=== PATIENT | female | born 1960 | race Caucasian/White ===

== ENCOUNTER → 2017-11-13 06:57 | Outpatient (CLI) | payer OTHER, SELFPAY ==
--- NOTE | 2017-11-15 11:21 | PFT ---
INTRODUCTION: The patient is a 56-year-old female currently under the care of Dr. Sameer Cifuentes the presents for pulmonary function testing secondary to a diagnosis of shortness of breath. Respiratory therapy reports good patient effort reports no other concerns. Bronchodilators were used during testing. INTERPRETATION: Forced expiration spirometry demonstrates no evidence of a large airways obstructive ventilatory defect. There was no significant response to aerosolized bronchodilators, based upon strict ATS criteria. Spirograms are of good quality and plateau normally. The respiratory flow volume loop appears normal. Body plethysmography was performed and reveals lung volumes to be within normal limits. Diffusing capacity by single breath CO is within normal limits. The airway resistance is also within normal limits. IMPRESSION: These pulmonary function studies are essentially within normal limits. There are no previous PFTs available for comparison. Clinical correlation is recommended.
== END ==
PROVIDERS: Family Provider Family Medicine; PCP Family Medicine; Visit Provider Family Medicine
DX: R06.02 Shortness of breath (principal); J32.9 Chronic sinusitis, unspecified; R05 Cough; F17.200 Nicotine dependence, unspecified, uncomplicated
CPT/HCPCS: 94060; 94726; 94729

== ENCOUNTER → 2018-01-21 15:02 | Outpatient (CLI) | payer OTHER, SELFPAY ==
--- NOTE | 2018-01-21 15:11 | RAD_ITS ---
STUDY: X-RAY - ABDOMEN/PELVIS REASON FOR EXAM: Female, 57 years old. Pt. experiencing low abdomen discomfort, pressure for 6 months TECHNIQUE: Single AP view of the abdomen / pelvis. COMPARISON: 08.21.16. FINDINGS: Normal visualized lung bases. There is an unremarkable bowel gas pattern. There is no demonstrated free abdominal air. The visualized liver, spleen and kidneys are grossly normal in size and morphology. Normal soft tissue structures. Stable deformities of both proximal femurs, and markedly horizontal position of the sacrum. RAD/Abdomen Single View IMPRESSION: There are no acute findings. Electronically Signed: Boy Samson MD at 16:55 EDT , Service support ,
== END ==
PROVIDERS: Family Provider Family Medicine; PCP Family Medicine; Visit Provider Urology
DX: R10.30 Lower abdominal pain, unspecified (principal)
CPT/HCPCS: 74018

== ENCOUNTER → 2018-02-17 14:21 | Outpatient (CLI) | payer OTHER, SELFPAY | PROVIDERS: Family Provider Family Medicine; PCP Family Medicine; Visit Provider Family Medicine | DX: R35.0 Frequency of micturition (principal) | CPT/HCPCS: 87086; 87088 ==

== ENCOUNTER → 2018-02-27 12:16 | Outpatient (CLI) | payer OTHER, SELFPAY ==
--- NOTE | 2018-02-27 12:20 | RAD_ITS ---
STUDY: X-RAY CHEST REASON FOR EXAM: Female, 57 years old. Chest heaviness TECHNIQUE: PA and lateral views of the chest. COMPARISON: August 08, 2016 FINDINGS: The lungs are clear and expanded. There is no demonstrated pleural abnormality. There is a round calcified focus within the infrahilar region that appears to be grossly stable and may reflect a calcified lymph node. Normal size heart. Normal mediastinum and tisha. Normal visualized pulmonary arteries. Normal visualized aortic arch and descending thoracic aorta. Normal visualized thoracic spine. Normal visualized ribs, clavicles, and shoulders. There is no demonstrated abnormality of the visualized soft tissue structures of the upper abdomen. RAD/Chest PA and Lateral IMPRESSION: No acute cardiopulmonary process. Electronically Signed: Jyotsna Herrera MD at 22:20 EDT Tel , Service support ,
== END ==
PROVIDERS: Family Provider Family Medicine; PCP Family Medicine; Visit Provider Family Medicine
DX: J20.9 Acute bronchitis, unspecified (principal)
CPT/HCPCS: 71046

== ENCOUNTER → 2018-03-14 10:40 | Outpatient (CLI) | payer OTHER, SELFPAY | PROVIDERS: Family Provider Family Medicine; PCP Family Medicine; Visit Provider Family Medicine | DX: R39.9 Unspecified symptoms and signs involving the genitourinary system (principal) | CPT/HCPCS: 87086; 87088 ==

== ENCOUNTER → 2019-02-18 10:42 | Outpatient (CLI) | payer OTHER, SELFPAY ==
--- NOTE | 2019-02-18 13:00 | NEURO ---
NCS and/or EMG Patient Report Ordering Doctor: Leigh Gotti DATE OF SERVICE: 02/18/19 Jacqueline Oliveira is a 58 year old female who presents for electrodiagnostic testing of the left upper limb. She reports pain in the left arm, especially prominent over the past several months. Electrodiagnostic findings: Left median motor nerve demonstrates normal distal latency, amplitude and conduction velocity. Normal left ulnar motor response. Normal median ulnar F-wave. Sensory responses are within normal limits. Needle EMG testing demonstrates 1+ fibrillations in the left pronator teres, left triceps and left lower cervical paraspinals. Motor unit action potentials are of normal amplitude and duration. Electrodiagnostic impression: This is an abnormal study in the left upper limb. 1. Electrodiagnostic findings demonstrate acute left-sided C7 radiculopathy. Consider clinical correlation with cervical spine imaging. 2. No electrodiagnostic evidence for peripheral neuropathy, including carpal tunnel syndrome.
== END ==
PROVIDERS: Family Provider Family Medicine; PCP Family Medicine; Referring Provider Family Medicine; Visit Provider Family Medicine
DX: G56.92 Unspecified mononeuropathy of left upper limb (principal)
CPT/HCPCS: 95886; 95910

== ENCOUNTER → 2019-03-04 13:02 | Outpatient (CLI) | payer OTHER, SELFPAY | PROVIDERS: Family Provider Family Medicine; PCP Family Medicine; Referring Provider Nurse Practitioner Family; Visit Provider Nurse Practitioner Family | DX: R35.0 Frequency of micturition (principal) | CPT/HCPCS: 87086; 87088 ==

== ENCOUNTER 2019-03-09 06:34 | Emergency (ER) | payer OTHER, SELFPAY ==
[2019-03-09 06:34] VITALS: BP 140/98; PULSE 74; RESP 18; TEMP 36.8; O2SAT 95; BMI 41.0
--- NOTE | 2019-03-09 06:36 | ED.VISSUMM ---
- ER Visit Summary Date of Service: 03/09/19 Chief Complaint: Dysuria History of Present Illness: The patient is a 58 F with a urinary tract infection last week she only was only partially treated due to intolerance. She took Bactrim for 3 days. She had felt better but now her symptoms are returning. No fever chills no flank pain. There is some nausea associated with this and burning with urination. No abdominal pain Physical Examination: Patient does not appear in distress, she has dwarfism, she has a soft nontender abdomen, she has paraspinal back pain but no flank pain. She appears well otherwise Emergency Department Course and Treatment: I will culture her urine and treat her with Cipro. I will also give her Zofran and Pyridium Disposition: Discharge stable condition Impression: UTI This note was generated with [employer] dictation software. It may contain incorrect words, spelling, and punctuation that were not noted in review of the chart prior to signing ED Disposition - Plan for ED Patient: Disposition: Home or Assisted Living Instructions: ED UTI Cystitis Female Prescriptions: Ondansetron [Zofran Odt] 4 mg PO Q8H PRN PRN #10 tab PRN Reason: Nausea Ciprofloxacin [Cipro] 500 mg PO BID #19 tab Phenazopyridine HCl [Pyridium] 200 mg PO BID #6 tab Referrals: Sameer Cifuentes MD [Primary Care Provider] - 3-5 Days
[2019-03-09] MEDS: Ondansetron ODT 4 MG Tablet PO (06:48)
[2019-03-09] MEDS: Ciprofloxacin 500 MG Tablet PO (07:16)
== END 2019-03-09 07:19 | disposition home or self-care (01) ==
PROVIDERS: Emergency Provider Emergency Medicine; Family Provider Family Medicine; PCP Family Medicine
DX: N39.0 Urinary tract infection, site not specified (principal); E34.3 Short stature due to endocrine disorder; Z72.0 Tobacco use; Z79.899 Other long term (current) drug therapy
CPT/HCPCS: 87086; 87088; 99283

== ENCOUNTER → 2019-04-23 07:53 | Outpatient (CLI) | payer OTHER, SELFPAY ==
--- NOTE | 2019-04-23 07:56 | BI_ITS ---
MAMMOGRAPHY - BILATERAL SCREENING 3-D TOMOSYNTHESIS REASON FOR EXAM: Female, 58 years old. Bilateral Screening 3-D tomosynthesis PERTINENT HISTORY: No significant family history. TECHNIQUE: 2-D mammograms and 3-D Tomosynthesis of the breast (s) were performed. CAD was performed. COMPARISON: 02/13/2017 FINDINGS: The breast composition is composed of scattered fibroglandular density. Scattered benign calcifications are seen. No dense spiculated masses or suspicious microcalcifications are identified. No architectural distortion is identified. There is no skin thickening or retraction. There has been no significant change since the prior study. BI/SCREEN MAMM (CAD) W/CHARLENE BILAT IMPRESSION: No mammographic signs of malignancy. Routine yearly mammograms recommended. ASSESSMENT CATEGORY: BIRADS Category 1: Negative. A letter regarding these results will be sent to the patient by the facility within 30 days. FOLLOW UP RECOMMENDATION: Yearly follow up mammogram recommended. (A) Approximately 10% of breast cancers are not detected by mammography. A normal mammogram should not delay biopsy of a clinically suspicious abnormality. Electronically Signed: Adal Decker MD at 9:39 EDT , Service support ,
== END ==
PROVIDERS: Family Provider Family Medicine; PCP Family Medicine; Referring Provider Family Medicine; Visit Provider Family Medicine
DX: Z12.31 Encounter for screening mammogram for malignant neoplasm of breast (principal)
CPT/HCPCS: 77063; 77067

== ENCOUNTER 2019-05-07 07:18 | Outpatient (RCR) | payer OTHER, SELFPAY ==
--- NOTE | 2019-05-08 15:16 | HP.OTFCE_ITS ---
HP OT Functional Capacity Eval - Work Activity/Posture Bending: Frequent Ability (34-66% of day) Squatting: Occasional Ability (1-33% of day) Kneeling: Occasional Ability (1-33% of day) Reaching out: Frequent Ability (34-66% of day) Reaching up: Frequent Ability (34-66% of day) Sitting: Frequent Ability (34-66% of day) Walking: Occasional Ability (1-33% of day) Standing: Frequent Ability (34-66% of day) - Reference Duration Sedentary Sedentary Light Light Light Medium Medium Medium Heavy Very Heavy Heavy Occasional (0-33% of day) Frequent (34-66% of day) Constant (67-100% of day) 10 # Negligible Negligible 15 # 8 # Negligible 20 # 10# Negli. 35 # 18 # 7 # 50 # 25 # 10 # 75 # 100 # >100 # 38 # 50 # >50 # 15 # 20 # >20 # - Patient Information Height: 1.22 m Weight:: 58.967 kg Hand Dominance: R BP (Medication Use/Usual Values per pt report): No - Medical History Medical History Including Restrictions: No provided by doctor and patient. She noted this is to get 'baseline'. - Diagnoses Diagnoses: Past Medical History: dwarfism, tobacco use (1/2 pack daily), neuropathy. Current: Jacqueline has been having increased neuropathy symptoms in upper extremity and lower extremity. Recent nerve conduction test showed increased nerve impingement causing neuropathy like symptoms due to L sided C7 radiculopathy. Medications: - Montelukast Sodium. -raNITIdine 15- max strength 150 mg tablet. - Loratadine 10 MG. - Phenazopyridine HCL 200 Mg tablet. - Fluticasome Propionate 50 MCG. - Escitalopram Oxalate 5MG. - ProAir HFA 108 - Symptoms Symptoms: Jacqueline noted main symptoms are numbness, tingling, and pain. She noted at times pain is achy and other times it is shooting. Sh enoted increased difficulties walking longer distances but is walking int building for work. - Pain Pain: Jacqueline has been on past pain management program with Dr. Christopher but is currently not on pain medications or program. It's going to get worse. . Andi Pain Questionnaire is a self-report pain assessment to determine a patient?s accurate psychodynamics for accurate pain rating. A score of 30 or high indicates poor psychodynamics and the greater probability of decreased accuracy with accurate pain reporting. Pre- Andi: 35. Post Andi:16. Fear Avoidance Questionnaire (FAQ) is a client self-report assessment for 18-64+ that has shown to be reliable and valid for determining increased fear with movements. A score of 96 or higher indicates increased fear avoidance behaviors. FAQ Pre-testing: -Fear avoidance belief about work (items 6,7,9,10,11,12,15): 15. -Fear avoidance belief about physical activity (items 2,3,4,5): 13. FAQ Post testing: -Fear avoidance belief about work (items 6,7,9,10,11,12,15): 24. -Fear avoidance belief about physical activity (items 2,3,4,5):17. Oswestry Neck and Low back questionnaire is a self-report assessment in which patients report their perceived level of disability based on their perceived pain. 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. She has worked there for the past 12 years. 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 - ADLS ADLS: Jacqueline live in trailer with four steps to enter with bilateral handrails. Once in trailer she has first floor set up. Jacqueline has adapted vehicle due to size. She noted she is often climbing on stools and chairs to reach heights. Jacqueline is independent with all activities of daily living like bathing, dressing, cooking, cleaning, and works full- time at [employer]. She cars for two cats and continues to drive with adaptive equipment. She noted that daily activities are getting more difficult to do. - Physical Examination Physical Examination: The purpose of this functional capacity evaluation (FCE) was to determine Camila physical ability. This FCE was performed in order to bartender helper in the determination of Camila ability to complete phayical activities. Aerobic limiting factor: 85% of max adjust HR= (220-age) *.38=369 bpm. Calculated max weight: 60% of weight= 78 lbs. Starting Diagnostics: - blood pressure: 135/ 90 mmHg. - Heart rate: 57 bpm. - Oxygen at room air with oximeter: 98% ROM: Range of Motion: Cervical Spine with goniometer: - flexion: 0-26. - extension: 0-32. - Lateral flexion R 0-41 , L 0-32. - Rotation: R 0-66 , L 0-49. . Lumbar Spine with goniometer: -Flexion:0- 70. -Extension: 0-45. - Lateral Flexion: R 0-39 , L 0-32 Strength: Shoulder flexion: -Dynamometer: R 8.7 , L 11.2 lbs. Shoulder extension: -Dynamometer: R 13.7 , L 11.9. Shoulder abduction: -Dynamometer: R 10.3 , L 10.6 lbs. Elbow. Elbow flexion: -Dynamometer: R 12.9 , L 14.2 lbs. Elbow extension: -Dynamometer: R 11.6 , L 14.7 lbs. Hip flexion: - Dynamometer: R 11.1 , L 14.3 lbs. Hip adduction: -Dynamometer: R 10.1 , L 11.3 lbs. Hip abduction: -Dynamometer: R 12.4 , L 14.6. Knee Flexion: - Dynamometer: R 21.7 , L 18.9. Knee extension: -Dynamometer: R 21.0 , L 18.6. Plantarflexion: -Dynamometer: R 12.9 , L 11.3. Dorsiflexion: - Dynamometer: R 14.6 , L 17.9 lbs Right Agriculture Instructor Strength Average: 28.66 Right Agriculture Instructor Strength Percentile: 56th Left Agriculture Instructor Strength Average: 28.00 Left Agriculture Instructor Strength Percentile: 50th Right Lateral Pinch Average: 14.00 Right Lateral Pinch Percentile: 75th Left Lateral Pinch Average: 12.00 Left Lateral Pinch Percentile: approximately 50th Right Tripod Pinch Average: 14.00 Right Tripod Pinch Percentile: approximately 75th Left Tripod Pinch Average: 11.33 Left Tripod Pinch Percentile: approximately 50th Comments: Five Span Agriculture Instructor testing on Dynamometer: Position 1: R 21 , L 25. Position 2: R 31 , L 30. Position 3: R 31 , L 26. Position 4: R 25 , L 23. Position 5: R 18 , L 17. A coefficient of variation greater than 15 % indicated decreased consistency of effort. Coefficient of variation: R 23%, L 19 %. Consistency of Effort: inconssient- but this is believed to be relative to sature as hand were smaller and increased difficulty holding are the greater positions. Sensation: Sensation testing completed on bilateral hands with monofilament touch test. A score of normal on touch test is 2.83 and within normal range with just some discrepancies for light touch is between 3.22-3.61. The higher the number in more complications related to patient?s ability to perceive touch related sensory stimuli. R hand: Thumb 3.84 ,2nd 2.83 , 3rd 2.83 , 4th 2.83 , 5th 2.83. L hand: Thumb 3.84 ,2nd 3.61 , 3rd 3.22 , 4th 2.83 , 5th 2.83 Fine Motor: Completed the Purdue Pegboard test to further determine the patient?s ability to complete 2-3 step tasks, assess fine motor control and general dexterity needed to complete assembly like work. The results are as follows: Right Hand: 10. -Percentile: 3rd. Left Hand: 9. -Percentile below 1st. Both Hands: 10. -Percentile: 2 nd. R+ L+ Both: 29. -percentile: below 1st. Assembly: 4. -percentile: below 1st. Table height 23 inches. Balance: Functional reach test is used to determine static balance in patients. A score of 15 is normal and less than 10 increases risk of falling. A score of 6 or less significantly increases a patient?s risk of falling. [place] 1: 13. [place] 2: 15. [place] 3: 14. Average: 14. Functional Gait Assessment (FGA) is a dynamic balance test to determine vestibular functioning and general dynamic balance ability of patient 18-65+. This assessment can be used with clients of various backgrounds to determine functional dynamic balance needed to complete every day work related tasks. 1.Gait Level Surface:1. 2.Change in Gait Speed: 3. 3.Gait with horizontal head turns:2. 4.Gait with vertical head turns:2. 5.Gait and pivot turn:3. 6.Step over obstacle:1. 7.Gait with narrow base of support:1. 8.Gait with eyes closed: 2. 9.Ambulating Backwards: 2. 10.Steps: 2. Total Score: 19 /maximum score 30. below two standard deviation for age related peer mean performance. - Non Material Handling Activities Bending: Heart rate prior to beginning with use of pulse oximeter: 80 bpm. 3x, 10x in 20 seconds, and 10x faster in 19 seconds. Completed with good body me chanics of feet shouderl width apart and fair spinal alignment. Increased cervical flexion noted with tasks. No pain behaviors observed. Heart rate posttest with use of pulse oximeter: 80 bpm. Perceived pain: 3/10 Squatting: Heart rate prior to beginning with use of pulse oximeter: 75 bpm. 3x, 10x in 29 seconds, and 10x faster in 21 seconds. Completed with fair body mechanics. Increased anterion flexion of trunk to promote balance and completion of tasks. Equal weight bearing obserserved to bilateral lower extremity. Able to complete full sqaut. Perceived pain: 3/10 Kneeling: Heart rate prior to beginning with use of pulse oximeter: 71 bpm. 3x, 10x in 25 seconds, and 10x faster in 32 seconds. Completed about 25% of total kneel. Increased weight distribution to R side. Completed need for R UE support to R leg to promote completion of tasks. Heart rate posttest with use of pulse oximeter: 85 bpm. Perceived pain: 3/10 Reaching out/up: Heart rate prior to beginning with use of pulse oximeter: 64 bpm. reaching out: 3x, 10x in 19 seconds, and 10x faster in 19 seconds. Heart rate posttest with use of pulse oximeter: 71. Perceived pain: 3/10. Reaching overhead: 3x, 10x in 22 seconds, and 10x faster in 23 seconds. Heart rate posttest with use of pulse oximeter: 71 bpm. Perceived pain: 3/10 Walking: Heart rate prior to beginning with use of pulse oximeter: 71 bpm. Completed walking [address] Mild antalgic gait observed to bilateral lower extremities. Heart rate posttest with use of pulse oximeter: 110. Blood pressure post walk: 123/88 mmHg. Perceived pain: Standing: Completed standing with static and dynamic tasks during testing for 37 minutes prior to needing seated break. Perceived pain: 3/10 pain Sitting: Jacqueline is able to tolerated sitting in standard chair with need to weight shift to left and the right sides for comofrt and pain management. She tolerated sitting for about 30 minutes prior to needing movement break. Climbing Stairs: Heart rate prior to beginning with use of pulse oximeter:82 bpm. blood pressure: 144/90 mmHg. Able to climb 10 stairs with reciprocal movements to ascending stairs and need for handrails assist and reciporal movements for decention. Heart rate posttest with use of pulse oximeter: 84 - Dynamic Occasional Lifting Capacity Floor Lift: Heart rateHeart rate prior to beginning with use of pulse oximeter: Max Weight: 30 lbs. Occasional: 25 lbs. Frequent: 12.5 lbs. Completed with increased cervical extentsion. Completed with good base of support and fair mechanics. Upper extremity in extended position during tasks. Would not exceed 12.5 lbs with consisent lifting tasks. Heart rate posttest with use of pulse oximeter: 107 Knee Lift: Heart rateHeart rate prior to beginning with use of pulse oximeter: 85 bpm. Occasional: 25 lbs. Frequent: 15 lbs. Compleetd with fair body mechanics. Increased trunk flexion observed for completion of tasks. Cerivical rotation to right side observed with placement of box. Heart rate posttest with use of pulse oximeter: 97 bpm Waist Lift: Heart rateHeart rate prior to beginning with use of pulse oximeter: Occasional: 30 - held breath. Frequent: 15 lbs. Fair body mechanics obserevd. Increase dmechanical compensations obvserved with placement due to short stature. 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 Pain behaviors observed due to mechanical compensations. Heart rate posttest with use of pulse oximeter: 87 bpm Shoulder Lift: Heart rateHeart rate prior to beginning with use of pulse oximeter: 82 bpm. Max weight: 30. Occasional: 25. Frequent: 15 lbs. Some holding breath; cervical turn to R side; fair body mechanics; mechanics compensations noted. Pain 3/10. Heart rate posttest with use of pulse oximeter: 122 bpm Overhead Lift: Heart rate prior to beginning with use of pulse oximeter: 88. Occasional: 20 lbs. Frequent: 10 lbs. Completed lift to 34 inches from floor height and 42 inches with box placed at top. Increased mechanical defefcits noted with size and stature as wella smechnical compensations observed of increased trunk extenion and holding breath to complete task. This was adapted to be sutiable for Christines height. Heart rate posttest with use of pulse oximeter: 77 bpm Carryin lbs 20 feet 1x. Heart rate posttest with use of pulse oximeter: 103 bpm Comments: Ending diagnostics: - blood pressure: 134/81 mmHg. - heart rate: 70 bpm. - oxygen at room tempterature: 97%. Percieved pain: 3-4/10 in left arma nd down L leg. Compensation for height due to dwarfism and need to adjsut to complete tasks.
--- NOTE | 2019-05-08 15:16 | HP.OTFCE.D ---
FCE D/C Summary - Discharge MILES LU was seen for a one time visit for an FCE on 05/07/19 and is discharged.
--- NOTE | 2019-05-18 09:13 | HP.OTFCE_ITS ---
HP OT Functional Capacity Eval Date of Evaluation: 05/07/19 - Task Lift Floor (Occasional 1-33% of Day): 25 Floor (Frequent 34-66% of Day): 12.5 Floor (Constant 67-100% of Day): negligible Floor PDL: Light Knee (Occasional 1-33% of Day): 25 Knee (Frequent 34-66% of Day): 15 Knee (Constant 67-100% of Day): negligible Knee PDL: Light Waist (Occasional 1-33% of Day): 30- held breath Waist (Frequent 34-66% of Day): 15 Waist (Constant 67-100% of Day): negligible Waist PDL: Light Shoulder (Occasional 1-33% of Day): 25 Shoulder (Frequent 34-66% of Day): 15 Shoulder (Constant 67-100% of Day): negligible Shoulder PDL: Light Overhead (Occasional 1-33% of Day): 20 Overhead (Frequent 34-66% of Day): 10 Overhead (Constant 67-100% of Day): negligible Overhead PDL: Light Comments: Completed bilateral carrying task 20 feet with 20 lbs. All tasks were completed based on stature and not on typical lifting heights as increased compensation and adaptations of step stool would be needed. - Work Activity/Posture Bending: Frequent Ability (34-66% of day) Squatting: Occasional Ability (1-33% of day) Kneeling: Occasional Ability (1-33% of day) Reaching out: Frequent Ability (34-66% of day) Reaching up: Frequent Ability (34-66% of day) Sitting: Frequent Ability (34-66% of day) Walking: Occasional Ability (1-33% of day) Standing: Frequent Ability (34-66% of day) - Reference Duration Sedentary Sedentary Light Light Light Medium Medium Medium Heavy Very Heavy Heavy Occasional (0-33% of day) Frequent (34-66% of day) Constant (67-100% of day) 10 # Negligible Negligible 15 # 8 # Negligible 20 # 10# Negli. 35 # 18 # 7 # 50 # 25 # 10 # 75 # 100 # >100 # 38 # 50 # >50 # 15 # 20 # >20 # - Patient Information Height: 1.22 m Weight:: 58.967 kg Hand Dominance: R BP (Medication Use/Usual Values per pt report): No - Medical History Medical History Including Restrictions: Not provided by doctor and patient. She noted this is to get 'baseline'. - Diagnoses Diagnoses: Past Medical History: dwarfism, tobacco use (1/2 pack daily), neuropathy. Current: Jacqueline has been having increased neuropathy symptoms in bilateral upper extremities and lower extremity. Recent nerve conduction test showed increased nerve impingement causing neuropathy like symptoms due to L sided C7 radiculopathy. Medications: - Montelukast Sodium. -raNITIdine 15- max strength 150 mg tablet. - Loratadine 10 MG. - Phenazopyridine HCL 200 Mg tablet. - Fluticasone Propionate 50 MCG. - Escitalopram Oxalate 5MG. - ProAir HFA 108 - Symptoms Symptoms: Jacqueline noted main symptoms are numbness, tingling, and pain. She noted at times pain is achy and other times it is shooting. She noted increased difficulties walking longer distances but is walking int building for work. - Pain Pain: Jacqueline has been on past pain management program with Dr. Christopher but is currently not on pain medications or program. It's going to get worse. . Andi Pain Questionnaire is a self-report pain assessment to determine a patient?s accurate psychodynamics for accurate pain rating. A score of 30 or high indicates poor psychodynamics and the greater probability of decreased accuracy with accurate pain reporting. Pre- Andi: 35. Post Andi:16. Fear Avoidance Questionnaire (FAQ) is a client self-report assessment for 18-64+ that has shown to be reliable and valid for determining increased fear with movements. A score of 96 or higher indicates increased fear avoidance behaviors. FAQ Pre-testing: -Fear avoidance belief about work (items 6,7,9,10,11,12,15): 15. -Fear avoidance belief about physical activity (items 2,3,4,5): 13. FAQ Post testing: -Fear avoidance belief about work (items 6,7,9,10,11,12,15): 24. -Fear avoidance belief about physical activity (items 2,3,4,5):17. Oswestry Neck and Low back questionnaire is a self-report assessment in which patients report their perceived level of disability based on their perceived pain. 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 - Behavioral Behavioral: Jacqueline completed tasks based on her stature and height. She was pleasant,cooperative, participative for all tasks. - ADLS ADLS: Jacqueline live in trailer with four steps to enter with bilateral handrails. Once in trailer she has first floor set up. Jacqueline has adapted vehicle due to size. She noted she is often climbing on stools and chairs to reach heights. Jacqueline is independent with all activities of daily living like bathing, dressing, cooking, cleaning, and works full- time at [employer]. She cars for two cats and continues to drive with adaptive equipment. She noted that daily activities are getting more difficult to do. - Physical Examination Physical Examination: The purpose of this functional capacity evaluation (FCE) was to determine Jacqueline?s physical ability. This FCE was performed in order to printer slotter helper in the determination of Jacqueline?s ability to complete physical activities. Aerobic limiting factor: 85% of max adjust HR= (220-age) *.86=292 bpm. Calculated max weight: 60% of weight= 78 lbs. Starting Diagnostics: - blood pressure: 135/ 90 mmHg. - Heart rate: 57 bpm. - Oxygen at room air with oximeter: 98% ROM: Range of Motion: Cervical Spine with goniometer: - flexion: 0-26. - extension: 0-32. - Lateral flexion R 0-41 , L 0-32. - Rotation: R 0-66 , L 0-49. . Lumbar Spine with goniometer: -Flexion:0- 70. -Extension: 0-45. - Lateral Flexion: R 0-39 , L 0-32 Strength: Shoulder flexion: -Dynamometer: R 8.7 , L 11.2 lbs. Shoulder extension: -Dynamometer: R 13.7 , L 11.9. Shoulder abduction: -Dynamometer: R 10.3 , L 10.6 lbs. Elbow. Elbow flexion: -Dynamometer: R 12.9 , L 14.2 lbs. Elbow extension: -Dynamometer: R 11.6 , L 14.7 lbs. Hip flexion: - Dynamometer: R 11.1 , L 14.3 lbs. Hip adduction: -Dynamometer: R 10.1 , L 11.3 lbs. Hip abduction: -Dynamometer: R 12.4 , L 14.6. Knee Flexion: - Dynamometer: R 21.7 , L 18.9. Knee extension: -Dynamometer: R 21.0 , L 18.6. Plantarflexion: -Dynamometer: R 12.9 , L 11.3. Dorsiflexion: -Dynamometer: R 14.6 , L 17.9 lbs Right Wellness Assistant Strength Average: 28.66 Right Wellness Assistant Strength Percentile: 56th Left Wellness Assistant Strength Average: 28.00 Left Wellness Assistant Strength Percentile: 50th Right Lateral Pinch Average: 14.00 Right Lateral Pinch Percentile: 75th Left Lateral Pinch Average: 12.00 Left Lateral Pinch Percentile: approximately 50th Right Tripod Pinch Average: 14.00 Right Tripod Pinch Percentile: approximately 75th Left Tripod Pinch Average: 11.33 Left Tripod Pinch Percentile: approximately 50th Comments: Five Span Wellness Assistant testing on Dynamometer: Position 1: R 21 , L 25. Position 2: R 31 , L 30. Position 3: R 31 , L 26. Position 4: R 25 , L 23. Position 5: R 18 , L 17. A coefficient of variation greater than 15 % indicated decreased consistency of effort. Coefficient of variation: R 23%, L 19 %. Consistency of Effort: inconsistent- but this is believed to be relative to stature as hands were smaller and increased difficulty holding dynamometer when placed at positions 3,4, and 5. Sensation: Sensation testing completed on bilateral hands with monofilament touch test. A score of normal on touch test is 2.83 and within normal range with just some discrepancies for light touch is between 3.22-3.61. The higher the number in more complications related to patient?s ability to perceive touch related sensory stimuli. R hand: Thumb 3.84 ,2nd 2.83 , 3rd 2.83 , 4th 2.83 , 5th 2.83. L hand: Thumb 3.84 ,2nd 3.61 , 3rd 3.22 , 4th 2.83 , 5th 2.83 Fine Motor: Completed the Purdue Pegboard test to further determine the patient?s ability to complete 2-3 step tasks, assess fine motor control and general dexterity needed to complete assembly like work. The results are as follows: Right Hand: 10. -Percentile: 3rd. Left Hand: 9. -Percentile below 1st. Both Hands: 10. -Percentile: 2 nd. R+ L+ Both: 29. -percentile: below 1st. Assembly: 4. -percentile: below 1st. Table height 23 inches. Height based on statue and accommodation made appropriate to reduce Jacqueline?s need to use stool. Balance: Functional reach test is used to determine static balance in patients. A score of 15 is normal and less than 10 increases risk of falling. A score of 6 or less significantly increases a patient?s risk of falling. Rush 1: 13. Rush 2: 15. Rush 3: 14. Average: 14. Functional Gait Assessment (FGA) is a dynamic balance test to determine vestibular functioning and general dynamic balance ability of patient 18-65+. This assessment can be used with clients of various backgrounds to determine functional dynamic balance needed to complete every day work related tasks. 1.Gait Level Surface:1. 2.Change in Gait Speed: 3. 3.Gait with horizontal head turns:2. 4.Gait with vertical head turns:2. 5.Gait and pivot turn:3. 6.Step over obstacle:1. 7.Gait with narrow base of support:1. 8.Gait with eyes closed: 2. 9.Ambulating Backwards: 2. 10.Steps: 2. Total Score: 19 /maximum score 30. Below two standard deviations based on performance of age related peers mean performance. - Non Material Handling Activities Bending: Heart rate prior to beginning with use of pulse oximeter: 80 bpm. 3x, 10x in 20 seconds, and 10x faster in 19 seconds. Completed with good body mechanics of feet shoulder width apart and fair spinal alignment. Increased cervical flexion noted with tasks. No pain behaviors observed. Heart rate posttest with use of pulse oximeter: 80 bpm. Perceived pain: 3/10 Squatting: Heart rate prior to beginning with use of pulse oximeter: 75 bpm. 3x, 10x in 29 seconds, and 10x faster in 21 seconds. Completed with fair body mechanics. Increased anterior flexion of trunk to promote balance and completion of tasks. Equal weight bearing observed to bilateral lower extremity. Able to complete full squat. Perceived pain: 3/10 Kneeling: Heart rate prior to beginning with use of pulse oximeter: 71 bpm. 3x, 10x in 25 seconds, and 10x faster in 32 seconds. Completed about 25% of full kneel with fair body mechanics. Increased mechanical compensations observed with increased weight distribution to R side. Completed need for right upper extremity support to right leg to promote completion of tasks. Heart rate posttest with use of pulse oximeter: 85 bpm. Perceived pain: 3/10 Reaching out/up: Heart rate prior to beginning with use of pulse oximeter: 64 bpm. reaching out: 3x, 10x in 19 seconds, and 10x faster in 19 seconds. Completed with full range of motion of bilateral upper extremity. She exhibits fair body mechanics with some mild mechanical changes of cervical retraction during task. No increase in speed with set that was to be quicker. Heart rate posttest with use of pulse oximeter: 71. Perceived pain: 3/10. Reaching overhead: 3x, 10x in 22 seconds, and 10x faster in 23 seconds. Completed with full range of motion of bilateral upper extremity. She exhibits fair body mechanics with some increased pain behaviors of holding breath off and on during task. No increase in speed with set that was to be quicker. Heart rate posttest with use of pulse oximeter: 71 bpm. Perceived pain: 3/10 Walking: Heart rate prior to beginning with use of pulse oximeter: 71 bpm. Completed walking [address] Moderate antalgic gait observed to bilateral lower extremities. She exhibits ability to complete frequent walking tasks with respect to speed based on stature. Heart rate posttest with use of pulse oximeter: 110. Blood pressure post walk: 123/88 mmHg. Perceived pain: 3/10 Standing: Completed standing with static and dynamic tasks during testing for 37 minutes prior to needing seated break. Perceived pain: 3/10 pain Sitting: Jacqueline is able to tolerate sitting in standard chair with need to weight shift to left and the right sides for comfort and pain management. She tolerated sitting for about 30 minutes prior to needing movement break. Climbing Stairs: Heart rate prior to beginning with use of pulse oximeter:82 bpm. blood pressure: 144/90 mmHg. Able to climb 10 stairs with reciprocal movements to ascending stairs and need for handrail assist and reciprocal movements for descension. Completed with fair body mechanics. Heart rate posttest with use of pulse oximeter: 84 bpm - Dynamic Occasional Lifting Capacity Floor Lift: Heart rate prior to beginning with use of pulse oximeter: 84 bpm. Max Weight: 30 lbs. Occasional: 25 lbs. Frequent: 12.5 lbs. Completed with increased cervical extension. Completed with good base of support and fair mechanics. Upper extremity observed in extended position during tasks. Would not exceed 12.5 lbs with frequent lifting tasks. This tasks was based on stature. Heart rate posttest with use of pulse oximeter: 107 Knee Lift: Heart rate prior to beginning with use of pulse oximeter: 85 bpm. Occasional: 25 lbs. Frequent: 15 lbs. Completed with fair body mechanics. Increased trunk flexion observed for completion of tasks. Cervical rotation to right side observed with placement of box to incline about 6 inches. Mechanical compensation made to complete task based on stature to eliminate the need to complete changes or step stool to complete tasks. Heart rate posttest with use of pulse oximeter: 97 bpm Waist Lift: Heart rate prior to beginning with use of pulse oximeter: Occasional: 30 - held breath. Frequent: 15 lbs. Fair body mechanics observed. Increased mechanical compensations observed with placement due to short stature. Blue Split Trimmer deficits noted as unable to complete to normal height but completed based on client physical stature. Pain behaviors observed due to mechanical compensations. Heart rate posttest with use of pulse oximeter: 87 bpm Shoulder Lift: Heart rate prior to beginning with use of pulse oximeter: 82 bpm. Max weight: 30. Occasional: 25. Frequent: 15 lbs. Jacqueline was observed to be holding her breath during tasks. Fair body mechanical observed. Blue Split Trimmer compensations of increased cervical turn to right side observed. Additional mechanical compensations made to complete task based on stature. Pain 3/. Heart rate posttest with use of pulse oximeter: 122 bpm Overhead Lift: Heart rate prior to beginning with use of pulse oximeter: 88. Occasional: 20 lbs. Frequent: 10 lbs. Completed lift to 34 inches from floor height and 42 inches with box placed at top. Increased mechanical deficits noted with size and stature as well as mechanical compensations observed of increased trunk extension and holding breath to complete task. This was adapted to be suitable for Jacqueline?s height. She completed with fair- poor body mechanics. Pain: 3/. Heart rate posttest with use of pulse oximeter: 77 bpm Carryin lbs 20 feet 1x. Completed with fair body mechanics. Mechanics deficits observed with bilateral antalgic gait and increased retraction of cervical spine and extension of spine. . Pain: 3/10. Heart rate posttest with use of pulse oximeter: 103 bpm Comments: Ending diagnostics: - blood pressure: 134/81 mmHg. - heart rate: 70 bpm. - oxygen at room temperature with use of pulse oximeter: 97%. Perceived pain: 3-4/10 in left arm and down left leg. Compensation for height due to dwarfism were completed to completed lifting tasks during assessment.
== END 2019-05-07 19:00 | disposition home or self-care (01) ==
LOC: OT 07:18
PROVIDERS: Family Provider Family Medicine; PCP Family Medicine; Referring Provider Family Medicine; Visit Provider Family Medicine
DX: Q77.4 Achondroplasia (principal); M48.00 Spinal stenosis, site unspecified; G58.9 Mononeuropathy, unspecified
CPT/HCPCS: 97750

== ENCOUNTER → 2019-10-05 13:36 | Outpatient (CLI) | payer OTHER, SELFPAY ==
[2019-10-05 14:28] LABS: Bacteria 0 SEEN /hpf (None Seen); Mucous, Urine 0 SEEN /hpf (<or=2+); Squamous Epithelial Cells - UA 0 SEEN /hpf (5-10); White Blood Cells 0 SEEN /hpf (0-5)
[2019-10-05 14:49] LABS: Color, Urine Yellow (Yellow); Glucose, Dipstick Normal (Normal); Ketone-Dipstick Negative (Negative); Leukocyte Esterase-Dipstick Negative /ul (Negative); Nitrite-Dipstick Negative (Negative); Occult Blood-Urine 150 /ul (Negative); Protein-Dipstick Negative (Negative); Specific Gravity, Urine 1.015 (1.002-1.030); Urine Bilirubin Dipstick Negative (Negative); Urine Clarity Clear (Clear); Urine Urobilinogen Normal (Normal)
[2019-10-05 14:58] LABS: Red Blood Cells-Urine 0-5 SEEN /hpf (0-5)
== END ==
PROVIDERS: Family Provider Family Medicine; PCP Family Medicine; Referring Provider Nurse Practitioner Family; Visit Provider Nurse Practitioner Family
DX: N39.0 Urinary tract infection, site not specified (principal)
CPT/HCPCS: 81001; 87086; 87088

== ENCOUNTER 2019-11-22 08:32 | Emergency (ER) | payer OTHER, SELFPAY ==
[2019-11-22 08:34] VITALS: BP 127/90; PULSE 102; RESP 17; TEMP 37.7; O2SAT 94; BMI 38.6
--- NOTE | 2019-11-22 09:15 | RAD_ITS ---
STUDY: X-RAY CHEST REASON FOR EXAM: Female, 58 years old. NAUSEA, VOMITING, COUGH, SORE THROAT TECHNIQUE: PA and lateral views of the chest. COMPARISON: 02/27/2018 FINDINGS: The lungs are clear and expanded. There is no demonstrated pleural abnormality. Normal size heart. Normal mediastinum and tisha. Normal visualized pulmonary arteries. Normal visualized aortic arch and descending thoracic aorta. Normal visualized thoracic spine. Normal visualized ribs, clavicles, and shoulders. There is no demonstrated abnormality of the visualized soft tissue structures of the upper abdomen. RAD/Chest PA and Lateral IMPRESSION: Normal x-ray examination of the chest. Electronically Signed: Abelardo Bocanegra MD at 10:00 EST Tel , Service support ,
--- NOTE | 2019-11-22 09:16 | ED.VISSUMM ---
- ER Visit Summary Date of Service: 11/22/19 Chief Complaint: Sore throat with subjective fever and cough. Also nausea and vomiting. History of Present Illness: The patient is a 58 F states that today she is had a sore throat and subjective fever. Cough. Intermittent nausea vomiting. No abdominal pain. No dysuria. No shortness of breath. She did get a flu vaccine around June. Physical Examination: Middle-aged female history of dwarfism. Vital signs are stable. She is afebrile temperature 998. She does not look septic or toxic. Pulse ox is 94% on room air no signs hypoxia. She is in no distress. H EENT exam moist with membranes. Posterior pharynx normal. TM normal. Neck nontender no lymphadenopathy. No meningismus. Lungs clear to auscultation bilaterally. Heart regular rhythm rate about 100 no murmur. Chest were nontender. Abdomen soft nontender normal bowel sounds no peritoneal signs. Remedies moves all 4. Calves nontender without edema or cords. Back nontender. Skin no rashes. Neurologically she is awake alert with no focal motor deficits. Test Results: Chest x-ray AP lateral views read by myself shows no acute pneumonia. Normal cardiac silhouette mediastinum. Emergency Department Course and Treatment: History and exam are consistent with a viral syndrome suspected influenza. Patient treated with p.o. Zofran. P.o. fluids. Reassessed and doing well at ga 10:17 AM. Treatment Plan: Zofran as needed for nausea. Plenty of fluids and rest. Alternate Tylenol Motrin for any fever. Follow-up if not improving. Return if worse. Disposition: Discharge Impression: Acute viral syndrome This note was generated with [employer] dictation software. It may contain incorrect words, spelling, and punctuation that were not noted in review of the chart prior to signing ED Disposition - Plan for ED Patient: Disposition: Home or Assisted Living Instructions: VIRAL SYNDROME (Adult) Prescriptions: Ondansetron [Zofran Odt] 4 mg PO Q8H PRN PRN #7 tab PRN Reason: Nausea Prescription Printed Referrals: Sameer Cifuentes MD [Primary Care Provider] - 3-5 Days if not improving Additional Instructions: Plenty of fluids and rest. Alternate Tylenol and Motrin for fever. Zofran as needed for nausea. Follow-up with your doctor if not improving or return if worse.
--- NOTE | 2019-11-22 09:18 | ED.DEP ---
ED Disposition - Plan for ED Patient: Disposition: Home or Assisted Living Instructions: VIRAL SYNDROME (Adult) Prescriptions: Ondansetron [Zofran Odt] 4 mg PO Q8H PRN PRN #7 tab PRN Reason: Nausea Prescription Printed Referrals: Sameer Cifuentes MD [Primary Care Provider] - 3-5 Days if not improving Additional Instructions: Plenty of fluids and rest. Alternate Tylenol and Motrin for fever. Zofran as needed for nausea. Follow-up with your doctor if not improving or return if worse.
[2019-11-22] MEDS: Ondansetron ODT 4 MG Tablet 8 MG PO (09:19)
[2019-11-22 10:25] VITALS: BP 118/85; PULSE 82; RESP 15
== END 2019-11-22 10:26 | disposition home or self-care (01) ==
PROVIDERS: Emergency Provider Emergency Medicine; PCP Family Medicine
DX: B34.9 Viral infection, unspecified (principal); J02.9 Acute pharyngitis, unspecified; R11.2 Nausea with vomiting, unspecified; R05 Cough; F41.9 Anxiety disorder, unspecified; E34.3 Short stature due to endocrine disorder; Z72.0 Tobacco use; Z79.899 Other long term (current) drug therapy
CPT/HCPCS: 71046; 99282

== ENCOUNTER → 2019-12-04 13:42 | Outpatient (CLI) | payer OTHER, SELFPAY ==
[2019-11-22 08:34] VITALS: BMI 38.6
--- NOTE | 2019-12-04 13:45 | CT_ITS ---
STUDY: LOW DOSE CT LUNG CANCER SCREENING REASON FOR EXAM: Female, 58 years old. TOBACCO ABUSE -- 10 CIGS/DAY X35+ YEARS RADIATION DOSAGE (If Supplied By Facility): CTDIvol = ( 1.70 ) mGy, DLP = ( 74.26 ) mGycm TECHNIQUE: No contrast was administered. Low dose technique was utilized (average mAS-38 and kVp 120). 1.25 mm axial source images with a slice interval of 1.25-mm were reconstructed in lung windows. 2.5 mm axial source images with a slice interval of 2.5-mm were reconstructed in lung windows. 5.0 mm axial source images with a slice interval of 5.0-mm were reconstructed in soft tissue windows. Nodule measured using lung windows on PACS and/or independent workstation with automated measurement of minimum and maximum diameter. Nodule measurement reported as average diameter rounded to the nearest whole number. Growth is defined as an increase ins size of greater than 1.5 mm. COMPARISON: None. NODULES: No suspicious nodular density is seen. Emphysema: Mild degree of increased markings in the lingular segment of the left upper lobe with areas of confluence suggestive of a scarring and/or atelectasis. Minimal linear scarring at the left lung base. Endobronchial lesion: None. Aorta: Unremarkable. Heart: Borderline cardiomegaly. Pulmonary artery: Unremarkable. Mediastinal nodes: Small benign-appearing mediastinal lymph nodes. Other chest and abdominal findings: Mild degree of degenerative changes of the thoracic spine. CT/Low Dose CT Lung Screening IMPRESSION: Lung-RADS category 2 - Continue annual screening with LDCT in 12 months. IMPORTANT NOTES FOR USE: ACR Lung-RADS Version 1.0 Assessment Categories Release Date: January 25, 2014 Category: Coded 0-4 bases on nodule(s) with highest degree of suspicion. Negative screen is defined as categories 1 and 2; a positive screen is defined as categories 3 and 4. Category 3 and 4A nodules that are unchanged on interval CT should be coded as category 2, and individuals returned to screening in 12 months. Category 4X: Category 3 or 4 nodules with additional imaging findings that increase the suspicion of lung cancer, such as spiculation, GGN that doubles in size in 1 year, enlarged lymph notes, etc. Category Modifiers: S (significant finding unrelated to lung cancer) and C (prior history of treated lung cancer) may be added to the 0-4 Lung-RADS Electronically Signed: Bhaskar Rowe, at 15:21 EST , Service support ,
== END ==
PROVIDERS: PCP Family Medicine; Referring Provider Family Medicine; Visit Provider Family Medicine
DX: Z12.2 Encounter for screening for malignant neoplasm of respiratory organs (principal); Z87.891 Personal history of nicotine dependence
CPT/HCPCS: G0297

== ENCOUNTER → 2020-03-15 | Outpatient (CLI) | payer OTHER, SELFPAY | END | disposition home or self-care (01) | LOC: LABSPEC 12:21 | PROVIDERS: PCP Family Medicine; Referring Provider Family Medicine; Visit Provider Family Medicine | DX: N30.90 Cystitis, unspecified without hematuria (principal) | CPT/HCPCS: 87086; 87088 ==

== ENCOUNTER 2020-05-09 12:16 | Emergency (ER) | payer OTHER, SELFPAY ==
[2020-05-09 12:16] VITALS: BP 155/99; PULSE 67; RESP 18; TEMP 36.3; O2SAT 96; BMI 38.5
--- NOTE | 2020-05-09 13:59 | ED.VIS.GEN ---
History of Present Illness Chief Complaint: Fall Informant: Patient Onset: Today Narrative: Patient states that she sustained a mechanical fall at work when her feet got caught on the carpeting. She fell forward and tried to brace herself with her arms but arms came up flex at the elbow and underneath her body mostly her weight ended up on the left side. She struck her forehead on the ground. No loss of consciousness. She denies any neurologic changes. She has full range of motion of the arm. She has a forehead hematoma and her employer was concerned about head injury. She is not on any blood thinners. Past Medical History - Allergies and Home Meds Allergies/Adverse Reactions: Allergies Cephalosporins Allergy (Verified 05/09/20 12:23) Hives codeine Adverse Reaction (Mild, Verified 05/09/20 12:23) Nausea erythromycin base [From E-Mycin] Adverse Reaction (Verified 05/09/20 12:23) Nausea/Vom/Diarrhea sulfamethoxazole [From Bactrim] Adverse Reaction (Verified 05/09/20 12:23) Nausea trimethoprim [From Bactrim] Adverse Reaction (Verified 05/09/20 12:23) Nausea decongestants Adverse Reaction (Unknown, Uncoded 05/09/20 12:23) Unknown Primary Care Physician: [facility] [NON-STAFF] - 1 Week if not improving Surgical History: no surgical history Smoking Status: Current every day smoker - Family History Maternal Family History: Family History (Last Reviewed 02/11/18 @ 08:09 by Maryam Huerta) Father Prostate cancer Skin cancer Mother Parkinsons disease Hypertension Family History: Reports: No pertinent history Review of Systems General: Denies: Chills, Fever, Sweats Eyes: Denies: Visual changes - bilaterally, Diplopia ENT: Denies: Rhinorrhea, Sore throat Cardiovascular: Denies: Chest pain, Palpitations Respiratory: Denies: Dyspnea, Cough, Dyspnea on exertion Gastrointestinal: Denies: Abdominal pain, Nausea, Vomiting, Diarrhea, Melena, Hematochezia Genitourinary: Denies: Dysuria, Hematuria, Frequency Musculoskeletal: Denies: Back pain, Extremity Pain Skin: Denies: Rash, Wounds Neurological: Denies: Headache, Weakness, Numbness Physical Exam Vital Signs/Narrative: Vital Signs Temp Pulse Resp BP Pulse Ox 05/09/20 12:16 97.4 F L 67 18 155/99 H 96 Inital Vital Signs reviewed: Yes General: Well nourished, Well developed, No Acute Distress Head: Normocephalic, - - Left forehead hematoma. No bony depression. Eyes: Perrl, EOMI ENT: Moist mucous membranes, No rhinorrhea Neck: Supple, Nontender Cardiovascular: Regular rate, Regular rhythm, No murmurs Respiratory: No distress, CTA bilaterally, Chest nontender Abdomen: Soft, Nontender, Nondistended, Normal bowel sounds Back: Nontender, Normal Inspection Extremities: Nontender, No edema Skin: Normal color, No rash Neurological: Alert, Oriented x3, Cranial nerves II-XII grossly intact, Normal Strength, Normal Sensation Psychological: Normal affect, Normal Mood Diagnostic/Tx/Re-eval - Medical Decision Making It is been approximately 5 hours since the injury. No loss of consciousness. She is under the age of 62.is not on any blood thinners and has a normal neurologic examination. I do not believe she needs a head CT. Full range of motion of the arms has neurovascular intact there. Patient will be discharged home with supportive care return if worsening or concerns ED Disposition - Plan for ED Patient: Disposition: Home or Assisted Living Diagnosis: Fall, Forehead contusion, Contusion of left arm Instructions: ED Head Injury Adult Referrals: Clinic,[facility] [NON-STAFF] - 1 Week if not improving
== END 2020-05-09 14:26 | disposition home or self-care (01) ==
LOC: ED 14:08
PROVIDERS: Emergency Provider Emergency Medicine; PCP Family Medicine
DX: S00.83XA Contusion of other part of head, initial encounter (principal); W01.0XXA Fall on same level from slipping, tripping and stumbling without subsequent striking against object, initial encounter; Y93.9 Activity, unspecified; Y92.89 Other specified places as the place of occurrence of the external cause; Y99.0 Civilian activity done for income or pay; F17.200 Nicotine dependence, unspecified, uncomplicated; S40.022A Contusion of left upper arm, initial encounter
CPT/HCPCS: 99282

== ENCOUNTER → 2020-07-07 08:13 | Outpatient (CLI) | payer OTHER, SELFPAY ==
--- NOTE | 2020-07-07 08:19 | US_ITS ---
STUDY: RENAL ULTRASOUND - COMPLETE REASON FOR EXAM: Female, 59 years old. UTI TECHNIQUE: Ultrasound evaluation of the kidneys was performed with real-time and static patel-scale imaging. COMPARISON: 04/12/2017 FINDINGS: RIGHT KIDNEY: Normal location of the right kidney, which is normal in size. The right kidney measures 10.0 cm. There is a normal cortex of the right kidney. The renal cortex measures 1.2 cm. 1.8 cm cyst lower pole the right kidney. 1.2 cm cyst in the upper pole the right kidney. Another 1 cm cyst in the upper pole the right kidney. There are no right renal calculi. There is no right hydronephrosis. DISTAL RIGHT URETER: There is non-visualization of the distal right ureter. There is no demonstrated right ureterovesical junction calculus. There is a visualized right ureteral jet. LEFT KIDNEY: Normal location of the left kidney, which is normal in size. The left kidney measures 10.6 cm. There is a normal cortex of the left kidney. The renal cortex measures 1.1 cm. 1.6 cm cyst in the upper pole of the left kidney. 1.6 cm cyst lower pole left kidney. There are no left renal calculi. There is mild hydronephrosis of the left kidney. DISTAL LEFT URETER: There is non-visualization of the distal left ureter. There is no demonstrated left ureterovesical junction calculus. There is a visualized left ureteral jet. Structures BLADDER: The distended urinary bladder has a volume of 33 ml. The empty urinary bladder has a volume of ml. There is a normal wall thickness of the distended urinary bladder. There is no demonstrated mass within the urinary bladder. There are no demonstrated bladder calculi. US/Kidney and Bladder IMPRESSION: Mild left hydronephrosis. Correlation with CT may be useful. Electronically Signed: Abelardo Bocanegra MD at 9:24 EDT Tel , Service support ,
== END ==
PROVIDERS: PCP Family Medicine; Referring Provider Urology; Visit Provider Urology
DX: N39.0 Urinary tract infection, site not specified (principal)
CPT/HCPCS: 76770

== ENCOUNTER → 2020-07-20 15:59 | Outpatient (CLI) | payer OTHER, SELFPAY ==
[2020-07-20 18:46] LABS: Creatinine, Serum 0.64 mg/dL (0.55-1.02); EST Glomerular Filtration Rate 102 mL/min (>60); Est Glom Filt Rate - Afr Amer 123 mL/min (>60)
== END ==
PROVIDERS: PCP Family Medicine; Referring Provider Urology; Visit Provider Urology
DX: N39.0 Urinary tract infection, site not specified (principal)
CPT/HCPCS: 36415; 82565

== ENCOUNTER → 2020-07-21 14:39 | Outpatient (CLI) | payer OTHER, SELFPAY ==
--- NOTE | 2020-07-21 14:44 | CT_ITS ---
STUDY: CT ABDOMEN AND PELVIS WITH AND WITHOUT CONTRAST REASON FOR EXAM: Female, 59 years old. LEFT HYDRONEPHROSIS. H/O KS REQUIRING SURGICAL INTERVENTION/STENTS RADIATION DOSAGE (If Supplied By Facility): CTDIvol = ( 15.14 ) mGy, DLP = ( 1996.19 ) mGycm TECHNIQUE: Transaxial images were obtained from the dome of the diaphragm to the symphysis pubis without oral contrast. IV 100mL Isovue-300 was administered. Sagittal and coronal images were reconstructed. Individualized dose optimization techniques were used for this CT. COMPARISON: Comparison is made with prior study dated 09/05/2016. FINDINGS: The visualized lung bases are unremarkable. The visualized portions of the heart are within normal limits. Normal liver. The patient is status post cholecystectomy. Normal spleen. Normal pancreas. Normal bilateral adrenal glands. 2 mm calculus in the lower pole calyx of the right kidney. 5.3 mm calculus in the lower pole calyx. Tiny calculi are also seen in the lower pole calyx of the right kidney. Stable small bilateral renal cysts. Moderate degree of a left hydronephrosis and hydroureter due to a 8.2 mm calculus at the left ureterovesical junction as it enters the bladder. Normal visualized stomach. Normal small intestine. There are multiple colonic diverticula consistent with diverticulosis. The appendix is visualized and appears normal. Normal abdominal aorta. Normal inferior vena cava. Normal retroperitoneum. Normal urinary bladder. There is a small umbilical hernia containing fat. There are mild degenerative changes of the visualized lumbar spine. CT/CT Abd/Pelvis W/WO Contrast IMPRESSION: Small bilateral renal cysts. Nonobstructive calculi in the right kidney. Mild to moderate degree of left hydronephrosis and left hydroureter due to an 8.2 mm calculus at the left UV junction. Electronically Signed: Bhaskar Rowe, at 12:53 EDT , Service support ,
== END ==
PROVIDERS: PCP Family Medicine; Referring Provider Urology; Visit Provider Urology
DX: N13.30 Unspecified hydronephrosis (principal); N39.0 Urinary tract infection, site not specified
CPT/HCPCS: 74178; Q9967

== ENCOUNTER 2020-08-02 06:21 | Day surgery (SDC) | payer OTHER, SELFPAY ==
[2020-08-02 06:59] VITALS: BP 127/87; PULSE 65; RESP 16; TEMP 37.1; O2SAT 98; BMI 38.7
[2020-08-02] MEDS: Lactated Ringers 1,000 ML 100 ML IV (07:04)
--- NOTE | 2020-08-02 07:35 | HP.PCM_ITS ---
Problem List (1) Ureteral calculus, left Status: Acute History of Present Illness Date of Admission: 08/02/20 Chief Complaint: left ureteral stone The patient is a 59 year old F [history significant for stones, developed abdominal discomfort and some lower urinary tract symptoms. On evaluation with CT, was found to have large distal ureteral calculus. She now presents for definitive treatment.] Past Medical History Medical History: Medical History (Last Reviewed 08/02/20 @ 07:[address] Jenifer Win MD) Shortness of breath (Acute) R06.02 Sinusitis (Acute) J32.9 Kidney stone (Acute) bilateral Allergies Cephalosporins Allergy (Verified 08/02/20 06:42) Hives codeine Adverse Reaction (Mild, Verified 08/02/20 06:42) Nausea erythromycin base [From E-Mycin] Adverse Reaction (Verified 08/02/20 06:42) Nausea/Vom/Diarrhea sulfamethoxazole [From Bactrim] Adverse Reaction (Verified 08/02/20 06:42) Nausea trimethoprim [From Bactrim] Adverse Reaction (Verified 08/02/20 06:42) Nausea decongestants Adverse Reaction (Unknown, Uncoded 08/02/20 06:42) Unknown Home Medications: Ambulatory Orders Medication Instructions Recorded Escitalopram Oxalate [Lexapro] 5 mg PO DAILY 08/07/16 fluticasone propionate 50 2 spray INTRANASAL QDAY PRN 02/11/18 mcg/actuation nasal spray,suspension Albuterol IH (ProAir) [Proair Hfa 1 puff INHALATION Q4H PRN PRN 07/26/20 (SP)Vent Pts] Ascorbic Acid [Vitamin C] 500 mg PO DAILY 07/26/20 D-Mannose 500 gm MC DAILY 07/26/20 Hydroxyzine HCl 25 mg PO DAILY PRN PRN 07/26/20 Surgical History: no surgical history Psychiatric History: No pertinent psych hx PSYCHOLOGICAL EXAMINER History: No pertinent PSYCHOLOGICAL EXAMINER history Smoking Status: Current every day smoker - *Family History Maternal Family History: Family History (Last Reviewed 08/02/20 @ 07:[address] Jenifer Win MD) Father Prostate cancer Skin cancer Mother Parkinsons disease Hypertension History Items: No pertinent history Review of Systems Constitutional: Denies: Anorexia, Chills, Fever Eyes: Denies: Vision Change HEENT: Denies: Visual Changes Cardiovascular: Denies: Chest Pain, Chest Pressure Respiratory: Denies: Cough, Shortness of Breath Gastrointestinal: Reports: Abdominal Pain. Denies: Nausea, Vomiting Genitourinary: Denies: Dysuria, Retention Gynecological: Denies: Vaginal itching Musculoskeletal: Denies: Muscle pain Skin: Denies: Wounds Neurological: Denies: Seizures VTE Information - Inpt Only VTE Present on Admission: Yes VTE Mechan Device Prophylaxis: SCD's VTE Pharm Prophylaxis ordered?: No Reason prophylaxis not ordered:: Treatment Not Indicated - Physical Exam Vitals/I&O's: Vital Signs Temp Pulse Resp BP Pulse Ox 98.8 F 65 16 127/87 H 98 08/02/20 06:59 08/02/20 06:59 08/02/20 06:59 08/02/20 06:59 08/02/20 06:59 Oxygen Delivery Method Room Air Weight: 57.5 kg Body Mass Index (BMI) 38.7 General: Alert, Oriented x3, Cooperative, No apparent distress HEENT: Atraumatic, Normocephalic Oral: Moist Mucosa Neck: Supple, Trachea Midline Lungs: Normal air movement Cardiovascular: Regular rate, Regular Rhythm Abdomen: Soft, Non Tender, Non-Distended Extremities: - - dwarfism Skin: No rashes Musculoskeletal: No Muscle Wasting Neurological: Cranial nerves II-XII grossly intact, Neuro grossly intact Psych/Mental Status: Alert and oriented to time, place, person, mood and affect Microbiology Past 72 Hours 08/01/20 08:30 Interface Orders - Final Current Medications Ciprofloxacin (Cipro) 400 mg in 200 mls @ 200 mls/hr IV PREOP ONE Stop: 08/02/20 09:09 Lactated Ringer's () 1,000 mls @ 100 mls/hr IV .Q10H JOHN Last Admin: 08/02/20 07:04 Dose: 100 mls/hr Documented by: Assessment/Plan All Active Problems (Last Reviewed 02/11/18 @ 08:09 by Maryam Huerta) Ureteral calculus, left (Acute) Shortness of breath (Acute) Sinusitis (Acute) Kidney stone (Acute) cystoscopy, left ureteroscopy, laser lithotripsy and left ureteral stent insertion Procedure Criteria Procedure Type: Elective COVID Risk Discussion: The surgeon/proceduralist and patient have discussed in detail the risk of exposure to and/or potential harm posed by the COVID-19 virus with having a surgery/procedure at this time versus the risk of delaying the surgery/pro cedure. It is not possible to know either the risk of delaying the surgery or procedure or chance of getting an infection with perfect accuracy, but a joint decision was made between the patient and the surgeon/proceduralist to proceed at this time with the scheduled surgery/procedure as indicated on the consent form.
--- NOTE | 2020-08-02 08:13 | OP.PCM_ITS ---
Problem List (1) Ureteral calculus, left Status: Acute Report of Operation Date of Procedure: 08/02/20 Pre-Operative Diagnosis: Left ureteral calculus Post-Operative Diagnosis: Same Surgery/Procedure Performed:: Cystoscopy, attempted left ureteral access Type of Anesthesia:: General Description of Procedure: The patient is a 59-year-old female with a large left distal ureteral calculus who presents for definitive management. Informed consent was obtained including a discussion of COVID-19. The patient was taken to the operating room and placed in the operating room table. Anesthesia monitored the head, neck, airway, IV access and vital signs throughout the case. Once anesthesia was appropriate administered the patient was placed into dorsal lithotomy position was prepped and draped in usual sterile fashion. A cystourethroscopy was performed through the urethra under direct visualization. The left ureteral orifice was posteriorly pointed. Sever al attempts were made at passage of a Glidewire through the orifice and passed the stone. An angled 0.035 Glidewire was passed through the orifice but could not gain access past the ureteral calculus. After multiple attempts that were unsuccessful, the decision was made to abort the procedure. Patient was awakened and taken the recovery room in good condition. There were no complications during the procedure. - Complications None - Admit VTE Documentation VTE Present on Admission: Yes VTE Mechan Device Prophylaxis: SCD's VTE Pharm Prophylaxis ordered?: No Reason prophylaxis not ordered:: Treatment Not Indicated
--- NOTE | 2020-08-02 08:21 | PCM.DC.URO ---
Discharge Diet: No Restrictions Discharge Activity: May not drive while taking narcotic pain medications., May Shower May resume sexual activity in: No Restrictions Call your doctor if you observe: Fever of 101 or Higher, Inability to urinate, Inability to have a bowel movement Allergies/Adverse Reactions: Allergies Cephalosporins Allergy (Verified 08/02/20 06:42) Hives codeine Adverse Reaction (Mild, Verified 08/02/20 06:42) Nausea erythromycin base [From E-Mycin] Adverse Reaction (Verified 08/02/20 06:42) Nausea/Vom/Diarrhea sulfamethoxazole [From Bactrim] Adverse Reaction (Verified 08/02/20 06:42) Nausea trimethoprim [From Bactrim] Adverse Reaction (Verified 08/02/20 06:42) Nausea decongestants Adverse Reaction (Unknown, Uncoded 08/02/20 06:42) Unknown Medications to take at Discharge Escitalopram Oxalate [Lexapro] 5 mg PO DAILY 08/07/16 fluticasone propionate 50 mcg/actuation nasal spray,suspension 2 spray INTRANASAL QDAY PRN 02/11/18 Albuterol IH (ProAir) [Proair Hfa] 1 puff INHALATION Q4H PRN PRN 07/26/20 Ascorbic Acid [Vitamin C] 500 mg PO DAILY 07/26/20 D-Mannose 500 gm MC DAILY 07/26/20 Hydroxyzine HCl 25 mg PO DAILY PRN PRN 07/26/20 Nitrofurantoin Monohyd/M-Cryst [Macrobid 100 mg Capsule] 100 mg PO BID 3 Days #6 cap 08/02/20 Oxycodone HCl/Acetaminophen [Percocet 5/325] 1 tab PO Q8H PRN PRN 2 Days #6 tab 08/02/20 Phenazopyridine HCl [Pyridium] 200 mg PO BID PRN PRN 15 Days #30 tab 08/02/20 The following prescriptions were given: Nitrofurantoin Monohyd/M-Cryst [Macrobid 100 mg Capsule] 100 mg PO BID 3 Days #6 cap Transmission Status: Received by [facility] Oxycodone HCl/Acetaminophen [Percocet 5/325] 1 tab PO Q8H PRN PRN 2 Days #6 tab PRN Reason: Pain Transmission Status: Received by [facility] Phenazopyridine HCl [Pyridium] 200 mg PO BID PRN PRN 15 Days #30 tab PRN Reason: Bladder Spasms Transmission Status: Received by [facility] Primary Care Physician: Sameer Cifuentes MD [Primary Care Provider] - Test Results: Test results from this visit will be discussed in further detail at your follow-up appointment, if applicable. Please Follow Up With: Jenifer Win MD When: call office for appt Proposed Discharge Date: 08/02/20
[2020-08-02] MEDS: Ciprofloxacin 400 MG/200 ML BAG 200 MG IV (08:22)
[2020-08-02 09:00] VITALS: BP 106/67; BP 127/87; PULSE 71; RESP 16; TEMP 36.7; O2SAT 96
[2020-08-02 09:08] VITALS: BP 119/74; BP 127/87; PULSE 71; RESP 18; O2SAT 99
[2020-08-02 09:15] VITALS: BP 127/87; BP 132/79; PULSE 74; RESP 18; TEMP 36.7; O2SAT 98
[2020-08-02 09:55] VITALS: BP 127/87; BP 135/90; PULSE 66; RESP 16; TEMP 36.6; O2SAT 99
== END 2020-08-02 10:20 | disposition home or self-care (01) ==
LOC: SDC 06:22 → AC 06:22
PROVIDERS: PCP Family Medicine; Referring Provider Urology; Visit Provider Urology
PROC: 0TJ98ZZ Inspection of Ureter, Via Natural or Artificial Opening Endoscopic (ICD-10-PCS; CPT 52352; principal; 2020-08-02 08:10)
DX: N20.1 Calculus of ureter (principal); F41.9 Anxiety disorder, unspecified; F17.200 Nicotine dependence, unspecified, uncomplicated; Z87.442 Personal history of urinary calculi; Z53.8 Procedure and treatment not carried out for other reasons; Z20.828 Contact with and (suspected) exposure to other viral communicable diseases
CPT/HCPCS: 52000; 76000; 87426; C9803; J7120; C1769; J0744; J2405

== ENCOUNTER 2020-08-09 09:17 | Day surgery (SDC) | payer OTHER, SELFPAY ==
[2020-08-09 09:47] VITALS: BP 105/83; PULSE 61; RESP 18; TEMP 36.8; O2SAT 99; BMI 38.7
[2020-08-09] MEDS: Lactated Ringers 1,000 ML 100 ML IV (10:00)
[2020-08-09] MEDS: Ciprofloxacin 400 MG/200 ML BAG 200 MG IV (10:16)
--- NOTE | 2020-08-09 10:23 | PCM.OPRPT ---
Problem List (1) Ureteral calculus, left Status: Acute Report of Operation Date of Procedure: 08/09/20 Pre-Operative Diagnosis: left ureteral calculus Post-Operative Diagnosis: same Surgery/Procedure Performed:: Left ureteral extracorporal shockwave lithotripsy Type of Anesthesia:: General Specimen's removed: none Description of Procedure: The patient is a 59-year-old female with a distal left ureteral calculus approximately 8 to 9 mm in size. She underwent an attempt at ureteroscopy with laser lithotripsy and failed secondary to inability to place a safety wire due to the anatomy of her ureteral orifices and the large size of the stone. Informed consent was obtained to proceed with extracorporal shockwave lithotripsy, a discussion of Covid was included. The patient was taken to the operating room and placed on the operating room table. Anesthesia monitored the head, neck, airway, IV access and vital signs throughout the case. Once anesthesia was appropriate ministered the patient was placed into the correct appropriate position with the lithotripter. The stone was easily identified. 4000 shocks were applied to the area. The patient tolerated the procedure well and the stone appeared to be well fragmented at the conclusion of the case. The patient was then awakened and taken to the recovery room in good condition. There were no complications during the procedure. Grafts/Implants Used: none - Complications None - Admit VTE Documentation VTE Present on Admission: Yes VTE Mechan Device Prophylaxis: SCD's VTE Pharm Prophylaxis ordered?: No Reason prophylaxis not ordered:: Treatment Not Indicated
--- NOTE | 2020-08-09 10:28 | DCINST_ITS ---
Discharge Diet: No Restrictions Discharge Activity: May not drive while taking narcotic pain medications. May resume sexual activity in: No Restrictions Call your doctor if you observe: Fever of 101 or Higher, Inability to urinate, Inability to have a bowel movement Allergies/Adverse Reactions: Allergies Cephalosporins Allergy (Verified 08/04/20 08:34) Hives codeine Adverse Reaction (Mild, Verified 08/04/20 08:34) Nausea erythromycin base [From E-Mycin] Adverse Reaction (Verified 08/04/20 08:34) Nausea/Vom/Diarrhea nitrofurantoin [From Macrobid] Adverse Reaction (Verified 08/04/20 08:35) Vomiting sulfamethoxazole [From Bactrim] Adverse Reaction (Verified 08/04/20 08:34) Nausea trimethoprim [From Bactrim] Adverse Reaction (Verified 08/04/20 08:34) Nausea decongestants Adverse Reaction (Unknown, Uncoded 08/04/20 08:34) Unknown Medications to take at Discharge Escitalopram Oxalate [Lexapro] 5 mg PO DAILY 08/07/16 fluticasone propionate 50 mcg/actuation nasal spray,suspension 2 spray INTRANASAL QDAY PRN 02/11/18 Albuterol IH (ProAir) [Proair Hfa] 1 puff INHALATION Q4H PRN PRN 07/26/20 Ascorbic Acid [Vitamin C] 500 mg PO DAILY 07/26/20 D-Mannose 500 gm PO DAILY 07/26/20 Hydroxyzine HCl 25 mg PO DAILY PRN PRN 07/26/20 Phenazopyridine HCl [Pyridium] 200 mg PO BID PRN PRN 15 Days #30 tab 08/02/20 Oxycodone HCl/Acetaminophen [Oxycodone-Acetaminophen 5-325] 1 ea PO PRN PRN 08/04/20 Ciprofloxacin [Cipro] 250 mg PO BID 3 Days #6 tab 08/09/20 Oxycodone HCl/Acetaminophen [Percocet 5/325] 1 tablet PO Q8H PRN PRN 7 Days #10 tablet 08/09/20 The following prescriptions were given: Ciprofloxacin [Cipro] 250 mg PO BID 3 Days #6 tab Transmission Status: Pending to [facility] Oxycodone HCl/Acetaminophen [Percocet 5/325] 1 tablet PO Q8H PRN PRN 7 Days #10 tablet PRN Reason: Pain Transmission Status: Sent to [facility] Primary Care Physician: Sameer Cifuentes MD [Primary Care Provider] - Test Results: Test results from this visit will be discussed in further detail at your follow- up appointment, if applicable. Please Follow Up With: Jenifer Win MD When: in 2-3 weeks with [facility] Proposed Discharge Date: 08/09/20
[2020-08-09 12:00] VITALS: BP 105/83; BP 90/42; PULSE 89; RESP 16; TEMP 36.6; O2SAT 97
[2020-08-09 12:14] VITALS: BP 101/68; BP 105/83; PULSE 70; RESP 16; O2SAT 99
[2020-08-09 12:29] VITALS: BP 105/83; BP 113/63; PULSE 65; RESP 14; TEMP 35.9; O2SAT 98
[2020-08-09 13:05] VITALS: BP 105/83
== END 2020-08-09 13:19 | disposition home or self-care (01) ==
LOC: SDC 09:18 → AC 09:18
PROVIDERS: PCP Family Medicine; Referring Provider Urology; Visit Provider Urology
PROC: (CPT 50590; principal; 2020-08-09 11:00)
DX: N13.2 Hydronephrosis with renal and ureteral calculous obstruction (principal); Z20.828 Contact with and (suspected) exposure to other viral communicable diseases; N39.41 Urge incontinence; R35.0 Frequency of micturition; R35.1 Nocturia; G89.4 Chronic pain syndrome; G47.33 Obstructive sleep apnea (adult) (pediatric); F32.9 Major depressive disorder, single episode, unspecified; K21.9 Gastro-esophageal reflux disease without esophagitis; Z78.0 Asymptomatic menopausal state; Z79.899 Other long term (current) drug therapy; Z86.718 Personal history of other venous thrombosis and embolism
CPT/HCPCS: 00873; 50590; 87426; C9803; J7120; J0744; J2405

== ENCOUNTER → 2020-08-15 10:21 | Outpatient (CLI) | payer OTHER, SELFPAY ==
[2020-08-09 09:47] VITALS: BMI 38.7
[2020-08-15 12:37] LABS: Hematocrit 45.4 % (37-47); Hemoglobin 14.9 g/dL (12.0-15.0); Mean Corp Hgb Conc 32.8 g/dL (32-36); Mean Corpuscular Hgb 29.4 pg (27.0-32.0); Mean Corpuscular Volume 89.7 fL (81-99); Platelet Count 284 K/mm3 (150-450); RBC Distribution Width CV 13.4 % (11.6-14.6); RBC Distribution Width SD 44.4 fl (35.1-43.9); Red Blood Count 5.06 M/mm3 (4.2-5.4); White Blood Count 5.9 K/mm3 (4.4-11.0)
[2020-08-15 12:51] LABS: Anion Gap 7 (5-15); BUN 16 mg/dL (7-18); BUN/Creat Ratio 22.5 RATIO (10-20); Calcium,Total 9.1 mg/dL (8.5-10.1); Chloride 109 mmol/L (98-107); Creatinine, Serum 0.71 mg/dL (0.55-1.02); EST Glomerular Filtration Rate 90 mL/min (>60); Est Glom Filt Rate - Afr Amer 109 mL/min (>60); Glucose 102 mg/dL (74-106); Potassium 4.1 mmol/L (3.5-5.1); Sodium Level 141 mmol/L (136-145)
== END ==
PROVIDERS: PCP Family Medicine; Referring Provider Urology; Visit Provider Urology
DX: R53.81 Other malaise (principal); R11.0 Nausea
CPT/HCPCS: 36415; 80048; 85027

== ENCOUNTER → 2020-08-18 13:19 | Outpatient (CLI) | payer OTHER, SELFPAY ==
[2020-08-09 09:47] VITALS: BMI 38.7
--- NOTE | 2020-08-18 13:38 | CT_ITS ---
STUDY: CT ABDOMEN AND PELVIS WITHOUT CONTRAST REASON FOR EXAM: Female, 59 years old. LEFT SIDED KIDNEY STONES. HX OF ZAINAB C SECTION AND [place] REMOVAL RADIATION DOSAGE (If Supplied By Facility): CTDIvol = ( 9.26 ) mGy, DLP = ( 363.85 ) mGycm TECHNIQUE: Transaxial images were obtained from the dome of the diaphragm to the symphysis pubis without oral contrast, and without intravenous contrast. Sagittal and coronal images were reconstructed. Individualized dose optimization techniques were used for this CT. COMPARISON: Comparison is made with prior study dated 07/21/2020. FINDINGS: The visualized lung bases are unremarkable. The visualized portions of the heart are within normal limits. Normal liver. The patient is status post cholecystectomy. Normal spleen. Normal pancreas. Normal bilateral adrenal glands. Stable bilateral renal cysts. Stable stable nonobstructive right intrarenal calculi. Stable nonobstructive left intrarenal calculus. The previously seen 8.2 mm calculus at the left ureterovesical junction is not seen at this time. Normal visualized stomach. Normal small intestine. Normal colon. The appendix is visualized and appears normal. Normal abdominal aorta. Normal inferior vena cava. There is borderline retroperitoneal lymphadenopathy with enlarged nodes no greater than 10mm in the short axis diameter. Normal urinary bladder. Normal abdominal wall. There are diffuse degenerative changes of the visualized lumbar spine. CT/Abdomen/Pelvis without Cont IMPRESSION: Stable examination except for nonvisualization of the calculus previously seen at the left ureterovesical junction. Electronically Signed: Bhaskar Rowe, at 14:20 EST , Service support ,
== END ==
PROVIDERS: PCP Family Medicine; Referring Provider Urology; Visit Provider Urology
DX: N20.1 Calculus of ureter (principal); R10.2 Pelvic and perineal pain; R68.83 Chills (without fever)
CPT/HCPCS: 74176

== ENCOUNTER 2020-09-12 12:15 | Emergency (ER) | payer OTHER, SELFPAY ==
[2020-09-12 12:15] VITALS: BP 199/112; PULSE 81; RESP 16; TEMP 36.7; O2SAT 96
--- NOTE | 2020-09-12 12:39 | ED.DCSUM_ITS ---
- ER Visit Summary Date of Service: 09/12/20 Chief Complaint: [Right leg pain] History of Present Illness: The patient is a 59 F [presents to the emergency department with right leg pain that started yesterday. Patient denies any injury or trauma. Patient states that she did have a syncopal episode 3 nights ago when she fell off the toilet while she was having vomiting and diarrhea episode. Patient states that she did not have any pain in her hip per buttock area until last evening. Patient has pain that radiates down the leg to the foot. Patient at times feels like her foot is numb. Patient does have history of pinched nerve and has had pain like this before. Patient also has a history of arthritis in the hip. Patient rates her pain a 9 out of 10. She denies any other illness.] Patient denies loss of bowel or bladder function. She denies weakness in the extremity. Physical Examination: [HEENT-PERRLA, EOMI. Cranial nerves II through XII grossly intact. TMs clear. Mucous membranes moist. No adenopathy. Cardiovascular-regular rate and rhythm without murmur or ectopy Lungs-clear to auscultation, chest wall stable without crepitus or subcu emphysema Abdomen-normoactive bowel sounds, soft, nontender, no rebound or rigidity, no peritoneal signs. Back exam-no tenderness over the lumbar thoracic spine. Patient does have some discomfort with palpation over the right piriformis muscle. She has negative straight leg raises bilaterally. Deep tendon reflexes are plus 2 out of 4 bilaterally at the patella and Achilles. Patient has normal 5 extension bilaterally. Patient has normal sensation to light touch. Patient has normal pulses. Extremities-intact ?4, normal range of motion, normal pulses, atraumatic] Test Results: [None indicated] Emergency Department Course and Treatment: [] Treatment Plan: [We will be started on Flexeril, [place], and naproxen. Patient vies to follow-up with primary care physician 5 to 7 days. Vice return if worsening pain, weakness extremities, change in bowel or bladder function, or condition should worsen anyway.] Disposition: [Discharged home in stable condition] Impression: [Right sciatica] This note was generated with [employer] software. It may contain incorrect words, spelling, and punctuation that were not noted in review of the chart prior to signing ED Disposition - Plan for ED Patient: Referrals: Sameer Cifuentes MD [Primary Care Provider] -
--- NOTE | 2020-09-12 12:41 | ED.DEP ---
ED Disposition - Plan for ED Patient: Instructions: ED Sciatica Prescriptions: cycloBENZAPRine HCl [Flexeril] 10 mg PO TID PRN #20 tab PRN Reason: Muscle Spasm Prescription Printed Naproxen [Naprosyn] 500 mg PO BID PRN #20 tab Prescription Printed Hydrocodone Bitart/Apap 5-325 [[place] 5MG-325MG] 1 tab PO Q4H PRN PRN 2 Days #14 tab PRN Reason: Pain Prescription Printed Referrals: Sameer Cifuentes MD [Primary Care Provider] - 5-7 Days
== END 2020-09-12 13:03 | disposition home or self-care (01) ==
LOC: ED 12:49
PROVIDERS: Emergency Provider Emergency Medicine; PCP Family Medicine
DX: M54.31 Sciatica, right side (principal); M16.11 Unilateral primary osteoarthritis, right hip; Z72.0 Tobacco use; Z79.899 Other long term (current) drug therapy
CPT/HCPCS: 99282

== ENCOUNTER → 2020-10-04 14:24 | Outpatient (CLI) | payer OTHER, SELFPAY ==
--- NOTE | 2020-10-04 14:38 | CT_ITS ---
STUDY: CT ABDOMEN AND PELVIS WITH CONTRAST REASON FOR EXAM: Female, 59 years old. RLQ pain, hx kidney stones, cholecystectomy, . RADIATION DOSAGE (If Supplied By Facility): CTDIvol = ( 12.44 ) mGy, DLP = ( 338.34 ) mGycm TECHNIQUE: Transaxial images were obtained from the dome of the diaphragm to the symphysis pubis with oral contrast. Oral and amp; IV GASTROGRAFIN and amp; 75ML ISOVUE 300 was administered. Sagittal and coronal images were reconstructed. Individualized dose optimization techniques were used for this CT. COMPARISON: 08/18/2020 FINDINGS: The visualized lung bases are unremarkable. The visualized portions of the heart are within normal limits. Normal liver. There is non-visualization of the gallbladder, which may be secondary to either contraction or a prior cholecystectomy. Normal spleen. Normal pancreas. Normal bilateral adrenal glands. Small bilateral renal cysts. Multiple small nonobstructing right renal stones. No hydronephrosis, ureteral stone, or ureteral dilatation. Normal visualized stomach. Normal small intestine. Normal colon. The appendix is visualized and appears normal. Normal abdominal aorta. Normal inferior vena cava. Normal retroperitoneum. Normal urinary bladder. Normal abdominal wall. Normal osseous structures. CT/Abdomen/Pelvis WITH Contrast IMPRESSION: Multiple small nonobstructing right renal stones. Electronically Signed: Abelardo Bocanegra MD at 17:29 EST Tel , Service support ,
== END ==
PROVIDERS: PCP Family Medicine; Visit Provider Family Medicine
DX: R10.31 Right lower quadrant pain (principal)
CPT/HCPCS: 74177; Q9967

== ENCOUNTER → 2021-01-02 07:02 | Outpatient (CLI) | payer OTHER, SELFPAY ==
--- NOTE | 2021-01-02 07:05 | BI_ITS ---
MAMMOGRAPHY - BILATERAL SCREENING 3-D TOMOSYNTHESIS REASON FOR EXAM: Female, 60 years old. SCREENING PERTINENT HISTORY: No significant family history. TECHNIQUE: 2-D mammograms and 3-D Tomosynthesis of the breast (s) were performed. CAD was performed. COMPARISON: None. FINDINGS: There are scattered areas of fibroglandular density. No dense spiculated masses or suspicious microcalcifications are identified. No architectural distortion is identified. There is no skin thickening or retraction. BI/SCRN MAMM (CAD)W/CHARLENE BILAT IMPRESSION: No mammographic signs of malignancy. Routine yearly mammograms recommended. ASSESSMENT CATEGORY: BIRADS Category 1: Negative. A letter regarding these results will be sent to the patient by the facility within 30 days. FOLLOW UP RECOMMENDATION: Yearly follow up mammogram recommended. (A) Approximately 10% of breast cancers are not detected by mammography. A normal mammogram should not delay biopsy of a clinically suspicious abnormality. Electronically Signed: Carson Ventura MD at 13:08 EDT Tel , Service support ,
== END ==
PROVIDERS: PCP Family Medicine; Referring Provider Family Medicine; Visit Provider Family Medicine
DX: Z12.31 Encounter for screening mammogram for malignant neoplasm of breast (principal)
CPT/HCPCS: 77063; 77067

== ENCOUNTER → 2021-01-09 11:05 | Outpatient (CLI) | payer OTHER, SELFPAY ==
--- NOTE | 2021-01-09 11:10 | RAD_ITS ---
STUDY: X-RAY - CERVICAL SPINE REASON FOR EXAM: Female, 60 years old. NECK PAIN TECHNIQUE: 3 view(s) of the cervical spine were obtained. COMPARISON: 05/18/2016 FINDINGS: Normal anterior atlantoaxial articulation. Normal odontoid process. There is straightening of the normal cervical lordosis. Normal vertebral bodies and endplates. Focal disc space narrowing and osteophyte formation at C3/C4 and C6-C7 consistent with degenerative disc disease. 2 mm retrolisthesis of C3 on C4. Normal visualized intervertebral neuroforamina. The soft tissue structures are unremarkable. RAD/Cerv Spine 2 or 3 Views IMPRESSION: Focal degenerative disc disease at C3/C4 and C6 on C7 with 2 mm retrolisthesis of C3 on C4 and straightening of the normal lordotic curvature. MRI may be useful. Electronically Signed: Abelardo Bocanegra MD at 9:14 EDT Tel , Service support ,
--- NOTE | 2021-01-09 11:35 | RAD_ITS ---
STUDY: X-RAY - LUMBAR SPINE REASON FOR EXAM: Female, 60 years old. BACK PAIN -- . TECHNIQUE: 3 view(s) of the lumbar spine were obtained. COMPARISON: 07/16/2014 FINDINGS: Normal lumbar lordosis. There is no substantial scoliosis. There is a normal alignment of the vertebrae. There is diffuse demineralization with multi-level endplate spondylosis. There is multi-level degenerative disc disease with multi-level disc space narrowing. Stable mild anterior wedge compression of L2 and L3 (chronic). No acute compression fracture. The soft tissue structures are unremarkable. RAD/Lumbar Spine 2 or 3 Views IMPRESSION: Similar multilevel degenerative disc disease since 2013. Electronically Signed: Felton West MD ([place]) at 12:44 EDT , Service support ,
== END ==
PROVIDERS: PCP Family Medicine; Referring Provider Anesthesiology Pain Medicine; Visit Provider Anesthesiology Pain Medicine
DX: M54.2 Cervicalgia (principal); M54.9 Dorsalgia, unspecified
CPT/HCPCS: 72040; 72100

== ENCOUNTER 2021-01-12 16:00 | Outpatient (RCR) | payer OTHER, SELFPAY ==
--- NOTE | 2020-12-15 09:45 | HP.PTEVAL_ITS ---
Patient's Visit Information MILES LU is a 60 year old F referred to Physical Therapy by Dr. Sameer Cifuentes MD with a diagnosis of STENOSIS, ACHONDROPLASIA W/ SPONDYLOLISTHESIS. Date of Evaluation: 12/15/20 Physical Therapist: Francie Daiz, PT, Cert MDT - Visit Plan Frequency: 2-3x /Week Duration: 4-6 Weeks Plan: POSTURE CORRECTION/STRENGTHENING, INSTRUCTION IN APPROPRIATE BODY MECHANICS AND ACTIVITY MODIFICATIONS. DLS STARTING WITH A NEUTRAL SPINE PROGRESSING ROM TOLERATED. CHIVO LE ROM, STRETCHING AND STRENGTHENING. HEP INSTRUCTION. TRIAL OF ONE AQUATIC THERAPY SESSION TO SEE IF MODIFICATIONS CAN BE MADE THAT WILL ALLOW PATIENT TO BENEFIT FROM WATER THERAPY BASED ON HER HEIGHT AND THE DEPTH OF THE POOL. OK TO CHANGE OTHER LAND NOEL'TS TO POOL IF BENEFICIAL. PATIENT INQUIRED ABOUT POOL EX'S AND LIKES THIS PLAN. 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 Disability: NO. Present symptoms: PAIN IN MY WHOLE BODY AT TIMES BUT MY LOW BACK IS THE WORST ON BOTH SIDES AND INTO MY HIPS. CHIVO LE PAIN, NUMBNESS, TINGLING, RUBBER LEGS AND WEAK LEGS. NUMBNESS AND TINGLING IN FEET TOO. Present since: CHRONIC - YEARS AND YEARS. Pain Scale: WORST 8/10, LEAST 3/10. Currently: 5/10 - WORSENING. Commenced as a result of: BECAUSE OF BEING LITTLE. Symptoms at onset: LOW BACK. 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 GETS WORSE THE DAY PROGRESSES. INCREASED BACK PAIN DRIVING (PATIENT RELATES TO DRIVING WITH HAND CONTROLS). Better: LYING DOWN, SQUATTING. MORNINGS. Disturbed sleep: YES. Previous history/Previous treatment: NO BACK SURGERY. HAS HAD PAIN MGMT AND [facility] BUT HAS NOT BEEN THERE FOR ABOUT [address] CIFUENTES WANTS HER TO GO BACK TO DR. BARTHOLOMEW. STATES BACK SURGERY HAS BEEN RECOMMENDED BECAUSE THERE IS NOT ENOUGH SPACE BETWEEN HER SPINE AND SPINAL CORD BUT SHE HAS NOT AGREED TO THAT. PATIENT REPORTS SHE GETS DISCOURAGED BECAUSE OF ALL THE TESTS AND TREATMENTS SHE HAS HAD AND BECAUSE OF THE LACK OF PROFESSIONALS EXPERTISE WITH [facility]. DOES NOT RECALL HAVING PT FOR LOW BACK. ONE [facility]O VISIT IN TEENS AND IT SCARED HER SO SHE HASN'T GONE BACK. CURRENTLY NOT ON ANY MEDICATION FOR HER BACK PAIN. TRIED GABAPENTIN BUT SHE STOPPED DUE TO THE SIDE EFFECTS. Coughing/sneezing/straining: POSITIVE. Gait: PATIENT REPORTS HER WALKING IS PAIN AND DISTANCE LIMITED. LEANS TO THE LEFT TO TAKE WEIGHT OFF THE R LE AT TIMES. Difficulty initiating urination: no. Accidents: NO. Unexplained weight loss: NO. Imaging: NONE RECENT - PATIENT REPORTS HAVING X-RAYS, MRI AND CAT SCAN OF HER LOW BACK BUT IT HAS BEEN YEARS. 2014 MRI: STUDY: MRI LUMBAR SPINE WITH CONTRAST. REASON FOR EXAM: Female, 54 years old. Nodule. Radiculopathy. Numbness. and tingling in arms and hands. Bilateral leg and feet tingling and. numbness. No known injury. Pinching in the left side of the lower back. TECHNIQUE: Standardized fat and water weighted pulse sequences were. obtained in the sagittal and axial following I.V. administration of 7 ml of. Gadavist contrast material. COMPARISON: Prior MRI of the lumbar spine without contrast material on. 07-11-15. . FINDINGS: The previously noted intradural nodular lesion at the level of L1 is not. visualized on the postcontrast study. There are no areas of abnormal. enhancement. Vascular structures are noted with normal enhancement. (sagittal T1 postcontrast series 20 image 7). Normal lumbar lordosis. There is no substantial scoliosis. Normal conus. medullaris that terminates at the T12-L1 level. L1-2: There is anterior osteophyte formation. There is disc desiccation. with minimal disc space narrowing. There is an annular bulge. There is. facet arthrosis. There is moderate canal stenosis. There is bilateral. foraminal stenosis. L2-3: There is endplate spondylosis with anterior osteophytes. There is. disc desiccation with a broad-based central disc protrusion. There is. bilateral facet arthrosis. The severe spinal canal and bilateral foraminal. stenosis. L3-4: There is endplate spondylosis and bilateral facet arthrosis. There. is an annular bulge. There is moderate spinal canal stenosis. There is. bilateral foraminal stenosis. L4-5: There is endplate spondylosis. There is bilateral facet arthrosis. There is an annular bulge. There is moderate spinal canal stenosis and. bilateral foraminal stenosis. L5-S1: There is endplate spondylosis. There is an annular bulge. There. is facet arthrosis. There is moderate spinal canal stenosis. There is. bilateral foraminal stenosis. Normal visualized sacral ala. Normal visualized paraspinous soft tissue structures. . IMPRESSION: Multilevel mild degree of degenerative disc disease with annular bulges and. foraminal stenosis as outlined above, unchanged in the prior study. Previously noted intradural nodular lesion in the spinal canal at the level. of L1 is not identified. The findings on the pre-contrast examination. probably related to elongation and crowding of the nerve roots. Multilevel spinal canal stenosis. Electronically Signed: Pranay Leal MD, FACR. at 20:05 EDT. PMH/Recent major surgery: SEEING A THERAPIST DUE TO HER PAIN EFFECTING HER EMOTIONALLY - GETS VERY DISCOURAGED TRYING TO KEEP UP WITH THINGS. H/O NECK AND ARM PAIN, KIDNEY STONES AND UTI'S. OTHER: EMERGENCY DEPT VISIT AUG 2020 WITH [facility] - FAINTED AND FELL OFF THE TOLIET SHORTLY BEFORE. SOCIAL: LIVES ALONE. HAS TO USE A STOOL A LOT FOR DAILY ACTIVITIES. - Objective Sitting/Standing Posture: POOR. Lordosis: INCREASED. Lateral shift: NO. Relevant shift: N/A. Active Correction of posture: NE. Other Observations: INDEP GAIT AND TREANSFERS WITH MILD LIMP ON RLE. Motor deficit: RIGHT LE WEAKNESS > LEFT. R HIP 4-/5, KNEE EXT 4/5, KNEE FLEX 4/5, ANKLE 5/5. LLE: HIP 4/5, KNEE 5/5, ANKLE 5/5. Sensory deficit: RIGHT LE LIGHT TOUCH SENSATION DECREASED COMPARED TO LEFT. ROM deficit: CHIVO LE'S WFL. Dural Signs: POSITIVE RIGHT LE. Lumbar mvmt loss: flex - NIL. ext - MOD - LIMITED TESTING DUE TO DX. R SG - NIL. L SG - NIL. PATIENT DENIES INCREASED PAIN WITH LUMBAR ROM TESTING. Core strength: POOR. Palpation: TENDERNESS WITH PALPATION OF CHIVO LOW BACK REGIONS R > L AND INCREASED MUSCLE TONE CHIVO PARASPINALS. TREATMENT: NEUROMUSCULAR REEDUCATION - RETRAINING OF MVMT AND POSTURE FOR SITTING, LYING AND STANDING ACTIVITIES. - Goals Goal 1:: DECREASE C/O BACK AND LE SX'S. Goal Time Frame: 4-6 Weeks Goal 2:: IMPROVE PERSONAL CARE, LIFTING, WALKING, SITTING, STANDING, SOCIAL LIFE, TRAVEL AND WORK/HOMEMAKING FUNCTION. Goal Time Frame: 4-6 Weeks Goal 3:: INSTRUCT IN PROPHYLAXIS Goal Time Frame: 4-6 Weeks - Anticipated Interventions Patient/Client Instruction: Educate patient on: Condition, Plan of Care, Risk Factors, Benefits of Fitness Program For the Purpose of:: To improve self management Therapeutic Exercise to Include: Strength training, Body mechanics, Postural training, Flexibilty training, Gait and locomotor training, Neuromotor development, In an aquatic setting, Dynamic Lumbar Stabilization For the Purpose of:: To decrease pain, To improve muscle performance and motor function, To increase tolerance to activity/condition/position, To improve ability of physical actions for home/community/work/leisure, To improve gait and locomotor functions Thank you for the opportunity to evaluate your patient. For Medicare and Medicare HMO plans, please review the plan of care and approve it. It will need to be FAXED BACK to us at [phone] for Medicare purposes. For Medicare only, by signing this I certify the plan of care. Please let me know if there are questions or concerns regarding this plan of care. Physician Signature: Date:
--- NOTE | 2021-07-09 17:07 | HP.PT.NRP ---
MILES LU was seen in my office for initial evaluation on 12/15/20. The following Plan of Care was established for this patient: Initial Frequency: 2-3x /Week Initial Duration: 4-6 Weeks Patient/Client Instruction: Educate patient on: Condition, Plan of Care, Risk Factors, Benefits of Fitness Program For the Purpose of:: To improve self management Therapeutic Exercise to Include: Strength training, Body mechanics, Postural training, Flexibilty training, Gait and locomotor training, Neuromotor development, In an aquatic setting, Dynamic Lumbar Stabilization For the Purpose of:: To decrease pain, To improve muscle performance and motor function, To increase tolerance to activity/condition/position, To improve ability of physical actions for home/community/work/leisure, To improve gait and locomotor functions This patient was last seen in our office 01/12/21. Pertinent comments regarding their Physical therapy will appear below: This patient has not returned to Physical Therapy and is appropriate to return to MD for further follow-up as needed. At this point I will be discontinuing this patient from physical therapy. I would be happy to see this patient again in the future if found appropriate by the physician. Thank you! Francie Diaz, PT, Cert MDT Balance/Gait/Functional tests - Balance/Special Test Scores Oswestry Low Back Score: 25
== END 2021-01-12 19:00 | disposition home or self-care (01) ==
LOC: PT 16:00
PROVIDERS: PCP Family Medicine; Referring Provider Family Medicine; Visit Provider Family Medicine
DX: M48.00 Spinal stenosis, site unspecified (principal); Q77.4 Achondroplasia; M43.10 Spondylolisthesis, site unspecified
CPT/HCPCS: 97110; 97112; 97162; 97530

== ENCOUNTER → 2021-02-24 07:03 | Outpatient (CLI) | payer OTHER, SELFPAY ==
--- NOTE | 2021-02-24 07:17 | MRI_ITS ---
STUDY: MRI LUMBAR SPINE WITHOUT CONTRAST REASON FOR EXAM: Female, 60 years old. BACK PAIN* congenital short stature TECHNIQUE: Standardized fat and water weighted pulse sequences were obtained in the sagittal and axial planes. was administered for the contrast portion of the examination. COMPARISON: 09 January 2021, 11 July 2015 FINDINGS: Appearance is comparable to prior with mild expected worsening of degeneration given time interval of 6 years between exams. T11-T12: Normal endplates. Normal disc height, hydration and morphology. Normal bilateral facet joints. Normal central canal and bilateral lateral recesses. Foramina are moderately stenotic bilaterally. T12-L1: Normal endplates. Normal disc height, hydration and morphology. Normal bilateral facet joints. Normal central canal and bilateral lateral recesses. Normal bilateral intervertebral neural foramina. Normal lumbar lordosis. There is no substantial scoliosis. Conus terminates at L1. Cauda equina is restricted at multiple levels. L1-2: Normal endplates. Normal disc height, decreased hydration and degenerative bulge morphology. Mildly degenerated bilateral facet joints. Moderate to severe central canal stenosis. Normal bilateral intervertebral neural foramina. L2-3: Normal endplates. Normal disc height, decreased hydration and degenerative bulge morphology. Mildly degenerated bilateral facet joints. Moderate to severe central canal stenosis. Normal bilateral intervertebral neural foramina. L3-4: Normal endplates. Normal disc height, decreased hydration and degenerative bulge morphology. Mildly degenerated bilateral facet joints. Moderate to severe central canal stenosis. Normal bilateral intervertebral neural foramina. L4-5: Normal endplates. Normal disc height, decreased hydration and degenerative bulge morphology. Mildly degenerated bilateral facet joints. Moderate to severe central canal stenosis. Normal bilateral intervertebral neural foramina. Bilateral lateral recess stenosis. L5-S1: Normal endplates. Normal disc height, hydration and morphology. Normal bilateral facet joints. Normal central canal and bilateral lateral recesses. Normal bilateral intervertebral neural foramina. Bilateral lateral recess stenosis. Normal visualized sacral ala. Noncontrast epidural space is normal without dural thickening. Normal visualized paraspinous soft tissue structures. There are bilateral renal cysts without hydronephrosis. MRI/Spine Lumbar (Routine) IMPRESSION: 1. Expected worsening of degeneration over the last 6 years since prior scan. 2. Multilevel moderate to severe spondylotic thecal sac stenosis at L1-L2, L2-L3, L3-L4 and L4-L5. 3. Neurosurgical consultation is advised. Electronically Signed: Gama Delgado MD at 21:10 EDT Tel , Service support ,
--- NOTE | 2021-02-24 07:17 | MRI_ITS ---
STUDY: MRI CERVICAL SPINE WITHOUT CONTRAST REASON FOR EXAM: Female, 60 years old. Right ARM PAIN* Pt. has dwarfism TECHNIQUE: Standardized fat and water weighted pulse sequences were obtained in the sagittal and axial planes. COMPARISON: Cervical spine x-rays 01/09/2021 FINDINGS: Normal foramen magnum and brainstem-cervical cord junction. Normal craniovertebral junction. Normal anterior atlantoaxial articulation. Normal odontoid process. Mild cervical kyphosis.. Normal vertebral bodies and posterior osseous elements. C2-3: Normal endplates. Normal disc height, signal and morphology. Normal central canal and intervertebral neural foramina. C3-4: Anterior endplate spurring Narrowed disc space and minor bulging disc osteophyte complex and small central disc protrusion narrowing the spinal canal and mildly compressing the cord.. Severe right neuroforaminal stenosis and moderate to severe narrowing on the left. C4-5: Normal endplates. Normal disc height, signal and morphology. Normal central canal. Moderate to severe bilateral neuroforaminal stenosis secondary to bony hypertrophy C5-6: Normal endplates. Normal disc height, signal and tiny left paracentral disc protrusion.. Normal central canal. Severe left neuroforaminal stenosis secondary to bony hypertrophy C6-7: Mild anterior endplate spurring.. Normal disc height, signal and morphology. Normal central canal. Left neuroforaminal stenosis secondary to bony hypertrophy. C7-T1: Normal endplates. Normal disc height, signal and morphology. Normal central canal and intervertebral neural foramina. Tiny nonspecific foci of gliosis or myelomalacia within the cord posterior to the C4 vertebral body likely due to chronic impingement. Normal visualized soft tissue structures. Findings are similar to that seen on prior examination given inherent differences in imaging modalities. MRI/Spine Cervical (Routine) IMPRESSION: No evidence for acute fracture or other significant bony pathology. Spondylosis and multilevel spinal stenosis secondary to disc disease and bony hypertrophy. There is cord compression at C3-4 as well as nonspecific myelomalacia or gliosis in the cord at C4 Electronically Signed: Petros Mcqueen MD at 17:05 EDT , Service support ,
== END ==
PROVIDERS: PCP Family Medicine; Referring Provider Anesthesiology Pain Medicine; Visit Provider Anesthesiology Pain Medicine
DX: M54.2 Cervicalgia (principal); M79.603 Pain in arm, unspecified; M54.9 Dorsalgia, unspecified; M79.606 Pain in leg, unspecified
CPT/HCPCS: 72141; 72148

== ENCOUNTER → 2021-08-08 11:53 | Outpatient (CLI) | payer OTHER, SELFPAY ==
--- NOTE | 2021-08-08 11:54 | RAD_ITS ---
STUDY: X-RAY - LUMBOSACRAL SPINE REASON FOR EXAM: Female, 60 years old. Acute back pain TECHNIQUE: 7 view(s) of the lumbosacral spine were obtained. COMPARISON: None FINDINGS: Normal lumbar lordosis. There is no substantial scoliosis. There is normal alignment of the vertebrae. There is multilevel endplate spondylosis of the lumbar vertebrae. Mild disc space narrowing Normal bilateral sacral ala, sacroiliac joints, and visualized sacrum. Normal visualized soft tissue structures. RAD/L/S Spine w Bend Min 6 Vw IMPRESSION: Mild degenerative changes, no acute findings Electronically Signed: Adal Decker MD at 17:04 EST , Service support ,
== END ==
PROVIDERS: PCP Family Medicine; Referring Provider Family Medicine; Visit Provider Family Medicine
DX: M54.9 Dorsalgia, unspecified (principal)
CPT/HCPCS: 72114

== ENCOUNTER 2021-08-15 06:44 | Emergency (ER) | payer OTHER, SELFPAY ==
[2021-08-15 06:44] VITALS: BP 142/89; PULSE 103; RESP 18; TEMP 36.2; O2SAT 95; BMI 37.4
--- NOTE | 2021-08-15 07:21 | EDS_ITS ---
HPI History of Present Illness Chief Complaint: Back Narrative Narrative: Patient presents with 2 to 3 weeks of back pain in her low back, radiating down her left leg. 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 She is seen her primary care physician, Dr. Sameer Cifuentes, who she states is performed x-rays which did not show compression fracture. She was on oxycodone and gabapentin for her pain, but stopped taking it because it made her sick. She experienced nausea and vomiting. Additionally, she states that she was taking famotidine while she was taking prednisone, but stopped that. She was switched to indomethacin as an anti-inflammatory, but states that she has not received that from the pharmacy because of insurance reasons. She states that her pain is usually worse as the day goes on. She sits at a desk and works on a computer. She feels aching and burning sensation in her left leg and left thigh. Additionally, she states that her toes get numb. She denies any loss of bowel or bladder. No saddle anesthesia. No red flag signs. She states that her primary care physician told her that if she needed a CT or MRI of her back that she needed to come to the emergency department. [facility] Medical History Anesthesia complication Kidney stone Shortness of breath Sinusitis Home Medications escitalopram oxalate 5 mg PO DAILY 08/07/16 [History Last Taken 09/19/16 05:30] fluticasone propionate 50 mcg/actuation nasal spray,suspension 2 spray INTRANASAL QDAY PRN 02/11/18 [History Last Taken Unknown] albuterol sulfate 1 puff INHALATION Q4H PRN PRN 07/26/20 [History Last Taken Unknown] gabapentin 100 mg capsule 100 mg PO TID cap 03/17/21 [History Last Taken Unknown] loratadine 10 mg tablet 10 mg PO DAILY tab 03/17/21 [History Last Taken Unknown] cyclobenzaprine 10 mg PO TID PRN #20 tab 08/15/21 [Rx Last Taken Unknown] diclofenac sodium 75 mg PO BID PRN #20 tab 08/15/21 [Rx Last Taken Unknown] Allergy/AdvReac Type Severity Reaction Status Date / Time Cephalosporins Allergy Hives Verified 08/15/21 06:47 codeine AdvReac Mild Nausea Verified 08/15/21 06:47 erythromycin base AdvReac Nausea/Vom/ Verified 08/15/21 06:47 [From E-Mycin] Diarrhea nitrofurantoin AdvReac Vomiting Verified 08/15/21 06:47 [From Macrobid] sulfamethoxazole AdvReac Nausea Verified 08/15/21 06:47 [From Bactrim] trimethoprim [From Bactrim] AdvReac Nausea Verified 08/15/21 06:47 decongestants AdvReac Unknown Unknown Uncoded 08/15/21 06:47 Family History Father Prostate cancer Skin cancer Mother Parkinsons disease Hypertension Surgical History History of History of cholecystectomy History of nephrolithotomy with removal of calculi History of tonsillectomy and adenoidectomy Social History Smoking Status: Current every day smoker tobacco type: cigarettes second hand exposure: Yes alcohol intake: never substance use type: does not use ROS ROS ED ROS Narrative Constitutional: No fever, no chills. HEENT: No sore throat. No neck pain. No loss of vision. No rhinorrhea. Cardiovascular: No chest pain. No palpitations. No pedal edema. Respiratory: No cough, no shortness of breath. Abdominal: No abdominal pain. No nausea. No vomiting. Genitourinary: No dysuria. No hematuria. Musculoskeletal: No myalgias. No arthralgias. Positive low back pain radiating down left leg Neurologic: No headaches. No dizziness. No lightheadedness. No saddle anesthesia. Burning sensation left lower extremity. Feels inflamed. Skin: No rash. No change in color. Psychiatric: No depression. No anxiety. EXAM Physical Exam Narrative Exam Narrative: Afebrile. Vital signs noted. HEENT: Normocephalic. Atraumatic. PERRL, EOMI. Neck soft and supple. No point tenderness or step off. Cardiovascular: Regular rate and rhythm. No murmurs, rubs, or gallops appreciated. Respiratory: No tachypnea. Lungs clear to auscultation bilaterally. Gastrointestinal: Abdomen soft, nontender, with normoactive bowel sounds. No rebound or guarding. Neurological: Awake. Alert. Nonfocal, nonlateralizing. EHL intact bilaterally. DTRs, patellar, equal and symmetric of bilateral lower extremities Skin: No rash. Normal color. No pallor. Musculoskeletal: No pedal edema. Full range of motion extremities. No vertebral point tenderness or bony step-off. Const Vital Signs: 08/15/21 06:44 Temperature 97.1 F L Temperature Source Temporal Pulse Rate 103 H Respiratory Rate 18 Blood Pressure 142/89 H Blood Pressure Mean 106 Pulse Ox 95 Oxygen Delivery Method Room Air MDM MDM MDM Narrative Medical decision making narrative: Patient states that she has history of kidney stones. I do not feel that this is flank pain, but rather more lumbar radiculopathy. Once again, she has no red flag signs for cauda equina. I do not feel a CT is indicated, nor do I feel that an emergent MRI is indicated given her examination. I had a lengthy discussion with the patient. She will continue her oxycodone. She was given an intramuscular injection of Toradol. I will write her for an anti-inflammatory such as Voltaren or naproxen, and add a muscle relaxer like Flexeril. We will also check a urinalysis. Urinalysis is negative for infection on microanalysis there are 0-5 WBCs and no RBCs. She has urine nitrite negative. At this point in time, I feel she can be discharged safely home with follow-up to her primary care provider. Return instructions to the emergency department were reviewed. Disposition is discharged home in [facility] condition. Lab Data Attestation: I reviewed the patient's lab results. Labs: Laboratory Results - last 24 hr 08/15/21 08:46 Urine Color Yellow Urine Clarity Sl. Cloudy Urine pH 7.0 Ur Specific [place] 1.015 Urine Protein Negative Urine Glucose (UA) Normal Urine Ketones 50 H Urine Occult Blood Negative Urine Nitrite Negative Urine Bilirubin Negative Urine Urobilinogen Normal Ur Leukocyte Esterase 25 H Urine RBC 0 SEEN Urine WBC 0-5 SEEN Ur Squamous Epith Cells 0-5 SEEN Urine Bacteria 1+ Urine Mucus 0 SEEN Discharge Plan Triage Chief Complaint: Back ED Provider: Cliff Eisenberg Dx/Rx/DC Orders Clinical Impression: Sciatica, Spinal stenosis Instructions: ED Back Pain (Acute or Chronic), ED Sciatica Prescriptions: New diclofenac sodium 75 mg tablet,delayed release (DR/EC) 75 mg PO BID PRN (Reason: pain) Qty: 20 RF: 0 cyclobenzaprine 10 mg tablet 10 mg PO TID PRN (Reason: muscle spasm) Qty: 20 RF: 0 No Action fluticasone propionate [Flonase Allergy Relief] 50 mcg/actuation spr ay,suspension 2 spray INTRANASAL QDAY PRN (Reason: Allergies) RF: 0 gabapentin 100 mg capsule 100 mg PO TID RF: 0 loratadine 10 mg tablet 10 mg PO DAILY RF: 0 escitalopram oxalate 5 MG tablet 5 mg PO DAILY RF: 0 albuterol sulfate 1 PUFF inhaler 1 puff INHALATION Q4H PRN PRN (Reason: Sob &/Or Wheezing) RF: 0 Primary Care Provider: Sameer Cifuentes Referrals: Sameer Cifuentes MD [Primary Care Provider] - 08/16/21 Disposition Disposition: Home, Self Care
[2021-08-15] MEDS: Ketorolac 30 MG/ML Syringe IM (07:43)
[2021-08-15 08:58] LABS: Mucous, Urine 0 SEEN /hpf (<or=2+); Red Blood Cells-Urine 0 SEEN /hpf (0-5)
[2021-08-15 09:01] LABS: Color, Urine Yellow (Yellow); Glucose, Dipstick Normal (Normal); Ketone-Dipstick 50 mg/dl (Negative); Leukocyte Esterase-Dipstick 25 /ul (Negative); Nitrite-Dipstick Negative (Negative); Occult Blood-Urine Negative /ul (Negative); Protein-Dipstick Negative (Negative); Specific Gravity, Urine 1.015 (1.002-1.030); Urine Bilirubin Dipstick Negative (Negative); Urine Clarity Sl. Cloudy (Clear); Urine Urobilinogen Normal (Normal)
[2021-08-15 09:08] LABS: Bacteria 1+ /hpf (None Seen); Squamous Epithelial Cells - UA 0-5 SEEN /hpf (5-10); White Blood Cells 0-5 SEEN /hpf (0-5)
== END 2021-08-15 09:50 | disposition home or self-care (01) ==
PROVIDERS: Emergency Provider Emergency Medicine; PCP Family Medicine
DX: M54.42 Lumbago with sciatica, left side (principal); M48.061 Spinal stenosis, lumbar region without neurogenic claudication; F17.210 Nicotine dependence, cigarettes, uncomplicated; Z79.899 Other long term (current) drug therapy; Z87.442 Personal history of urinary calculi
CPT/HCPCS: 81001; 96372; 99283; P9612

== ENCOUNTER 2021-12-13 12:15 | Outpatient (CLI) | payer OTHER, SELFPAY | END 2021-12-13 23:59 | disposition home or self-care (01) | PROVIDERS: PCP Family Medicine; Visit Provider Family Medicine | DX: J32.9 Chronic sinusitis, unspecified (principal); Z20.822 Contact with and (suspected) exposure to COVID-19 | CPT/HCPCS: 87635; U0003; U0005 ==

== ENCOUNTER 2022-04-10 13:39 | Emergency (ER) | payer OTHER, SELFPAY ==
[2022-04-10 13:40] VITALS: BP 180/108; PULSE 68; RESP 16; TEMP 36.3; O2SAT 97; BMI 36.6
--- NOTE | 2022-04-10 14:23 | CT_ITS ---
STUDY: CT ABDOMEN AND PELVIS WITHOUT CONTRAST REASON FOR EXAM: Female, 61 years old. One week history of right flank pain and abdominal pain. Patient has a history of achondroplasia. RADIATION DOSAGE (If Supplied By Facility): CTDIvol = ( 6.54 ) mGy, DLP = ( 267.92 ) mGycm TECHNIQUE: Transaxial images were obtained from the dome of the diaphragm to the symphysis pubis without oral contrast, and without intravenous contrast. Sagittal and coronal images were reconstructed. Individualized dose optimization techniques were used for this CT. COMPARISON: Comparison is made with prior study dated 04/03/2021. FINDINGS: The visualized lung bases are unremarkable. The visualized portions of the heart are within normal limits. Normal liver. The patient is status post cholecystectomy. Normal spleen. Normal pancreas. Normal bilateral adrenal glands. There is engorgement of the right kidney. Mild to moderate degree of right hydronephrosis and right hydroureter due to a 8 mm calculus in the proximal portion of the right ureter. Multiple tiny nonobstructive right intrarenal calculi. Small right renal cysts. There is a 1.3 cm cyst in the posterior inferior aspect of the left kidney. This also evidence of a 1.7 cm cyst in the upper pole of the left kidney. Normal visualized stomach. Normal small intestine. Normal colon. The appendix is visualized and appears normal. Normal abdominal aorta. Normal inferior vena cava. Normal retroperitoneum. Normal urinary bladder. Normal abdominal wall. Disc space narrowing and spondylosis at the L1-L2 level. CT/Abdomen/Pelvis without Cont IMPRESSION: 8 mm calculus in the proximal portion of the right ureter causing right hydronephrosis and right hydroureter. Multiple tiny nonobstructive right intrarenal calculi. Stable bilateral renal cysts. Electronically Signed: Bhaskar Rowe MD at 15:08 EDT ,
--- NOTE | 2022-04-10 14:24 | EDS_ITS ---
HPI HPI - GI History of Present Illness Chief Complaint: Complaint Informant: patient Abdominal Pain/Flank Pain Onset: Today and Days Context: Gradual Onset Timing: Continuous Quality: Aching Location: Right Flank Current Severity: Mild Maximum Severity: Moderate Worsened by: Nothing Relieved by: Nothing Nausea/Vomiting/Emesis GI Symptom: Positive for Nausea; Negative for Vomiting Onset: Today Severity: Mild Diarrhea/Melena/Hematochezia GI Symptom: Negative for Diarrhea, Melena or Hematochezia Associated Symptoms Associated Symptoms: Negative for Dysuria, Frequency, Hematuria or Urgency Narrative Narrative: 11-year-old female history of kidney stones. Based that she said right flank pain mild for about a week much worse today. Denies dysuria or hematuria. Nausea but no vomiting. Chills without a fever. Also some mild constipation. Prior similar symptoms: Yes Recent Illness/Hospitalization: No PFSH PFSH Medical History Anesthesia complication Kidney stone Shortness of breath Sinusitis Home Medications escitalopram oxalate 5 mg tablet 5 mg PO DAILY 08/07/16 [History Last Taken 09/19/16 05:30] fluticasone propionate 50 mcg/actuation nasal spray,suspension (Flonase Allergy Relief) 2 spray intranasal QDAY PRN Allergies 02/11/18 [History Last Taken Unknown] albuterol sulfate 90 mcg/actuation aerosol inhaler 1 puff inhalation Q4H PRN PRN Sob &/Or Wheezing 07/26/20 [History Last Taken Unknown] loratadine 10 mg tablet 10 mg PO DAILY 03/17/21 [History Last Taken Unknown] Allergy/AdvReac Type Severity Reaction Status Date / Time Cephalosporins Allergy Hives Verified 10/02/21 08:25 codeine AdvReac Mild Nausea Verified 10/02/21 08:25 erythromycin base AdvReac Nausea/Vom/ Verified 10/02/21 08:25 [From E-Mycin] Diarrhea nitrofurantoin AdvReac Vomiting Verified 10/02/21 08:25 [From Macrobid] sulfamethoxazole AdvReac Nausea Verified 10/02/21 08:25 [From Bactrim] trimethoprim [From Bactrim] AdvReac Nausea Verified 10/02/21 08:25 decongestants AdvReac Unknown Unknown Uncoded 08/15/21 06:47 Family History Father Prostate cancer Skin cancer Mother Parkinsons disease Hypertension Surgical History History of History of cholecystectomy History of nephrolithotomy with removal of calculi History of tonsillectomy and adenoidectomy Social History Smoking Status: Current every day smoker tobacco type: cigarettes second hand exposure: Yes alcohol intake: never substance use type: does not use ROS ROS ED ROS Narrative Nausea without vomiting. Right flank pain. Review of Systems ROS Unobtainable: Denies due to encephalopathy Constitutional Constitutional ED: Denies chills ENT ENT ED: Denies ear pain Cardiovascular Cardiovascular: Denies chest pain Respiratory/Chest Respiratory/Chest: Denies cough Gastrointestinal Gastrointestinal: Reports abdominal pain, constipation and nausea; Denies diarrhea, melena or vomiting Genitourinary Genitourinary ED: Denies dysuria or hematuria Musculoskeletal Musculoskeletal: Reports back pain; Denies arthralgias Integumentary Denies abscess Neurologic Neurologic: Denies headache(s) Psychiatric Psychiatric: Denies anxiety Endocrine Endocrinology: Denies polydipsia Hematologic/Lymphatic Hematologic/Lymphatic: Denies easy bleeding Allergic/Immunologic Allergic/Immunologic ED: Denies mouth swelling EXAM Physical Exam Narrative Exam Narrative: 61-year-old female no acute distress vital signs stable afebrile. H EENT exam unremarkable. Neck nontender. Lungs clear to auscultation bilaterally. Heart regular rate and rhythm rate about 70 no murmur. Abdomen soft nondistended no rmal bowel sounds no peritoneal signs. No reproducible tenderness. No hernia or mass. Back nontender. Moving all 4 extremities. Normal motor strength and sensation. Const Vital Signs: 04/10/22 13:40 Temperature 97.3 F L Temperature Source Temporal Pulse Rate 68 Respiratory Rate 16 Blood Pressure 180/108 H Blood Pressure Mean 132 Pulse Ox 97 Oxygen Delivery Method Room Air Positive well nourished, well developed and obese; Negative for cachectic, contractures or unkempt General Appearance ED: well developed; Negative for unkempt, cachectic, contractures or pallor Nutritional Appearance: obese; Negative for cachectic HEENT Reports moist mucous membranes normocephalic and atraumatic; Negative for trauma or tenderness Eyes PERRL and EOMs intact bilaterally General Eye ED: Negative for pale conjunctiva or scleral icterus Neck no lymphadenopathy, supple and no JVD General: Negative for tenderness Carotids: Negative for other Lymph Lymphatic: Negative for other Resp normal respiratory effort and clear to auscultation bilaterally Effort and Inspection: respiratory distress; Negative for retractions Auscultation: Negative for rales, rhonchi, wheezes or diminished lung sounds Cardio regular rate, regular rhythm, S1 normal heart sound, S2 normal heart sound and no murmurs Rate: Negative for bradycardia Rhythm: Negative for abnormal rhythm GI non-tender, non-distended and no masses Inspection: Negative for abdominal distention Auscultation: normoactive bowel sounds Palpation: soft; Negative for tender, guarding or rigid Neuro moves all extremities Sensorium / Orientation: alert, oriented to person, oriented to place and oriented to time; Negative for orientation impaired, confused, lethargic or stuporous Motor Exam: strength 5/5 throughout; Negative for general weakness Psych mental status grossly normal and thought process normal Appearance: Negative for unkempt Attitude: No agitated Mood & Affect: Negative for depressed or anxious Skin no wounds General Skin Exam: Negative for jaundice or pallor Lesions: no lesions Rashes: no rashes Trauma: Negative for abrasion Nails: Negative for discolored MDM MDM MDM Narrative Medical decision making narrative: 61-year-old female with right flank pain. History of kidney stones. CAT scan labs pending. Treated with Zofran IV for nausea, Toradol and morphine IV for pain. Repeat exam patient is doing well at 3:45 PM. Pain is currently much improved with the medication. She and I discussed options she wants to be discharged home. She will follow-up with her urologist. She will be placed on pain medication at home. She knows to return if intractable pain, fever or intractable vomiting. Lab Data Attestation: I reviewed the patient's lab results. Lab results narrative: White count 8. H&H 15 and 44. Electrolytes unremarkable gap of 8 normal BUN and creatinine. Liver enzymes unremarkable. Glucose of 108. Urinalysis shows no nitrites. 250 occult blood. Greater than 100 red cells, 5-10 white cells 1+ bacteria. A culture will be sent. Due to the current obstruction on the right I will place her on Keflex. I did speak to her urologist information technology security manager and they will see her in close follow-up. Urine culture will be sent. CAT scan shows a proximal 8 mm right ureteral stone with obstruction. Labs: Laboratory Results - last 24 hr 04/10/22 04/10/22 04/10/22 14:45 14:45 15:20 WBC 8.5 RBC 5.02 Hgb 15.0 Hct 44.2 MCV 88.0 MCH 29.9 MCHC 33.9 RDW Std Deviation 43.4 RDW Coeff of Jose Roberto 13.4 Plt Count 258 MPV 9.6 Immature Gran % (Auto) 0.400 Neut % (Auto) 76.7 H Lymph % (Auto) 16.6 L [place] % (Auto) 5.4 Eos % (Auto) 0.4 Baso % (Auto) 0.5 Absolute Neuts (auto) 6.5 Absolute Lymphs (auto) 1.41 Nucleated RBC % 0 Sodium 137 Potassium 3.8 Chloride 106 Carbon Dioxide 23.0 Anion Gap 8 BUN 17 Creatinine 0.60 Estim Creat Clear Calc 86.75 Est GFR (MDRD) Af Amer 131 Est GFR (MDRD) Non-Af 108 BUN/Creatinine Ratio 28.2 H Glucose 108 H Calcium 9.3 Total Bilirubin 0.40 AST 21 ALT 25 Alkaline Phosphatase 95 Total Protein 7.4 Albumin 4.3 Globulin 3.1 Albumin/Globulin Ratio 1.4 Urine Color Yellow Urine Clarity Sl. Cloudy Urine pH 6.0 Ur Specific [place] 1.025 Urine Protein 30 H Urine Glucose (UA) Normal Urine Ketones 50 H Urine Occult Blood 250 H Urine Nitrite Negative Urine Bilirubin Negative Urine Urobilinogen Normal Ur Leukocyte Esterase 25 H Radiography Diagnostic Testing: Clinical Impression(s) from Imaging Studies Abdomen/Pelvis CT 04/10/22 14:23 IMPRESSION: 8 mm calculus in the proximal portion of the right ureter causing right hydronephrosis and right hydroureter. Multiple tiny nonobstructive right intrarenal calculi. Stable bilateral renal cysts. Electronically Signed: Bhaskar Rowe MD at 15:08 EDT , Discharge Plan Triage Chief Complaint: Complaint ED Provider: Murtaza Manning Dx/Rx/DC Orders Prescriptions: No Action fluticasone propionate [Flonase Allergy Relief] 50 mcg/actuation spray,suspension 2 spray INTRANASAL QDAY PRN (Reason: Allergies) loratadine 10 mg tablet 10 mg PO DAILY Label Comments: TAKE 1 TABLET BY MOUTH EVERY DAY NEEDED escitalopram oxalate 5 MG tablet 5 mg PO DAILY Label Comments: depression albuterol sulfate 1 PUFF inhaler 1 puff INHALATION Q4H PRN PRN (Reason: Sob &/Or Wheezing) Primary Care Provider: Sameer Cifuentes Referrals: Sameer Cifuentes MD [Primary Care Provider] -
[2022-04-10] MEDS: Ketorolac 15 MG/ML Vial IV (14:39)
[2022-04-10] MEDS: Ondansetron 4 MG/2 ML Vial IV (14:39)
[2022-04-10] MEDS: Morphine 4 MG/ML Syringe IV (14:40)
[2022-04-10] MEDS: 0.9% Normal Saline 1,000 ML 1000 ML IV (14:41)
[2022-04-10 14:52] LABS: Absolute Lymphocyte Count 1.41 X10^3/uL (0.83-4.51); Absolute Neutrophil Count 6.5 X10^3/uL (2.0-7.7); Basophil# 0.04 X10^3/uL; Basophil% 0.5 % (0-1); Eosinophil# 0.03 X10^3/uL; Eosinophils% 0.4 % (0-5); Hematocrit 44.2 % (37-47); Lymphocyte # 1.41 X10^3/ul (0.83-4.51); Lymphocyte % 16.6 % (19-41); Mean Corp Hgb Conc 33.9 g/dL (32-36); Mean Corpuscular Hgb 29.9 pg (27.0-32.0); Mean Platelet Vol. 9.6 fl (6.2-12.0); Monocyte# 0.46 X10^3/uL; Monocyte% 5.4 % (0-10); NRBC Flagged by Analyzer 0 % (0-5); Neutrophil # 6.54 X10^3/uL (2.7-7.7); Neutrophil % 76.7 % (47-70); Platelet Count 258 K/mm3 (150-450); RBC Distribution Width CV 13.4 % (11.6-14.6); RBC Distribution Width SD 43.4 fl (35.1-43.9); Red Blood Count 5.02 M/mm3 (4.2-5.4); White Blood Count 8.5 K/mm3 (4.4-11.0)
[2022-04-10 15:13] LABS: ALB/GLOB Ratio 1.4 RATIO (0.9-2.4); AST(SGOT) 21 U/L (15-37); Alanine Aminotransfer ALT/SGPT 25 U/L (13-56); Albumin, Serum 4.3 g/dL (3.2-5.0); Alkaline Phosphatase 95 U/L (45-117); Anion Gap 8 (5-15); BUN 17 mg/dL (7-18); BUN/Creat Ratio 28.2 RATIO (10-20); Calcium,Total 9.3 mg/dL (8.5-10.1); Chloride 106 mmol/L (98-107); EST Glomerular Filtration Rate 108 mL/min (>60); Est Glom Filt Rate - Afr Amer 131 mL/min (>60); Estimated Creatinine Clearance 86.75 ml/min; Globulin 3.1 g/dL (2.2-4.2); Glucose 108 mg/dL (74-106); Potassium 3.8 mmol/L (3.5-5.1); Protein, Total 7.4 g/dL (6.4-8.2); Sodium Level 137 mmol/L (136-145)
[2022-04-10 15:25] LABS: Mucous, Urine 0 SEEN /hpf (<or=2+)
[2022-04-10 15:31] LABS: Color, Urine Yellow (Yellow); Glucose, Dipstick Normal (Normal); Ketone-Dipstick 50 mg/dl (Negative); Leukocyte Esterase-Dipstick 25 /ul (Negative); Nitrite-Dipstick Negative (Negative); Occult Blood-Urine 250 /ul (Negative); Protein-Dipstick 30 mg/dl (Negative); Specific Gravity, Urine 1.025 (1.002-1.030); Urine Bilirubin Dipstick Negative (Negative); Urine Clarity Sl. Cloudy (Clear); Urine Urobilinogen Normal (Normal)
[2022-04-10 15:51] LABS: Bacteria 1+ /hpf (None Seen); Red Blood Cells-Urine > 100 SEEN /hpf (0-5); Squamous Epithelial Cells - UA 0-5 SEEN /hpf (5-10); White Blood Cells 5-10 SEEN /hpf (0-5)
[2022-04-10] MEDS: Smz/Tmp Ds Tablet 1 TABLET PO (16:08)
[2022-04-10 16:15] VITALS: BP 165/74
== END 2022-04-10 16:17 | disposition home or self-care (01) ==
PROVIDERS: Emergency Provider Emergency Medicine; PCP Family Medicine; Visit Provider Emergency Medicine
DX: N20.1 Calculus of ureter (principal); E66.9 Obesity, unspecified; F17.210 Nicotine dependence, cigarettes, uncomplicated; Z79.899 Other long term (current) drug therapy
CPT/HCPCS: 74176; 80053; 81001; 85025; 87086; 96361; 96374; 96375; 99284; J7030; A4216; J2405

== ENCOUNTER 2022-04-12 02:34 | Observation (INO) | payer OTHER, SELFPAY ==
[2022-04-12] VITALS (11 sets, daily range): BP systolic 103–152; BP diastolic 61–90; PULSE 67–81; RESP 14–18; TEMP 36.6–37.1; O2SAT 95–100; BMI 39.5; BMI 37.4
[2022-04-12] MEDS: Morphine 4 MG/ML Syringe IV (03:10)
[2022-04-12] MEDS: 0.9% Normal Saline 1,000 ML 999 ML IV (03:10)
[2022-04-12] MEDS: Ondansetron 4 MG/2 ML Vial IV ×3 (03:10→15:00)
--- NOTE | 2022-04-12 03:11 | ED.VIS.FEGU ---
HPI HPI - Female History of Present Illness Chief Complaint: Abd Pain Narrative Narrative: 61-year-old female presenting with right flank pain. She has a known 8 mm proximal calculus in the ureter. She states that Dr. Win-has scheduled her to have lithotripsy at about 4 PM today. She reports that she was was to be n.p.o. after midnight has not taken any pain medication because of this. She states has had nausea and vomiting and not been able to hold anything down. Denies fever or chills. PFSH PFS Medical History Anesthesia complication Anxiety Arthritis Back pain Depression DVT (deep venous thrombosis) Heartburn History of deviated nasal septum History of edema Kidney stone Loss of hearing Marijuana use Pain Shortness of breath Shortness of breath on exertion Sinusitis Smoker Wears contact lenses Home Medications escitalopram oxalate 5 mg tablet 5 mg PO DAILY 08/07/16 [History Last Taken 09/19/16 05:30] fluticasone propionate 50 mcg/actuation nasal spray,suspension (Flonase Allergy Relief) 2 spray intranasal QDAY PRN Allergies 02/11/18 [History Last Taken Unknown] albuterol sulfate 90 mcg/actuation aerosol inhaler 1 puff inhalation Q4H PRN PRN Sob &/Or Wheezing 07/26/20 [History Last Taken Unknown] loratadine 10 mg tablet 10 mg PO DAILY 03/17/21 [History Last Taken Unknown] sulfamethoxazole 800 mg-trimethoprim 160 mg tablet (Bactrim DS) 1 tab PO BID 7 days #14 tabs 04/10/22 [Rx Last Taken Unknown] hydrocodone-acetaminophen 5-325mg 5mg-325mg 1 tab PO PRN PRN Pain 04/11/22 [History Last Taken Unknown] Allergy/AdvReac Type Severity Reaction Status Date / Time Cephalosporins Allergy Hives Verified 04/12/22 02:37 codeine AdvReac Mild Nausea Verified 04/12/22 02:37 erythromycin base AdvReac Nausea/Vom/ Verified 04/12/22 02:37 [From E-Mycin] Diarrhea nitrofurantoin AdvReac Vomiting Verified 04/12/22 02:37 [From Macrobid] sulfamethoxazole AdvReac Nausea Verified 04/12/22 02:37 [From Bactrim] trimethoprim [From Bactrim] AdvReac Nausea Verified 04/12/22 02:37 decongestants AdvReac Unknown Unknown Uncoded 04/12/22 02:37 Family History Father Prostate cancer Skin cancer Mother Parkinsons disease Hypertension Surgical History History of History of cholecystectomy History of cystoscopy History of nephrolithotomy with removal of calculi History of tonsillectomy and adenoidectomy Social History Smoking Status: Current every day smoker tobacco type: cigarettes second hand exposure: Yes alcohol intake: never substance use type: does not use ROS ROS ED Constitutional Constitutional ED: Denies chills or fever(s) Eyes Eyes: Denies change in vision or diplopia ENT ENT ED: Denies rhinorrhea or sore throat Cardiovascular Cardiovascular: Denies palpitations or racing heartbeat Respiratory/Chest Respiratory/Chest: Denies cough or dyspnea Gastrointestinal Gastrointestinal: Reports abdominal pain, nausea and vomiting Genitourinary Genitourinary ED: Reports dysuria Musculoskeletal Musculoskeletal: Denies arthralgias or myalgias Integumentary Denies abscess Neurologic Neurologic: Denies headache(s) Psychiatric Psychiatric: Denies anxiety or depression EXAM Physical Exam Const Vital Signs: 04/12/22 02:37 04/12/22 03:11 Temperature 98.5 F 98.5 F Temperature Source Oral Oral Pulse Rate 76 76 Respiratory Rate 16 16 Blood Pressure 132/82 H 132/82 H Blood Pressure Mean 98 Pulse Ox 97 97 Oxygen Delivery Method Room Air Room Air Positive well nourished General Appearance ED: NAD; Negative for pallor HEENT Reports moist mucous membranes Eyes PERRL and EOMs intact bilaterally Resp normal respiratory effort Cardio regular rate and regular rhythm Back/Spine General Back: CVA tenderness right Neuro oriented x3 and CN's II-XII intact bilaterally Sensorium / Orientation: alert Skin no rashes or lesions noted General Skin Exam: Negative for jaundice or pallor MDM MDM MDM Narrative Medical decision making narrative: Patient with right flank pain and known 8 mm calculus on the right proximal ureter. IV line was established. Patient given Zofran, morphine, IV fluids. I spoke with Dr. Win and she was amenable to admitting the patient until she can have her procedure. CBC and BMP are ordered and are unremarkable. Patient transported to the medical floor in stable condition. Impression: 1. Intractable flank pain 2. 8 mm proximal ureteral stone 3. Nausea/vomiting Lab Data Attestation: I reviewed the patient's lab results. Labs: Laboratory Results - last 24 hr 04/12/22 04/12/22 03:04 03:04 WBC 10.4 RBC 4.71 Hgb 13.9 Hct 41.7 MCV 88.5 MCH 29.5 MCHC 33.3 RDW Std Deviation 43.3 RDW Coeff of Jose Roberto 13.2 Plt Count 237 MPV 9.5 Immature Gran % (Auto) 0.200 Neut % (Auto) 74.9 H Lymph % (Auto) 14.8 L [place] % (Auto) 7.8 Eos % (Auto) 1.8 Baso % (Auto) 0.5 Absolute Neuts (auto) 7.8 H Absolute Lymphs (auto) 1.54 Nucleated RBC % 0 Sodium 138 Potassium 3.7 Chloride 107 Carbon Dioxide 24.0 Anion Gap 7 BUN 18 Creatinine 0.80 Estim Creat Clear Calc 70.28 Est GFR (MDRD) Af Amer 94 Est GFR (MDRD) Non-Af 78 BUN/Creatinine Ratio 22.4 H Glucose 105 Calcium 8.7 Discharge Plan Disposition Disposition: Acute Care Hospital [facility] Discharge Date/Time: 04/12/22 03:40
[2022-04-12 03:39] LABS: Anion Gap 7 (5-15); BUN 18 mg/dL (7-18); BUN/Creat Ratio 22.4 RATIO (10-20); Calcium,Total 8.7 mg/dL (8.5-10.1); Chloride 107 mmol/L (98-107); EST Glomerular Filtration Rate 78 mL/min (>60); Est Glom Filt Rate - Afr Amer 94 mL/min (>60); Estimated Creatinine Clearance 70.28 ml/min; Glucose 105 mg/dL (74-106); Potassium 3.7 mmol/L (3.5-5.1); Sodium Level 138 mmol/L (136-145)
[2022-04-12 03:47] LABS: Absolute Lymphocyte Count 1.54 X10^3/uL (0.83-4.51); Absolute Neutrophil Count 7.8 X10^3/uL (2.0-7.7); Basophil# 0.05 X10^3/uL; Basophil% 0.5 % (0-1); Eosinophil# 0.19 X10^3/uL; Eosinophils% 1.8 % (0-5); Hematocrit 41.7 % (37-47); Hemoglobin 13.9 g/dL (12.0-15.0); Lymphocyte # 1.54 X10^3/ul (0.83-4.51); Lymphocyte % 14.8 % (19-41); Mean Corp Hgb Conc 33.3 g/dL (32-36); Mean Corpuscular Hgb 29.5 pg (27.0-32.0); Mean Corpuscular Volume 88.5 fL (81-99); Mean Platelet Vol. 9.5 fl (6.2-12.0); Monocyte# 0.81 X10^3/uL; Monocyte% 7.8 % (0-10); NRBC Flagged by Analyzer 0 % (0-5); Neutrophil % 74.9 % (47-70); Platelet Count 237 K/mm3 (150-450); RBC Distribution Width CV 13.2 % (11.6-14.6); RBC Distribution Width SD 43.3 fl (35.1-43.9); Red Blood Count 4.71 M/mm3 (4.2-5.4); White Blood Count 10.4 K/mm3 (4.4-11.0)
[2022-04-12] MEDS: Morphine 2 MG/ML Syringe IV ×2 (05:02→14:59)
[2022-04-12] MEDS: Dextrose 5%-Lactated Ringers 1,000 ML 100 ML IV ×2 (05:03→14:59)
[2022-04-12] MEDS: 0.9% Saline Lock 10 ML Syringe IV (05:03)
--- NOTE | 2022-04-12 08:24 | PCM.HP.STD ---
HPI - General General Date of Admission: 04/12/22 Chief Complaint: right flank pain, nausea and vomiting HPI Narrative MILES LU, is a 61 F who was admitted from the emergency department last night for uncontrolled pain, nausea and vomiting secondary to a mid ureteral right side stone with obstruction. She is already on the schedule for surgical intervention later today. Informed consent has already been obtained. [facility] Medical History (Updated 04/12/22 @ 08:[address] Jenifer Win MD) Anesthesia complication Anxiety Arthritis Back pain Depression DVT (deep venous thrombosis) Heartburn History of deviated nasal septum History of edema Hydronephrosis Kidney stone Loss of hearing Marijuana use Pain Right ureteral stone Shortness of breath Shortness of breath on exertion Sinusitis Smoker Wears contact lenses Home Medications escitalopram oxalate 5 mg tablet 5 mg PO DAILY 08/07/16 [History Last Taken 09/19/16 05:30] fluticasone propionate 50 mcg/actuation nasal spray,suspension (Flonase Allergy Relief) 2 spray intranasal QDAY PRN Allergies 02/11/18 [History Last Taken Unknown] albuterol sulfate 90 mcg/actuation aerosol inhaler 1 puff inhalation Q4H PRN PRN Sob &/Or Wheezing 07/26/20 [History Last Taken Unknown] loratadine 10 mg tablet 10 mg PO DAILY 03/17/21 [History Last Taken Unknown] sulfamethoxazole 800 mg-trimethoprim 160 mg tablet (Bactrim DS) 1 tab PO BID 7 days #14 tabs 04/10/22 [Rx Last Taken Unknown] hydrocodone-acetaminophen 5-325mg 5mg-325mg 1 tab PO PRN PRN Pain 04/11/22 [History Last Taken Unknown] Allergy/AdvReac Type Severity Reaction Status Date / Time Cephalosporins Allergy Hives Verified 04/12/22 02:37 codeine AdvReac Mild Nausea Verified 04/12/22 02:37 erythromycin base AdvReac Nausea/Vom/ Verified 04/12/22 02:37 [From E-Mycin] Diarrhea nitrofurantoin AdvReac Vomiting Verified 04/12/22 02:37 [From Macrobid] sulfamethoxazole AdvReac Nausea Verified 04/12/22 02:37 [From Bactrim] trimethoprim [From Bactrim] AdvReac Nausea Verified 04/12/22 02:37 decongestants AdvReac Unknown Unknown Uncoded 04/12/22 02:37 Family History Father Prostate cancer Skin cancer Mother Parkinsons disease Hypertension Surgical History History of History of cholecystectomy History of cystoscopy History of nephrolithotomy with removal of calculi History of tonsillectomy and adenoidectomy Social History Smoking Status: Current every day smoker tobacco type: cigarettes second hand exposure: Yes alcohol intake: never substance use type: does not use ROS Constitutional Constitutional: Reports fatigue and poor appetite Eyes Eyes: Reports systems reviewed and no addt'l complaints, except as documented ENT HEENT: Reports systems reviewed and no addt'l complaints, except as documented Cardiovascular Cardiovascular: Reports fatigue, nausea and vomiting; Denies chest pain or dyspnea Respiratory/Chest Respiratory/Chest: Denies cough, dyspnea or shortness of breath at rest Gastrointestinal Gastrointestinal: Reports abdominal pain, cramping, nausea and vomiting Genitourinary Genitourinary: Reports abdominal discomfort, flank pain and urinary urgency Musculoskeletal Musculoskeletal: Reports back pain Integumentary Integumentary: Reports systems reviewed and no addt'l complaints, except as documented Neurologic Neurologic: Reports systems reviewed and no addt'l complaints, except as documented Psychiatric Psychiatric: Reports systems reviewed and no addt'l complaints, except as documented Endocrine Endocrinology: Reports systems reviewed and no addt'l complaints, except as documented Hematologic/Lymphatic Hematologic/Lymphatic: Reports systems reviewed and no addt'l complaints, except as documented Allergic/Immunologic Allergic/Immunologic: Reports systems reviewed and no addt'l complaints, except as documented Vital Signs Vital Signs Vital Signs: 04/12/22 02:37 04/12/22 03:11 04/12/22 03:52 Temperature 98.5 F 98.5 F 98.2 F Temperature Source Oral Oral Oral Pulse Rate 76 76 71 Respiratory Rate 16 16 18 Respiratory Effort Respiratory Depth Respiratory Pattern Blood Pressure 132/82 H 132/82 H 107/61 Blood Pressure Mean 98 76 Blood Pressure Source Monitor Blood Pressure Position Semi-Fowlers Blood Pressure Location Right Arm Pulse Ox 97 97 98 Oxygen Delivery Method Room Air Room Air Room Air 04/12/22 04:13 04/12/22 07:48 Temperature Temperature Source Pulse Rate Respiratory Rate Respiratory Effort Normal Normal Non-Labored Respiratory Depth Normal Normal Respiratory Pattern Normal Normal Blood Pressure Blood Pressure Mean Blood Pressure Source Blood Pressure Position Blood Pressure Location Pulse Ox Oxygen Delivery Method Room Air Room Air Weight Weight: 55.6 kg Body Mass Index (BMI) 37.4 Physical Exam Const alert and oriented x3 General Appearance: cooperative, well kempt and well developed HEENT normocephalic, head/scalp atraumatic, hearing grossly normal bilaterally, external ears normal and external nose normal Eyes General Eye: normal appearance of both eyes Neck supple General: trachea midline Lymph Lymphatic: no lymphedema noted Chest inspection of chest normal Chest: symmetrical chest wall rise Resp normal respiratory effort, normal air movement and no retractions Cardio regular rate and regular rhythm GI soft to palpation, non-tender and non-distended Bladder / Kidney Exam: CVA tenderness right Back/Spine General Back: CVA tenderness right Extremity normal to inspection Skin no rashes or lesions noted, no wounds, skin turgor normal, no jaundice, no petechiae and no mottling Neuro oriented x3, CN's II-XII intact bilaterally and moves all extremities Psych mental status grossly normal, thought process normal, cooperative and affect normal Results Lab / Micro Data Result Diagrams: 04/12/22 03:04 04/12/22 03:04 Labs: Laboratory Results - last 24 hr 04/12/22 03:04: WBC 10.4, RBC 4.71, Hgb 13.9, Hct 41.7, MCV 88.5, MCH 29.5, MCHC 33.3, RDW Std Deviation 43.3, RDW Coeff of Jose Roberto 13.2, Plt Count 237, MPV 9.5, Immature Gran % (Auto) 0.200, Neut % (Auto) 74.9 H, Lymph % (Auto) 14.8 L, Garfield % (Auto) 7.8, Eos % (Auto) 1.8, Baso % (Auto) 0.5, Absolute Neuts (auto) 7.8 H, Absolute Lymphs (auto) 1.54, Nucleated RBC % 0 04/12/22 03:04: Sodium 138, Potassium 3.7, Chloride 107, Carbon Dioxide 24.0, Anion Gap 7, BUN 18, Creatinine 0.80, Estim Creat Clear Calc 70.28, Est GFR (MDRD) Af Amer 94, Est GFR (MDRD) Non-Af 78, BUN/Creatinine Ratio 22.4 H, Glucose 105, Calcium 8.7 Assessment & Plan Assessment/Plan (1) Right ureteral stone: (2) Hydronephrosis: PLAN: Plan Proceed with extracorporal shockwave lithotripsy with cystoscopy and possible stent insertion later today. Informed consent has been obtained. Continue supportive care
--- NOTE | 2022-04-12 16:57 | NURSING ---
report called to Meghana in pacu
--- NOTE | 2022-04-12 19:14 | OP.PCM_ITS ---
Report of Operation Date of Procedure: 04/12/22 Pre-Operative Diagnosis: Right ureteral calculus, right renal calculus, hydrone phrosis Post-Operative Diagnosis: Same Surgery/Procedure Performed:: Cystoscopy, right ureteral stent insertion, right ureteral shockwave lithotripsy, right renal shockwave lithotripsy Surgeon: Jenifer Win Type of Anesthesia: General Specimen's removed: none Description of Procedure: The patient is a 61-year-old female who presented with a right mid ureteral calculus with hydronephrosis and right renal stones as well. She now presents f or definitive surgical intervention. Informed consent was obtained. The patient was taken the operating room and placed on the operating room table. Anesthesia monitored the head, neck, airway, IV access and vital signs throughout the case. Once anesthesia was appropriate ministered the patient was placed into dorsolithotomy position was prepped and draped in usual sterile fashion. At this time the cystoscope was inserted through the urethra under direct visualization into the urinary bladder. There were no bladder lesions identified. The right ureteral orifice was identified and intubated with a 0.035 Glidewire which was seen going past the stone into the renal pelvis. A 6 Macedonian 20 cm JJ stent was then inserted over the wire alongside the stone into the renal pelvis with minimal difficulty. There is good curling in the renal pelvis as well as the urinary bladder. At this time 3000 shocks were applied to the ureteral calculus which was no longer visible. Approximately 1000 shocks were applied to a calculus identified within the the right kidney. The patient tolerated the procedure well. She was then awakened and taken to the recovery room in good condition. There were no complications during this procedure. Grafts/Implants Used: 6 x 20 JJ stent Complications none Admit VTE Documentation VTE Present on Admission: Yes VTE Mechan Device Prophylaxis: SCD's VTE Pharm Prophylaxis ordered?: No Reason prophylaxis not ordered:: Treatment Not Indicated
[2022-04-12] MEDS: Ciprofloxacin 250 MG Tablet PO (22:52)
[2022-04-13] MEDS: Dextrose 5%-Lactated Ringers 1,000 ML 100 ML IV (01:00)
[2022-04-13 02:32] VITALS: BP 115/72; PULSE 72; RESP 16; TEMP 36.6; O2SAT 95
[2022-04-13 07:52] VITALS: O2SAT 99
[2022-04-13 08:30] VITALS: BP 130/74; PULSE 61; RESP 14; TEMP 36.9; O2SAT 97
--- NOTE | 2022-04-13 08:43 | DCINST_ITS ---
Discharge Instructions Diet Discharge Diet: No restrictions Activity Discharge Activity: Return to Normal Activity and [address] (when not taking narcotics) May resume sexual activity in: No Restrictions Dressing / Incision Call your doctor if you observe: Fever of 101 or Higher, Inability to urinate and Inability to have a bowel movement Follow Up Care Please Follow Up With: Jenifer Win MD When: 2-3 weeks in the office with KUB for stent removal Test Results: Test results from this visit will be discussed in further detail at your follow- up appointment, if applicable. Discharge Plan Admission Admit Date/Time: 04/12/22 04:37 Attending Provider: Jenifer Win Primary Care Provider: Sameer Cifuentes Discharge Orders/Prescriptions Prescriptions: New ondansetron HCl [ondansetron HCl] 8 mg tablet 8 mg PO Q8H PRN PRN (Reason: Nausea) 7 Days Qty: 20 0RF phenazopyridine [Pyridium] 200 mg tablet 200 mg PO TID PRN PRN (Reason: Bladder Spasms) 7 Days Qty: 30 0RF ciprofloxacin HCl [Cipro] 250 mg tablet 250 mg PO BID Qty: 6 0RF Continued fluticasone propionate [Flonase Allergy Relief] 50 mcg/actuation spray,suspension 2 spray INTRANASAL QDAY PRN (Reason: Allergies) loratadine 10 mg tablet 10 mg PO DAILY Label Comments: TAKE 1 TABLET BY MOUTH EVERY DAY NEEDED escitalopram oxalate 5 MG tablet 5 mg PO DAILY Label Comments: depression albuterol sulfate 1 PUFF inhaler 1 puff INHALATION Q4H PRN PRN (Reason: Sob &/Or Wheezing) sulfamethoxazole-trimethoprim [Bactrim DS] 800-160 mg tablet 1 tab PO BID 7 Days Qty: 14 0RF hydrocodone-acetaminophen 5-325 mg tablet 1 tab PO PRN PRN (Reason: Pain) Referrals / Follow Up: Sameer Cifuentes MD [Primary Care Provider] - Disposition Disposition (needs filled in before D/C Order can be placed): Home, Self Care
--- NOTE | 2022-04-13 08:46 | PCM.PROGNOTE ---
Subjective Subjective Sitting up in chair and feeling well this morning. Pain is under control, no nausea and tolerating p.o. intake Objective Data Objective Data Vital Signs: Vital Signs Temp Pulse Resp BP Pulse Ox O2 Del Method 98.4 F 61 14 130/74 H 97 Room Air 04/13/22 08:30 04/13/22 08:30 04/13/22 08:30 04/13/22 08:30 04/13/22 08:30 04/13/22 08:30 Oxygen Delivery Method Room Air Weight: 55.6 kg Body Mass Index (BMI) 37.4 Intake & Output: Intake and Output for Last 24 Hours 04/11/22 04/12/22 04/13/22 23:59 23:59 23:59 Intake Total 1992.33 / 1992.33 1000 / 1000 Output Total 500 / 500 250 / 250 Balance 1493.33 / 1493.33 750 / 750 Lab / Micro Data Result Diagrams: 04/12/22 03:04 04/12/22 03:04 Physical Exam Narrative Alert, oriented, comfortable. Abdomen is soft nontender nondistended. She has no Mtz catheter. Assessment & Plan Assessment/Plan (1) Hydronephrosis: (2) Right ureteral stone: (3) Kidney stone: PLAN: Plan Discharge home today Follow-up in the office in 2 to 3 weeks with a KUB for cystoscopy and stent removal
[2022-04-13] MEDS: Ciprofloxacin 250 MG Tablet PO (09:30)
== END 2022-04-13 08:46 | disposition home or self-care (01) ==
LOC: ED 03:11 → PCU 04:48
PROVIDERS: Admitting Provider Urology; Emergency Provider Student in an Organized Health Care Education/Training Program; PCP Family Medicine; Visit Provider Urology
PROC: (CPT 50590; principal; 2022-04-12 18:00)
DX: N13.2 Hydronephrosis with renal and ureteral calculous obstruction (principal); Z86.718 Personal history of other venous thrombosis and embolism; M19.90 Unspecified osteoarthritis, unspecified site; F41.9 Anxiety disorder, unspecified; F32.A Depression, unspecified; Z79.899 Other long term (current) drug therapy; F17.210 Nicotine dependence, cigarettes, uncomplicated
CPT/HCPCS: 52332; 00873; 80048; 85025; 96361; 96374; 96375; 96376; 99218; 99284; 99406; J7030; J7120; A4216; G0378; J2405

== ENCOUNTER → 2022-04-30 | Outpatient (CLI) | payer OTHER, SELFPAY ==
--- NOTE | 2022-04-30 09:03 | RAD_ITS ---
STUDY: XR Abdomen 1 View 04/30/2022 9:09 AM REASON FOR EXAM: Female, 61 years old. ABDOMINAL PAIN CALC OF KIDNEY,URETERAK CALC TECHNIQUE: XR Abdomen 1 View COMPARISON: None FINDINGS: Double-J right ureteral stent in place. There is a moderate amount of colonic fecal material. There is no demonstrated free abdominal air. The visualized liver, spleen and kidneys are grossly normal in size and morphology. Normal soft tissue structures. Normal visualized osseous structures. RAD/Abdomen Single View IMPRESSION: Constipation. Electronically Signed: Boy Samson MD at 14:22 EDT ,
== END | disposition home or self-care (01) ==
PROVIDERS: PCP Family Medicine; Referring Provider Urology; Visit Provider Urology
DX: N20.0 Calculus of kidney (principal); N20.1 Calculus of ureter
CPT/HCPCS: 74018

== ENCOUNTER → 2022-06-14 | Outpatient (CLI) | payer OTHER, SELFPAY ==
--- NOTE | 2022-06-14 07:57 | CT_ITS ---
STUDY: LOW DOSE CT LUNG CANCER SCREENING REASON FOR EXAM: Female, 61 years old. Patient smoked 1 pack per day for 40 years. RADIATION DOSAGE (If Supplied By Facility): CTDIvol = ( 2.01 ) mGy, DLP = ( 65.95 ) mGycm TECHNIQUE: No contrast was administered. Low dose technique was utilized (average mAS-38 and kVp 120). 1.25 mm axial source images with a slice interval of 1.25-mm were reconstructed in lung windows. 2.5 mm axial source images with a slice interval of 2.5-mm were reconstructed in lung windows. 5.0 mm axial source images with a slice interval of 5.0-mm were reconstructed in soft tissue windows. COMPARISON: Comparison is made with prior study from 12/04/2019. NODULES: No suspicious nodules are seen. Emphysema: Mild degree of emphysematous changes. Stable mild degree of increased markings in the lingular segment of the left upper lobe suggestive of scarring. Minimal linear scarring also seen in the lung bases slightly more prominent on the left side. Endobronchial lesion: None Aorta: Minimal atherosclerotic plaque calcification of the aortic arch. CORONARY ARTERIES: Coronary artery calcification is not seen. Heart: Unremarkable Pulmonary artery: Unremarkable Mediastinal nodes: Small benign-appearing mediastinal lymph nodes. Other chest and abdominal findings: CT/Low Dose CT Lung Screening IMPRESSION: Lung-RADS category 2 - Continue annual screening with LDCT in 12 months. IMPORTANT NOTES FOR USE: ACR Lung-RADS Version 1.1 Assessment Categories Release Date: 2018 Category: Coded 0-4 bases on nodule(s) with highest degree of suspicion. Negative screen is defined as categories 1 and 2; a positive screen is defined as categories 3 and 4. Category 3 and 4A nodules that are unchanged on interval CT should be coded as category 2, and individuals returned to screening in 12 months. Category 4X: Category 3 or 4 nodules with additional imaging findings that increase the suspicion of lung cancer, such as spiculation, GGN that doubles in size in 1 year, enlarged lymph notes, etc. Category Modifiers: S (significant finding unrelated to lung cancer) Electronically Signed: Bhaskar Rowe MD at 12:52 EDT ,
--- NOTE | 2022-06-14 08:09 | BI_ITS ---
MAMMOGRAPHY - BILATERAL SCREENING REASON FOR EXAM: Female, 61 years old. Routine annual screening examination. PERTINENT HISTORY: Non-contributory. TECHNIQUE: Digital bilateral breast charlene (3D mammographic acquisition) in the CC and MLO projections. 2-D mediolateral oblique (MLO) and craniocaudad (CC) views of both breasts were obtained. CAD: Full Field Digital Mammography with Computer Added Detection was performed. COMPARISON: Comparison is made with prior study dated 01/02/2021 and 04/23/2019. FINDINGS: Breast Composition: There are scattered areas of fibroglandular density. There are no dominant masses or suspicious calcifications. Stable benign-appearing bilateral axillary lymph nodes. No other significant abnormalities are identified. There has been no significant change since the prior study. BI/SCRN MAMM (CAD)W/CHARLENE BILAT IMPRESSION: Stable bilateral screening mammogram. Yearly follow-up mammogram recommended. (A) ASSESSMENT CATEGORY: BIRADS Category 2: Benign. A letter regarding these results will be sent to the patient by the facility within 30 days. Approximately 10% of breast cancers are not detected by mammography. A normal mammogram should not delay biopsy of a clinically suspicious abnormality. [id number] Electronically Signed: Bhaskar Rowe MD at 9:27 EDT ,
== END | disposition home or self-care (01) ==
LOC: CT 07:55
PROVIDERS: PCP Family Medicine; Referring Provider Family Medicine; Visit Provider Family Medicine
DX: Z12.31 Encounter for screening mammogram for malignant neoplasm of breast (principal); F17.210 Nicotine dependence, cigarettes, uncomplicated
CPT/HCPCS: 71271; 77063; 77067

== ENCOUNTER → 2022-10-10 | Outpatient (CLI) | payer OTHER, SELFPAY ==
--- NOTE | 2022-10-10 11:34 | RAD_ITS ---
INDICATION: distal bilateral C6 hand paresthesia EXAMINATION/TECHNIQUE: X-RAY - XR Spine Cervical 6 or More Views including flexion and extension COMPARISON: None. FINDINGS: VERTEBRAE: Preserved vertebral body height. No fracture. No spondylolisthesis. Preservation of the normal cervical lordosis. No significant facet arthropathy. Loss of normal lordotic curvature. DISCS: Narrowed C3-4 and C6-7 disc spaces with endplate spurring. Films obtained in flexion and extension demonstrate no evidence for gross instability NECK SOFT TISSUES: No prevertebral soft tissue widening. LUNG APICES: Clear. RAD/Cerv Spine Obl/Flex/Ext Comp IMPRESSION: Mild degenerative changes. No evidence of acute fracture or spondylolisthesis. Electronically Signed: Petros Mcqueen MD at 20:51 EST ,
== END | disposition home or self-care (01) ==
LOC: MTRAD 11:33
PROVIDERS: PCP Family Medicine; Referring Provider Family Medicine; Visit Provider Family Medicine
DX: M48.02 Spinal stenosis, cervical region (principal)
CPT/HCPCS: 72052

== ENCOUNTER → 2022-11-16 | Outpatient (CLI) | payer OTHER, SELFPAY ==
--- NOTE | 2022-11-16 07:37 | MRI_ITS ---
EXAM: MR CERVICAL SPINE WITHOUT INTRAVENOUS CONTRAST CLINICAL INDICATION: bilateral C6 weakness/paresthesia of hands, subacute. TECHNIQUE: Multiplanar and multisequence MR images of the cervical spine without intravenous contrast were performed. This report was created using [employer] technology. COMPARISON: MR Cervical Spine dated 02/24/2021 FINDINGS: VERTEBRAE: Normal. Normal vertebral bodies and posterior elements. Normal alignment. Normal craniocervical junction and cervicothoracic junction. No spondylolisthesis. There is preservation of the normal cervical lordosis. SPINAL CORD: Unremarkable in signal and morphology. SOFT TISSUES: Normal. No prevertebral soft tissue swelling. LYMPH NODES: Normal. There is no cervical adenopathy. DISCS/SPINAL CANAL/NEURAL FORAMINA: C2-C3: Normal. Normal disc height and morphology. Normal spinal canal. Normal neuroforamina. C3-C4: C3-4: Stable disc space narrowing, disc protrusion and mild ligamentous hypertrophy results in mild to moderate spinal stenosis. Prominent neural foraminal narrowing related to the uncinate joint hypertrophy. C4-C5: C4-5: Mild broad-based disc protrusion results in mild compression of the spinal canal. Prominent bilateral neural foraminal narrowing related to uncinate joint hypertrophy. Small focus of myelomalacia within the cervical cord at C4 level again noted. There may also be new area of myelomalacia involving the cervical cord at the C4-5 junction associated mild cord atrophy at C3-4 and C4-5. C5-C6: C5-6: Large left central disc osteophyte complex causes significant narrowing of the left lateral recess and adjacent foramen. Moderate narrowing of the right neural foramen secondary to uncinate joint hypertrophy. C6-C7: C6-7: Mild disc space narrowing. Prominent left central disc osteophyte complex causes narrowing of the left lateral recess and adjacent foramen. Moderate narrowing of the right neural foramen related to uncinate joint hypertrophy. C7-T1: Normal. Normal spinal canal. No disc space narrowing or disc protrusion. Prominent bilateral neural foraminal narrowing related to uncinate joint hypertrophy. MRI/Spine Cervical (Routine) IMPRESSION: 1. Stable spinal stenosis at C3-4 associated with myelomalacia of the C4 level of the cord. 2. Question new area of myelomalacia involving the cervical cord at the C4-5 level. 3. Stable prominent left lateral recess stenosis at C5-6 and C6-7. 4. Multilevel neural foraminal narrowing. Electronically Signed: Kevyn Markham MD at 9:31 EST ,
== END | disposition home or self-care (01) ==
PROVIDERS: PCP Family Medicine; Referring Provider Family Medicine; Visit Provider Family Medicine
DX: M48.02 Spinal stenosis, cervical region (principal); R20.2 Paresthesia of skin
CPT/HCPCS: 72141

== ENCOUNTER → 2023-03-08 | Outpatient (CLI) | payer OTHER, SELFPAY ==
[2023-03-08 11:18] LABS: Absolute Lymphocyte Count 1.66 X10^3/uL (0.83-4.51); Absolute Neutrophil Count 2.5 X10^3/uL (2.0-7.7); Basophil# 0.05 X10^3/uL; Basophil% 1.1 % (0-1); Eosinophil# 0.08 X10^3/uL; Eosinophils% 1.8 % (0-5); Hematocrit 44.7 % (37-47); Hemoglobin 14.6 g/dL (12.0-15.0); Lymphocyte # 1.66 X10^3/ul (0.83-4.51); Lymphocyte % 36.3 % (19-41); Mean Corp Hgb Conc 32.7 g/dL (32-36); Mean Corpuscular Hgb 29.8 pg (27.0-32.0); Mean Corpuscular Volume 91.2 fL (81-99); Mean Platelet Vol. 10.3 fl (6.2-12.0); Monocyte# 0.27 X10^3/uL; Monocyte% 5.9 % (0-10); NRBC Flagged by Analyzer 0 % (0-5); Neutrophil % 54.7 % (47-70); Platelet Count 258 K/mm3 (150-450); RBC Distribution Width CV 13.5 % (11.6-14.6); RBC Distribution Width SD 45.9 fl (35.1-43.9); White Blood Count 4.6 K/mm3 (4.4-11.0)
[2023-03-08 11:38] LABS: Hemoglobin A1c 5.1 % (3.8-5.6)
[2023-03-08 11:39] LABS: Vitamin B12 289 pg/mL (211-911); Vitamin D,25 Hydroxy 25.1 ng/mL
[2023-03-08 11:59] LABS: ALB/GLOB Ratio 1.2 RATIO (0.9-2.4); AST(SGOT) 18 U/L (15-37); Alanine Aminotransfer ALT/SGPT 22 U/L (13-56); Albumin, Serum 3.8 g/dL (3.2-5.0); Alkaline Phosphatase 117 U/L (45-117); Anion Gap 5 (5-15); BUN 16 mg/dL (7-18); CRP < 2.90 mg/L (0.0-3.0); Calcium,Total 8.8 mg/dL (8.5-10.1); Chloride 113 mmol/L (98-107); Creatinine, Serum 0.62 mg/dL (0.55-1.02); EST Glomerular Filtration Rate 105 mL/min (>60); Est Glom Filt Rate - Afr Amer 127 mL/min (>60); Ferritin 66 ng/mL (8-252); Globulin 3.2 g/dL (2.2-4.2); Glucose 90 mg/dL (74-106); Potassium 4.2 mmol/L (3.5-5.1); Sodium Level 139 mmol/L (136-145)
[2023-03-11 14:09] LABS: ANTINUCLEAR ANTIBODIES DIRECT Positive (Negative); Anti-Centromere B Ab <0.2 AI (0.0-0.9); Anti-Chromatin <0.2 AI (0.0-0.9); Anti-Jo <0.2 AI (0.0-0.9); Anti-Scleroderma-70 AB <0.2 AI (0.0-0.9); Anti-dsDNA Ab <1 IU/mL (0-9); RNP Ab 2.3 AI (0.0-0.9); SJOGREN'S Anti-SS-A test < 0.2 AI (0.0-0.9); SJOGREN'S Anti-SS-B test < 0.2 AI (0.0-0.9); Smith Ab <0.2 AI (0.0-0.9)
[2023-03-12 13:08] LABS: Arsenic 7245 1 ug/L (0-9); Lead, Blood 1.2 ug/dL (0.0-3.4); Mercury, Blood 85324 < 1.0 ug/L (0.0-14.9); PROEL- A/G Ratio 1.4 (0.7-1.7); PROEL- Albumin 3.9 g/dL (2.9-4.4); PROEL- Alpha-1 Globulin 0.3 g/dL (0.0-0.4); PROEL- Alpha-2 Globulin 0.7 g/dL (0.4-1.0); PROEL- Gamma Globulin 0.7 g/dL (0.4-1.8); PROEL- Globulin, Total 2.7 g/dL (2.2-3.9); PROEL- TOTAL PROTEIN 6.6 g/dL (6.0-8.5)
== END | disposition home or self-care (01) ==
LOC: MFPLAB 09:08
PROVIDERS: PCP Family Medicine; Visit Provider Family Medicine
DX: R20.2 Paresthesia of skin (principal); M48.02 Spinal stenosis, cervical region; E53.8 Deficiency of other specified B group vitamins
CPT/HCPCS: 36415; 80053; 82175; 82306; 82607; 82728; 82746; 83036; 83516; 83655; 83825; 84165; 84443; 85025; 86038; 86140; 86225; 86235; 86340

== ENCOUNTER → 2023-05-07 | Outpatient (CLI) | payer OTHER, SELFPAY | END | disposition home or self-care (01) | LOC: LABSPEC 15:25 | PROVIDERS: PCP Family Medicine; Referring Provider Family Medicine; Visit Provider Family Medicine | DX: N39.0 Urinary tract infection, site not specified (principal) | CPT/HCPCS: 87086 ==

== ENCOUNTER → 2023-05-20 | Outpatient (CLI) | payer OTHER, SELFPAY ==
--- NOTE | 2023-05-20 09:43 | RAD_ITS ---
STUDY: X-RAY - ABDOMEN/PELVIS REASON FOR EXAM: Female, 62 years old. Renal calculi. TECHNIQUE: Single AP view of the abdomen / pelvis. COMPARISON: April 30, 2022. FINDINGS: Right ureteral stent has been removed. Normal bowel gas pattern with air seen to the rectum. No disproportionate dilatation of bowel or free intra-abdominal air. The visualized liver, spleen and kidneys are grossly normal in size and morphology. No abnormal calcifications identified. Normal visualized osseous structures. RAD/Abdomen Single View IMPRESSION: No abnormal calcifications and no acute abnormality of the visualized lower chest, abdomen or pelvis. Electronically Signed: Xavi eWst MD at 11:56 EDT ,
== END | disposition home or self-care (01) ==
LOC: MTRAD 09:41
PROVIDERS: PCP Family Medicine; Referring Provider Urology; Visit Provider Urology
DX: N20.1 Calculus of ureter (principal)
CPT/HCPCS: 74018

== ENCOUNTER → 2023-05-30 | Outpatient (CLI) | payer OTHER, SELFPAY ==
[2023-06-05 21:28] LABS: HPV HC, High Risk Negative; HPV Reflexed? NOT INDICATED
== END | disposition home or self-care (01) ==
LOC: LABSPEC 10:04
PROVIDERS: PCP Family Medicine; Visit Provider Family Medicine
DX: Z12.4 Encounter for screening for malignant neoplasm of cervix (principal)
CPT/HCPCS: 88175; G0145

== ENCOUNTER → 2023-07-09 | Outpatient (CLI) | payer OTHER, SELFPAY ==
--- NOTE | 2023-07-09 16:28 | MRI_ITS ---
EXAM: MR THORACIC SPINE WITHOUT INTRAVENOUS CONTRAST CLINICAL INDICATION: SPODYLOSIS WITH MYELOPATHY, numbness/tingling arms and hands, leg weakness TECHNIQUE: Multiplanar and multisequence MR images of the thoracic spine without intravenous contrast. COMPARISON: No relevant prior studies available. FINDINGS: VERTEBRAE: Unremarkable with the exception of minimal concave appearance of multiple endplates throughout the thoracic spine and minimal anterior spondylosis.. No fracture. Normal vertebral bodies and posterior elements. Normal alignment. There is preservation of the normal thoracic kyphosis. No scoliosis. DISCS/SPINAL CANAL/NEURAL FORAMINA: Unremarkable. Normal disc height and morphology. Normal spinal canal and neuroforamina. No evidence of frankly herniated thoracic disc. There is moderate annular disc bulge at the lumbar level, not fully included. SPINAL CORD: Unremarkable. Normal in signal and morphology. Normal conus medullaris. SOFT TISSUES: There are multiple and bilateral renal cysts, the kidneys are not fully included normal aortic caliber. MRI/Spine Thoracic (Routine) IMPRESSION: Unremarkable MRI of the thoracic spine. Minimal degenerative changes. Electronically Signed: Joellen Prajapati MD at 8:04 EDT ,
== END | disposition home or self-care (01) ==
LOC: MRI 16:17
PROVIDERS: PCP Family Medicine; Referring Provider Orthopaedic Surgery; Visit Provider Orthopaedic Surgery
DX: M47.14 Other spondylosis with myelopathy, thoracic region (principal)
CPT/HCPCS: 72146

== ENCOUNTER → 2023-08-02 | Outpatient (CLI) | payer OTHER, SELFPAY ==
--- NOTE | 2023-08-02 12:39 | CT_ITS ---
STUDY: LOW DOSE CT LUNG CANCER SCREENING REASON FOR EXAM: Female, 62 years old. Ongoing smoking/tobacco use, hx tobacco use, and gt; 30 pkyr RADIATION DOSAGE (If Supplied By Facility): CTDIvol = ( 2.01 ) mGy, DLP = ( 69.72 ) mGycm TECHNIQUE: No contrast was administered. Low dose technique was utilized (average mAS-38 and kVp 120). 1.25 mm axial source images with a slice interval of 1.25-mm were reconstructed in lung windows. 2.5 mm axial source images with a slice interval of 2.5-mm were reconstructed in lung windows. 5.0 mm axial source images with a slice interval of 5.0-mm were reconstructed in soft tissue windows. COMPARISON: Comparison is made with prior examination of June 14, 2022. NODULES: No suspicious nodules are seen. Emphysema: Stable mild degree of emphysematous changes. Stable mild degree of scarring in the liver segment of the left upper lobe. Minimal linear scarring is also seen in the lung bases. Endobronchial lesion: None Aorta: Mild atherosclerotic plaque formation. CORONARY ARTERIES: Coronary artery calcification is not seen. Heart: Unremarkable Pulmonary artery: Unremarkable Mediastinal nodes: Small benign appearing mediastinal lymph nodes. Other chest and abdominal findings: CT/Low Dose CT Lung Screening IMPRESSION: Lung-RADS category 2 - Continue annual screening with LDCT in 12 months. IMPORTANT NOTES FOR USE: ACR Lung-RADS Version 1.1 Assessment Categories Release Date: 2018 Category: Coded 0-4 bases on nodule(s) with highest degree of suspicion. Negative screen is defined as categories 1 and 2; a positive screen is defined as categories 3 and 4. Category 3 and 4A nodules that are unchanged on interval CT should be coded as category 2, and individuals returned to screening in 12 months. Category 4X: Category 3 or 4 nodules with additional imaging findings that increase the suspicion of lung cancer, such as spiculation, GGN that doubles in size in 1 year, enlarged lymph notes, etc. Category Modifiers: S (significant finding unrelated to lung cancer) Electronically Signed: Bhaskar Rowe MD at 14:51 EDT ,
--- NOTE | 2023-08-02 12:53 | BI_ITS ---
MAMMOGRAPHY - BILATERAL SCREENING REASON FOR EXAM: Female, 62 years old. Routine annual screening examination. PERTINENT HISTORY: Non-contributory. TECHNIQUE: Digital bilateral breast charlene (3D mammographic acquisition) in the CC and MLO projections. 2-D mediolateral oblique (MLO) and craniocaudad (CC) views of both breasts were obtained. CAD: Full Field Digital Mammography with Computer Added Detection was performed. COMPARISON: Comparison is made with prior study dated June 14, 2022 and January 02, 2021. FINDINGS: Breast Composition: There are scattered areas of fibroglandular density. There are no dominant masses or suspicious calcifications. Stable benign appearing bilateral axillary lymph nodes. No other significant abnormalities are identified. There has been no significant change since the prior study. BI/SCRN MAMM (CAD)W/CHARLENE BILAT IMPRESSION: Stable bilateral screening mammogram. Yearly follow-up mammogram recommended. (A) ASSESSMENT CATEGORY: BIRADS Category 2: Benign. A letter regarding these results will be sent to the patient by the facility within 30 days. Approximately 10% of breast cancers are not detected by mammography. A normal mammogram should not delay biopsy of a clinically suspicious abnormality. [id number] Electronically Signed: Bhaskar Rowe MD at 13:51 EDT ,
== END | disposition home or self-care (01) ==
PROVIDERS: PCP Family Medicine; Referring Provider Family Medicine; Visit Provider Family Medicine
DX: Z12.31 Encounter for screening mammogram for malignant neoplasm of breast (principal); Z72.0 Tobacco use
CPT/HCPCS: 71271; 77063; 77067

== ENCOUNTER → 2023-09-25 | Outpatient (CLI) | payer OTHER, SELFPAY ==
[2023-09-25 12:25] LABS: Absolute Lymphocyte Count 2.04 X10^3/uL (0.83-4.51); Absolute Neutrophil Count 3.1 X10^3/uL (2.0-7.7); Basophil# 0.04 X10^3/uL; Basophil% 0.7 % (0-1); Eosinophil# 0.05 X10^3/uL; Eosinophils% 0.9 % (0-5); Hematocrit 43.8 % (37-47); Hemoglobin 14.3 g/dL (12.0-15.0); Lymphocyte # 2.04 X10^3/ul (0.83-4.51); Lymphocyte % 36.1 % (19-41); Mean Corp Hgb Conc 32.6 g/dL (32-36); Mean Corpuscular Hgb 29.2 pg (27.0-32.0); Mean Corpuscular Volume 89.6 fL (81-99); Mean Platelet Vol. 10.5 fl (6.2-12.0); Monocyte% 7.1 % (0-10); NRBC Flagged by Analyzer 0 % (0-5); Neutrophil % 54.8 % (47-70); Platelet Count 285 K/mm3 (150-450); RBC Distribution Width CV 13.4 % (11.6-14.6); RBC Distribution Width SD 44.4 fl (35.1-43.9); Red Blood Count 4.89 M/mm3 (4.2-5.4); White Blood Count 5.7 K/mm3 (4.4-11.0)
[2023-09-25 12:28] LABS: Erythrocyte Sedimentation Rate 7 mm/hr (0-30)
[2023-09-25 12:53] LABS: Anion Gap 4 (5-15); BUN 12 mg/dL (7-18); BUN/Creat Ratio 21.1 RATIO (10-20); CRP < 2.90 mg/L (0.0-3.0); Calcium,Total 9.3 mg/dL (8.5-10.1); Chloride 109 mmol/L (98-107); Creatinine, Serum 0.57 mg/dL (0.55-1.02); EST Glomerular Filtration Rate 115 mL/min (>60); Est Glom Filt Rate - Afr Amer 139 mL/min (>60); Glucose 93 mg/dL (74-106); Potassium 3.9 mmol/L (3.5-5.1); Sodium Level 138 mmol/L (136-145)
== END | disposition home or self-care (01) ==
LOC: MFPLAB 10:33
PROVIDERS: PCP Family Medicine; Visit Provider Family Medicine
DX: Z01.818 Encounter for other preprocedural examination (principal)
CPT/HCPCS: 36415; 80048; 85025; 85652; 86140

== ENCOUNTER 2024-02-10 05:38 | Emergency (ER) | payer OTHER, SELFPAY ==
[2024-02-10 05:39] VITALS: BP 165/85; PULSE 87; RESP 18; TEMP 36.1; O2SAT 97; BMI 37.5
--- NOTE | 2024-02-10 05:47 | EDS_ITS ---
HPI History of Present Illness Chief Complaint: Back Informant: patient Onset/Context/Timing Onset: Days (4) Context: Gradual Onset Timing: Continuous Quality: Aching and Burning Location: Lumbar and Left Leg Worsened by: improves with Nothing Relieved by: Medications (Ibuprofen) Associated Symptoms Associated Symptoms: Radiation to Left Leg; Negative for Numbness, Tingling, Radiation to Right Leg, Fever, Abdominal Pain, Dysuria, Unable to Ambulate, Unable to Transfer, Urinary Retention, Urinary Incontinence, Constipation or Fecal Incontinence Narrative Narrative: Patient presents with low back pain that has been getting worse over the past 4 days. Patient denies any trauma or injury. Patient states she has some pain in her lower lumbar area that radiates down her left leg. Patient describes it as tightness and aching in her back. Patient describes her pain in her leg as burning. Patient denies any abdominal pain. Patient denies any bowel or bladder changes. Patient denies any saddle anesthesia. Patient states she took some ibuprofen which helped with her pain but has caused some upset stomach. [facility] Medical History Anesthesia complication Anxiety Arthritis Back pain Depression DVT (deep venous thrombosis) Heartburn History of deviated nasal septum History of edema Hydronephrosis Kidney stone Loss of hearing Marijuana use Pain Right ureteral stone Shortness of breath Shortness of breath on exertion Sinusitis Smoker Wears contact lenses Home Medications escitalopram oxalate 5 mg tablet 5 mg PO DAILY 08/07/16 [History Last Taken 09/19/16 05:30] fluticasone propionate 50 mcg/actuation nasal spray,suspension (Flonase Allergy Relief) 2 spray intranasal QDAY PRN Allergies 02/11/18 [History Last Taken Unknown] albuterol sulfate 90 mcg/actuation aerosol inhaler 1 puff inhalation Q4H PRN PRN Sob &/Or Wheezing 07/26/20 [History Last Taken Unknown] loratadine 10 mg tablet 10 mg PO DAILY 03/17/21 [History Last Taken Unknown] cholecalciferol (vitamin D3) 50 mcg (2,000 unit) tablet (Vitamin D3) 50 mcg PO DAILY 02/10/24 [History Last Taken Unknown] cyanocobalamin (B12)-cobamamide 5,000 mcg-100 mcg sublingual tablet 1 tab sublingual DAILY 02/10/24 [History Last Taken Unknown] hydrocodone-acetaminophen 5-325mg 5mg-325mg 1 tab PO Q6H PRN PRN Pain 3 days #10 TABLETS 02/10/24 [Rx Last Taken Unknown] Allergy/AdvReac Type Severity Reaction Status Date / Time Cephalosporins Allergy Hives Verified 02/10/24 05:39 codeine AdvReac Mild Nausea Verified 02/10/24 05:39 chlorpheniramine AdvReac NEEDS Verified 02/10/24 05:39 [From Aller-Chlor FOLLOW-UP Decongestant] erythromycin base AdvReac Nausea/Vom/ Verified 02/10/24 05:39 [From E-Mycin] Diarrhea nitrofurantoin AdvReac Vomiting Verified 02/10/24 05:39 [From Macrobid] pseudoephedrine AdvReac NEEDS Verified 02/10/24 05:39 [From Aller-Chlor FOLLOW-UP Decongestant] sulfamethoxazole AdvReac Nausea Verified 02/10/24 05:39 [From Bactrim] trimethoprim [From Bactrim] AdvReac Nausea Verified 02/10/24 05:39 Family History Father Prostate cancer Skin cancer Mother Parkinsons disease Hypertension Surgical History History of History of cholecystectomy History of cystoscopy History of nephrolithotomy with removal of calculi History of tonsillectomy and adenoidectomy Social History Smoking Status: Current every day smoker tobacco type: cigarettes second hand exposure: Yes alcohol intake: never substance use type: does not use ROS ROS ED Constitutional Constitutional ED: Reports fever(s) and subjective; Denies chills Eyes Eyes: Denies blurry vision or change in vision ENT ENT ED: Denies rhinorrhea or sore throat Cardiovascular Cardiovascular: Denies chest pain or palpitations Respiratory/Chest Respiratory/Chest: Denies cough or dyspnea Gastrointestinal Gastrointestinal: Reports nausea; Denies vomiting Genitourinary Genitourinary ED: Denies dysuria or hematuria Musculoskeletal Musculoskeletal: Reports back pain; Denies neck pain Integumentary Denies abscess or rash Neurologic Neurologic: Denies headache(s) or weakness Allergic/Immunologic Allergic/Immunologic ED: Denies mouth swelling or urticaria EXAM Physical Exam Const Vital Signs: 02/10/24 05:39 Temperature 97 F L Temperature Source Temporal Pulse Rate 87 Respiratory Rate 18 Blood Pressure 165/85 H Blood Pressure Mean 111 Pulse Ox 97 Positive well nourished and well developed General Appearance ED: well developed and NAD HEENT Reports moist mucous membranes Neck supple and no JVD Back/Spine Back/Spine Narrative: There is mild tenderness over the lumbar spine and paraspinal muscles. There is no bony crepitance or step-off noted. Range of motion was limited in all motions of the lumbar spine secondary to pain. Strength is 5/5 bilaterally in the lower extremities. There are no sensory deficits noted. Deep tendon reflexes are 2/4 bilaterally in the lower extremities. Straight leg raises were negative bilaterally. Lumbar Spine / Lower Back: ROM limited and straight leg raise negative bilaterally Extremity normal to inspection Neuro oriented x3 and no sensory deficits noted Sensorium / Orientation: alert Motor Exam: strength 5/5 throughout Deep Tendon Reflexes: Rt Patellar (L4): 2+, Lt Patellar (L4): 2+, Rt Ankle (S1): 2+ and Lt Ankle (S1): 2+ Deep Tendon Reflexes Back: Rt Patellar (L4): 2+, Lt Patellar (L4): 2+, Rt Ankle (S1): 2+ and Lt Ankle (S1): 2+ Psych mental status grossly normal MDM MDM MDM Narrative Medical decision making narrative: Patient was advised that this is most likely muscular strain. I do not feel x- rays are necessary at this time. Patient was given a prescription for a short course of [place]. Patient was instructed use ice to the area. Patient was instructed to follow-up with her primary care physician in 3 to 5 days. Patient was instructed to return if worse in any way. Patient understood and was agreeable with the plan. All questions were answered. Discharge Plan Triage Chief Complaint: Back ED Provider: Sameer Villegas Dx/Rx/DC Orders Clinical Impression: Acute lumbosacral myofascial strain, Achondroplasia Instructions: ED Back Sprain/Strain Prescriptions: New hydrocodone-acetaminophen [hydrocodone-acetaminophen] 5-325 mg tablet 1 tab PO Q6H PRN PRN (Reason: Pain) 3 Days Qty: 10 0RF No Action fluticasone propionate [Flonase Allergy Relief] 50 mcg/actuation s pray,suspension 2 spray INTRANASAL QDAY PRN (Reason: Allergies) loratadine 10 mg tablet 10 mg PO DAILY Patient Comments: TAKE 1 TABLET BY MOUTH EVERY DAY NEEDED escitalopram oxalate 5 MG tablet 5 mg PO DAILY Patient Comments: depression albuterol sulfate 1 PUFF inhaler 1 puff INHALATION Q4H PRN PRN (Reason: Sob &/Or Wheezing) cyanocobalamin-cobamamide 5,000-100 mcg tablet, sublingual 1 tab sublingual DAILY cholecalciferol (vitamin D3) [Vitamin D3] 50 mcg (2,000 unit) tablet 50 mcg PO DAILY Primary Care Provider: Sameer Cifuentes Referrals: Sameer Cifuentes MD [Primary Care Provider] - 3-5 Days Disposition Disposition: Home, Self Care
[2024-02-10] MEDS: HYDROcodone Bitartrate/Apap 5/325 Tablet PO (06:14)
[2024-02-10 06:17] VITALS: BP 165/85; PULSE 80; RESP 16; TEMP 36.1; O2SAT 97
== END 2024-02-10 06:18 | disposition home or self-care (01) ==
PROVIDERS: Emergency Provider Emergency Medicine; PCP Family Medicine; Visit Provider Emergency Medicine
DX: S39.012A Strain of muscle, fascia and tendon of lower back, initial encounter (principal); Q77.4 Achondroplasia; F17.210 Nicotine dependence, cigarettes, uncomplicated; X58.XXXA Exposure to other specified factors, initial encounter
CPT/HCPCS: 99282

== ENCOUNTER → 2024-03-21 | Outpatient (CLI) | payer OTHER, SELFPAY ==
--- NOTE | 2024-03-21 08:57 | MRI_ITS ---
EXAM: MR LUMBAR SPINE WITHOUT INTRAVENOUS CONTRAST CLINICAL INDICATION: SPINAL STENOSIS TECHNIQUE: Multiplanar and multisequence MR images of the lumbar spine without intravenous contrast. COMPARISON: MR Lumbar Spine dated 02/24/2021 FINDINGS: VERTEBRAE: Normal lumbar lordosis. Stable mild endplate deformities of L3, L4 and L5. No bone marrow edema. SPINAL CORD: Conus medullaris appears tapered at the T12-L1 level. Uncertain whether this represents atrophy of the conus versus normal taper since the spinal cord and cauda equina are not well seen at this level. Plexiform network of what appear to be vascular flow artifacts within the spinal canal at T12 and L1 levels suggestive of distended spinal veins. Underlying venous fistula or engorged vessels due to compression of the thecal sac at L1-2 be differentiated. SOFT TISSUES: Normal. DISCS/SPINAL CANAL/NEURAL FORAMINA: L1-L2: Moderate disc space narrowing and prominent circumferential disc protrusion significant spinal stenosis with the AP dimension of the spinal canal measuring 5 mm. Moderate neural foraminal narrowing related to the disc protrusion. L2-L3: Mild disc space narrowing. Mild disc bulging, ligamentous hypertrophy and facet arthropathy results in moderate spinal stenosis and moderate narrowing of the neural foramina. L3-L4: No significant disc space narrowing. No disc protrusion. Ligamentous hypertrophy and facet arthropathy causes mild spinal stenosis and mild narrowing of the neural foramina. L4-L5: No disc space narrowing or disc protrusion. Moderate narrowing of the spinal canal and neural foramina related to ligamentous hypertrophy and facet arthropathy. L5-S1: Endplate deformities consistent with Schmorl nodes. No disc protrusion. Moderate narrowing of the spinal canal and mild narrowing of the neural foramina secondary to facet hypertrophy. MRI/Spine Lumbar (Routine) IMPRESSION: 1. Distended vascular structures within the thecal sac at T12 and L1 raise the possibility of vascular malformation/AV fistula. 2. Tapering of the conus medullaris suggestive of localized atrophy. 3. Severe spinal stenosis at L1-2 and moderate spinal stenoses involving L2-3, L3-4, L4-5 and L5-S1 as described above. 4. Multilevel neural foraminal narrowing. Electronically Signed: Kevyn Markham MD at 16:03 EDT ,
== END | disposition home or self-care (01) ==
LOC: MRI 08:41
PROVIDERS: PCP Family Medicine; Visit Provider Orthopaedic Surgery
DX: M48.062 Spinal stenosis, lumbar region with neurogenic claudication (principal)
CPT/HCPCS: 72148

== ENCOUNTER → 2024-04-07 | Outpatient (CLI) | payer OTHER, SELFPAY ==
[2024-04-07 17:49] LABS: Absolute Lymphocyte Count 2.21 X10^3/uL (0.83-4.51); Absolute Neutrophil Count 3.6 X10^3/uL (2.0-7.7); Basophil# 0.04 X10^3/uL; Basophil% 0.6 % (0-1); Eosinophil# 0.07 X10^3/uL; Eosinophils% 1.1 % (0-5); Hematocrit 43.6 % (37-47); Hemoglobin 14.5 g/dL (12.0-15.0); Lymphocyte # 2.21 X10^3/ul (0.83-4.51); Lymphocyte % 34.6 % (19-41); Mean Corp Hgb Conc 33.3 g/dL (32-36); Mean Corpuscular Hgb 29.3 pg (27.0-32.0); Mean Corpuscular Volume 88.1 fL (81-99); Mean Platelet Vol. 10.4 fl (6.2-12.0); Monocyte# 0.45 X10^3/uL; NRBC Flagged by Analyzer 0 % (0-5); Neutrophil # 3.61 X10^3/uL (2.7-7.7); Neutrophil % 56.5 % (47-70); Platelet Count 278 K/mm3 (150-450); RBC Distribution Width CV 13.6 % (11.6-14.6); RBC Distribution Width SD 43.8 fl (35.1-43.9); Red Blood Count 4.95 M/mm3 (4.2-5.4); White Blood Count 6.4 K/mm3 (4.4-11.0)
[2024-04-07 18:10] LABS: ALB/GLOB Ratio 1.3 RATIO (0.9-2.4); AST(SGOT) 18 U/L (15-37); Alanine Aminotransfer ALT/SGPT 18 U/L (13-56); Albumin, Serum 4.2 g/dL (3.2-5.0); Alkaline Phosphatase 106 U/L (45-117); Anion Gap 5 (5-15); BUN 13 mg/dL (7-18); Calcium,Total 8.8 mg/dL (8.5-10.1); Chloride 109 mmol/L (98-107); Creatinine, Serum 0.65 mg/dL (0.55-1.02); EST Glomerular Filtration Rate 98 mL/min (>60); Est Glom Filt Rate - Afr Amer 119 mL/min (>60); Globulin 3.2 g/dL (2.2-4.2); Glucose 101 mg/dL (74-106); Potassium 3.8 mmol/L (3.5-5.1); Protein, Total 7.4 g/dL (6.4-8.2); Sodium Level 137 mmol/L (136-145); Thyroid Stim Hormone (TSH) 2.19 uIU/mL (0.358-3.74)
[2024-04-09 15:10] LABS: Lyme Scn Total Ab w/Rflx Negative (Negative)
== END | disposition home or self-care (01) ==
LOC: MFPLAB 16:28
PROVIDERS: PCP Family Medicine; Visit Provider Family Medicine
DX: R53.81 Other malaise (principal)
CPT/HCPCS: 36415; 80053; 84443; 85025; 86618

== ENCOUNTER → 2024-07-28 | Outpatient (REF) | payer OTHER, SELFPAY ==
[2024-07-28 08:30] LABS: Hematocrit 32.1 % (37-47); Hemoglobin 10.7 g/dL (12.0-15.0); Mean Corp Hgb Conc 33.3 g/dL (32-36); Mean Corpuscular Hgb 29.2 pg (27.0-32.0); Mean Corpuscular Volume 87.7 fL (81-99); Mean Platelet Vol. 9.8 fl (6.2-12.0); Platelet Count 352 K/mm3 (150-450); RBC Distribution Width CV 13.6 % (11.6-14.6); RBC Distribution Width SD 43.3 fl (35.1-43.9); Red Blood Count 3.66 M/mm3 (4.2-5.4); White Blood Count 5.2 K/mm3 (4.4-11.0)
[2024-07-28 08:40] LABS: Anion Gap 7 (5-15); BUN 11 mg/dL (7-18); BUN/Creat Ratio 29.9 RATIO (10-20); Calcium,Total 8.5 mg/dL (8.5-10.1); Chloride 107 mmol/L (98-107); Creatinine, Serum 0.37 mg/dL (0.55-1.02); EST Glomerular Filtration Rate 190 mL/min (>60); Est Glom Filt Rate - Afr Amer 229 mL/min (>60); Glucose 106 mg/dL (74-106); Potassium 3.1 mmol/L (3.5-5.1); Sodium Level 143 mmol/L (136-145)
== END ==
LOC: OLS.SW 05:00
PROVIDERS: PCP Family Medicine; Visit Provider Family Medicine
DX: Z02.2 Encounter for examination for admission to residential institution (principal)
CPT/HCPCS: 36415; 80048; 85027

== ENCOUNTER → 2025-02-25 | Outpatient (CLI) | payer MEDICAID, SELFPAY ==
[2025-02-25 12:41] LABS: Absolute Lymphocyte Count 1.49 X10^3/uL (0.83-4.51); Basophil# 0.05 X10^3/uL; Basophil% 0.8 % (0-1); Eosinophil# 0.08 X10^3/uL; Eosinophils% 1.3 % (0-5); Hematocrit 43.5 % (37-47); Hemoglobin 14.6 g/dL (12.0-15.0); Lymphocyte # 1.49 X10^3/ul (0.83-4.51); Lymphocyte % 24.6 % (19-41); Mean Corp Hgb Conc 33.6 g/dL (32-36); Mean Corpuscular Hgb 29.9 pg (27.0-32.0); Mean Corpuscular Volume 89.1 fL (81-99); Mean Platelet Vol. 10.6 fl (6.2-12.0); Monocyte# 0.43 X10^3/uL; Monocyte% 7.1 % (0-10); NRBC Flagged by Analyzer 0 % (0-5); Neutrophil # 3.98 X10^3/uL (2.7-7.7); Neutrophil % 65.9 % (47-70); Platelet Count 281 K/mm3 (150-450); RBC Distribution Width CV 14.2 % (11.6-14.6); RBC Distribution Width SD 46.1 fl (35.1-43.9); Red Blood Count 4.88 M/mm3 (4.2-5.4); White Blood Count 6.1 K/mm3 (4.4-11.0)
[2025-02-25 13:42] LABS: Hemoglobin A1c 5.2 % (<=5.6)
[2025-02-25 13:49] LABS: ALB/GLOB Ratio 1.9 RATIO (0.9-2.4); AST(SGOT) 19 U/L (<=31); Alanine Aminotransfer ALT/SGPT 5 U/L (<=34); Albumin, Serum 4.6 g/dL (3.4-4.8); Alkaline Phosphatase 99 U/L (35-104); Anion Gap 14 (5-15); BUN 11 mg/dL (4-19); BUN/Creat Ratio 20.3 RATIO (10-20); Calcium,Total 9.2 mg/dL (7.6-11.0); Carbon Dioxide 20.4 mmol/L (21.0-32.0); Chloride 106 mmol/L (98-108); Cholesterol 194 mg/dL (<=200); Creatinine, Serum 0.56 mg/dL (0.70-1.20); EST Glomerular Filtration Rate 103 (>60); Globulin 2.5 g/dL (2.2-4.2); Glucose 85 mg/dL (70-99); High Density Lipoprotein 73 mg/dL; Low Density Lipoprotein Calc. 102 mg/dL; Potassium 3.8 mmol/L (3.3-5.1); Sodium Level 140 mmol/L (133-145); Total Bilirubin 0.37 mg/dL (0.00-1.30); Triglycerides 94 mg/dL; Very Low Density Lipoprotein 19 mg/dL (5-40); Vitamin B12 427 pg/mL (180-914); cholesterol:hdl ratio screen 2.66
[2025-02-25 13:53] LABS: FOLATES,SERUM (FOLIC ACID) 9.23 ng/mL (4.60-34.80)
== END | disposition home or self-care (01) ==
LOC: MFPLAB 09:52
PROVIDERS: PCP Family Medicine; Referring Provider Family Medicine; Visit Provider Family Medicine
DX: Z00.01 Encounter for general adult medical examination with abnormal findings (principal); E53.8 Deficiency of other specified B group vitamins; F33.0 Major depressive disorder, recurrent, mild; E66.812 Obesity, class 2; Z68.37 Body mass index [BMI] 37.0-37.9, adult
CPT/HCPCS: 36415; 80053; 80061; 82607; 82746; 83036; 85025

== ENCOUNTER → 2025-03-25 | Outpatient (CLI) | payer MEDICAID, SELFPAY ==
--- NOTE | 2025-03-25 13:45 | BI_ITS ---
EXAM: SCRN MAMM (CAD)W/CHARLENE BILAT DATE: 03/25/2025 CLINICAL HISTORY: F, Age 64 y/o , ANNUAL SCREENING Noncontributory. TECHNIQUE: SCRN MAMM (CAD)W/CHARLENE BILAT COMPARISON: Prior exam(s) dated August 02, 2023.. FINDINGS: TISSUE DENSITY: There are scattered areas of fibroglandular density. Bilateral Breast Mammographic Findings: No significant masses, calcifications or other abnormalities are identified. No suspicious masses, areas of developing architectural distortion, or suspicious calcifications. There has been no significant interval change. BI/SCRN MAMM (CAD)W/CHARLENE BILAT IMPRESSION: Stable examination. OVERALL FINAL ASSESSMENT BI-RADS 1: NEGATIVE. RECOMMEND ANNUAL MAMMOGRAPHIC SCREENING. RECOMMENDATION: Routine annual follow-up in 1 Year A letter with findings and recommendations will be mailed to the patient. Reading Location: [id number]
--- NOTE | 2025-03-25 14:19 | CT_ITS ---
PROCEDURE: LOW DOSE CT LUNG SCREENING 03/25/2025 REASON FOR EXAM: TOBACCO USE WITH > 30 PACK YEARS TECHNIQUE: LOW DOSE CT LUNG SCREENING Coronal and Sagittal reconstruction series were provided. One or more dose reduction techniques were used (e.g., Automated exposure control, adjustment of the mA and/or kV according to patient size, use of iterative reconstruction technique). REFERENCE LINK: [email or web address] Lung-RADS RADIATION DOSE SUMMARY: CTDlvol: 2 mGy DLP: 63 mGycm COMPARISON: 08/02/2023 FINDINGS: Central airways are patent. Mild emphysema. Basilar atelectasis. No consolidation, effusion, or pneumothorax. On the left, no suspicious lung nodules. On the right, no suspicious nodules. Unremarkable base of neck and axilla. Thoracic spine degeneration. Mildly enlarged heart. No acute vascular pathology on noncontrast scanning. No acute chest wall findings. No acute abdominal findings. CT/Low Dose CT Lung Screening IMPRESSION: No suspicious lung nodules Lung-RADS Category: 1 Other Significant Findings: No Reading Location: [facility]
== END | disposition home or self-care (01) ==
LOC: CT 13:22
PROVIDERS: PCP Family Medicine; Referring Provider Family Medicine; Visit Provider Family Medicine
DX: Z12.31 Encounter for screening mammogram for malignant neoplasm of breast (principal); Z12.2 Encounter for screening for malignant neoplasm of respiratory organs; F17.210 Nicotine dependence, cigarettes, uncomplicated
CPT/HCPCS: 71271; 77063; 77067

== ENCOUNTER → 2025-04-08 | Outpatient (CLI) | payer MEDICAID, SELFPAY ==
--- NOTE | 2025-04-08 11:03 | RAD_ITS ---
PROCEDURE: CHEST PA AND LATERAL 04/08/2025 REASON FOR EXAM: CHEST HEAVINESS TECHNIQUE: CHEST PA AND LATERAL COMPARISON: 03/25/2025 CT. FINDINGS: The heart is enlarged. The lungs are clear. No pleural effusion or pneumothorax. No acute osseous abnormalities. RAD/Chest PA and Lateral IMPRESSION: No acute cardiopulmonary abnormalities. Reading Location: [place] [id number]
== END | disposition home or self-care (01) ==
LOC: MTRAD 11:02
PROVIDERS: PCP Family Medicine; Referring Provider Family Medicine; Visit Provider Family Medicine
DX: R07.89 Other chest pain (principal); N30.00 Acute cystitis without hematuria
CPT/HCPCS: 71046; 87086; 87088

== ENCOUNTER → 2025-07-28 | Outpatient (CLI) | payer MEDICAID, SELFPAY ==
[2025-07-28 10:26] LABS: Hematocrit 42.5 % (37-47); Hemoglobin 14.7 g/dL (12.0-15.0); Immature Granulocytes Count 0.010 X10^3/uL (0.0-0.0); Mean Corp Hgb Conc 34.6 g/dL (32-36); Mean Corpuscular Volume 87.3 fL (81-99); Mean Platelet Vol. 10.3 fl (6.2-12.0); NRBC Flagged by Analyzer 0 % (0-5); Platelet Count 253 K/mm3 (150-450); RBC Distribution Width CV 13.7 % (11.6-14.6); RBC Distribution Width SD 44.5 fl (35.1-43.9); Red Blood Count 4.87 M/mm3 (4.2-5.4); White Blood Count 4.7 K/mm3 (4.4-11.0)
[2025-07-28 10:45] LABS: AST(SGOT) 18 U/L (<=31); Alanine Aminotransfer ALT/SGPT 6 U/L (<=34); Albumin, Serum 4.5 g/dL (3.4-4.8); Alkaline Phosphatase 88 U/L (35-104); Anion Gap 12 (5-15); BUN 15 mg/dL (4-19); BUN/Creat Ratio 24.1 RATIO (10-20); Calcium,Total 9.2 mg/dL (7.6-11.0); Carbon Dioxide 21.9 mmol/L (21.0-32.0); Chloride 109 mmol/L (98-108); Globulin 2.4 g/dL (2.2-4.2); Glucose 99 mg/dL (70-99); Potassium 3.8 mmol/L (3.3-5.1)
[2025-07-28 10:51] LABS: CRP < 3.00 mg/L (0.0-3.0)
[2025-07-29 16:09] LABS: ANTINUCLEAR ANTIBODIES DIRECT Positive (Negative)
[2025-08-02 15:08] LABS: Anti-Chromatin <0.2 AI (0.0-0.9); Anti-Jo <0.2 AI (0.0-0.9); Anti-dsDNA Ab <1 IU/mL (0-9); SJOGREN'S Anti-SS-A test < 0.2 AI (0.0-0.9); SJOGREN'S Anti-SS-B test < 0.2 AI (0.0-0.9)
== END | disposition home or self-care (01) ==
LOC: MFPLAB 08:32
PROVIDERS: PCP Family Medicine; Visit Provider Family Medicine
DX: R68.81 Early satiety (principal); R11.2 Nausea with vomiting, unspecified; R76.89 Other specified abnormal immunological findings in serum
CPT/HCPCS: 36415; 80053; 85025; 85652; 86038; 86140; 86225; 86235

== ENCOUNTER → 2025-07-30 | Outpatient (CLI) | payer MEDICAID, SELFPAY ==
[2025-08-02 20:08] LABS: H. PYLORI STOOL AG Negative (Negative); Pancreatic Elastase, Fecal > 800 (>200)
== END | disposition home or self-care (01) ==
LOC: MFPLAB 10:33 → LABSPEC 10:33
PROVIDERS: PCP Family Medicine; Visit Provider Family Medicine
DX: R68.81 Early satiety (principal)
CPT/HCPCS: 82653; 83630; 87338

== ENCOUNTER → 2025-08-19 | Outpatient (CLI) | payer MEDICAID, SELFPAY ==
--- OUTSIDE RECORDS SUMMARY | 2025-08-19 07:43 | XMS RPT_ITS | CCD ---
Author Organization [facility] Care Team Providers Care [facility] Receptionist Name Role Phone Dr. Calli Cifuentes Primary Care Provider Dr. Calli Cifuentes Referring Provider Dr. Osbaldo Darling Attending Provider Calli Cifuentes MD Primary Care Provider [phone] CALLI CIFUENTES Primary Care Unavailable ARIANA SHEN Referring Unavailable ARIANA SHEN Attending Unavailable CALLI CIFUENTES Primary Care Unavailable Svetlana Ruiz Attending Unavailable ARIANA SHEN Referring Unavailable CALLI CIFUENTES Primary Care Unavailable ARIANA SHEN Attending Unavailable CALLI CIFUENTES Referring Unavailable DASH BUSTAMANTE MD Primary Care Physician Unavailable Dr. Calli Cifuentes Primary Care Provider Dr. Calli Cifuentes Referring Provider [phone] Osbaldo Darling Attending Provider Dr. Calli Cifuentes Primary Care Provider Dr. Calli Cifuentes Referring Provider Dr. Osbaldo Darling Attending Provider Calli Cifuentes MD Primary Care Provider CALLI CIFUENTES MD Primary Care Physician Svetlana Aguiar S Unavailable Unavailable BRAYDEN ECHEVARRIA MD Attending Unavailable CALLI CIFUENTES MD Primary Care Unavailable BRAYDEN ECHEVARRIA MD Attending Unavailable CALLI CIFUENTES MD Primary Care Unavailable BRAYDEN ECHEVARRAI MD Attending Unavailable BRAYDEN ECHEVARRIA MD Admitting Unavailable GENET TURCIOS, PAULA Consulting Unavailable CALLI CIFUENTES MD A Primary Care Unavailable BETHEL PACE, STEPHANI Consulting Unavailable ALLI TURCIOS, GÓMEZ Consulting Unavailable SWATHI TURCIOS, BRAYDEN Montero Attending Unavailable ESAU TURCIOS, CALLI A Primary Care Unavailable ESAU TURCIOS, CALLI A Primary Care Unavailable SWATHI TURCIOS, BRAYDEN Montero Attending Unavailable ESAU TURCIOS, CALLI A Primary Care Unavailable BRAYDEN ECHEVARRIA MD Admitting Unavailable SWATHI TURCIOS, BRAYDEN Montero Consulting Unavailable BRAYDEN ECHEVARRIA MD Attending Unavailable DEVANTE PACE, KERMIT Consulting Unavailcatrachita JENKINS MD, MARTINEZ Consulting Unavailable Esau TURCIOS, Dr. Estrella Primary Care Provider [phone] Dr. Calli Cifuentes MD Attending Provider [phone] Esau TURCIOS, Dr. Estrella Referring Provider Quirino TURCIOS, Dr. Burgess Attending Provider Cifuentes, Calli Primary Care Unavailable Cifuentes, Calli Attending Unavailable Cifuentes, Calli Primary Care Unavailable Cifuentes, Calli Attending Unavailable Cifuentes, Calli Referring Unavailable Cifuentes, Calli Primary Care Unavailable Cifuentes, Calli Attending Unavailable Cifuentes, Calli Referring Unavailable Cifuentes, Calli Primary Care Unavailable Cifuentes, Calli Attending Unavailable Cifuentes, Calli Referring Unavailable Cifuentes, Calli Primary Care Unavailable Cifuentes, Calli Attending Unavailable Cifuentse, Calli Referring Unavailable Cifuentes, Calli Primary Care Unavailable Cifuentes, Calli Attending Unavailable Cifuentes, Calli Primary Care Unavailable Cifuentes, Calli Attending Unavailable Cifuentes, Calli Referring Unavailable Cifuentes, Calli Primary Care Unavailable Cifuentes, Calli Attending Unavailable Jenifer Win Attending Unavailable Cifuentes, Calli Primary Care Unavailable Cifuentes, Calli Referring Unavailable Cifuentes, Calli Primary Care Unavailable Jenifer Win Attending Unavailable Cifuentes, Calli Referring Unavailable Cifuentes, Calli Referring Unavailable Cifuentes, Calli Primary Care Unavailable Cifuentes, Calli Attending Unavailable Allergies Allergy Classification Reported Allergen(s) Allergy Type Date of Onset Reaction(s) Facility (20 sources) Cephalosporins (Antibiotic); Translations: [CEPHALOSPORINS] Allergy to substance 10-02-19 Hives, Eruption of skin (disorder) [facility] (20 sources) Codeine; Translations: [CODEINE] Drug Allergy 10-02-19 22 GI Upset, Nausea (finding) [facility] (20 sources) Erythromycin; Translations: [ERYTHROMYCIN BASE] Drug Allergy 10-15-19 06 GI Upset, Diarrhea (finding), Vomiting (disorder), Nausea (finding) [facility] (20 sources) Nitrofurantoin; Translations: [NITROFURANTOIN] Drug Allergy 10-02-19 22 GI Upset [facility] (20 sources) Sulfamethoxazole; Translations: [SULFAMETHOXAZOLE] Drug Allergy 10-02-19 22 GI Upset, Nausea (finding) [facility] (20 sources) Trimethoprim; Translations: [TRIMETHOPRIM] Drug Allergy 10-02-19 22 GI Upset, Nausea (finding) [facility] (7 sources) decongestants Propensity to adverse reactions 08-15-20 21 Unknown [facility] (3 sources) Cefuroxime; Translations: [CEFUROXIME] Drug Allergy 09-15-20 08 Hives [facility] (3 sources) Decongestants, Nasal; Translations: [DECONGESTANT TABLET] Drug Intolerance 06-29-20 22 Intolerance [facility] (12 sources) NITROFURANTOIN, MACROCRYSTALS / Nitrofurantoin, Monohydrate; Translations: [NITROFURANTOIN MONOHYD/M-CRYST] Drug Allergy 06-29-20 22 GI Upset, Vomiting (disorder) [facility] (7 sources) Sulfamethoxazole / Trimethoprim; Translations: [SULFAMETHOXAZOLE-T RIMETHOPRIM] Drug Allergy 06-29-20 22 GI Upset [facility] (1 source) Erythromycin; Translations: [ERYTHROMYCIN] Drug Allergy 10-15-19 06 [facility] Rep[facility] (16 sources) Pseudoephedrine; Translations: [pseudoephedrine] Drug Allergy 01-30-20 23 Unknown (qualifier value) [facility] (11 sources) Chlorpheniramine Drug Allergy 01-30-20 23 NEEDS FOLLOW-UP [facility] (1 source) Chlorpheniramine Drug Allergy 06-14-20 [facility] (1 source) Codeine Drug Allergy 06-14-20 [facility] (1 source) Erythromycin Drug Allergy 06-14-20 25 [facility] (1 source) Nitrofurantoin Drug Allergy 06-14-20 [facility] (1 source) Pseudoephedrine Drug Allergy 06-14-20 25 [facility] (1 source) Sulfamethoxazole Drug Allergy 06-14-20 25 [facility] (1 source) Trimethoprim Drug Allergy 06-14-20 [facility] Rep[facility] Medications Current Medications Medication Drug Class(es) Dates Sig (Normalized) Sig (Original) acetaminophen 500 mg oral tablet (20 sources) Start: 06-30-2024 Tylenol Extra Strength 500 mg oral tablet Dose : 1,000 mg = 2 tab(s), Oral, q6hr, PRN as needed for pain, # 50 tab(s), 0 Refill(s) Start Date: 06/30/24 Status: Ordered Start: 10-10-2023 take 1 dose by mouth every four hours as needed for pain Tylenol Dose : 650 mg =, Oral, q4h, PRN as needed for pain, 0 Refill(s) Start Date: 10/10/23 Status: Ordered Start: 08-07-2016 End: 02-06-2018 take 500-1000 mg by mouth every six hours as needed for pain Acetaminophen 500 MG tablet Discontinued 500 - 1000 mg PO EVERY 6 HOURS NEEDED as needed for Pain August 07, 2016 1:00am February 06, 2018 9:20am [id number] 200 actuat albuterol 0.09 mg/actuat metered dose inhaler (20 sources) beta2-Adrenergic Agonist Start: 07-26-2020 Albut issa Sulfate 1 PUFF inhaler Active 1 NMA INHALATION EVERY 4 HOURS NEEDED as needed for Sob &/Or Wheezing July 26, 2020 12:00am Start: 07-26-2020 take 1 puff(s) by in halation every four hours as needed Albuterol Sulfate Active 1 PUFF INHALATION EVERY 4 HOURS NEEDED July 26, 2020 12:00am Start: 07-11-2009 take 1 puff(s) by in halation once daily as needed for wheezing ALBUTEROL 90 MCG/ACTUATION AEROSOL INHALER Inhale one(1) - two(2) puffs four(4) times a day as needed for wheezing and shortness of breath. 0 07/11/2009 Active Comment on above: Inhale one(1) - two( 2) puffs four(4) times a day as needed for wheezing and shortness of breath. Albuterol (Eqv-ProAir HFA) 90 mcg/inh inhalation aerosol (5 sources) Start: 3 take 1 dose by inhalation every four hours as needed for wheezing Albuterol (Eqv-ProAir HFA) 90 mcg/inh inhalation aerosol Dose = 2 puff(s), Inhalation, q4h, PRN as needed for wheezing, 0 Refill(s) Start Date: 02/01/23 Status: Ordered Start: 02-01-2023 Albuterol (Eqv -ProAir HFA) 90 mcg/inh inhalation aerosol 0 Refill(s) Start Date: 02/01/23 Status: Ordered Aluminum Hydroxide / Magnesium Hydroxide / Simethicone (1 source) Start: 07-22-2024 Maalox Oral, q2h, PRN Indigestion, 0 Refill(s) Start Date: 07/22/24 Status: Ordered 120 actuat budesonide 0.08 mg/actuat / formoterol fumarate 0.0045 mg/actuat metered dose inhaler (2 sources) Corticosteroid, beta2-Adrenergic Agonist Start: 05-17-2025 Budesonide-Formot issa (Symbicort) 80-4.5 mcg/actuation HFA aerosol inhaler Active INHALATION May 17, 2025 12:00am diclofenac sodium 75 mg delayed release oral tablet (1 source) Nonsteroidal Anti-inflammatory Drug Start: 08-15-2021 take 75 mg by mouth twice daily Diclofenac Sodium Active 75 MG PO TWICE A DAY August 15, 2021 10:14am docusate sodium 100 mg oral capsule (1 source) Start: 07-22-2024 Colace 100 mg oral capsule Dose : 100 mg = 1 cap(s), Oral, BID, 0 Refill(s) Start Date: 07/22/24 Status: Ordered SENOKOT-S (1 source) Start: 07-22-2024 take 1 tablet by mouth once daily as needed for constipation Senokot S Dose = 1 tab(s), Oral, qDay, PRN Constipation, 0 Refill(s) Start Date: 07/22/24 Status: Ordered DULoxetine 20 mg delayed release oral capsule (2 sources) Serotonin and Norepinephrine Reuptake Inhibitor Start: 09-12-2023 DULoxetine 20 mg oral delayed release capsule Dose : 20 mg = 1 cap(s), Oral, qAM, # 180 cap(s), 0 Refill(s) Start Date: 09/12/23 Status: Ordered escitalopram 10 mg oral tablet (20 sources) Serotonin Reuptake Inhibitor Start: 05-17-2025 take 1 tablet by mouth once daily Escitalopram Oxalate 10 mg tablet Active 10 mg PO daily May 17, 2025 12:00am Start: 06-30-2024 escitalopram 1 0 mg oral tablet Dose : 10 mg = 1 tab(s), Oral, qAM, # 30 tab(s), 0 Refill(s) Start Date: 06/30/24 Status: Ordered Start: 08-07-2016 End: 05-17-2025 take 1 tablet by mouth once daily Escitalopram Oxalate 5 MG tablet Discontinued 5 mg PO DAILY August 07, 2016 1:00am May 17, 2025 8:07am Comment on above: Take 5 mg by mouth o nce daily. fluticasone propionate 0.05 mg/actuat metered dose nasal spray (20 sources) Corticosteroid Start: take 50 ug nasal route once daily as needed fluticasone proprionate NASAL 50 mcg/ spray 50 mcg Dose = 1 spray(s), Nostril, each, Daily, PRN as needed for allergy symptoms, 0 Refill(s) Start Date: 02/01/23 Status: Ordered Start: 02-01-2023 fluticasone pr oprionate NASAL 50 mcg/ spray 0 Refill(s) Start Date: 02/01/23 Status: Ordered Start: 02-11-2018 Fluticasone Pr opionate (Flonase Allergy Relief) 50 mcg/actuation spray,suspension Active 2 NMA INTRANASAL daily as needed for Allergies February 11, 2018 12:00am Start: 02-11-2018 Fluticasone Pr opionate (Flonase Allergy Relief) 50 mcg/actuation spray,suspension Active 2 SPRAY INTRANASAL daily February 11, 2018 12:00am Start: 08-07-2016 End: 02-06-2018 Fluticasone Propionate 1 SPR AY spray,suspension Discontinued 2 NMA NASAL DAILY NEEDED as needed for Allergies August 07, 2016 1:00am February 06, 2018 9:21am Start: 08-07-2016 End: 02-06-2018 Fluticasone Propionate Disco ntinued 2 SPRAY NASAL DAILY NEEDED August 07, 2016 1:00am February 06, 2018 9:21am fluticasone (ONUR NASE) 50 mcg/actuation nasal spray Use 1 [place] in each nostril as needed. 0 Active Comment on above: Use 1 [place] in each nostril as needed. ipratropium bromide 0.021 mg/actuat metered dose nasal spray (2 sources) Anticholinergic Start: 06-30-20 take 42 ug nasal route once daily ipratropium 21 mcg/inh (0.03%) nasal spray 42 mcg Dose = 2 spray(s), Nostril, each, qDay, 0 Refill(s) Start Date: 06/30/24 Status: Ordered loratadine 10 mg oral tablet (20 sources) Start: 03-17-20 take 1 tablet by mouth once daily Loratadine 10 mg tablet Active 10 mg PO DAILY March 17, 2021 12:00am take 1 capsule by mouth once oly ly loratadine 10 mg cap Take 10 mg by mouth once daily. 0 Active Comment on above: Take 10 mg by mouth once daily. Milk of Magnesia (1 source) Start: 07-22-20 take 1 dose by mouth once daily at bedtime as needed for constipation Milk of Magnesia Dose = 30 mL, Oral, qHS, PRN Constipation, 0 Refill(s) Start Date: 07/22/24 Status: Ordered mupirocin 0.02 mg/mg topical ointment (2 sources) RNA Synthetase Inhibitor Antibacterial Start: 06-30-20 mupirocin 2% topical ointment Apply 1 aura, Topical, BID, Bilateral intranasal application twice daily x 5 days pre-surgery &/or as many days pre-surgery as possible., Apply to: nostril, each, # 22 gram(s), 0 Refill(s), Pharmacy: [facility]/pharmacy #[id number], Ointment, 121.9, cm, 06/30/24 10:19:00 EDT, Height, 53.7, kg, 06/30/24 10:19:00 EDT, Dosing Weight Start Date: 06/30/24 Status: Ordered Start: 09-12-2023 mupirocin 2% t opical ointment Apply 1 aura, Topical, BID, Bilateral intranasal application twice daily x 5 days pre-surgery &/or as many days pre-surgery as possible., Apply to: nostril, each, # 22 gram(s), 0 Refill(s), Pharmacy: [facility]/pharmacy #[id number], Ointment, 123, cm, 09/12/23 11:00:00 EST, Height, 54.3, kg, 09/12/23 11:00:00 EST, Dosing Weight Start Date: 09/12/23 Status: Ordered polyethylene glycol 3350 60228 mg powder for oral solution (1 source) Osmotic Laxative Start: 07-22-2024 MiraLax oral powder for reconstitution Oral, qDay, 0 Refill(s) Start Date: 07/22/24 Status: Ordered pregabalin 50 mg oral capsule (1 source) Start: 02-01-2023 Lyrica 50 mg o ral capsule Dose : 50 mg = 1 cap(s), Oral, BID, # 60 cap(s), 0 Refill(s), Pharmacy: [facility]/pharmacy #[id number], Hand numbness, 123, cm, 02/01/23 8:14:00 EDT, Height, 53 Start Date: 02/01/23 Status: Ordered Vibegron (1 source) Start: 06-14-2025 take 1 tablet by mouth once daily Vibegron (Gemtesa) 75 mg tablet Active 75 mg PO daily 90 June 14, 2025 12:00am Vitamin B12 5000 mcg oral tablet, disintegrating (2 sources) Start: 09-12-2023 Vitamin B12 50 00 mcg oral tablet, disintegrating Dose : 5,000 mcg = 1 tab(s), Oral, qDay, # 100 tab(s), 0 Refill(s) Start Date: 09/12/23 Status: Ordered Vitamin D3 50 mcg (2000 intl units) oral capsule (2 sources) Start: 09-12-2023 Vitamin D3 50 mcg (2000 intl units) oral capsule Dose : 50 mcg = 1 cap(s), Oral, qDay, # 60 cap(s), 0 Refill(s) Start Date: 09/12/23 Status: Ordered Completed/Discontinued Medications Medication Drug Class(es) Dates Sig (Normalized) Sig (Original) acetaminophen 325 mg / HYDROcodone bitartrate 5 mg oral tablet (20 sources) Opioid Agonist Start: 02-10-2024 End: 05-17-2025 Hydrocodone-Acetami nophen 5-325 mg tablet Discontinued 1 {tbl} PO EVERY 6 HOURS NEEDED as needed for Pain 10 3 0 February 10, 2024 May 17, 2025 8:07am Acute myofascial strain of lumbosacral region Strain of muscle, fascia and tendon of lower back, initial encounter Start: 02-10-2024 take 1 tablet by farooq th every six hours as needed Hydrocodone-Acetaminophen Active 1 TABLE T PO EVERY 6 HOURS NEEDED 10 3 February 10, 2024 Start: 04-11-2022 End: 11-22-2022 Hydrocodone-Acetaminophen 5- 325 mg tablet Discontinued 1 {tbl} PO NEEDED as needed for Pain April 11, 2022 1:21pm November 22, 2022 2:08pm Start: 04-11-2022 End: 11-22-2022 Hydrocodone-Acetaminophen Di scontinued 1 TABLET PO NEEDED April 11, 2022 1:21pm November 22, 2022 2:08pm Start: 04-10-2022 End: 04-11-2022 Hydrocodone-Acetaminophen 5- 325 mg tablet Discontinued 1 {tbl} PO Q4H 30 5 0 April 10, 2022 April 11, 2022 1:21pm Calculus of kidney Calculus of kidney Start: 04-10-2022 End: 04-11-2022 take 1 tablet by mouth every four hours Hydrocodone-Acetaminophen Discontinued 1 TABLET PO Q4H 30 5 April 10, 2022 April 11, 2022 1:21pm Start: 09-12-2020 End: 09-14-2020 Hydrocodone-Acetaminophen 1 TABLET tablet Discontinued 1 {tbl} PO EVERY 4 HOURS NEEDED as needed for Pain 14 2 0 September 12, 2020 September 13, 2020 1:00am September 14, 2020 1:02am Sciatica Sciatica, unspecified side Start: 09-12-2020 End: 09-14-2020 take 1 tablet by mouth every four hours as needed Hydrocodone-Acetaminophen Discontinued 1 TABLET PO EVERY 4 HOURS NEEDED 14 2 September 12, 2020 September 14, 2020 1:02am Start: 09-19-2016 End: 02-06-2018 Hydrocodone-Acetaminophen 1 EACH tablet Discontinued 1 {tbl} PO EVERY 6 HOURS NEEDED as needed for Pain September 19, 2016 1:00am February 06, 2018 9:21am Start: 09-19-2016 End: 02-06-2018 take 1 tablet by mouth every six hours as needed Hydrocodone-Acetaminophen Discontinued 1 TABLET PO EVERY 6 HOURS NEEDED 14 September 19, 2016 1:00am February 06, 2018 9:21am Start: 08-09-2016 End: 02-06-2018 Hydrocodone-Acetaminophen 1 TABLET tablet Discontinued 1 {tbl} PO EVERY 4 HOURS NEEDED as needed for Pain 14 0 August 09, 2016 1:00am February 06, 2018 9:21am Start: 08-09-2016 End: 02-06-2018 take 1 tablet by mouth every four hours as needed Hydrocodone-Acetaminophen Discontinued 1 TABLET PO EVERY 4 HOURS NEEDED 14 August 09, 2016 1:00am February 06, 2018 9:21am Percocet (20 sources) Opioid Agonist Start: 10-11-2023 Percocet 325/5 Dose = 1 tab(s), Oral, q6hr, PRN as needed for pain, 0 Refill(s), 53 Start Date: 10/11/23 Status: Ordered Start: 08-09-2020 End: 08-16-2020 Oxycodone-Acetaminophen 1 TA BLET tablet Discontinued 1 {tbl} PO EVERY 8 HOURS NEEDED as needed for Pain 10 7 0 August 09, 2020 August 15, 2020 1:00am August 16, 2020 1:03am Calculus of left ureter Calculus of ureter Start: 08-09-2020 End: 08-16-2020 take 1 tablet by mouth every eight hours as needed Oxycodone-Acetaminophen Discontinued 1 TABLET PO EVERY 8 HOURS NEEDED 10 7 August 09, 2020 August 16, 2020 1:03am Start: 08-04-2020 End: 03-17-2021 Oxycodone-Acetaminophen 1 EA CH tablet Discontinued 1 NMA PO NEEDED as needed for pain August 04, 2020 1:00am March 17, 2021 10:02am Start: 08-04-2020 End: 03-17-2021 Oxycodone-Acetaminophen Disc ontinued 1 EACH PO NEEDED August 04, 2020 1:00am March 17, 2021 10:02am Start: 08-02-2020 End: 08-04-2020 Oxycodone-Acetaminophen 1 TA BLET tablet Discontinued 1 {tbl} PO EVERY 8 HOURS NEEDED as needed for Pain 6 2 0 August 02, 2020 August 03, 2020 1:00am August 04, 2020 1:02am Calculus of left ureter Calculus of ureter Start: 08-02-2020 End: 08-04-2020 take 1 tablet by mouth every eight hours as needed Oxycodone-Acetaminophen Discontinued 1 TABLET PO EVERY 8 HOURS NEEDED 6 2 August 02, 2020 August 04, 2020 1:02am amoxicillin 500 mg oral capsule (18 sources) Penicillin-class Antibacterial Start: 08-09-2020 End: 08-12-2020 take 1 capsule by mouth every twelve hours Amoxicillin 500 MG capsule Discontinued 500 mg PO Q12H 6 3 0 August 09, 2020 1:00am August 11, 2020 1:00am August 12, 2020 1:03am cholecalciferol 0.05 mg oral tablet (6 sources) Vitamin D Start: 02-10-2024 End: 05-17-2025 Cholecalciferol (Vitamin D3) [Cholecalciferol (Vitamin D3) 50 Mcg (2,000 Unit) Tablet] (Cholecalciferol (Vitamin D3) 50 Mcg (2,000 Unit) ) 50 mcg (2,000 unit) tablet Discontinued 50 ug PO DAILY February 10, 2024 12:00am May 17, 2025 8:06am ciprofloxacin 250 mg oral tablet (20 sources) Quinolone Antimicrobial Start: 04-13-2022 End: 11-22-2022 take 1 tablet by mouth twice daily Ciprofloxacin Hcl (Cipro) 250 mg tablet Discontinued 250 mg PO TWICE A DAY 6 0 April 13, 2022 12:00am November 22, 2022 2:07pm Start: 08-09-2020 End: 08-12-2020 take 1 tablet by mouth twice daily Ciprofloxacin Hcl 250 MG tablet Discontinued 250 mg PO TWICE A DAY 6 3 0 August 09, 2020 1:00am August 11, 2020 1:00am August 12, 2020 1:03am cobamamide 0.1 mg / vitamin b12 5 mg sublingual tablet (6 sources) Vitamin B12 Start: 02-10-2024 End: 05-17-2025 Cyanocobalamin-Cobamamide 5,000-100 mcg tablet, sublingual Discontinued 1 {tbl} SL DAILY February 10, 2024 12:00am May 17, 2025 8:06am Start: 02-10-2024 Cyanocobalamin -Cobamamide Active 1 TABLET SL DAILY February 10, 2024 12:00am cyclobenzaprine hydrochloride 10 mg oral tablet (18 sources) Muscle Relaxant Start: 08-15-2021 End: 10-02-2021 take 1 tablet by mouth three times daily as needed for muscle spasms Cyclobenzaprine 10 mg tablet Discontinued 10 mg PO THREE TIMES A DAY as needed for muscle spasm 20 0 August 15, 2021 1:00am October 02, 2021 9:26am esomeprazole 40 mg delayed release oral capsule (20 sources) Proton Pump Inhibitor Start: 08-07-2016 End: 02-06-2018 take 1 capsule by mouth once daily Esomeprazole Magnesium 40 MG capsule Discontinued 40 mg PO DAILY August 07, 2016 1:00am February 06, 2018 9:21am take 1 capsule by mouth once oly ly esomeprazole (NEXIUM) 20 mg capsule Take 20 mg by mouth once daily. 0 Active Comment on above: Take 20 mg by mouth once daily. gabapentin 100 mg oral capsule (18 sources) Anti-epileptic Agent Start: 03-17-20 End: 10-02-19 take 1 capsule by mouth three times daily Gabapentin 100 mg capsule Discontinued 100 mg PO THREE TIMES A DAY March 17, 2021 12:00am October 02, 2021 9:26am HYDROmorphone hydrochloride 2 mg oral tablet (1 source) Opioid Agonist Start: 07-22-20 Dilaudid 2 mg oral tablet Dose : 2 mg = 1 tab(s), Oral, q6hr, PRN as needed for pain, 0 Refill(s), 51.6 Start Date: 07/22/24 Status: Ordered hydrOXYzine hydrochloride 10 mg oral tablet (20 sources) Antihistamine Start: 08-07-20 End: 02-07-20 Hydroxyzine Hcl 10 MG tablet Discontinued 1 - 2 NMA PO EVERY 8 HOURS NEEDED as needed for allergies, cough August 07, 2016 1:00am February 06, 2018 9:21am take 1 tablet by mouth once ted y hydrOXYzine HCl (ATARAX) 10 mg tablet Take 10 mg by mouth once daily. 0 Active Comment on above: Take 10 mg by mouth once daily. naproxen 500 mg oral tablet (18 sources) Nonsteroidal Anti-inflammatory Drug Start: End: take 1 tablet by mouth twice daily as needed Naproxen 500 MG tablet Discontinued 500 mg PO TWICE DAILY NEEDED September 12, 2020 1:00am March 17, 2021 10:00am ondansetron 8 mg oral tablet (16 sources) Serotonin-3 Receptor Antagonist Start: End: take 1 tablet by mouth every eight hours as needed for nausea Ondansetron Hcl 8 mg tablet Discontinued 8 mg PO EVERY 8 HOURS NEEDED as needed for Nausea 20 7 0 April 13, 2022 12:00am November 22, 2022 2:08pm phenazopyridine hydrochloride 200 mg oral tablet (20 sources) Start: End: take 1 tablet by mouth three times daily as needed for muscle spasms Phenazopyridine (Pyridium) 200 mg tablet Discontinued 200 mg PO 3 TIMES DAILY NEEDED as needed for Bladder Spasms 30 7 0 April 13, 2022 12:00am November 22, 2022 2:08pm Start: 08-02-2020 End: 08-17-2020 take 1 tablet by mouth twice daily as needed for muscle spasms Phenazopyridine 200 MG tablet Discontinued 200 mg PO TWICE DAILY NEEDED as needed for Bladder Spasms 30 15 0 August 02, 2020 9:14am August 16, 2020 1:00am August 17, 2020 1:02am raNITIdine 150 mg oral tablet (2 sources) Histamine-2 Receptor Antagonist Start: 07-11-2009 End: 08-22-2022 ranitidine hcl(ZANTAC 150 MG TAB) Take by mouth. 0 07/11/2009 08/22/2022 Discontinued (Other) Comment on above: Take by mouth. sulfamethoxazole 800 mg / trimethoprim 160 mg oral tablet (17 sources) Dihydrofolate Reductase Inhibitor Antibacterial, Sulfonamide Antimicrobial Start: 04-10-2022 End: 11-22-2022 Sulfamethoxazole-Tri methoprim (Bactrim Ds) 800-160 mg tablet Discontinued 1 {tbl} PO TWICE A DAY 14 7 0 April 10, 2022 12:00am November 22, 2022 2:08pm Problems Active Problems Problem Classification Problem Date Documented Da te Episodic/Chronic Acute posthemorrhagic anemia (2 sources) Acute posthemorrhagic anemia; Translations: [Acute posthemorrhagic anemia] Onset: 4 Episodic Anxiety disorders (8 sources) Anxiety; Translations: [Anxiety disorder] Onset: 4 01-22-2023 Chronic Calculus of urinary tract (20 sources) Kidney stone; Translations: [Calculus of kidney] Onset: 5 Episodic Comment on above: bilateral Chronic obstructive pulmonary disease and bronchiectasis (2 sources) Pulmonary emphysema; Translations: [Emphysema, unspecified] Chronic E Codes: Fall (18 sources) Fall; Translations: [Unspecified fall, initial encounter] 05-10-2020 Episodic Esophageal disorders (2 sources) Gastroesophageal reflux disease without esophagitis; Translations: [Gastro-esophageal reflux disease without esophagitis] Onset: 4 Chronic Essential hypertension (1 source) Essential hypertension; Translations: [Essential (primary) hypertension] Chronic Gastritis and duodenitis (1 source) Acute gastritis without bleeding; Translations: [Acute gastritis without bleeding] Onset: 5 Episodic Genitourinary symptoms and ill-defined conditions (4 sources) Urge incontinence of urine; Translations: [Urge incontinence] Onset: 5 05-17-2025 Chronic Genitourinary symptoms and ill-defined conditions (4 sources) Nocturia; Translations: [Nocturia] Onset: 5 05-17-2025 Episodic Immunizations and screening for infectious disease (1 source) Other specified abnormal immunological findings in serum; Translations: [Other specified abnormal immunological findings in serum] Onset: 5 Episodic Mood disorders (6 sources) Depression; Translations: [Depressive disorder] 01-22-2023 Chronic Osteoarthritis (5 sources) Arthritis 01-22-2023 Chronic Other acquired deformities (1 source) Cervical kyphosis; Translations: [Unspecified kyphosis, cervical region] Onset: 4 Chronic Other circulatory disease (1 source) Low blood pressure; Translations: [Hypotension, unspecified] Episodic Other congenital anomalies (20 sources) Achondroplasia; 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 Other congenital anomalies (1 source) Achondroplasia; 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 Other connective tissue disease (12 sources) Myomalacia; Translations: [Other specified disorders of muscle] 11-22-2022 Episodic Other diseases of bladder and urethra (5 sources) Overactive bladder; Translations: [Overactive bladder] 05-17-2025 Chronic Other diseases of bladder and urethra (1 source) Overactive bladder; Translations: [Overactive bladder] Onset: 5 Chronic Other diseases of kidney and ureters (19 sources) Hydronephrosis; Translations: [Unspecified hydronephrosis] 04-18-2022 Episodic Other diseases of kidney and ureters (3 sources) Unspecified hydronephrosis; Translations: [Hydronephrosis] Episodic Other gastrointestinal disorders (1 source) Heartburn 01-22-2023 Episodic Other gastrointestinal disorders (4 sources) Constipation; Translations: [Constipation, unspecified] 05-17-2025 Episodic Other gastrointestinal disorders (1 source) Constipation, unspecified; Translations: [Constipation, unspecified] Onset: 5 Episodic Other lower respiratory disease (18 sources) Dyspnea; Translations: [Shortness of breath] 02-06-2018 Episodic Other nervous system disorders (12 sources) Myelomalacia; Translations: [Other specified diseases of spinal cord] 11-22-2022 Chronic Other nervous system disorders (2 sources) Other specified diseases of spinal cord; Translations: [Other myelopathy] 11-22-2022 Chronic Other upper respiratory infections (18 sources) Sinusitis; Translations: [Chronic sinusitis, unspecified] 02-06-2018 Chronic Phlebitis; thrombophlebitis and thromboembolism (4 sources) Deep venous thrombosis; Translations: [Acute deep vein thrombosis of lower limb] Onset: 0 01-22-2023 Episodic Comment on above: left leg, pt was on bcp at this time also Residual codes; unclassified (2 sources) Obstructive sleep apnea syndrome; Translations: [Obstructive sleep apnea (adult) (pediatric)] Chronic Residual codes; unclassified (1 source) Sleep apnea; Translations: [Sleep apnea, unspecified] Chronic Residual codes; unclassified (1 source) Tobacco user; Translations: [Tobacco use] Onset: 4 Episodic Residual codes; unclassified (1 source) Early satiety; Translations: [Early satiety] Onset: 5 Episodic Spondylosis; intervertebral disc disorders; other back problems (2 sources) Cervical spondylosis; Translations: [Spondylosis without myelopathy or radiculopathy, cervical region] Onset: 4 Chronic Spondylosis; intervertebral disc disorders; other back problems (20 sources) Spinal stenosis of lumbar region; Translations: [Spinal stenosis, lumbar region without neurogenic claudication] Onset: 4 Episodic Sprains and strains (6 sources) Lower back injury; Translations: [Strain of muscle, fascia and tendon of lower back, initial encounter] 02-10-2024 Episodic Substance-related disorders (1 source) Nicotine dependence; Translations: [Nicotine dependence, cigarettes, uncomplicated] Chronic Superficial injury; contusion (20 sources) Contusion of upper limb; Translations: [Contusion of left upper arm, initial encounter] 05-10-2020 Episodic Urinary tract infections (17 sources) Urinary tract infectious disease; Translations: [Urinary tract infection, site not specified] 04-18-2022 Episodic Past or Other Problems Problem Classification Problem Date Documented Da te Episodic/Chronic Nonspecific chest pain (1 source) Other chest pain; Translations: [Other chest pain] Onset: 04-14-2025 Episodic Other screening for suspected conditions (not mental disorders or infectious disease) (5 sources) Patient encounter status; Translations: [Encounter for screening for malignant neoplasm of colon] Onset: 08-17-2022 Episodic Results Test Name Value Interpretation Reference Range Facility [facility] ANTI-DNA (DS)AB <1 Normal 0-9 [facility] Comment on above: Order Comment: ADDED ON AT [facility] ON 07/30/25 BY SURJIT Result Comment: Nega tive <5 Equivocal 5 - 9 Positive >9 Performed By: #### L 3100.5440, L3100.7950 ####[facility] [address] [place], [address] ANTI-SS-A < 0.2 Normal 0.0-0.9 [facility] Comment on above: Order Comment: ADDED ON AT [facility] ON 07/30/25 BY SURJIT Performed By: #### L 3100.5440, L3100.7950 ####[facility] [address] [place], [address] ANTI-SS-B < 0.2 Normal 0.0-0.9 [facility] Comment on above: Order Comment: ADDED ON AT [facility] ON 07/30/25 BY SURJIT Performed By: #### L 3100.5440, L3100.7950 ####[facility] [address] [place], [place], [address] Antinuclear Antibody, IFAon 08-02-2025 RAYMOND, IFA Negative Normal . [facility] Comment on above: Order Comment: ADDED ON AT [facility] ON 07/30/25 BY SURJIT Result Comment: Nega tive <1:80 Borderline 1:80 Positive >1:80 ICAP nomenclature: AC-0 For more information about Hep-2 cell patterns use ANApatterns.org, the official website for the International Consensus on Antinuclear Antibody (RAYMOND) Patterns (ICAP). Performed By: #### L 3100.5440, L3100.7950 ####[facility] [address] [place], [place], [address] H. PYLORI STOOL AGon 025 H PYLORI STL AG Negative Normal Negative [facility] Comment on above: Result Comment: Perf ormed at: [facility] [address] [id number] Medical Service Technician: Presley Joseph MD, Phone: [phone] Performed at: [facility] [address] [id number] Medical Service Technician: Srikanth Lamb PhD, Phone: [phone] Performed By: #### L 7000.0750, L3100.1950 ####[facility] [address] [place], [address] L7000.0750on 08-02-2025 P ELASTASE,FECA > 800 Normal >200 [facility] Comment on above: Result Comment: Resu lt Units: ug Elast./g Severe Pancreatic Insufficiency: <100 Moderate Pancreatic Insufficiency: 100 - 200 Normal: >200 Performed By: #### L 7000.0750, L3100.1950 ####[facility] [address] [place], [address] Stool Lactoferrin/WBCon 10-3 WBCST Order Date: 07/27/25 Order Info: [id number] - WBCST Normal Reference Range = Negative Fecal WBC Lactoferrin Negative: No Fecal WBC Lactoferrin present Normal [facility] Comment on above: Performed By: #### M 100.0605 #### [facility] [address] [place], [address] ANTINUCLEAR ANTIBODIES DIRE Ton 07-29-2025 RAYMOND,DIRECT Positive Abnormal Negative [facility] Comment on above: Order Comment: Order Date: 07/27/25Order Info: [id number] - RAYMOND Result Comment: Perf ormed at: [facility] [address] [id number] Medical Service Technician: Srikanth Lamb PhD, Phone: [phone] Performed By: #### M 100.2200 #### [facility] [address] [place], [place], [address] CBC W/Diff, Automatedon 10-2 Absolute Lymph 1.84 X10 3/uL Normal 0.83-4.51 [facility] Comment on above: Order Comment: Order Date: 07/27/25Order Info: [id number] - CBCDOrder Info: [id number] - SED Performed By: #### L 100.0100, L3100.5475, L500.4050, L101.9900, L501.6710 ####[facility] [address] [place], [place], [phone] Absolute Neut 2.4 X10 3/uL Normal 2.0-7.7 [facility] Comment on above: Order Comment: Order Date: 07/27/25Order Info: [id number] - CBCDOrder Info: [id number] - SED Performed By: #### L 100.0100, L3100.5475, L500.4050, L101.9900, L501.6710 ####[facility] [address] [place], [address] Basophils/100 WBC (Bld) 0.6 % Normal 0-[address] [facility] Comment on above: Order Comment: Order Date: 07/27/25Order Info: 183-09 - CBCDOrder Info: [id number] - SED Performed By: #### L 100.0100, L3100.5475, L500.4050, L101.9900, L501.6710 ####[facility] [address] [place], [address] Eosinophils/100 WBC (Bld) 1.7 % Normal 0-5 [facility] Comment on above: Order Comment: Order Date: 07/27/25Order Info: 183-09 - CBCDOrder Info: [id number] - SED Performed By: #### L 100.0100, L3100.5475, L500.4050, L101.9900, L501.6710 ####[facility] [address] [place], [address] Erythrocyte distribution width (RBC) [Ratio] 13.7 % Normal 11.6-14.6 [facility] Comment on above: Order Comment: Order Date: 07/27/25Order Info: 183-09 - CBCDOrder Info: [id number] - SED Performed By: #### L 100.0100, L3100.5475, L500.4050, L101.9900, L501.6710 ####[facility] [address] [place], [address] Hematocrit (Bld) [Volume fraction] 42.5 % Normal 37-47 [facility] Comment on above: Order Comment: Order Date: 07/27/25Order Info: 183-09 - CBCDOrder Info: [id number] - SED Performed By: #### L 100.0100, L3100.5475, L500.4050, L101.9900, L501.6710 ####[facility] [address] [place], [address] Hemoglobin (Bld) [Mass/Vol] 14.7 g/dL Normal 12.0-15.0 [facility] Comment on above: Order Comment: Order Date: 07/27/25Order Info: 183- - CBCDOrder Info: [id number] - SED Performed By: #### L 100.0100, L3100.5475, L500.4050, L101.9900, L501.6710 ####[facility] [address] [place], [address] IG% 0.200 Normal 0.0-0.9 [facility] Comment on above: Order Comment: Order Date: 07/27/25Order Info: 183-09 - CBCDOrder Info: [id number] - SED Result Comment: IG% - Immature Granulocytes (promyelocytes, myelocytes and metamyelocytes) > 1% indicates that a LEFT SHIFT is Present. Performed By: #### L 100.0100, L3100.5475, L500.4050, L101.9900, L501.6710 ####[facility] [address] [place], [address] Lymphocytes/100 WBC (Bld) 38.8 % Normal 19-41 [facility] Comment on above: Order Comment: Order Date: 07/27/25Order Info: 183-09 - CBCDOrder Info: [id number] - SED Performed By: #### L 100.0100, L3100.5475, L500.4050, L101.9900, L501.6710 ####[facility] [address] [place], [address] MCH (RBC) [Entitic mass] 30.2 pg Normal 27.0-32.0 [facility] Comment on above: Order Comment: Order Date: 07/27/25Order Info: 183-09 - CBCDOrder Info: [id number] - SED Performed By: #### L 100.0100, L3100.5475, L500.4050, L101.9900, L501.6710 ####[facility] [address] [place], [address] MCHC (RBC) [Mass/Vol] 34.6 g/dL Normal 32-36 [facility] Comment on above: Order Comment: Order Date: 07/27/25Order Info: 183-09 - CBCDOrder Info: [id number] - SED Performed By: #### L 100.0100, L3100.5475, L500.4050, L101.9900, L501.6710 ####[facility] [address] [place], [address] MCV (RBC) [Entitic vol] 87.3 fL Normal 81-99 [facility] Comment on above: Order Comment: Order Date: 07/27/25Order Info: 183-09 - CBCDOrder Info: [id number] - SED Performed By: #### L 100.0100, L3100.5475, L500.4050, L101.9900, L501.6710 ####[facility] [address] [place], [address] Monocytes/100 WBC (Bld) 8.2 % Normal 0-10 [facility] Comment on above: Order Comment: Order Date: 07/27/25Order Info: 183-09 - CBCDOrder Info: [id number] - SED Performed By: #### L 100.0100, L3100.5475, L500.4050, L101.9900, L501.6710 ####[facility] [address] [place], [address] Neutrophils/100 WBC (Bld) 50.5 % Normal 47-70 [facility] Comment on above: Order Comment: Order Date: 07/27/25Order Info: 183-09 - CBCDOrder Info: [id number] - SED Performed By: #### L 100.0100, L3100.5475, L500.4050, L101.9900, L501.6710 ####[facility] [address] [place], [address] Nucleated RBC (Bld) [#/Vol] 0 10*3/uL Normal 0-5 [facility] Comment on above: Order Comment: Order Date: 07/27/25Order Info: 018- - CBCDOrder Info: [id number] - SED Performed By: #### L 100.0100, L3100.5475, L500.4050, L101.9900, L501.6710 ####[facility] [address] [place], [address] Platelet mean volume (Bld) [Entitic vol] 10.3 fL Normal 6.2-12.0 [facility] Comment on above: Order Comment: Order Date: 07/27/25Order Info: 183-09 - CBCDOrder Info: [id number] - SED Performed By: #### L 100.0100, L3100.5475, L500.4050, L101.9900, L501.6710 ####[facility] [address] [place], [address] Platelets (Bld) [#/Vol] 253 10*3/uL Normal 150-450 [facility] Comment on above: Order Comment: Order Date: 07/27/25Order Info: 0184 - CBCDOrder Info: [id number] - SED Performed By: #### L 100.0100, L3100.5475, L500.4050, L101.9900, L501.6710 ####[facility] [address] [place], [address] RBC (Bld) [#/Vol] 4.87 10*6/uL Normal 4.2-5.4 [facility] Comment on above: Order Comment: Order Date: 07/27/25Order Info: 018- - CBCDOrder Info: [id number] - SED Performed By: #### L 100.0100, L3100.5475, L500.4050, L101.9900, L501.6710 ####[facility] [address] [place], [address] RDW SD 44.5 fl High 35.1-43.9 [facility] Comment on above: Order Comment: Order Date: 07/27/25Order Info: [id number] - CBCDOrder Info: [id number] - SED Performed By: #### L 100.0100, L3100.5475, L500.4050, L101.9900, L501.6710 ####[facility] [address] [place], [address] WBC (Bld) [#/Vol] 4.7 10*3/uL Normal 4.4-11.0 [facility] Comment on above: Order Comment: Order Date: 07/27/25Order Info: 0184- - CBCDOrder Info: [id number] - SED Performed By: #### L 100.0100, L3100.5475, L500.4050, L101.9900, L501.6710 ####[facility] [address] [place], [address] CRPon 07-28-2025 C-REACTIVE PROT < 3.00 Normal 0.0-3.0 [facility] Comment on above: Order Comment: Order Date: 07/27/25Order Info: 0786-1 - CMPOrder Info: [id number] - CRP Performed By: #### M 100.2200 #### [facility] [address] [place], [address] Comprehensive Metabolic Prof ilon 07-28-2025 Albumin [Mass/Vol] 4.5 g/dL Normal 3.4-4.8 [facility] Comment on above: Order Comment: Order Date: 07/27/25Order Info: 0786-1 - CMPOrder Info: [id number] - CRP Performed By: #### L 100.0100, L3100.5475, L500.4050, L101.9900, L501.6710 ####[facility] [address] [place], [address] Albumin/Globulin [Mass ratio] 1.9 {ratio} Normal 0.9-2.4 [facility] Comment on above: Order Comment: Order Date: 07/27/25Order Info: 0786- - CMPOrder Info: [id number] - CRP Performed By: #### L 100.0100, L3100.5475, L500.4050, L101.9900, L501.6710 ####[facility] [address] [place], [address] ALK PHOS 88 U/L Normal 35-104 [facility] Comment on above: Order Comment: Order Date: 07/27/25Order Info: 07 - CMPOrder Info: [id number] - CRP Performed By: #### L 100.0100, L3100.5475, L500.4050, L101.9900, L501.6710 ####[facility] [address] [place], [address] ALT [Catalytic activity/Vol] 6 U/L Normal <=34 [facility] Comment on above: Order Comment: Order Date: 07/27/25Order Info: 0786 - CMPOrder Info: [id number] - CRP Performed By: #### L 100.0100, L3100.5475, L500.4050, L101.9900, L501.6710 ####[facility] [address] [place], [address] AST [Catalytic activity/Vol] 18 U/L Normal <=31 [facility] Comment on above: Order Comment: Order Date: 07/27/25Order Info: 0786- - CMPOrder Info: [id number] - CRP Performed By: #### L 100.0100, L3100.5475, L500.4050, L101.9900, L501.6710 ####[facility] [address] [place], [address] Bilirubin [Mass/Vol] 0.45 mg/dL Normal 0.00-1.30 [facility] Comment on above: Order Comment: Order Date: 07/27/25Order Info: 0786-1 - CMPOrder Info: [id number] - CRP Performed By: #### L 100.0100, L3100.5475, L500.4050, L101.9900, L501.6710 ####[facility] [address] [place], [address] BUN/CRE 24.1 RATIO High 10-20 [facility] Comment on above: Order Comment: Order Date: 07/27/25Order Info: 0786-1 - CMPOrder Info: [id number] - CRP Performed By: #### L 100.0100, L3100.5475, L500.4050, L101.9900, L501.6710 ####[facility] [address] [place], [address] Calcium [Mass/Vol] 9.2 mg/dL Normal 7.6-11.0 [facility] Comment on above: Order Comment: Order Date: 07/27/25Order Info: 0786-1 - CMPOrder Info: [id number] - CRP Performed By: #### L 100.0100, L3100.5475, L500.4050, L101.9900, L501.6710 ####[facility] [address] [place], [address] Chloride [Moles/Vol] 109 mmol/L High 98-108 [facility] Comment on above: Order Comment: Order Date: 07/27/25Order Info: 0786-1 - CMPOrder Info: [id number] - CRP Performed By: #### L 100.0100, L3100.5475, L500.4050, L101.9900, L501.6710 ####[facility] [address] [place], [place], [address] CO2 [Moles/Vol] 21.9 mmol/L Normal 21.0-32.0 [facility] Comment on above: Order Comment: Order Date: 07/27/25Order Info: 0786-1 - CMPOrder Info: [id number] - CRP Performed By: #### L 100.0100, L3100.5475, L500.4050, L101.9900, L501.6710 ####[facility] [address] [place], [place], [address] Creatinine [Mass/Vol] 0.64 mg/dL Low 0.70-1.20 [facility] Comment on above: Order Comment: Order Date: 07/27/25Order Info: 0786-1 - CMPOrder Info: [id number] - CRP Performed By: #### L 100.0100, L3100.5475, L500.4050, L101.9900, L501.6710 ####[facility] [address] [place], [place], [address] GAP 12 Normal 5-15 [facility] Comment on above: Order Comment: Order Date: 07/27/25Order Info: 0786-1 - CMPOrder Info: [id number] - CRP Performed By: #### L 100.0100, L3100.5475, L500.4050, L101.9900, L501.6710 ####[facility] [address] [place], [place], [address] GFR/1.73 sq M.predicted among non-blacks MDRD (S/P/Bld) [Vol rate/Area] 100 mL/min/{1.73_m2} Normal >[address] [facility] Comment on above: Order Comment: Order Date: 07/27/25Order Info: 0786-1 - CMPOrder Info: [id number] - CRP Result Comment: mL/m in/1.73m2 CKD-EPI Creatinine Equation (2020) Performed By: #### L 100.0100, L3100.5475, L500.4050, L101.9900, L501.6710 ####[facility] [address] [place], [address] Globulin (S) [Mass/Vol] 2.4 g/dL Normal 2.2-4.2 [facility] Comment on above: Order Comment: Order Date: 07/27/25Order Info: 0786-1 - CMPOrder Info: [id number] - CRP Performed By: #### L 100.0100, L3100.5475, L500.4050, L101.9900, L501.6710 ####[facility] [address] [place], [address] Glucose [Mass/Vol] 99 mg/dL Normal 70-99 [facility] Comment on above: Order Comment: Order Date: 07/27/25Order Info: 0786-1 - CMPOrder Info: [id number] - CRP Performed By: #### L 100.0100, L3100.5475, L500.4050, L101.9900, L501.6710 ####[facility] [address] [place], [address] Potassium [Moles/Vol] 3.8 mmol/L Normal 3.3-5.1 [facility] Comment on above: Order Comment: Order Date: 07/27/25Order Info: 0786-1 - CMPOrder Info: [id number] - CRP Performed By: #### L 100.0100, L3100.5475, L500.4050, L101.9900, L501.6710 ####[facility] [address] [place], [address] Sodium [Moles/Vol] 142 mmol/L Normal 133-145 [facility] Comment on above: Order Comment: Order Date: 07/27/25Order Info: 0786-1 - CMPOrder Info: [id number] - CRP Performed By: #### L 100.0100, L3100.5475, L500.4050, L101.9900, L501.6710 ####[facility] [address] [place], [address] T PROT 6.8 g/dL Normal 5.9-8.4 [facility] Comment on above: Order Comment: Order Date: 07/27/25Order Info: 0786-1 - CMPOrder Info: [id number] - CRP Performed By: #### L 100.0100, L3100.5475, L500.4050, L101.9900, L501.6710 ####[facility] [address] [place], [address] Urea nitrogen [Mass/Vol] 15 mg/dL Normal 4-19 [facility] Comment on above: Order Comment: Order Date: 07/27/25Order Info: 0786-1 - CMPOrder Info: [id number] - CRP Performed By: #### L 100.0100, L3100.5475, L500.4050, L101.9900, L501.6710 ####[facility] [address] [place], [address] Erythrocyte Sed Rateon 07-28 SED RATE 3 mm/hr Normal 0-30 [facility] Comment on above: Order Comment: Order Date: 07/27/25Order Info: 0184-1 - CBCDOrder Info: [id number] - SED Performed By: #### L 100.0100, L3100.5475, L500.4050, L101.9900, L501.6710 ####[facility] [address] [place], [address] /Cesar 06-14-2025 /TANYA [facility] [address], [address] [place] [address] OFFICE VISIT Date of Service: 06/14/25 MR#: [id number] Acct: [id number] Name: JACQUELINE OLIVEIRA Rep #: [id number] 13 : 1960 Provider: Dr. Jenifer Cabrera i, MD Age/Sex: 64/F Location: [facility] Status: Signed Intake Vital Signs 05/17/25 08:08 06/14/25 08:22 Height 4 ft 4 ft Weight: 118 lb 118 lb BMI 36.0 36.0 BP 123/80 H 152/70 H Blood Pressure Location Lt radial Position Sitting Pulse 80 Pulse Source Monitor Intake Visit Reasons: 5WK GEMTESA Chief Complaint: incontinance and baldder discomfort Allergies Cephalosporins Allergy (Verified 06/14/25 08:21) Hives codeine Adverse Reaction (Mild, Verified 06/14/25 08:21) Nausea chlorpheniramine (From Aller-Chlor Decongestant) Adverse Reaction (Verified 06/14/25 08:21) NEEDS FOLLOW-UP erythromycin base (From E-Mycin) Adverse Reaction (Verified 06/14/25 08:21) Nausea/Vom/Diarrhea nitrofurantoin (From Macrobid) Adverse Reaction (Verified 06/14/25 08:21) Vomiting pseudoephedrine (From Aller-Chlor Decongestant) Adverse Reaction (Verified 06/14/25 08:21) NEEDS FOLLOW-UP sulfamethoxazole (From Bactrim) Adverse Reaction (Verified 06/14/25 08:21) Nausea trimethoprim (From Bactrim) Adverse Reaction (Verified 06/14/25 08:21) Nausea Medications ???Medication ???Instructions ???Recorded ???Confirmed ???Type fluticasone propionate 50 2 spray intranasal QDAY PRN 06/14/25 History mcg/actuation nasal Allergies spray,suspension (Flonase Allergy Relief) albuterol sulfate 90 mcg/actuation 1 puff inhalation Q4H PRN PRN So b 07/26/20 06/14/25 History aerosol inhaler /Or Wheezing loratadine 10 mg tablet 10 mg PO DAILY 03/17/21 06/14/25 H istory budesonide-formotero l HFA 80 inhalation 05/17/25 06/14/25 Histo ry mcg-4.5 mcg/actuation aerosol inhaler (Symbicort) escitalopram oxalate 10 mg tablet 10 mg PO QDAY 05/17/25 06/14/25 H istory Gemtesa 75 mg tablet (vibegron) 75 mg PO QDAY #90 tabs 06/14/25 Rx Nurse's Note: patient states Gemtesa working well states x2 days burning with urination and foul smelling urine, Bladder scan PVR 3. PFSH Medical History Nocturia Urge incontinence Constipation Overactive bladder Hydronephrosis Right ureteral stone Loss of hearing Wears contact lenses Depression Anxiety Marijuana use Arthritis DVT (deep venous thrombosis) Back pain Heartburn Smoker Shortness of breath on exertion History of edema History of deviated nasal septum Pain Anesthesia complication Shortness of breath Sinusitis Kidney stone Surgical History History of cystoscopy History of History of tonsillectomy and adenoidectomy History of cholecystectomy History of nephrolithotomy with removal of calculi Family History Father Prostate cancer Skin cancer Mother Parkinsons disease Hypertension Social History Smoking Status: Current every day smoker tobacco type: cigarettes second hand exposure: Yes alcohol intake: never substance use type: does not use HPI HPI Urology Chief Complaint: incontinance and baldder discomfort Details: JACQUELINE OLIVEIRA, is a 64 F. She is here for medication follow up. She has been taking Gemtesa 75mg daily. She is having side effects from the medication. There is dry mouth and decreased appetite which she is not sad about. No issues with bowel movements. The urgency is improved but still present. She still having jittery sensation but the urgency is gone. The jittery sensation is improved. She is about 70% improved. She would like to continue with this medication. She has not had any urinary tract infections since the last visit. She has not had any blood in the urine since the last visit. She did have some intermittent odor and dysuria that have resolved. She has no new urologic concerns to discuss today. ROS Const Constitutional: No chills, fatigue, fever(s), headache(s), night sweats, weakness, weight change, abnormal sleep pattern or change in appetite Eyes Eyes: No change in vision ENT ENT: No headache(s) or dry mouth Resp Respiratory: No cough, chest congestion, shortness of breath or wheezing Cardio Cardiology: Positive for other (No chest pain.); No shortness of breath, irregular heart rhythm or lightheadedness Gastro GI: Positive for other (No nausea.); No abdominal pain, change in bowel habits, constipation, diarrhea or vomiting Musc Musculoskeletal: No abnormal gait Skin Skin: No yellowing of the eye, lesions, itchy eyes, rash o (more content not included)... Normal [facility] MR/BMSOTISsidra 05-17-2025 MR/BMSPatelVALENTIN [facility] [address], [address] [place] [id number] OFFICE VISIT Date of Service: 05/17/25 MR#: [id number] Acct: [id number] Name: JACQUELINE OLIVEIRA Rep #: [id number] : 1960 Provider: Dr. Jenifer Cabrera i, MD Age/Sex: 64/F Location: [facility] Status: Signed Intake Vital Signs 02/10/24 05:39 05/17/25 08:08 Height 4 ft 4 ft Weight: 118 lb BMI 36.0 BP 123/80 H Pulse 80 Intake Visit Reasons: incont bladder discomfort Chief Complaint: incontinance and baldder discomfort Thermometer Maker Required: No Accompanied by: Self Is patient in pain?: No Allergies Cephalosporins Allergy (Verified 05/17/25 08:06) Hives codeine Adverse Reaction (Mild, Verified 05/17/25 08:06) Nausea chlorpheniramine (From Aller-Chlor Decongestant) Adverse Reaction (Verified 05/17/25 08:06) NEEDS FOLLOW-UP erythromycin base (From E-Mycin) Adverse Reaction (Verified 05/17/25 08:06) Nausea/Vom/Diarrhea nitrofurantoin (From Macrobid) Adverse Reaction (Verified 05/17/25 08:06) Vomiting pseudoephedrine (From Aller-Chlor Decongestant) Adverse Reaction (Verified 05/17/25 08:06) NEEDS FOLLOW-UP sulfamethoxazole (From Bactrim) Adverse Reaction (Verified 05/17/25 08:06) Nausea trimethoprim (From Bactrim) Adverse Reaction (Verified 05/17/25 08:06) Nausea Medications ???Medication ???Instructions ???Recorded ???Confirmed ???Type fluticasone propionate 50 2 spray intranasal QDAY PRN 02/10/24 History mcg/actuation nasal Allergies spray,suspension (Flonase Allergy Relief) albuterol sulfate 90 mcg/actuation 1 puff inhalation Q4H PRN PRN So b 07/26/20 05/17/25 History aerosol inhaler /Or Wheezing loratadine 10 mg tablet 10 mg PO DAILY 03/17/21 02/10/24 H istory budesonide-formotero l HFA 80 inhalation 05/17/25 05/17/25 Histo ry mcg-4.5 mcg/actuation aerosol inhaler (Symbicort) escitalopram oxalate 10 mg tablet 10 mg PO QDAY 05/17/25 05/17/25 H istory Have you fallen in the past year?: No Nurse's Note: had anterior cervical discectomy in september 2023 and laminectomy in june 2024, segun rsince those surgeries she has had incontinance and bladder discomfort. jittery in the morning and this is when her Sx are the worst. [facility] Medical History (Updated 05/17/25 @ 08:[address] Jenifer Win MD) Nocturia Urge incontinence Constipation Overactive bladder Hydronephrosis Right ureteral stone Loss of hearing Wears contact lenses Depression Anxiety Marijuana use Arthritis DVT (deep venous thrombosis) Back pain Heartburn Smoker Shortness of breath on exertion History of edema History of deviated nasal septum Pain Anesthesia complication Shortness of breath Sinusitis Kidney stone Surgical History History of cystoscopy History of History of tonsillectomy and adenoidectomy History of cholecystectomy History of nephrolithotomy with removal of calculi Family History Father Prostate cancer Skin cancer Mother Parkinsons disease Hypertension Social History Smoking Status: Current every day smoker tobacco type: cigarettes second hand exposure: Yes alcohol intake: never substance use type: does not use HPI HPI Urology Chief Complaint: incontinance and baldder discomfort Details: JACQUELINE OLIVEIRA, is a 64 F. Here for increasing lower urinary tract symptoms. She had an anterior cervical discectomy September 2023 and lower back in June 2024. She has been having problems ever since. It is especially bad in the mornings. She is voiding about 5-10 times and sometimes more during the day. She is voiding 0-1 time through the night. When she gets up in the morning she has severe urgency that makes her feel jittery. She has trouble going out in public due to not being able to use regular bathrooms due to her height. She is leaking dribbles throughout the day and wears a liner. She does feel that she empties ok but sometimes she is double voiding. No hematuria. No urinary tract infections. She has been checked and urine clean. No significant constipation, bowel movements 1-2 times a day. No sign of flank pain/kidney stones. ROS Const Constitutional: No chills, fatigue, fever(s), headache(s), night sweats, weakness, weight change, abnormal sleep pattern or change in appetite Eyes Eyes: No change in vision ENT ENT: No headache(s) or dry mouth Resp Respiratory: No cough, chest congestion, shortness of breath or wheezing Cardio Cardiology: Positive for other (No chest pain.); No shortness of breath, irregular heart rhythm or lightheadedness Gastro GI: Positive for other (No nausea.); No abdomin (more content not included)... Normal [facility] Urine Cultureon 04-09-2025 URC Mixed Gram Pos Gram Neg Org [place] Count 25,000-50,000 MIXC Mixed contaminants. Submit a new specimen if indicated. Normal [facility] Comment on above: Performed By: #### M 100.2200 #### [facility] Laboratory [address] [place], [address] Chest PA and Lateralon 04-08 Chest PA and Lateral [facility] Imaging Services [address] [place], [place] [address] Chest PA and Lateral MR#: [id number] Acct: [id number] Name: JACQUELINE OLIVEIRA Rep #: [id number] : 1960 F 64 From: Rom Devine MD PCP: Dr. Calli Cifuentes MD Status: [facility] CLI Study: Chest PA and Lateral Date of Exam: 04/08/25 Exam# [id number] Ordering Dr: Calli Cifuentes MD PROCEDURE: CHEST PA AND LATERAL 04/08/2025 REASON FOR EXAM: CHEST HEAVINESS TECHNIQUE: CHEST PA AND LATERAL COMPARISON: 03/25/2025 CT. FINDINGS: The heart is enlarged. The lungs are clear. No pleural effusion or pneumothorax. No acute osseous abnormalities. RAD/Chest PA and Lateral IMPRESSION: No acute cardiopulmonary abnormalities. Reading Location: [id number] CC: Dr. Calli Cifuentes MD Cash Sales Audit Clerk: Signed Normal [facility] Urine cultureOrdered By: Marcela Cifuentes on 04-08-2025 Bacteria identified Cx Nom (U) Mixed Gram Pos & Gram Neg Org Abnormal [facility] Breast imaging reportOrdered By: Bhaskar Rowe on 03-25-2025 Study report [facility] Imaging Services [address] [place] [address] SCRN MAMM (CAD)W/CHARLENE BILAT MR#: [id number] Acct: [id number] Name: JACQUELINE OLIVEIRA Rep #: [id number] : 1960 F 64 From: Tuut Rowe MD PCP: Dr. Calli Cifuentes MD [facility]:SCRN MAMM (CAD)W/CHARLENE BILAT Date of Exa m: 03/25/25 Exam# [id number] Ordering Dr: Vidal Cifuentes MD EXAM: SCRN MAMM (CAD)W/CHARLENE BILAT DATE: 03/25/2025 CLINICAL HISTORY: F, Age 64 y/o , ANNUAL SCREENING Noncontributory. TECHNIQUE: SCRN MAMM (CAD)W/CHARLENE BILAT COMPARISON: Prior exam(s) dated August 02, 2023.. FINDINGS: TISSUE DENSITY: There are scattered areas of fibroglandular density. Bilateral Breast Mammographic Findings: No significant masses, calcifications or other abnormalities are identified. No suspicious masses, areas of developing architectural distortion, or suspicious calcifications. There has been no significant interval change. BI/SCRN MAMM (CAD)W/CHARLENE BILAT IMPRESSION: Stable examination. OVERALL FINAL ASSESSMENT BI-RADS 1: NEGATIVE. RECOMMEND ANNUAL MAMMOGRAPHIC SCREENING. RECOMMENDATION: Routine annual follow-up in 1 Year A letter with findings and recommendations will be mailed to the patient. Reading Location: [id number] CC: Dr. Calli Cifuentes MD ~ Cash Sales Audit Clerk: Signed [facility] Low Dose CT Lung Screeningon 03-25-[address] Lung Screening [facility] Imaging Services [address] [place] [address] Lung Screening MR#: [id number] Acct: [id number] Name: JACQUELINE OLIVEIRA Rep #: [id number] : 1960 F 64 From: Cachorro Ramirez MD PCP: Dr. Calli Cifuentes MD Status: [facility] Study: Low Dose CT Lung Screening Date of Exam: 03/25 Exam# [id number] Ordering Dr: Calli Cifuentes MD PROCEDURE: LOW DOSE CT LUNG SCREENING 03/25/2025 REASON FOR EXAM: TOBACCO USE WITH > 30 PACK YEARS TECHNIQUE: LOW DOSE CT LUNG SCREENING Coronal and Sagittal reconstruction series were provided. One or more dose reduction techniques were used (e.g., Automated exposure control, adjustment of the mA and/or kV according to patient size, use of iterative reconstruction technique). REFERENCE LINK: [facility] [employer] Lung-RADS RADIATION DOSE SUMMARY: CTDlvol: 2 mGy DLP: 63 mGycm COMPARISON: 08/02/2023 FINDINGS: Central airways are patent. Mild emphysema. Basilar atelectasis. No consolidation, effusion, or pneumothorax. On the left, no suspicious lung nodules. On the right, no suspicious nodules. Unremarkable base of neck and axilla. Thoracic spine degeneration. Mildly enlarged heart. No acute vascular pathology on noncontrast scanning. No acute chest wall findings. No acute abdominal findings. CT/Low Dose CT Lung Screening IMPRESSION: No suspicious lung nodules Lung-RADS Category: 1 Other Significant Findings: No Reading Location: [place] [address] CC: Dr. Calli Cifuentes MD Cash Sales Audit Clerk: Signed Normal [facility] SCRN MAMM (CAD)W/CHARLENE BILATo n 03-25-2025 SCRN MAMM (CAD)W/CHARLENE BILAT [facility] Imaging Services [address] [place], [place] [address] SCRN MAMM (CAD)W/CHARLENE BILAT MR#: [id number] Acct: [id number] Name: JACQUELINE OLIVEIRA Rep #: [id number] : 1960 F 64 From: Bhaskar barahona MD PCP: Dr. Calli Cifuentes MD Status: [facility] Study: SCRN MAMM (CAD)W/CHARLENE BILAT Date of Exam: 03/01 03/24 Exam# [id number] Ordering Dr: Calli Cifuentes MD EXAM: SCRN MAMM (CAD)W/CHARLENE BILAT DATE: 03/25/2025 CLINICAL HISTORY: F, Age 64 y/o , ANNUAL SCREENING Noncontributory. TECHNIQUE: SCRN MAMM (CAD)W/CHARLENE BILAT COMPARISON: Prior exam(s) dated August 02, 2023.. FINDINGS: TISSUE DENSITY: There are scattered areas of fibroglandular density. Bilateral Breast Mammographic Findings: No significant masses, calcifications or other abnormalities are identified. No suspicious masses, areas of developing architectural distortion, or suspicious calcifications. There has been no significant interval change. BI/SCRN MAMM (CAD)W/CHARLENE BILAT IMPRESSION: Stable examination. OVERALL FINAL ASSESSMENT BI-RADS 1: NEGATIVE. RECOMMEND ANNUAL MAMMOGRAPHIC SCREENING. RECOMMENDATION: Routine annual follow-up in 1 Year A letter with findings and recommendations will be mailed to the patient. Reading Location: [facility] CC: Dr. Calli Cifuentes MD Cash Sales Audit Clerk: Signed Normal [facility] Absolute lymphocyte countOrd ered By: Calli Cifuentes on 02-25-2025 Lymphocytes Auto (Unsp spec) [#/Vol] 1.49 10*3/uL 0.83-4.51 [facility] Absolute neutrophil countOrd ered By: Calli Cifuentes on 02-25-2025 Neutrophils (Bld) [#/Vol] 4.0 10*3/uL 2.0-7.7 [facility] Anion gap in Serum or Plasma Ordered By: Calli Cifuentes on 02-25-2025 Anion gap [Moles/Vol] 14 mmol/L 5-15 [facility] Automated lymphocyte count a s percentage of total leukocytesOrdered By: Calli Cifuentes on 02-25-2025 Lymphocytes/100 WBC Auto (Unsp spec) 24.6 % - [facility] BUN/creatinine ratioOrdered By: Calli Cifuentes on 02-25-2025 Urea nitrogen/Creatinine [Mass ratio] 20.3 mg/mg High 10- [facility] Basophil percentageOrdered B y: Calli Cifuentes on 02-25-2025 Basophils/100 WBC (Bld) 0.8 % 0-[address] [facility] Bilirubin, totalOrdered By: Calli Cifuentes on 02-25-2025 Bilirubin [Mass/Vol] 0.37 mg/dL 0.00-1.30 [facility] CBC W/Diff, Automatedon 01-29 Absolute Lymph 1.49 X10 3/uL Normal 0.83-4.51 [facility] Comment on above: Order Comment: Order Date: 02/25/25 Order Info: 0184-1 - CBCD Performed By: #### L 501.9985, L500.4050, L500.4100, L100.0100 #### [facility] [address] [place], [place], [id number] Absolute Neut 4.0 X10 3/uL Normal 2.0-7.7 [facility] Comment on above: Order Comment: Order Date: 02/25/25 Order Info: 0184-1 - CBCD Performed By: #### L 501.9985, L500.4050, L500.4100, L100.0100 #### [facility] [address] [place], [address] Basophils/100 WBC (Bld) 0.8 % Normal 0-[address] [facility] Comment on above: Order Comment: Order Date: 02/25/25 Order Info: 0184-1 - CBCD Performed By: #### L 501.9985, L500.4050, L500.4100, L100.0100 #### [facility] [address] [place], [address] Eosinophils/100 WBC (Bld) 1.3 % Normal 0-5 [facility] Comment on above: Order Comment: Order Date: 02/25/25 Order Info: 0184-1 - CBCD Performed By: #### L 501.9985, L500.4050, L500.4100, L100.0100 #### [facility] [address] [place], [address] Erythrocyte distribution width (RBC) [Ratio] 14.2 % Normal 11.6-14.6 [facility] Comment on above: Order Comment: Order Date: 02/25/25 Order Info: 0184- - CBCD Performed By: #### L 501.9985, L500.4050, L500.4100, L100.0100 #### [facility] [address] [place], [address] Hematocrit (Bld) [Volume fraction] 43.5 % Normal 37-47 [facility] Comment on above: Order Comment: Order Date: 02/25/25 Order Info: 0184-1 - CBCD Performed By: #### L 501.9985, L500.4050, L500.4100, L100.0100 #### [facility] [address] [place], [address] Hemoglobin (Bld) [Mass/Vol] 14.6 g/dL Normal 12.0-15.0 [facility] Comment on above: Order Comment: Order Date: 02/25/25 Order Info: 0184-1 - CBCD Performed By: #### L 501.9985, L500.4050, L500.4100, L100.0100 #### [facility] [address] [place], [address] IG% 0.300 Normal 0.0-0.9 [facility] Comment on above: Order Comment: Order Date: 02/25/25 Order Info: 0184-1 - CBCD Result Comment: IG% - Immature Granulocytes (promyelocytes, myelocytes and metamyelocytes) > 1% indicates that a LEFT SHIFT is Present. Performed By: #### L 501.9985, L500.4050, L500.4100, L100.0100 #### [facility] [address] [place], [address] Lymphocytes/100 WBC (Bld) 24.6 % Normal 19-41 [facility] Comment on above: Order Comment: Order Date: 02/25/25 Order Info: 0184- - CBCD Performed By: #### L 501.9985, L500.4050, L500.4100, L100.0100 #### [facility] [address] [place], [address] MCH (RBC) [Entitic mass] 29.9 pg Normal 27.0-32.0 [facility] Comment on above: Order Comment: Order Date: 02/25/25 Order Info: 0184-1 - CBCD Performed By: #### L 501.9985, L500.4050, L500.4100, L100.0100 #### [facility] [address] [place], [address] MCHC (RBC) [Mass/Vol] 33.6 g/dL Normal 32-36 [facility] Comment on above: Order Comment: Order Date: 02/25/25 Order Info: 0184-1 - CBCD Performed By: #### L 501.9985, L500.4050, L500.4100, L100.0100 #### [facility] [address] [place], [address] MCV (RBC) [Entitic vol] 89.1 fL Normal 81-[address] [facility] Comment on above: Order Comment: Order Date: 02/25/25 Order Info: 0184-1 - CBCD Performed By: #### L 501.9985, L500.4050, L500.4100, L100.0100 #### [facility] [address] [place], [address] Monocytes/100 WBC (Bld) 7.1 % Normal 0-[address] [facility] Comment on above: Order Comment: Order Date: 02/25/25 Order Info: 0184- - CBCD Performed By: #### L 501.9985, L500.4050, L500.4100, L100.0100 #### [facility] [address] [place], [address] Neutrophils/100 WBC (Bld) 65.9 % Normal 47-70 [facility] Comment on above: Order Comment: Order Date: 02/25/25 Order Info: 0184- - CBCD Performed By: #### L 501.9985, L500.4050, L500.4100, L100.0100 #### [facility] [address] [place], [address] Nucleated RBC (Bld) [#/Vol] 0 10*3/uL Normal 0-5 [facility] Comment on above: Order Comment: Order Date: 02/25/25 Order Info: 0184-1 - CBCD Performed By: #### L 501.9985, L500.4050, L500.4100, L100.0100 #### [facility] [address] [place], [address] Platelet mean volume (Bld) [Entitic vol] 10.6 fL Normal 6.2-12.0 [facility] Comment on above: Order Comment: Order Date: 02/25/25 Order Info: 0184-1 - CBCD Performed By: #### L 501.9985, L500.4050, L500.4100, L100.0100 #### [facility] [address] [place], [address] Platelets (Bld) [#/Vol] 281 10*3/uL Normal 150-450 [facility] Comment on above: Order Comment: Order Date: 02/25/25 Order Info: 0184-1 - CBCD Performed By: #### L 501.9985, L500.4050, L500.4100, L100.0100 #### [facility] [address] [place], [address] RBC (Bld) [#/Vol] 4.88 10*6/uL Normal 4.2-5.4 [facility] Comment on above: Order Comment: Order Date: 02/25/25 Order Info: 0184-1 - CBCD Performed By: #### L 501.9985, L500.4050, L500.4100, L100.0100 #### [facility] [address] [place], [address] RDW SD 46.1 fl High 35.1-43.9 [facility] Comment on above: Order Comment: Order Date: 02/25/25 Order Info: 0184-1 - CBCD Performed By: #### L 501.9985, L500.4050, L500.4100, L100.0100 #### [facility] [address] [place], [address] WBC (Bld) [#/Vol] 6.1 10*3/uL Normal 4.4-11.0 [facility] Comment on above: Order Comment: Order Date: 02/25/25 Order Info: 0184-1 - CBCD Performed By: #### L 501.9985, L500.4050, L500.4100, L100.0100 #### [facility] [address] [place], [address] Calculated very low density lipoprotein (VLDL) cholesterol measurementOrdered By: Calli Cifuentes on 02-25-2025 Calculated very low density lipoprotein (VLDL) cholesterol measurement 19 mg/dL 5-40 [facility] Carbon dioxide, total [Moles /volume] in Central venous bloodOrdered By: Calli Cifuentes on 02-25-2025 CO2 [Moles/Vol] 20.4 mmol/L Low 21.0-32.0 [facility] Chloride assayOrdered By: Vidal Cifuentes on 02-25-2025 Chloride [Moles/Vol] 106 mmol/L 98-108 [facility] Comprehensive Metabolic Prof ilon 02-25-2025 Albumin [Mass/Vol] 4.6 g/dL Normal 3.4-4.8 [facility] Comment on above: Order Comment: Order Date: 02/25/25 Order Info: [id number] - CMP Order Info: [id number] - LIPID Order Info: [id number] - FOLS Performed By: #### L 501.9985, L500.4050, L500.4100, L100.0100 #### [facility] [address] [place], [address] Albumin/Globulin [Mass ratio] 1.9 {ratio} Normal 0.9-2.4 [facility] Comment on above: Order Comment: Order Date: 02/25/25 Order Info: [id number] - CMP Order Info: [id number] - LIPID Order Info: [id number] - FOLS Performed By: #### L 501.9985, L500.4050, L500.4100, L100.0100 #### [facility] [address] [place], [address] ALK PHOS 99 U/L Normal 35-104 [facility] Comment on above: Order Comment: Order Date: 02/25/25 Order Info: [id number] - CMP Order Info: [id number] - LIPID Order Info: [id number] - FOLS Performed By: #### L 501.9985, L500.4050, L500.4100, L100.0100 #### [facility] [address] [place], [address] ALT [Catalytic activity/Vol] 5 U/L Normal <=34 [facility] Comment on above: Order Comment: Order Date: 02/25/25 Order Info: 07-1 - CMP Order Info: [id number] - LIPID Order Info: [id number] - FOLS Performed By: #### L 501.9985, L500.4050, L500.4100, L100.0100 #### [facility] [address] [place], [address] AST [Catalytic activity/Vol] 19 U/L Normal <=31 [facility] Comment on above: Order Comment: Order Date: 02/25/25 Order Info: 785- - CMP Order Info: [id number] - LIPID Order Info: [id number] - FOLS Performed By: #### L 501.9985, L500.4050, L500.4100, L100.0100 #### [facility] [address] [place], [address] Bilirubin [Mass/Vol] 0.37 mg/dL Normal 0.00-1.30 [facility] Comment on above: Order Comment: Order Date: 02/25/25 Order Info: 07 - CMP Order Info: [id number] - LIPID Order Info: [id number] - FOLS Performed By: #### L 501.9985, L500.4050, L500.4100, L100.0100 #### [facility] [address] [place], [address] BUN/CRE 20.3 RATIO High 10-20 [facility] Comment on above: Order Comment: Order Date: 02/25/25 Order Info: [id number] - CMP Order Info: [id number] - LIPID Order Info: [id number] - FOLS Performed By: #### L 501.9985, L500.4050, L500.4100, L100.0100 #### [facility] [address] [place], [address] Calcium [Mass/Vol] 9.2 mg/dL Normal 7.6-11.0 [facility] Comment on above: Order Comment: Order Date: 02/25/25 Order Info: [id number]- - CMP Order Info: [id number] - LIPID Order Info: 8 - FOLS Performed By: #### L 501.9985, L500.4050, L500.4100, L100.0100 #### [facility] [address] [place], [place], [address] Chloride [Moles/Vol] 106 mmol/L Normal 98-108 [facility] Comment on above: Order Comment: Order Date: 02/25/25 Order Info: [id number] - CMP Order Info: [id number] - LIPID Order Info: 8 - FOLS Performed By: #### L 501.9985, L500.4050, L500.4100, L100.0100 #### [facility] [address] [place], [place], [address] CO2 [Moles/Vol] 20.4 mmol/L Low 21.0-32.0 [facility] Comment on above: Order Comment: Order Date: 02/25/25 Order Info: 0786 - CMP Order Info: [id number] - LIPID Order Info: [id number] - FOLS Performed By: #### L 501.9985, L500.4050, L500.4100, L100.0100 #### [facility] [address] [place], [place], [id number] Creatinine [Mass/Vol] 0.56 mg/dL Low 0.70-1.20 [facility] Comment on above: Order Comment: Order Date: 02/25/25 Order Info: [id number]- - CMP Order Info: [id number] - LIPID Order Info: [id number] - FOLS Performed By: #### L 501.9985, L500.4050, L500.4100, L100.0100 #### [facility] [address] [place], [address] GAP 14 Normal 5-15 [facility] Comment on above: Order Comment: Order Date: 02/25/25 Order Info: [id number] - CMP Order Info: [id number] - LIPID Order Info: [id number] - FOLS Performed By: #### L 501.9985, L500.4050, L500.4100, L100.0100 #### [facility] [address] [place], [address] GFR/1.73 sq M.predicted among non-blacks MDRD (S/P/Bld) [Vol rate/Area] 103 mL/min/{1.73_m2} Normal >[address] [facility] Comment on above: Order Comment: Order Date: 02/25/25 Order Info: [id number]- - CMP Order Info: [id number] - LIPID Order Info: [id number] - FOLS Result Comment: mL/m in/1.73m2 CKD-EPI Creatinine Equation (2020) Performed By: #### L 501.9985, L500.4050, L500.4100, L100.0100 #### [facility] [address] [place], [address] Globulin (S) [Mass/Vol] 2.5 g/dL Normal 2.2-4.2 [facility] Comment on above: Order Comment: Order Date: 02/25/25 Order Info: [id number]- - CMP Order Info: [id number] - LIPID Order Info: [id number] - FOLS Performed By: #### L 501.9985, L500.4050, L500.4100, L100.0100 #### [facility] [address] [place], [address] Glucose [Mass/Vol] 85 mg/dL Normal 70-99 [facility] Comment on above: Order Comment: Order Date: 02/25/25 Order Info: [id number] - CMP Order Info: [id number] - LIPID Order Info: [id number] - FOLS Performed By: #### L 501.9985, L500.4050, L500.4100, L100.0100 #### [facility] [address] [place], [address] Potassium [Moles/Vol] 3.8 mmol/L Normal 3.3-5.1 [facility] Comment on above: Order Comment: Order Date: 02/25/25 Order Info: [id number] - CMP Order Info: [id number] - LIPID Order Info: [id number] - FOLS Performed By: #### L 501.9985, L500.4050, L500.4100, L100.0100 #### [facility] [address] [place], [address] Sodium [Moles/Vol] 140 mmol/L Normal 133-145 [facility] Comment on above: Order Comment: Order Date: 02/25/25 Order Info: [id number] - CMP Order Info: [id number] - LIPID Order Info: [id number] - FOLS Performed By: #### L 501.9985, L500.4050, L500.4100, L100.0100 #### [facility] [address] [place], [address] T PROT 7.0 g/dL Normal 5.9-8.4 [facility] Comment on above: Order Comment: Order Date: 02/25/25 Order Info: [id number] - CMP Order Info: [id number] - LIPID Order Info: [id number] - FOLS Performed By: #### L 501.9985, L500.4050, L500.4100, L100.0100 #### [facility] [address] [place], [address] Urea nitrogen [Mass/Vol] 11 mg/dL Normal 4-19 [facility] Comment on above: Order Comment: Order Date: 02/25/25 Order Info: [id number] - CMP Order Info: [id number] - LIPID Order Info: [id number] - FOLS Performed By: #### L 501.9985, L500.4050, L500.4100, L100.0100 #### [facility] [address] [place], [address] Eosinophil percentageOrdered By: Calli Cifuentes on 02-25-2025 Eosinophils/100 WBC (Bld) 1.3 % 0-5 [facility] Erythrocyte distribution wid th ratioOrdered By: Calli Cifuentes on 02-25-2025 Erythrocyte distribution width (RBC) [Ratio] 14.2 % 11.6-14.6 [facility] Erythrocyte distribution wid th standard deviationOrdered By: Calli Cifuentes on 02-25-2025 Erythrocyte distribution width (RBC) [Ratio] 46.1 fl High 35.1-43.9 [facility] Folate [Moles/volume] in Ser um or PlasmaOrdered By: Calli Cifuentes on 02-25-2025 Folate [Moles/Vol] 9.23 ng/mL 4.60-34.80 [facility] Comment on above: Hemolysis, Results w ill be affected, Requires Recollection. Folates,Serum (Folic Acid)on 02-25-2025 FOLATES,SERUM 9.23 ng/mL Normal 4.60-34.80 [facility] Comment on above: Order Comment: N Result Comment: Hemo lysis, Results will be affected, Requires Recollection. Performed By: #### L 503.0106, L506.0200 ####[facility] [address] [place], [place], [id number] Glomerular filtration rate ( GFR) estimation/1.73 sq m using serum, plasma, or whole bOrdered By: Calli Cifuentes on 02-25-2025 GFR/1.73 sq M.predicted among non-blacks MDRD (S/P/Bld) [Vol rate/Area] 103 mL/min/{1.73_m2} >[address] [facility] Comment on above: mL/min/1.73m2 CKD-EP I Creatinine Equation (2020) Hematocrit Auto (Bld) [Volum e fraction]Ordered By: Calli Cifuentes on 02-25-2025 Hematocrit (Bld) [Volume fraction] 43.5 % 37-47 [facility] Hemoglobin A1con 02-25-2025 HbA1c (Bld) [Mass fraction] 5.2 % Normal <=5.6 [facility] Comment on above: Order Comment: Order Date: 02/25/25 Order Info: [id number] - A1C Result Comment: Norm al < 5.7 % Prediabetic 5.7 - 6.4 % Diabetic >or= 6.5 % Please note range changes. Performed By: #### L 501.9985, L500.4050, L500.4100, L100.0100 #### [facility] [address] [place], [address] Hemoglobin A1c percentageOrd ered By: Calli Cifuentes on 02-25-2025 HbA1c (Bld) [Mass fraction] 5.2 % <5.7 [facility] Comment on above: Normal < 5.7 % Predi abetic 5.7 - 6.4 % Diabetic >or= 6.5 % Please note range changes. Hemoglobin measurementOrdere d By: Calli Cifuentes on 02-25-2025 Hemoglobin (Bld) [Mass/Vol] 14.6 g/dL 12.0-15.0 [facility] Immature granulocytes/100 WB C Auto (Bld)Ordered By: Calli Cifuentes on 02-25-2025 Immature granulocytes/100 WBC (Bld) 0.300 % 0.0-0.9 [facility] Comment on above: IG% - Immature Granu locytes (promyelocytes, myelocytes and metamyelocytes) > 1% indicates that a LEFT SHIFT is Present. LDL calc ser/plasOrdered By: Calli Cifuentes on 02-25-2025 Cholesterol in LDL [Mass/Vol] 102 mg/dL [facility] Comment on above: Giguunvmyc=427-186 m g/dL & Higher Yjfl=343 mg/dL or greater Laboratory - Chemistry and C hemistry - challengeOrdered By: Calli Cifuentes on 02-25-2025 AST [Catalytic activity/Vol] 19 U/L <32 [facility] Lipid Profileon 02-25-2025 CHOL:HDL 2.66 Normal [facility] Comment on above: Order Comment: Order Date: 02/25/25Order Info: [id number] - CMPOrder Info: [id number] - LIPIDOrder Info: [id number] - FOLS Performed By: #### L 501.9985, L500.4050, L500.4100, L100.0100 ####[facility] [address] [place], [address] Cholesterol [Mass/Vol] 194 mg/dL Normal <=200 [facility] Comment on above: Order Comment: Order Date: 02/25/25Order Info: 07- - CMPOrder Info: [id number] - LIPIDOrder Info: [id number] - FOLS Result Comment: Chol esterol level, Desirable <200 mg/dL Borderline high cholesterol 200-239 mg/dL High cholesterol >=240 mg/dL Recommendations of the NCEP Adult Treatment Panel for the following risk-cutoff thresholds for the [place] population. Performed By: #### L 501.9985, L500.4050, L500.4100, L100.0100 ####[facility] [address] [place], [address] Cholesterol in HDL [Mass/Vol] 73 mg/dL Normal [facility] Comment on above: Order Comment: Order Date: 02/25/25Order Info: [id number] - CMPOrder Info: [id number] - LIPIDOrder Info: [id number] - FOLS Result Comment: Sona onal Cholesterol Education Program (NCEP) guidelines: <40 mg/dL: Low HDL-cholesterol (major risk factor for CHD) >= 60 mg/dL: High HDL-cholesterol (negative risk factor for CHD) HDL-cholesterol is affected by a number of factors, e.g. smoking, exercise, hormones, sex and age. Performed By: #### L 501.9985, L500.4050, L500.4100, L100.0100 ####[facility] [address] [place], [address] Cholesterol in LDL [Mass/Vol] 102 mg/dL Normal [facility] Comment on above: Order Comment: Order Date: 02/25/25Order Info: [id number] - CMPOrder Info: [id number] - LIPIDOrder Info: [id number] - FOLS Result Comment: Bord zdskzr=279-607 mg/dL Higher Rqpg=445 mg/dL or greater Performed By: #### L 501.9985, L500.4050, L500.4100, L100.0100 ####[facility] [address] [place], [address] Cholesterol in VLDL [Mass/Vol] 19 mg/dL Normal 5-40 [facility] Comment on above: Order Comment: Order Date: 02/25/25Order Info: [id number] - CMPOrder Info: [id number] - LIPIDOrder Info: [id number] - FOLS Performed By: #### L 501.9985, L500.4050, L500.4100, L100.0100 ####[facility] [address] [place], [address] Triglyceride [Mass/Vol] 94 mg/dL Normal [facility] Comment on above: Order Comment: Order Date: 02/25/25Order Info: [id number] - CMPOrder Info: [id number] - LIPIDOrder Info: [id number] - FOLS Result Comment: The drugs N-Acetylcysteine and Metamizole may falsely depress this assay. Normal range: <150 mg/dL Borderline High: 150-199 mg/dL High: 200-499 mg/dL Very High: >500 mg/dL Performed By: #### L 501.9985, L500.4050, L500.4100, L100.0100 ####[facility] [address] [place], [address] MCV (mean corpuscular volume ) determinationOrdered By: Calli Cifuentes on 02-25-2025 MCV (RBC) [Entitic vol] 89.1 fL 81-99 [facility] Mean corpuscular hemoglobin (MCH) determinationOrdered By: Calli Cifuentes on 02-25-2025 MCH (RBC) [Entitic mass] 29.9 pg 27.0-32.0 [facility] Mean corpuscular hemoglobin concentration (MCHC) determinationOrdered By: Calli Cifuentes on 02-25-2025 MCHC (RBC) [Mass/Vol] 33.6 g/dL 32-36 [facility] Mean platelet volume determi nationOrdered By: Calli Cifuentes on 02-25-2025 Platelet mean volume (Bld) [Entitic vol] 10.6 fL 6.2-12.0 [facility] Monocyte percentageOrdered B y: Calli Cifuentes on 02-25-2025 Monocytes/100 WBC (Bld) 7.1 % 0-[address] [facility] Neutrophil percentageOrdered By: Calli Cifuentes on 02-25-2025 Neutrophils/100 WBC (Bld) 65.9 % 47-70 [facility] Nucleated red blood cell per centageOrdered By: Calli Cifuentes on 02-25-2025 Nucleated RBC/100 WBC (Bld) [Ratio] 0 % 0-5 [facility] Platelet countOrdered By: Vidal Cifuentes on 02-25-2025 Platelets (Bld) [#/Vol] 281 10*3/uL 150-450 [facility] Potassium measurement (mass/ volume)Ordered By: Calli Cifuentes on 02-25-2025 Potassium (Unsp spec) [Mass/Vol] 3.8 mmol/L 3.3-5.1 [facility] RBC Auto (Bld) [#/Vol]Ordere d By: Calli Cifuentes on 02-25-2025 RBC (Bld) [#/Vol] 4.88 10*6/uL 4.2-5.4 [facility] Screening total cholesterol/ high density lipoprotein (HDL) cholesterol ratioOrdered By: Calli Cifuentes on 02-25-2025 Cholesterol.total/Cholest issa in HDL [Mass ratio] 2.66 {ratio} [facility] Serum creatinine measurement (mass/volume)Ordered By: Calli Cifuentes on 02-25-2025 Creatinine [Mass/Vol] 0.56 mg/dL Low 0.70-1.20 [facility] Serum globulin measurementOr dered By: Calli Cifuentes on 02-25-2025 Globulin (S) [Mass/Vol] 2.5 g/dL 2.2-4.[address] [facility] Serum glucose measurement (m ass/volume)Ordered By: Calli Cifuentes on 02-25-2025 Glucose [Mass/Vol] 85 mg/dL 70-99 [facility] Serum or plasma alanine pritchard otransferase (ALT) measurementOrdered By: Calli Cifuentes on 02-25-2025 ALT [Catalytic activity/Vol] 5 U/L <35 [facility] Serum or plasma albumin yaritza urement (mass/volume)Ordered By: Calli Cifuentes on 02-25-2025 Albumin [Mass/Vol] 4.6 g/dL 3.4-4.8 [facility] Serum or plasma albumin/glob ulin mass ratioOrdered By: Calli Cifuentes on 02-25-2025 Albumin/Globulin [Mass ratio] 1.9 {ratio} 0.9-2.4 [facility] Serum or plasma alkaline ameya sphatase measurementOrdered By: Calli Cifuentes on 02-25-2025 ALP [Catalytic activity/Vol] 99 U/L 35-104 [facility] Serum or plasma calcium yaritza urement (mass/volume)Ordered By: Calli Cifuentes on 02-25-2025 Calcium [Mass/Vol] 9.2 mg/dL 7.6-11.0 [facility] Serum or plasma cholesterol in HDL measurement (mass/volume)Ordered By: Calli Cifuentes on 02-25-2025 Cholesterol in HDL [Mass/Vol] 73 mg/dL >40 [facility] Comment on above: National Cholesterol Education Program (NCEP) guidelines:<40 mg/dL: Low HDL-cholesterol (major risk factor for CHD)>= 60 mg/dL: High HDL-cholesterol (negative risk factor for CHD)HDL-cholesterol is affected by a number of factors, e.g. smoking, exercise, hormones, sex and age. Serum or plasma cholesterol measurement (mass/volume)Ordered By: Calli Cifuentes on 02-25-2025 Cholesterol [Mass/Vol] 194 mg/dL <201 [facility] Comment on above: Cholesterol level, D esirable <200 mg/dLBorderline high cholesterol 200-239 mg/dLHigh cholesterol >=240 mg/dLRecommendations of the NCEP Adult Treatment Panel for the following risk-cutoff thresholds for the [place] population. Serum or plasma urea nitroge n measurement (mass/volume)Ordered By: Calli Cifuentes on 05-29-2025 Urea nitrogen [Mass/Vol] 11 mg/dL 4-19 [facility] Sodium levelOrdered By: Calli Cifuentes on 02-25-2025 Sodium [Moles/Vol] 140 mmol/L 133-145 [facility] Total proteinOrdered By: Marcela Cifuentes on 02-25-2025 Protein [Mass/Vol] 7.0 g/dL 5.9-8.4 [facility] Triglycerides measurementOrd ered By: Calli Cifuentes on 02-25-2025 Triglyceride [Mass/Vol] 94 mg/dL <[address] [facility] Comment on above: The drugs N-Acetylcy steine and Metamizole may falsely depress this assay. Normal range: <150 mg/dLBorderline High: 150-199 mg/dLHigh: 200-499 mg/dLVery High: >500 mg/dL Vitamin B12on 02-25-2025 Cobalamin (Vitamin B12) [Mass/Vol] 427 pg/mL Normal 180-914 [facility] Comment on above: Order Comment: Order Date: 02/25/25Order Info: [id number] - CMPOrder Info: [id number] - LIPIDOrder Info: [id number] - FOLS Performed By: #### L 503.0106, L506.0200 ####[facility] [address] [place], [place], [id number] Vitamin B12 ser/plasOrdered By: Calli Cifuentes on 02-25-2025 Cobalamin (Vitamin B12) [Mass/Vol] 427 pg/mL 180-914 [facility] White blood cell (WBC) count Ordered By: Calli Cifuentes on 02-25-2025 WBC (Bld) [#/Vol] 6.1 10*3/uL 4.4-11.0 [facility] .Auto Diffon 07-23-2024 Basophil, Absolute 0.0 10 3/mcL Normal 0.0-0.3 [facility] Comment on above: Performed By: #### A DIFF, ANEU, GFR, CBC, BMP #### [facility] [address] [place] [address] Basophils/100 WBC (Bld) 0.4 % Normal 0.0-2.5 [facility] Comment on above: Performed By: #### A DIFF, ANEU, GFR, CBC, BMP #### [address] [address] Eosinophil, Absolute 0.0 10 3/mcL Normal 0.0-0.7 [facility] Comment on above: Performed By: #### A DIFF, ANEU, GFR, CBC, BMP #### [address] [address] Eosinophils/100 WBC (Bld) 0.2 % Normal 0.0-6.0 [facility] Comment on above: Performed By: #### A DIFF, ANEU, GFR, CBC, BMP #### [address] [address] Lymphocyte, Absolute 1.4 10 3/mcL Normal 0.9-4.3 [facility] Comment on above: Performed By: #### A DIFF, ANEU, GFR, CBC, BMP #### [address] [address] Lymphocytes/100 WBC (Bld) 14.7 % Low 20.0-40.0 [facility] Comment on above: Performed By: #### A DIFF, ANEU, GFR, CBC, BMP #### [address] [address] Monocyte, Absolute 0.8 10 3/mcL Normal 0.1-1.4 [facility] Comment on above: Performed By: #### A DIFF, ANEU, GFR, CBC, BMP #### [address] [address] Monocytes/100 WBC (Bld) 7.9 % Normal 2.0-13.0 [facility] Comment on above: Performed By: #### A DIFF, ANEU, GFR, CBC, BMP #### [address] [address] Neutrophils/100 WBC (Bld) 76.8 % High 50.0-75.0 [facility] Comment on above: Performed By: #### A DIFF, ANEU, GFR, CBC, BMP #### [address] [address] .GFRon 07-23-2024 GFR >60 Normal [facility] Comment on above: Result Comment: GFR Population mean for , Non- Americans Ages 20-29 = 116 mL/min/1.73 sq.m. Ages 30-39 = 107 mL/min/1.73 sq.m. Ages 40-49 = 99 mL/min/1.73 sq.m. Ages 50-59 = 93 mL/min/1.73 sq.m. Ages 60-69 = 85 mL/min/1.73 sq.m. Ages 70+ = 75 mL/min/1.73 sq.m. Chronic Kidney Disease: Less than 60 mL/min/1.73 square meters End Stage Renal Disease: Less than 15 mL/min/1.73 square meters Performed By: #### A DIFF, ANEU, GFR, CBC, BMP #### [address] [address] GFR Non- >60 Normal [facility] Comment on above: Result Comment: GFR Population mean for , Non- Americans Ages 20-29 = 116 mL/min/1.73 sq.m. Ages 30-39 = 107 mL/min/1.73 sq.m. Ages 40-49 = 99 mL/min/1.73 sq.m. Ages 50-59 = 93 mL/min/1.73 sq.m. Ages 60-69 = 85 mL/min/1.73 sq.m. Ages 70+ = 75 mL/min/1.73 sq.m. Chronic Kidney Disease: Less than 60 mL/min/1.73 square meters End Stage Renal Disease: Less than 15 mL/min/1.73 square meters Performed By: #### A DIFF, ANEU, GFR, CBC, BMP #### [address] [address] .NEUABSon 07-23-2024 Neutrophil, Absolute 7.4 10 3/mcL Normal 2.3-8.1 [facility] Comment on above: Performed By: #### A DIFF, ANEU, GFR, CBC, BMP #### [address] [address] BMPon 07-23-2024 BUN/Creatinine Ratio 14.9 ratio Normal 10.0-22.0 [facility] Comment on above: Performed By: #### A DIFF, ANEU, GFR, CBC, BMP #### [address] [address] Calcium [Mass/Vol] 8.8 mg/dL Normal 8.7-10.4 [facility] Comment on above: Performed By: #### A DIFF, ANEU, GFR, CBC, BMP #### [address] [address] Chloride [Moles/Vol] 108 mmol/L Normal 98-110 [facility] Comment on above: Performed By: #### A DIFF, ANEU, GFR, CBC, BMP #### [address] [address] CO2 [Moles/Vol] 25 mmol/L Normal 22-32 [facility] Comment on above: Performed By: #### A DIFF, ANEU, GFR, CBC, BMP #### [address] [address] Creatinine [Mass/Vol] 0.47 mg/dL Low 0.50-1.20 [facility] Comment on above: Result Comment: Test ing performed on Saberr analyzer using enzymatic creatinine methodology. Performed By: #### A DIFF, ANEU, GFR, CBC, BMP #### [address] [address] Electrolyte Balance 7.0 mEq/L Normal 4.0-15.0 [facility] Comment on above: Performed By: #### A DIFF, ANEU, GFR, CBC, BMP #### [address] [address] Glucose [Mass/Vol] 90 mg/dL Normal 82-115 [facility] Comment on above: Performed By: #### A DIFF, ANEU, GFR, CBC, BMP #### [address] [address] Potassium [Moles/Vol] 3.6 mmol/L Normal 3.5-5.0 [facility] Comment on above: Performed By: #### A DIFF, ANEU, GFR, CBC, BMP #### [address] [address] Sodium [Moles/Vol] 140 mmol/L Normal 136-145 [facility] Comment on above: Performed By: #### A DIFF, ANEU, GFR, CBC, BMP #### [place] [id number] Urea nitrogen [Mass/Vol] 7.0 mg/dL Low 8.0-22.0 [facility] Comment on above: Performed By: #### A DIFF, ANEU, GFR, CBC, BMP #### [place] [id number] CBCon 07-23-2024 Erythrocyte distribution width (RBC) [Ratio] 13.4 % Normal 11.5-15.5 [facility] Comment on above: Performed By: #### A DIFF, ANEU, GFR, CBC, BMP #### [place] [address] Hematocrit (Bld) [Volume fraction] 32.5 % Low 34.0-46.0 [facility] Comment on above: Performed By: #### A DIFF, ANEU, GFR, CBC, BMP #### [place] [address] Hgb 11.0 G/dL Low 12.0-16.0 [facility] Comment on above: Performed By: #### A DIFF, ANEU, GFR, CBC, BMP #### [address] [address] MCH (RBC) [Entitic mass] 30.1 pg Normal 27.0-33.0 [facility] Comment on above: Performed By: #### A DIFF, ANEU, GFR, CBC, BMP #### [place] [id number] MCHC 33.9 G/dL Normal 32.0-36.0 [facility] Comment on above: Performed By: #### A DIFF, ANEU, GFR, CBC, BMP #### [place] [address] MCV (RBC) [Entitic vol] 88.7 fL Normal 80.0-99.0 [facility] Comment on above: Performed By: #### A DIFF, ANEU, GFR, CBC, BMP #### [address] [address] Platelet 184 10 3/mcL Normal 150-450 [facility] Comment on above: Performed By: #### A DIFF, ANEU, GFR, CBC, BMP #### [place] [id number] [place] [address] Platelet mean volume (Bld) [Entitic vol] 8.2 fL Normal 6.6-10.5 [facility] Comment on above: Performed By: #### A DIFF, ANEU, GFR, CBC, BMP #### [address] [address] RBC 3.67 10 6/mcL Low 4.10-5.30 [facility] Comment on above: Performed By: #### A DIFF, ANEU, GFR, CBC, BMP #### [address] [address] WBC 9.6 10 3/mcL Normal 4.5-10.8 [facility] Comment on above: Performed By: #### A DIFF, ANEU, GFR, CBC, BMP #### [address] [address] LABORATORYOrdered By: SYSTEM SYSTEM on 07-23-2024 Basophils (Bld) [#/Vol] 0.0 103/mcL Normal 0.0 - 0.3 10^3/mcL Workflow SS Basophils/100 WBC (Bld) 0.4 % Normal 0.0 - 2.5 % Workflow SS Calcium [Mass/Vol] 8.8 mg/dL Normal 8.7 - 10. 4 mg/dL ADM SS Chloride [Moles/Vol] 108 mmol/L Normal 98 - 11 0 mEq/L ADM SS CO2 [Moles/Vol] 25 mmol/L Normal 22 - 32 mEq/L ADM SS Creatinine [Mass/Vol] 0.47 mg/dL Low 0.50 - 1.20 mg/dL ADM SS Comment on above: Interpretive Data: T esting performed on Saberr analyzer using enzymatic creatinine methodology. Electrolyte Balance 7.0 mEq/L Normal 4.0 - 15 .0 mEq/L ADM SS Eosinophils (Bld) [#/Vol] 0.0 103/mcL Normal 0. 0 - 0.7 10^3/mcL AH Workflow SS Eosinophils/100 WBC (Bld) 0.2 % Normal 0.0 - 6.0 % Workflow SS Erythrocyte distribution width (RBC) [Ratio] 13.4 % Normal 11.5 - 15.5 % Workflow SS GFR/1.73 sq M.predicted among blacks MDRD (S/P/Bld) [Vol rate/Area] ml/min/1.73sqm Invalid Interpretation Code reportbrain Chemistry S Comment on above: Interpretive Data: GFR Population mean for , Non- Americans Ages 20-29 = 116 mL/min/1.73 sq.m. Ages 30-39 = 107 mL/min/1.73 sq.m. Ages 40-49 = 99 mL/min/1.73 sq.m. Ages 50-59 = 93 mL/min/1.73 sq.m. Ages 60-69 = 85 mL/min/1.73 sq.m. Ages 70+ = 75 mL/min/1.73 sq.m. Chronic Kidney Disease: Less than 60 mL/min/1.73 square meters End Stage Renal Disease: Less than 15 mL/min/1.73 square meters GFR/1.73 sq M.predicted among non-blacks MDRD (S/P/Bld) [Vol rate/Area] ml/min/1.73sqm Invalid Interpretation Code reportbrain Chemistry S Comment on above: Interpretive Data: GFR Population mean for , Non- Americans Ages 20-29 = 116 mL/min/1.73 sq.m. Ages 30-39 = 107 mL/min/1.73 sq.m. Ages 40-49 = 99 mL/min/1.73 sq.m. Ages 50-59 = 93 mL/min/1.73 sq.m. Ages 60-69 = 85 mL/min/1.73 sq.m. Ages 70+ = 75 mL/min/1.73 sq.m. Chronic Kidney Disease: Less than 60 mL/min/1.73 square meters End Stage Renal Disease: Less than 15 mL/min/1.73 square meters Glucose [Mass/Vol] 90 mg/dL Normal 82 - 115 mg/dL ADM SS Hematocrit (Bld) [Volume fraction] 32.5 % Low 34.0 - 46.0 % Workflow SS Hemoglobin (Bld) [Mass/Vol] 11.0 G/dL Low 12.0 - 16.0 G/dL AH Workflow SS Lymphocytes (Bld) [#/Vol] 1.4 103/mcL Normal 0. 9 - 4.3 10^3/mcL AH Workflow SS Lymphocytes/100 WBC (Bld) 14.7 % Low 20 .0 - 40.0 % AH Workflow SS MCH (RBC) [Entitic mass] 30.1 pg Normal 27. 0 - 33.0 pg AH Workflow SS MCHC 33.9 G/dL Normal 32.0 - 36.0 G/dL AH Workflow SS MCV (RBC) [Entitic vol] 88.7 fL Normal 80.0 - 99.0 fL AH Workflow SS Monocytes (Bld) [#/Vol] 0.8 103/mcL Normal 0.1 - 1.4 10^3/mcL AH Workflow SS Monocytes/100 WBC (Bld) 7.9 % Normal 2.0 - 13.0 % AH Workflow SS Neutrophils (Bld) [#/Vol] 7.4 103/mcL Normal 2. 3 - 8.1 10^3/mcL AH Workflow SS Neutrophils/100 WBC (Bld) 76.8 % High 50 .0 - 75.0 % AH Workflow SS Platelet mean volume (Bld) [Entitic vol] 8.2 fL Normal 6.6 - 10.5 fL AH Workflow SS Platelets (Bld) [#/Vol] 184 103/mcL Normal 150 - 450 10^3/mcL AH Workflow SS Potassium [Moles/Vol] 3.6 mmol/L Normal 3.5 - 5.0 mEq/L ADM SS RBC (Bld) [#/Vol] 3.67 106/mcL Low 4.10 - 5.3 0 10^6/mcL AH Workflow SS Sodium [Moles/Vol] 140 mmol/L Normal 136 - 145 mEq/L ADM SS Urea nitrogen [Mass/Vol] 7.0 mg/dL Low 8.0 - 22.0 mg/dL AH ADM SS Urea nitrogen/Creatinine [Mass ratio] 14.9 ratio Normal 10.0 - 22.0 ratio ADM SS WBC (Bld) [#/Vol] 9.6 103/mcL Normal 4.5 - 10.8 10^3/mcL AH Workflow SS .Auto Diffon 07-22-2024 Basophil, Absolute 0.0 10 3/mcL Normal 0.0-0.3 [facility] Comment on above: Performed By: #### A DIFF, ANEU, GFR, CBC, BMP #### [address] [address] Basophils/100 WBC (Bld) 0.2 % Normal 0.0-2.5 [facility] MAIN Comment on above: Performed By: #### A DIFF, ANEU, GFR, CBC, BMP #### [address] [address] Eosinophil, Absolute 0.0 10 3/mcL Normal 0.0-0.7 [facility]IN Comment on above: Performed By: #### A DIFF, ANEU, GFR, CBC, BMP #### [address] [address] Eosinophils/100 WBC (Bld) 0.0 % Normal 0.0-6.0 [facility] MAIN Comment on above: Performed By: #### A DIFF, ANEU, GFR, CBC, BMP #### [address] [address] Lymphocyte, Absolute 1.5 10 3/mcL Normal 0.9-4.3 [facility] Comment on above: Performed By: #### A DIFF, ANEU, GFR, CBC, BMP #### [address] [address] Lymphocytes/100 WBC (Bld) 18.5 % Low 20.0-40.0 [facility] MAIN Comment on above: Performed By: #### A DIFF, ANEU, GFR, CBC, BMP #### [address] [address] Monocyte, Absolute 0.8 10 3/mcL Normal 0.1-1.4 [facility] MAIN Comment on above: Performed By: #### A DIFF, ANEU, GFR, CBC, BMP #### [address] [address] Monocytes/100 WBC (Bld) 9.8 % Normal 2.0-13.0 [facility] MAIN Comment on above: Performed By: #### A DIFF, ANEU, GFR, CBC, BMP #### [address] [address] Neutrophils/100 WBC (Bld) 71.5 % Normal 50.0-75.0 [facility] MAIN Comment on above: Performed By: #### A DIFF, ANEU, GFR, CBC, BMP #### [address] [address] .GFRon 07-22-2024 GFR Non- >60 Normal [facility] MAIN Comment on above: Result Comment: GFR Population mean for , Non- Americans Ages 20-29 = 116 mL/min/1.73 sq.m. Ages 30-39 = 107 mL/min/1.73 sq.m. Ages 40-49 = 99 mL/min/1.73 sq.m. Ages 50-59 = 93 mL/min/1.73 sq.m. Ages 60-69 = 85 mL/min/1.73 sq.m. Ages 70+ = 75 mL/min/1.73 sq.m. Chronic Kidney Disease: Less than 60 mL/min/1.73 square meters End Stage Renal Disease: Less than 15 mL/min/1.73 square meters Performed By: #### A DIFF, ANEU, GFR, CBC, BMP #### [address] [address] GFR >60 Normal [facility] MAIN Comment on above: Result Comment: GFR Population mean for , Non- Americans Ages 20-29 = 116 mL/min/1.73 sq.m. Ages 30-39 = 107 mL/min/1.73 sq.m. Ages 40-49 = 99 mL/min/1.73 sq.m. Ages 50-59 = 93 mL/min/1.73 sq.m. Ages 60-69 = 85 mL/min/1.73 sq.m. Ages 70+ = 75 mL/min/1.73 sq.m. Chronic Kidney Disease: Less than 60 mL/min/1.73 square meters End Stage Renal Disease: Less than 15 mL/min/1.73 square meters Performed By: #### A DIFF, ANEU, GFR, CBC, BMP #### [address] [address] .NEUABSon 07-22-2024 Neutrophil, Absolute 5.7 10 3/mcL Normal 2.3-8.1 [facility] MAIN Comment on above: Performed By: #### A DIFF, ANEU, GFR, CBC, BMP #### [address] [address] [facility] BUN/Creatinine Ratio 23.1 ratio High 10.0-22.0 [facility] MAIN Comment on above: Performed By: #### A DIFF, ANEU, GFR, CBC, BMP #### [place] [address] Calcium [Mass/Vol] 8.5 mg/dL Low 8.7-10.4 [facility] MAIN Comment on above: Performed By: #### A DIFF, ANEU, GFR, CBC, BMP #### [place] [address] Chloride [Moles/Vol] 112 mmol/L High 98-110 [facility] MAIN Comment on above: Performed By: #### A DIFF, ANEU, GFR, CBC, BMP #### [place] [address] CO2 [Moles/Vol] 24 mmol/L Normal 22-32 [facility] MAIN Comment on above: Performed By: #### A DIFF, ANEU, GFR, CBC, BMP #### [place] [address] Creatinine [Mass/Vol] 0.52 mg/dL Normal 0.50-1.20 [facility]IN Comment on above: Result Comment: Test ing performed on Saberr analyzer using enzymatic creatinine methodology. Performed By: #### A DIFF, ANEU, GFR, CBC, BMP #### [address] [address] Electrolyte Balance 2.0 mEq/L Low 4.0-15.0 [facility] MAIN Comment on above: Performed By: #### A DIFF, ANEU, GFR, CBC, BMP #### [place] [id number] Glucose [Mass/Vol] 107 mg/dL Normal 82-115 [facility] MAIN Comment on above: Performed By: #### A DIFF, ANEU, GFR, CBC, BMP #### [place] [id number] Potassium [Moles/Vol] 4.1 mmol/L Normal 3.5-5.0 [facility] MAIN Comment on above: Performed By: #### A DIFF, ANEU, GFR, CBC, BMP #### [address] [address] Sodium [Moles/Vol] 138 mmol/L Normal 136-145 [facility] MAIN Comment on above: Performed By: #### A DIFF, ANEU, GFR, CBC, BMP #### [place] [address] Urea nitrogen [Mass/Vol] 12.0 mg/dL Normal 8.0-22.0 [facility] MAIN Comment on above: Performed By: #### A DIFF, ANEU, GFR, CBC, BMP #### [place] [address] CBCon 07-22-2024 Erythrocyte distribution width (RBC) [Ratio] 13.8 % Normal 11.5-15.5 [facility] MAIN Comment on above: Performed By: #### A DIFF, ANEU, GFR, CBC, BMP #### [place] [address] Hematocrit (Bld) [Volume fraction] 30.7 % Low 34.0-46.0 [facility] MAIN Comment on above: Performed By: #### A DIFF, ANEU, GFR, CBC, BMP #### [place] [address] Hgb 10.3 G/dL Low 12.0-16.0 [facility] MAIN Comment on above: Performed By: #### A DIFF, ANEU, GFR, CBC, BMP #### [place] [address] MCH (RBC) [Entitic mass] 30.3 pg Normal 27.0-33.0 [facility] MAIN Comment on above: Performed By: #### A DIFF, ANEU, GFR, CBC, BMP #### [place] [address] MCHC 33.5 G/dL Normal 32.0-36.0 [facility] MAIN Comment on above: Performed By: #### A DIFF, ANEU, GFR, CBC, BMP #### [address] [address] MCV (RBC) [Entitic vol] 90.5 fL Normal 80.0-99.0 [facility] MAIN Comment on above: Performed By: #### A DIFF, ANEU, GFR, CBC, BMP #### [place] [id number] Platelet 175 10 3/mcL Normal 150-450 [facility] MAIN Comment on above: Performed By: #### A DIFF, ANEU, GFR, CBC, BMP #### [place] [address] Platelet mean volume (Bld) [Entitic vol] 8.4 fL Normal 6.6-10.5 [facility] MAIN Comment on above: Performed By: #### A DIFF, ANEU, GFR, CBC, BMP #### [place] [address] RBC 3.40 10 6/mcL Low 4.10-5.30 [facility] MAIN Comment on above: Performed By: #### A DIFF, ANEU, GFR, CBC, BMP #### [place] [address] WBC 7.9 10 3/mcL Normal 4.5-10.8 [facility] MAIN Comment on above: Performed By: #### A DIFF, ANEU, GFR, CBC, BMP #### [place] [address] LABORATORYOrdered By: SYSTEM SYSTEM on 07-22-2024 Basophils (Bld) [#/Vol] 0.0 103/mcL Normal 0.0 - 0.3 10^3/mcL AH Workflow SS Basophils/100 WBC (Bld) 0.2 % Normal 0.0 - 2.5 % AH Workflow SS Calcium [Mass/Vol] 8.5 mg/dL Low 8.7 - 10. 4 mg/dL AH ADM SS Chloride [Moles/Vol] 112 mmol/L High 98 - 11 0 mEq/L AH ADM SS CO2 [Moles/Vol] 24 mmol/L Normal 22 - 32 mEq/L ADM SS Creatinine [Mass/Vol] 0.52 mg/dL Normal 0.50 - 1.20 mg/dL ADM SS Comment on above: Interpretive Data: T esting performed on Saberr analyzer using enzymatic creatinine methodology. Electrolyte Balance 2.0 mEq/L Low 4.0 - 15 .0 mEq/L ADM SS Eosinophils (Bld) [#/Vol] 0.0 103/mcL Normal 0. 0 - 0.7 10^3/mcL Workflow SS Eosinophils/100 WBC (Bld) 0.0 % Normal 0.0 - 6.0 % Workflow SS Erythrocyte distribution width (RBC) [Ratio] 13.8 % Normal 11.5 - 15.5 % Workflow SS GFR/1.73 sq M.predicted among blacks MDRD (S/P/Bld) [Vol rate/Area] ml/min/1.73sqm Invalid Interpretation Code reportbrain Chemistry S Comment on above: Interpretive Data: GFR Population mean for , Non- Americans Ages 20-29 = 116 mL/min/1.73 sq.m. Ages 30-39 = 107 mL/min/1.73 sq.m. Ages 40-49 = 99 mL/min/1.73 sq.m. Ages 50-59 = 93 mL/min/1.73 sq.m. Ages 60-69 = 85 mL/min/1.73 sq.m. Ages 70+ = 75 mL/min/1.73 sq.m. Chronic Kidney Disease: Less than 60 mL/min/1.73 square meters End Stage Renal Disease: Less than 15 mL/min/1.73 square meters GFR/1.73 sq M.predicted among non-blacks MDRD (S/P/Bld) [Vol rate/Area] ml/min/1.73sqm Invalid Interpretation Code reportbrain Chemistry S Comment on above: Interpretive Data: GFR Population mean for , Non- Americans Ages 20-29 = 116 mL/min/1.73 sq.m. Ages 30-39 = 107 mL/min/1.73 sq.m. Ages 40-49 = 99 mL/min/1.73 sq.m. Ages 50-59 = 93 mL/min/1.73 sq.m. Ages 60-69 = 85 mL/min/1.73 sq.m. Ages 70+ = 75 mL/min/1.73 sq.m. Chronic Kidney Disease: Less than 60 mL/min/1.73 square meters End Stage Renal Disease: Less than 15 mL/min/1.73 square meters Glucose [Mass/Vol] 107 mg/dL Normal 82 - 115 mg/dL AH ADM SS Hematocrit (Bld) [Volume fraction] 30.7 % Low 34.0 - 46.0 % AH Workflow SS Hemoglobin (Bld) [Mass/Vol] 10.3 G/dL Low 12.0 - 16.0 G/dL AH Workflow SS Lymphocytes (Bld) [#/Vol] 1.5 103/mcL Normal 0. 9 - 4.3 10^3/mcL AH Workflow SS Lymphocytes/100 WBC (Bld) 18.5 % Low 20 .0 - 40.0 % AH Workflow SS MCH (RBC) [Entitic mass] 30.3 pg Normal 27. 0 - 33.0 pg AH Workflow SS MCHC 33.5 G/dL Normal 32.0 - 36.0 G/dL AH Workflow SS MCV (RBC) [Entitic vol] 90.5 fL Normal 80.0 - 99.0 fL AH Workflow SS Monocytes (Bld) [#/Vol] 0.8 103/mcL Normal 0.1 - 1.4 10^3/mcL AH Workflow SS Monocytes/100 WBC (Bld) 9.8 % Normal 2.0 - 13.0 % AH Workflow SS Neutrophils (Bld) [#/Vol] 5.7 103/mcL Normal 2. 3 - 8.1 10^3/mcL AH Workflow SS Neutrophils/100 WBC (Bld) 71.5 % Normal 50 .0 - 75.0 % AH Workflow SS Platelet mean volume (Bld) [Entitic vol] 8.4 fL Normal 6.6 - 10.5 fL AH Workflow SS Platelets (Bld) [#/Vol] 175 103/mcL Normal 150 - 450 10^3/mcL AH Workflow SS Potassium [Moles/Vol] 4.1 mmol/L Normal 3.5 - 5.0 mEq/L AH ADM SS RBC (Bld) [#/Vol] 3.40 106/mcL Low 4.10 - 5.3 0 10^6/mcL AH Workflow SS Sodium [Moles/Vol] 138 mmol/L Normal 136 - 145 mEq/L ADM SS Urea nitrogen [Mass/Vol] 12.0 mg/dL Normal 8.0 - 22.0 mg/dL ADM SS Urea nitrogen/Creatinine [Mass ratio] 23.1 ratio High 10.0 - 22.0 ratio ADM SS WBC (Bld) [#/Vol] 7.9 103/mcL Normal 4.5 - 10.8 10^3/mcL Workflow SS XR FLUORO > 2 HRS TECH TIMEo n 07-22-2024 XR FLUORO > 2 HRS TECH TIME ORIGINAL EXAMINATION: SPOT FLUOROSCOPIC IMAGES 07/21/2024 2:20 pm TECHNIQUE: Fluoroscopy was provided by the radiology department for procedure. Radiologist was not present during examination. Fluoroscopy time: 15.2 seconds Fluoroscopy dose: 6.8195 Kerma mGy Images: 6 COMPARISON: None HISTORY: ORDERING SYSTEM PROVIDED HISTORY: Reason for Exam: LAMI L1-2-3-4/T12-L4 OARM Intraprocedural imaging. FINDINGS: Spot intraoperative images are obtained demonstrating postsurgical change of the lumbar spine. Detail is limited. IMPRESSION: Intraprocedural fluoroscopic spot images as above. See separate procedure report for more information. I have personally reviewed the images of this examination and agree with the resident's findings and interpretation. Interpreted by: Nuno Baez Preliminary Report By: Andria Hlot Electronically signed By Nuno Baez Dictated Date: 07/22/2024 12:08:43 AM Prelim Date: 07/22/2024 12:12:10 AM Sign Date: 07/22/2024 12:14:21 AM Ordering Provider: BRAYDEN ECHEVARRIA [facility] MAIN ABO/Rh (Gel)on 07-21-2024 ABO/Rh Interp Negative Invalid Interpretation Code [facility] MAIN Comment on above: Performed By: #### A DIFF, ANEU, GFR, CBC, BMP #### [address] [address] ABS (Gel)on 07-21-2024 ABSC Interp (Gel) Negative [facility] MAIN Comment on above: Performed By: #### A DIFF, ANEU, GFR, CBC, BMP #### [address] [address] LABORATORYOrdered By: Kwabena Osborne on 07-21-2024 ABO and Rh group Nom (Bld) Blood group A Rh(D) negative Invalid Interpretation Code BB Auto SS Blood group antibody screen Ql Negative ABSC (07/21/24 6:06 AM) Normal AH BB Auto SS .Auto Diffon 06-30-2024 Basophil, Absolute 0.0 10 3/mcL Normal 0.0-0.3 [facility] MAIN Comment on above: Performed By: #### T RF, CBC, ADIFF, PRO, PRALB, GFR, ANEU, BMP, APTT #### [address] [address] Basophils/100 WBC (Bld) 0.7 % Normal 0.0-2.5 [facility] MAIN Comment on above: Performed By: #### T RF, CBC, ADIFF, PRO, PRALB, GFR, ANEU, BMP, APTT #### [address] [address] Eosinophil, Absolute 0.0 10 3/mcL Normal 0.0-0.7 [facility] MAIN Comment on above: Performed By: #### T RF, CBC, ADIFF, PRO, PRALB, GFR, ANEU, BMP, APTT #### [address] [address] Eosinophils/100 WBC (Bld) 0.6 % Normal 0.0-6.0 [facility] MAIN Comment on above: Performed By: #### T RF, CBC, ADIFF, PRO, PRALB, GFR, ANEU, BMP, APTT #### [address] [address] Lymphocyte, Absolute 1.6 10 3/mcL Normal 0.9-4.3 [facility] MAIN Comment on above: Performed By: #### T RF, CBC, ADIFF, PRO, PRALB, GFR, ANEU, BMP, APTT #### [address] [address] Lymphocytes/100 WBC (Bld) 32.1 % Normal 20.0-40.0 [facility] MAIN Comment on above: Performed By: #### T RF, CBC, ADIFF, PRO, PRALB, GFR, ANEU, BMP, APTT #### [address] [address] Monocyte, Absolute 0.3 10 3/mcL Normal 0.1-1.4 [facility] MAIN Comment on above: Performed By: #### T RF, CBC, ADIFF, PRO, PRALB, GFR, ANEU, BMP, APTT #### [address] [address] Monocytes/100 WBC (Bld) 6.8 % Normal 2.0-13.0 [facility] MAIN Comment on above: Performed By: #### T RF, CBC, ADIFF, PRO, PRALB, GFR, ANEU, BMP, APTT #### [address] [address] Neutrophils/100 WBC (Bld) 59.8 % Normal 50.0-75.0 [facility] MAIN Comment on above: Performed By: #### T RF, CBC, ADIFF, PRO, PRALB, GFR, ANEU, BMP, APTT #### [address] [address] .GFRon 06-30-2024 GFR >60 [facility] MAIN Comment on above: Result Comment: GFR Population mean for , Non- Americans Ages 20-29 = 116 mL/min/1.73 sq.m. Ages 30-39 = 107 mL/min/1.73 sq.m. Ages 40-49 = 99 mL/min/1.73 sq.m. Ages 50-59 = 93 mL/min/1.73 sq.m. Ages 60-69 = 85 mL/min/1.73 sq.m. Ages 70+ = 75 mL/min/1.73 sq.m. Chronic Kidney Disease: Less than 60 mL/min/1.73 square meters End Stage Renal Disease: Less than 15 mL/min/1.73 square meters Performed By: #### A DIFF, ANEU, GFR, CBC, BMP #### [address] [address] GFR Non- >60 [facility] MAIN Comment on above: Result Comment: GFR Population mean for , Non- Americans Ages 20-29 = 116 mL/min/1.73 sq.m. Ages 30-39 = 107 mL/min/1.73 sq.m. Ages 40-49 = 99 mL/min/1.73 sq.m. Ages 50-59 = 93 mL/min/1.73 sq.m. Ages 60-69 = 85 mL/min/1.73 sq.m. Ages 70+ = 75 mL/min/1.73 sq.m. Chronic Kidney Disease: Less than 60 mL/min/1.73 square meters End Stage Renal Disease: Less than 15 mL/min/1.73 square meters Performed By: #### A DIFF, ANEU, GFR, CBC, BMP #### [address] [address] .NEUABSon 06-30-2024 Neutrophil, Absolute 3.0 10 3/mcL Normal 2.3-8.1 [facility] MAIN Comment on above: Performed By: #### T RF, CBC, ADIFF, PRO, PRALB, GFR, ANEU, BMP, APTT #### [address] [address] APTTon 06-30-2024 aPTT Coag (Bld) [Time] 33.4 s Normal 25.0-35.0 [facility] MAIN Comment on above: Result Comment: For Heparin anticoagulation therapy, the recommended therapeutic range is: 54-77 seconds (APTT Correlation with Anti-Xa therapeutic range of 0.3-0.7 units/ml). PLEASE REFERENCE THE PHARMACY PROTOCOL FOR DOSING. Performed By: #### T RF, CBC, ADIFF, PRO, PRALB, GFR, ANEU, BMP, APTT #### [address] [address] BMPon 06-30-2024 BUN/Creatinine Ratio 14.3 ratio Normal 10.0-22.0 [facility] MAIN Comment on above: Performed By: #### A DIFF, ANEU, GFR, CBC, BMP #### [address] [address] Calcium [Mass/Vol] 9.4 mg/dL Normal 8.7-10.4 [facility] MAIN Comment on above: Performed By: #### A DIFF, ANEU, GFR, CBC, BMP #### [address] [address] Chloride [Moles/Vol] 109 mmol/L Normal 98-110 [facility] MAIN Comment on above: Performed By: #### A DIFF, ANEU, GFR, CBC, BMP #### [place] [id number] CO2 [Moles/Vol] 27 mmol/L Normal 22-32 [facility] MAIN Comment on above: Performed By: #### A DIFF, ANEU, GFR, CBC, BMP #### [place] [id number] Creatinine [Mass/Vol] 0.56 mg/dL Normal 0.50-1.20 [facility] MAIN Comment on above: Result Comment: Test ing performed on Saberr analyzer using enzymatic creatinine methodology. Performed By: #### A DIFF, ANEU, GFR, CBC, BMP #### [place] [address] Electrolyte Balance 6.0 mEq/L Normal 4.0-15.0 [facility] MAIN Comment on above: Performed By: #### A DIFF, ANEU, GFR, CBC, BMP #### [place] [address] Glucose [Mass/Vol] 89 mg/dL Normal 82-115 [facility] MAIN Comment on above: Performed By: #### A DIFF, ANEU, GFR, CBC, BMP #### [place] [address] Potassium [Moles/Vol] 4.0 mmol/L Normal 3.5-5.0 [facility] MAIN Comment on above: Performed By: #### A DIFF, ANEU, GFR, CBC, BMP #### [place] [address] Sodium [Moles/Vol] 142 mmol/L Normal 136-145 [facility] MAIN Comment on above: Performed By: #### A DIFF, ANEU, GFR, CBC, BMP #### [place] [id number] Urea nitrogen [Mass/Vol] 8.0 mg/dL Normal 8.0-22.0 [facility] MAIN Comment on above: Performed By: #### A DIFF, ANEU, GFR, CBC, BMP #### [place] [address] CBCon 06-30-2024 Erythrocyte distribution width (RBC) [Ratio] 14.0 % Normal 11.5-15.5 [facility] MAIN Comment on above: Performed By: #### T RF, CBC, ADIFF, PRO, PRALB, GFR, ANEU, BMP, APTT #### [place] [address] Hematocrit (Bld) [Volume fraction] 41.2 % Normal 34.0-46.0 [facility] MAIN Comment on above: Performed By: #### T RF, CBC, ADIFF, PRO, PRALB, GFR, ANEU, BMP, APTT #### [place] [address] Hgb 14.4 G/dL Normal 12.0-16.0 [facility] MAIN Comment on above: Performed By: #### T RF, CBC, ADIFF, PRO, PRALB, GFR, ANEU, BMP, APTT #### [place] [address] MCH (RBC) [Entitic mass] 31.1 pg Normal 27.0-33.0 [facility] MAIN Comment on above: Performed By: #### T RF, CBC, ADIFF, PRO, PRALB, GFR, ANEU, BMP, APTT #### [place] [id number] MCHC 34.9 G/dL Normal 32.0-36.0 [facility] MAIN Comment on above: Performed By: #### T RF, CBC, ADIFF, PRO, PRALB, GFR, ANEU, BMP, APTT #### [place] [id number] MCV (RBC) [Entitic vol] 89.1 fL Normal 80.0-99.0 [facility] MAIN Comment on above: Performed By: #### T RF, CBC, ADIFF, PRO, PRALB, GFR, ANEU, BMP, APTT #### [place] [address] Platelet 229 10 3/mcL Normal 150-450 [facility] MAIN Comment on above: Performed By: #### T RF, CBC, ADIFF, PRO, PRALB, GFR, ANEU, BMP, APTT #### [place] [address] Platelet mean volume (Bld) [Entitic vol] 8.3 fL Normal 6.6-10.5 [facility] MAIN Comment on above: Performed By: #### T RF, CBC, ADIFF, PRO, PRALB, GFR, ANEU, BMP, APTT #### [place] [address] RBC 4.63 10 6/mcL Normal 4.10-5.30 [facility] MAIN Comment on above: Performed By: #### T RF, CBC, ADIFF, PRO, PRALB, GFR, ANEU, BMP, APTT #### [place] [address] WBC 5.0 10 3/mcL Normal 4.5-10.8 [facility] MAIN Comment on above: Performed By: #### T RF, CBC, ADIFF, PRO, PRALB, GFR, ANEU, BMP, APTT #### [place] [address] LABORATORYOrdered By: SYSTEM SYSTEM on 06-30-2024 aPTT Coag (Bld) [Time] 33.4 s Normal 25.0 - 35.0 seconds [facility] SS Comment on above: Interpretive Data: F or Heparin anticoagulation therapy, the recommended therapeutic range is: 54-77 seconds (APTT Correlation with Anti-Xa therapeutic range of 0.3-0.7 units/ml). PLEASE REFERENCE THE PHARMACY PROTOCOL FOR DOSING. Basophils (Bld) [#/Vol] 0.0 103/mcL Normal 0.0 - 0.3 10^3/mcL AH Workflow SS Basophils/100 WBC (Bld) 0.7 % Normal 0.0 - 2.5 % AH Workflow SS Calcium [Mass/Vol] 9.4 mg/dL Normal 8.7 - 10. 4 mg/dL AH ADM SS Chloride [Moles/Vol] 109 mmol/L Normal 98 - 11 0 mEq/L AH ADM SS CO2 [Moles/Vol] 27 mmol/L Normal 22 - 32 mEq/L AH ADM SS Creatinine [Mass/Vol] 0.56 mg/dL Normal 0.50 - 1.20 mg/dL ADM SS Comment on above: Interpretive Data: T esting performed on Saberr analyzer using enzymatic creatinine methodology. Electrolyte Balance 6.0 mEq/L Normal 4.0 - 15 .0 mEq/L ADM SS Eosinophils (Bld) [#/Vol] 0.0 103/mcL Normal 0. 0 - 0.7 10^3/mcL Workflow SS Eosinophils/100 WBC (Bld) 0.6 % Normal 0.0 - 6.0 % Workflow SS Erythrocyte distribution width (RBC) [Ratio] 14.0 % Normal 11.5 - 15.5 % Workflow SS GFR/1.73 sq M.predicted among blacks MDRD (S/P/Bld) [Vol rate/Area] ml/min/1.73sqm Invalid Interpretation Code reportbrain Chemistry S Comment on above: Interpretive Data: GFR Population mean for , Non- Americans Ages 20-29 = 116 mL/min/1.73 sq.m. Ages 30-39 = 107 mL/min/1.73 sq.m. Ages 40-49 = 99 mL/min/1.73 sq.m. Ages 50-59 = 93 mL/min/1.73 sq.m. Ages 60-69 = 85 mL/min/1.73 sq.m. Ages 70+ = 75 mL/min/1.73 sq.m. Chronic Kidney Disease: Less than 60 mL/min/1.73 square meters End Stage Renal Disease: Less than 15 mL/min/1.73 square meters GFR/1.73 sq M.predicted among non-blacks MDRD (S/P/Bld) [Vol rate/Area] ml/min/1.73sqm Invalid Interpretation Code reportbrain Chemistry S Comment on above: Interpretive Data: GFR Population mean for , Non- Americans Ages 20-29 = 116 mL/min/1.73 sq.m. Ages 30-39 = 107 mL/min/1.73 sq.m. Ages 40-49 = 99 mL/min/1.73 sq.m. Ages 50-59 = 93 mL/min/1.73 sq.m. Ages 60-69 = 85 mL/min/1.73 sq.m. Ages 70+ = 75 mL/min/1.73 sq.m. Chronic Kidney Disease: Less than 60 mL/min/1.73 square meters End Stage Renal Disease: Less than 15 mL/min/1.73 square meters Glucose [Mass/Vol] 89 mg/dL Normal 82 - 115 mg/dL ADM SS Hematocrit (Bld) [Volume fraction] 41.2 % Normal 34.0 - 46.0 % AH Workflow SS Hemoglobin (Bld) [Mass/Vol] 14.4 G/dL Normal 12.0 - 16.0 G/dL AH Workflow SS Lymphocytes (Bld) [#/Vol] 1.6 103/mcL Normal 0. 9 - 4.3 10^3/mcL Workflow SS Lymphocytes/100 WBC (Bld) 32.1 % Normal 20 .0 - 40.0 % AH Workflow SS MCH (RBC) [Entitic mass] 31.1 pg Normal 27. 0 - 33.0 pg Workflow SS MCHC 34.9 G/dL Normal 32.0 - 36.0 G/dL Workflow SS MCV (RBC) [Entitic vol] 89.1 fL Normal 80.0 - 99.0 fL Workflow SS Monocytes (Bld) [#/Vol] 0.3 103/mcL Normal 0.1 - 1.4 10^3/mcL Workflow SS Monocytes/100 WBC (Bld) 6.8 % Normal 2.0 - 13.0 % AH Workflow SS Neutrophils (Bld) [#/Vol] 3.0 103/mcL Normal 2. 3 - 8.1 10^3/mcL AH Workflow SS Neutrophils/100 WBC (Bld) 59.8 % Normal 50 .0 - 75.0 % Workflow SS Platelet mean volume (Bld) [Entitic vol] 8.3 fL Normal 6.6 - 10.5 fL Workflow SS Platelets (Bld) [#/Vol] 229 103/mcL Normal 150 - 450 10^3/mcL Workflow SS Potassium [Moles/Vol] 4.0 mmol/L Normal 3.5 - 5.0 mEq/L ADM SS Prealbumin [Mass/Vol] 18.6 mg/dL Normal 10.0 - 40.0 mg/dL ADM SS Comment on above: Interpretive Data: * *Note - New Reference Range in effect 20 PT Coag (PPP) [Time] 10.4 s Normal 9.0 - 1 4.4 seconds [facility] SS Comment on above: Interpretive Data: E ffective 04/13/08, Protime results may be affected by some antibiotics (i.e. Ciprofloxacin, Azithromycin, Bactrim) which may potentiate the action of oral anticoagulants, with further increases in Protime/INR. PT International Ratio 0.9 ratio Invalid Interpretation Code [facility] SS Comment on above: Interpretive Data: T he [employer] (CHEST, 1991, [id number]) recommended therapeutic range for oral anticoagulant therapy is: LOW RISK: Prophylaxis of venous thrombosis INR: 2.0-3.0 Treatment of pulmonary embolism 2.0-3.0 Prevention of systemic embolism 2.0-3.0 HIGH RISK: Mechanical prosthetic valves 2.5-3.5 RBC (Bld) [#/Vol] 4.63 106/mcL Normal 4.10 - 5.3 0 10^6/mcL Workflow SS Sodium [Moles/Vol] 142 mmol/L Normal 136 - 145 mEq/L ADM SS Transferrin [Mass/Vol] 262 mg/dL Normal 202 - 336 mg/dL ADM SS Urea nitrogen [Mass/Vol] 8.0 mg/dL Normal 8.0 - 22.0 mg/dL ADM SS Urea nitrogen/Creatinine [Mass ratio] 14.3 ratio Normal 10.0 - 22.0 ratio AH ADM SS WBC (Bld) [#/Vol] 5.0 103/mcL Normal 4.5 - 10.8 10^3/mcL Workflow SS LABORATORYOrdered By: Lou Winslow on 06-30-2024 MRSA (PCR) Not Detected 1 (06/30/24 10:13 AM) Normal Auto V[facility]Sero SS Comment on above: Result Comment: [place] [id number] MRSA PCR Int MRSA DNA not detected by Real-Time Polymerase Chain Reaction (PCR). A negative result may be due to intermittent colonization. Colonization may vary depending on patient treatment, patient status, or exposure to high-risk environments.As with all PCR based in vitro diagnostic tests, extremely low levels of target below the limit of detection of the assay may be detected, but results may not be reproducible. Invalid Interpretation Code Auto Viro/Sero SS MRSAPCRon 06-30-2024 MRSA (PCR) Not detected Normal Not Detected [facility] Comment on above: Result Comment: [place] [id number] Performed By: #### A DIFF, ANEU, GFR, CBC, BMP #### [place] [id number] MRSA PCR Int Normal [facility] Comment on above: Result Comment: MRSA DNA not detected by Real-Time Polymerase Chain Reaction (PCR). A negative result may be due to intermittent colonization. Colonization may vary depending on patient treatment, patient status, or exposure to high-risk environments. As with all PCR based in vitro diagnostic tests, extremely low levels of target below the limit of detection of the assay may be detected, but results may not be reproducible. See Below Performed By: #### A DIFF, ANEU, GFR, CBC, BMP #### [place] [address] PRALBon 06-30-2024 Prealbumin [Mass/Vol] 18.6 mg/dL Normal 10.0-40.0 [facility] Comment on above: Result Comment: No te - New Reference Range in effect 20 Performed By: #### A DIFF, ANEU, GFR, CBC, BMP #### [place] [id number] PROon 06-30-2024 INR Coag (PPP) [Relative time] 0.9 {INR} Normal [facility] Comment on above: Result Comment: [employer] (CHEST, 1992, 102:[id number]) recommended therapeutic range for oral anticoagulant therapy is: LOW RISK: Prophylaxis of venous thrombosis INR: 2.0-3.0 Treatment of pulmonary embolism 2.0-3.0 Prevention of systemic embolism 2.0-3.0 HIGH RISK: Mechanical prosthetic valves 2.5-3.5 Performed By: #### T RF, CBC, ADIFF, PRO, PRALB, GFR, ANEU, BMP, APTT #### [address] [address] PT Coag (PPP) [Time] 10.4 s Normal 9.0-14.4 [facility] Comment on above: Result Comment: Effe ctive 04/13/08, Protime results may be affected by some antibiotics (i.e. Ciprofloxacin, Azithromycin, Bactrim) which may potentiate the action of oral anticoagulants, with further increases in Protime/INR. Performed By: #### T RF, CBC, ADIFF, PRO, PRALB, GFR, ANEU, BMP, APTT #### [address] [address] TRFon 06-30-2024 Transferrin [Mass/Vol] 262 mg/dL Normal 202-336 [facility] Comment on above: Performed By: #### A DIFF, ANEU, GFR, CBC, BMP #### [place] [address] .Auto Diffon 10-11-2023 Basophil, Absolute 0.0 10 3/mcL Normal 0.0-0.3 [facility] ([place]) Comment on above: Performed By: #### C BC, ADIFF, ANEU, BMP, GFR #### [address] [address] Basophils/100 WBC (Bld) 0.1 % Normal 0.0-2.5 A [facility] ([place]) Comment on above: Performed By: #### C BC, ADIFF, ANEU, BMP, GFR #### [address] [address] Eosinophil, Absolute 0.0 10 3/mcL Normal 0.0-0.7 [facility] ([place]) Comment on above: Performed By: #### C BC, ADIFF, ANEU, BMP, GFR #### [address] [address] Eosinophils/100 WBC (Bld) 0.1 % Normal 0.0-6.0 [facility] ([place]) Comment on above: Performed By: #### C BC, ADIFF, ANEU, BMP, GFR #### [address] [address] Lymphocyte, Absolute 1.3 10 3/mcL Normal 0.9-4.3 [facility] ([place]) Comment on above: Performed By: #### C BC, ADIFF, ANEU, BMP, GFR #### [address] [address] Lymphocytes/100 WBC (Bld) 13.5 % Low 20.0-40.0 [facility] ([place]) Comment on above: Performed By: #### C BC, ADIFF, ANEU, BMP, GFR #### [address] [address] Monocyte, Absolute 0.8 10 3/mcL Normal 0.1-1.4 [facility] ([place]) Comment on above: Performed By: #### C BC, ADIFF, ANEU, BMP, GFR #### [address] [address] Monocytes/100 WBC (Bld) 8.3 % Normal 2.0-13.0 A [facility] ([place]) Comment on above: Performed By: #### C BC, ADIFF, ANEU, BMP, GFR #### [address] [address] Neutrophils/100 WBC (Bld) 78.0 % High 50.0-75.0 [facility] ([place]) Comment on above: Performed By: #### C BC, ADIFF, ANEU, BMP, GFR #### [address] [address] .GFRon 10-11-2023 GFR >60 Normal [facility] ([place]) Comment on above: Result Comment: GFR Population mean for , Non- Americans Ages 20-29 = 116 mL/min/1.73 sq.m. Ages 30-39 = 107 mL/min/1.73 sq.m. Ages 40-49 = 99 mL/min/1.73 sq.m. Ages 50-59 = 93 mL/min/1.73 sq.m. Ages 60-69 = 85 mL/min/1.73 sq.m. Ages 70+ = 75 mL/min/1.73 sq.m. Chronic Kidney Disease: Less than 60 mL/min/1.73 square meters End Stage Renal Disease: Less than 15 mL/min/1.73 square meters Performed By: #### C BC, ADIFF, ANEU, BMP, GFR #### [address] [address] GFR Non- >60 Normal [facility] ([place]) Comment on above: Result Comment: GFR Population mean for , Non- Americans Ages 20-29 = 116 mL/min/1.73 sq.m. Ages 30-39 = 107 mL/min/1.73 sq.m. Ages 40-49 = 99 mL/min/1.73 sq.m. Ages 50-59 = 93 mL/min/1.73 sq.m. Ages 60-69 = 85 mL/min/1.73 sq.m. Ages 70+ = 75 mL/min/1.73 sq.m. Chronic Kidney Disease: Less than 60 mL/min/1.73 square meters End Stage Renal Disease: Less than 15 mL/min/1.73 square meters Performed By: #### C BC, ADIFF, ANEU, BMP, GFR #### [address] [address] .NEUABSon 10-11-2023 Neutrophil, Absolute 7.4 10 3/mcL Normal 2.3-8.1 [facility] ([place]) Comment on above: Performed By: #### C BC, ADIFF, ANEU, BMP, GFR #### [address] [address] BMPon 10-11-2023 BUN/Creatinine Ratio 21.4 ratio Normal 10.0-22.0 [facility] ([place]) Comment on above: Performed By: #### C BC, ADIFF, ANEU, BMP, GFR #### [address] [address] Calcium [Mass/Vol] 8.8 mg/dL Normal 8.7-10.4 [facility] ([place]) Comment on above: Performed By: #### C BC, ADIFF, ANEU, BMP, GFR #### [address] [address] Chloride [Moles/Vol] 110 mmol/L Normal 98-110 [facility] ([place]) Comment on above: Performed By: #### C BC, ADIFF, ANEU, BMP, GFR #### [address] [address] CO2 [Moles/Vol] 19 mmol/L Low 22-32 [facility] ([place]) Comment on above: Performed By: #### C BC, ADIFF, ANEU, BMP, GFR #### [address] [address] Creatinine [Mass/Vol] 0.56 mg/dL Normal 0.50-1.20 [facility] ([place]) Comment on above: Performed By: #### C BC, ADIFF, ANEU, BMP, GFR #### [address] [address] Electrolyte Balance 12.0 mEq/L Normal 4.0-15.0 [facility] ([place]) Comment on above: Performed By: #### C BC, ADIFF, ANEU, BMP, GFR #### [place] [id number] Glucose [Mass/Vol] 102 mg/dL Normal 82-115 [facility] ([place]) Comment on above: Performed By: #### C BC, ADIFF, ANEU, BMP, GFR #### [place] [address] Potassium [Moles/Vol] 4.3 mmol/L Normal 3.5-5.0 [facility] ([place]) Comment on above: Result Comment: Spec imen slightly hemolyzed. Performed By: #### C BC, ADIFF, ANEU, BMP, GFR #### [place] [id number] Sodium [Moles/Vol] 141 mmol/L Normal 136-145 [facility] ([place]) Comment on above: Performed By: #### C BC, ADIFF, ANEU, BMP, GFR #### [place] [id number] Urea nitrogen [Mass/Vol] 12.0 mg/dL Normal 8.0-22.0 [facility] ([place]) Comment on above: Performed By: #### C BC, ADIFF, ANEU, BMP, GFR #### [address] [address] CBCon 10-11-2023 Erythrocyte distribution width (RBC) [Ratio] 13.9 % Normal 11.5-15.5 [facility] ([place]) Comment on above: Performed By: #### C BC, ADIFF, ANEU, BMP, GFR #### [place] [address] Hematocrit (Bld) [Volume fraction] 37.1 % Normal 34.0-46.0 [facility] ([place]) Comment on above: Performed By: #### C BC, ADIFF, ANEU, BMP, GFR #### [place] [address] Hgb 12.7 G/dL Normal 12.0-16.0 [facility] ([place]) Comment on above: Performed By: #### C BC, ADIFF, ANEU, BMP, GFR #### [place] [address] MCH (RBC) [Entitic mass] 30.3 pg Normal 27.0-33.0 [facility] ([place]) Comment on above: Performed By: #### C BC, ADIFF, ANEU, BMP, GFR #### [place] [address] MCHC 34.2 G/dL Normal 32.0-36.0 [facility] ([place]) Comment on above: Performed By: #### C BC, ADIFF, ANEU, BMP, GFR #### [place] [address] MCV (RBC) [Entitic vol] 88.7 fL Normal 80.0-99.0 A [facility] ([place]) Comment on above: Performed By: #### C BC, ADIFF, ANEU, BMP, GFR #### [place] [address] Platelet 235 10 3/mcL Normal 150-450 [facility] ([place]) Comment on above: Performed By: #### C BC, ADIFF, ANEU, BMP, GFR #### [place] [address] Platelet mean volume (Bld) [Entitic vol] 8.4 fL Normal 6.6-10.5 [facility] ([place]) Comment on above: Performed By: #### C BC, ADIFF, ANEU, BMP, GFR #### [place] [address] RBC 4.19 10 6/mcL Normal 4.10-5.30 [facility] ([place]) Comment on above: Performed By: #### C BC, ADIFF, ANEU, BMP, GFR #### [address] [address] WBC 9.5 10 3/mcL Normal 4.5-10.8 [facility] ([place]) Comment on above: Performed By: #### C BC, ADIFF, ANEU, BMP, GFR #### [address] [address] LABORATORYOrdered By: SYSTEM SYSTEM on 10-11-2023 Basophils (Bld) [#/Vol] 0.0 103/mcL Normal 0.0 - 0.3 10^3/mcL Workflow SS Basophils/100 WBC (Bld) 0.1 % Normal 0.0 - 2.5 % Workflow SS Calcium [Mass/Vol] 8.8 mg/dL Normal 8.7 - 10. 4 mg/dL ADM SS Chloride [Moles/Vol] 110 mmol/L Normal 98 - 11 0 mEq/L ADM SS CO2 [Moles/Vol] 19 mmol/L Low 22 - 32 mEq/L ADM SS Creatinine [Mass/Vol] 0.56 mg/dL Normal 0.50 - 1.20 mg/dL ADM SS Electrolyte Balance 12.0 mEq/L Normal 4.0 - 15 .0 mEq/L ADM SS Eosinophils (Bld) [#/Vol] 0.0 103/mcL Normal 0. 0 - 0.7 10^3/mcL Workflow SS Eosinophils/100 WBC (Bld) 0.1 % Normal 0.0 - 6.0 % Workflow SS Erythrocyte distribution width (RBC) [Ratio] 13.9 % Normal 11.5 - 15.5 % Workflow SS GFR/1.73 sq M.predicted among blacks MDRD (S/P/Bld) [Vol rate/Area] ml/min/1.73sqm Invalid Interpretation Code Chemistry S Comment on above: Interpretive Data: GFR Population mean for , Non- Americans Ages 20-29 = 116 mL/min/1.73 sq.m. Ages 30-39 = 107 mL/min/1.73 sq.m. Ages 40-49 = 99 mL/min/1.73 sq.m. Ages 50-59 = 93 mL/min/1.73 sq.m. Ages 60-69 = 85 mL/min/1.73 sq.m. Ages 70+ = 75 mL/min/1.73 sq.m. Chronic Kidney Disease: Less than 60 mL/min/1.73 square meters End Stage Renal Disease: Less than 15 mL/min/1.73 square meters GFR/1.73 sq M.predicted among non-blacks MDRD (S/P/Bld) [Vol rate/Area] ml/min/1.73sqm Invalid Interpretation Code Chemistry S Comment on above: Interpretive Data: GFR Population mean for , Non- Americans Ages 20-29 = 116 mL/min/1.73 sq.m. Ages 30-39 = 107 mL/min/1.73 sq.m. Ages 40-49 = 99 mL/min/1.73 sq.m. Ages 50-59 = 93 mL/min/1.73 sq.m. Ages 60-69 = 85 mL/min/1.73 sq.m. Ages 70+ = 75 mL/min/1.73 sq.m. Chronic Kidney Disease: Less than 60 mL/min/1.73 square meters End Stage Renal Disease: Less than 15 mL/min/1.73 square meters Glucose [Mass/Vol] 102 mg/dL Normal 82 - 115 mg/dL ADM SS Hematocrit (Bld) [Volume fraction] 37.1 % Normal 34.0 - 46.0 % Workflow SS Hemoglobin (Bld) [Mass/Vol] 12.7 G/dL Normal 12.0 - 16.0 G/dL AH Workflow SS Lymphocytes (Bld) [#/Vol] 1.3 103/mcL Normal 0. 9 - 4.3 10^3/mcL Workflow SS Lymphocytes/100 WBC (Bld) 13.5 % Low 20 .0 - 40.0 % Workflow SS MCH (RBC) [Entitic mass] 30.3 pg Normal 27. 0 - 33.0 pg AH Workflow SS MCHC 34.2 G/dL Normal 32.0 - 36.0 G/dL Workflow SS MCV (RBC) [Entitic vol] 88.7 fL Normal 80.0 - 99.0 fL Workflow SS Monocytes (Bld) [#/Vol] 0.8 103/mcL Normal 0.1 - 1.4 10^3/mcL AH Workflow SS Monocytes/100 WBC (Bld) 8.3 % Normal 2.0 - 13.0 % AH Workflow SS Neutrophils (Bld) [#/Vol] 7.4 103/mcL Normal 2. 3 - 8.1 10^3/mcL AH Workflow SS Neutrophils/100 WBC (Bld) 78.0 % High 50 .0 - 75.0 % AH Workflow SS Platelet mean volume (Bld) [Entitic vol] 8.4 fL Normal 6.6 - 10.5 fL AH Workflow SS Platelets (Bld) [#/Vol] 235 103/mcL Normal 150 - 450 10^3/mcL AH Workflow SS Potassium [Moles/Vol] 4.3 mmol/L Normal 3.5 - 5.0 mEq/L ADM SS Comment on above: Result Comment: Spec imen slightly hemolyzed. RBC (Bld) [#/Vol] 4.19 106/mcL Normal 4.10 - 5.3 0 10^6/mcL Workflow SS Sodium [Moles/Vol] 141 mmol/L Normal 136 - 145 mEq/L ADM SS Urea nitrogen [Mass/Vol] 12.0 mg/dL Normal 8.0 - 22.0 mg/dL AH ADM SS Urea nitrogen/Creatinine [Mass ratio] 21.4 ratio Normal 10.0 - 22.0 ratio ADM SS WBC (Bld) [#/Vol] 9.5 103/mcL Normal 4.5 - 10.8 10^3/mcL Workflow SS XR FLUORO > 2 HRS TECH TIMEo n 10-10-2023 XR FLUORO > 2 HRS TECH TIME ORIGINAL EXAMINATION: MIGUELITO TURCIOS - > 1 HR10/10/2023 11:15 am Intraoperative fluoroscopy and image intensifier views of the cervical spine COMPARISON: None HISTORY: ORDERING SYSTEM PROVIDED HISTORY: Reason for Exam: PAIN, , intraoperative imaging FINDINGS/IMPRESSION: Fluoroscopic time: 6.2 seconds Total dose (Reference Air Kerma): 0.5907 MGy Number of fluoroscopic images: 4 Detail is limited. Please see intraoperative notes for additional details of the procedure. Interpreted by: Hebert Sinha MD Preliminary Report By: Hebert Sinha MD Electronically signed By Hebert Sinha MD Dictated Date: 10/10/2023 12:19:26 PM Prelim Date: 10/10/2023 12:19:51 PM Sign Date: 10/10/2023 12:19:51 PM Ordering Provider: BRAYDEN ECHEVARRIA Pending Sale To [facility] ([place]) Absolute lymphocyte countOrd ered By: Calli Cifuentes on 09-25-2023 Lymphocytes Auto (Unsp spec) [#/Vol] 2.04 10*3/uL 0.83-4.51 [facility] Basophil percentageOrdered B y: Calli Cifuentes on 09-25-2023 Basophils/100 WBC (Bld) 0.7 % 0-[address] [facility] Chloride [Moles/Vol] 109 mmol/L 98-107 [facility] Eosinophils/100 WBC (Bld) 0.9 % 0-5 [facility] Glucose [Mass/Vol] 93 mg/dL 74-106 [facility] Neutrophils (Bld) [#/Vol] 3.1 10*3/uL 2.0-7.7 [facility] Neutrophils/100 WBC (Bld) 54.8 % 47-70 [facility] Potassium [Moles/Vol] 3.9 mmol/L 3.5-5.1 [facility] Sodium [Moles/Vol] 138 mmol/L 136-145 [facility] WBC (Bld) [#/Vol] 5.7 10*3/uL 4.4-11.0 [facility] Blood erythrocytes count (nu mber/volume)Ordered By: Calli Cifuentes on 09-25-2023 RBC (Bld) [#/Vol] 4.89 10*6/uL 4.2-5.4 [facility] Blood hemoglobin measurement (mass/volume)Ordered By: Calli Cifuentes on 09-25-2023 Hemoglobin (Bld) [Mass/Vol] 14.3 g/dL 12.0-15.0 [facility] Blood lymphocytes/100 leukoc ytesOrdered By: Calli Cifuentes on 09-25-2023 Lymphocytes/100 WBC (Bld) 36.1 % 19-41 [facility] Blood monocytes/100 leukocyt esOrdered By: Calli Cifuentes on 09-25-2023 Monocytes/100 WBC (Bld) 7.1 % 0-[address] [facility] Blood platelet mean volumeOr dered By: Calli Cifuentes on 09-25-2023 Platelet mean volume (Bld) [Entitic vol] 10.5 fL 6.2-12.0 [facility] Determination of erythrocyte mean corpuscular volume (MCV)Ordered By: Calli Cifuentes on 09-25-2023 MCV (RBC) [Entitic vol] 89.6 fL 81-[address] [facility] Erythrocyte sedimentation ra teOrdered By: Calli Cifuentes on 09-25-2023 ESR (Bld) [Velocity] 7 mm/h 0-30 [facility] Hematocrit Auto (Bld) [Volum e fraction]Ordered By: Calli Cifuentes on 09-25-2023 Hematocrit (Bld) [Volume fraction] 43.8 % 37-47 [facility] Laboratory - Chemistry and C hemistry - challengeOrdered By: Calli Cifuentes on 09-25-2023 CO2 [Moles/Vol] 25.0 mmol/L 21.0-32.0 [facility] Urea nitrogen/Creatinine [Mass ratio] 21.1 mg/mg 10-20 [facility] Laboratory - Hematology and Cell countsOrdered By: Calli Cifuentes on 09-25-2023 Erythrocyte distribution width (RBC) [Entitic vol] 44.4 fL 35.1-43.9 [facility] Erythrocyte distribution width (RBC) [Ratio] 13.4 % 11.6-14.6 [facility] Immature granulocytes/100 WBC (Bld) 0.400 % 0.0-0.9 [facility] Comment on above: IG% - Immature Granu locytes (promyelocytes, myelocytes and metamyelocytes) > 1% indicates that a LEFT SHIFT is Present. MCH (RBC) [Entitic mass] 29.2 pg 27.0-32.0 [facility] Nucleated RBC/100 WBC (Bld) [Ratio] 0 % 0-5 [facility] MCHC Auto (RBC) [Mass/Vol]Or dered By: Calli Cifuentes on 09-25-2023 MCHC (RBC) [Mass/Vol] 32.6 g/dL 32-36 [facility] No Panel InformationOrdered By: Calli Cifuentes on 09-25-2023 Estimated GFR (MDRD) Amer 139 mL/min >60 [facility] Comment on above: GFR Calc Estimated GFR (MDRD) Non-Af Amer 115 mL/min >60 [facility] Comment on above: Non- GFR Calc Platelets bldOrdered By: Marcela Cifuentes on 09-25-2023 Platelets (Bld) [#/Vol] 285 10*3/uL 150-450 [facility] Serum or plasma C reactive p rotein measurement (mass/volume)Ordered By: Calli Cifuentes on 09-25-2023 CRP [Mass/Vol] mg/L 0.0-3.0 [facility] Comment on above: C-Reactive Protein ( CRP) provides useful information for thediagnosis, therapy and monitoring of inflammatory processesand associated diseases. For the evaluation of Relative Riskfor Cardiovascular Disease, a High Sensitivity CRP (HSCRP)should be ordered. Serum or plasma calcium yaritza urement (mass/volume)Ordered By: Calli Cifuentes on 09-25-2023 Calcium [Mass/Vol] 9.3 mg/dL 8.5-10.1 [facility] Serum or plasma creatinine m easurement (mass/volume)Ordered By: Calli Cifuentes on 09-25-2023 Creatinine [Mass/Vol] 0.57 mg/dL 0.55-1.02 [facility] Comment on above: The validity of the calculated GFR & GFRAA in patients over 70 years has not been determined. Clinical correlation is essential. Serum or plasma urea nitroge n measurement (mass/volume)Ordered By: Calli Cifuentes on 09-25-2023 Urea nitrogen [Mass/Vol] 12 mg/dL 7-18 [facility] Thin prep Papanicolaou smear with manual screeningOrdered By: Calli Cifuentes on 09-25-2023 Thin prep Papanicolaou smear with manual screening 4 -15 [facility] .Auto Diffon 09-12-2023 Basophil, Absolute 0.0 10 3/mcL Normal 0.0-0.3 [facility] ([place]) Comment on above: Performed By: #### P RO, CBC, ADIFF, ANEU, BMP, TRF, GFR, PRALB #### [facility] [address] [place] [id number] Basophils/100 WBC (Bld) 0.8 % Normal 0.0-2.5 A [facility] ([place]) Comment on above: Performed By: #### P RO, CBC, ADIFF, ANEU, BMP, TRF, GFR, PRALB #### [address] [address] Eosinophil, Absolute 0.1 10 3/mcL Normal 0.0-0.7 [facility] ([place]) Comment on above: Performed By: #### P RO, CBC, ADIFF, ANEU, BMP, TRF, GFR, PRALB #### [address] [address] Eosinophils/100 WBC (Bld) 0.9 % Normal 0.0-6.0 [facility] ([place]) Comment on above: Performed By: #### P RO, CBC, ADIFF, ANEU, BMP, TRF, GFR, PRALB #### [address] [address] Lymphocyte, Absolute 1.7 10 3/mcL Normal 0.9-4.3 [facility] ([place]) Comment on above: Performed By: #### P RO, CBC, ADIFF, ANEU, BMP, TRF, GFR, PRALB #### [address] [address] Lymphocytes/100 WBC (Bld) 31.1 % Normal 20.0-40.0 [facility] ([place]) Comment on above: Performed By: #### P RO, CBC, ADIFF, ANEU, BMP, TRF, GFR, PRALB #### [address] [address] Monocyte, Absolute 0.4 10 3/mcL Normal 0.1-1.4 [facility] ([place]) Comment on above: Performed By: #### P RO, CBC, ADIFF, ANEU, BMP, TRF, GFR, PRALB #### [address] [address] Monocytes/100 WBC (Bld) 7.4 % Normal 2.0-13.0 [facility] ([place]) Comment on above: Performed By: #### P RO, CBC, ADIFF, ANEU, BMP, TRF, GFR, PRALB #### [address] [address] Neutrophils/100 WBC (Bld) 59.8 % Normal 50.0-75.0 [facility] ([place]) Comment on above: Performed By: #### P RO, CBC, ADIFF, ANEU, BMP, TRF, GFR, PRALB #### [address] [address] .GFRon 09-12-2023 GFR Non- >60 Normal [facility] ([place]) Comment on above: Result Comment: GFR Population mean for , Non- Americans Ages 20-29 = 116 mL/min/1.73 sq.m. Ages 30-39 = 107 mL/min/1.73 sq.m. Ages 40-49 = 99 mL/min/1.73 sq.m. Ages 50-59 = 93 mL/min/1.73 sq.m. Ages 60-69 = 85 mL/min/1.73 sq.m. Ages 70+ = 75 mL/min/1.73 sq.m. Chronic Kidney Disease: Less than 60 mL/min/1.73 square meters End Stage Renal Disease: Less than 15 mL/min/1.73 square meters Performed By: #### C BC, ADIFF, ANEU, BMP, GFR #### [address] [address] GFR >60 Normal [facility] ([place]) Comment on above: Result Comment: GFR Population mean for , Non- Americans Ages 20-29 = 116 mL/min/1.73 sq.m. Ages 30-39 = 107 mL/min/1.73 sq.m. Ages 40-49 = 99 mL/min/1.73 sq.m. Ages 50-59 = 93 mL/min/1.73 sq.m. Ages 60-69 = 85 mL/min/1.73 sq.m. Ages 70+ = 75 mL/min/1.73 sq.m. Chronic Kidney Disease: Less than 60 mL/min/1.73 square meters End Stage Renal Disease: Less than 15 mL/min/1.73 square meters Performed By: #### C BC, ADIFF, ANEU, BMP, GFR #### [address] [address] .NEUABSon 09-12-2023 Neutrophil, Absolute 3.3 10 3/mcL Normal 2.3-8.1 [facility] ([place]) Comment on above: Performed By: #### P RO, CBC, ADIFF, ANEU, BMP, TRF, GFR, PRALB #### [address] [address] APTTon 09-12-2023 aPTT Coag (Bld) [Time] 35.5 s High 25.0-35.0 [facility] ([place]) Comment on above: Result Comment: For Heparin anticoagulation therapy, the recommended therapeutic range is: 54-77 seconds (APTT Correlation with Anti-Xa therapeutic range of 0.3-0.7 units/ml). PLEASE REFERENCE THE PHARMACY PROTOCOL FOR DOSING. Performed By: #### C BC, ADIFF, ANEU, BMP, GFR #### [place] [id number] Heparin dose (APTT) Unknown Normal [facility] ([place]) Comment on above: Performed By: #### C BC, ADIFF, ANEU, BMP, GFR #### [address] [address] BMPon 09-12-2023 BUN/Creatinine Ratio 30.4 ratio High 10.0-22.0 [facility] ([place]) Comment on above: Performed By: #### P RO, CBC, ADIFF, ANEU, BMP, TRF, GFR, PRALB #### [place] [id number] Calcium [Mass/Vol] 9.5 mg/dL Normal 8.7-10.4 [facility] ([place]) Comment on above: Performed By: #### P RO, CBC, ADIFF, ANEU, BMP, TRF, GFR, PRALB #### [place] [id number] Chloride [Moles/Vol] 111 mmol/L High 98-110 [facility] ([place]) Comment on above: Performed By: #### P RO, CBC, ADIFF, ANEU, BMP, TRF, GFR, PRALB #### [address] [address] CO2 [Moles/Vol] 27 mmol/L Normal 22-32 [facility] ([place]) Comment on above: Performed By: #### P RO, CBC, ADIFF, ANEU, BMP, TRF, GFR, PRALB #### [address] [address] Creatinine [Mass/Vol] 0.56 mg/dL Normal 0.50-1.20 [facility] ([place]) Comment on above: Performed By: #### P RO, CBC, ADIFF, ANEU, BMP, TRF, GFR, PRALB #### [address] [address] Electrolyte Balance 1.0 mEq/L Low 4.0-15.0 [facility] ([place]) Comment on above: Performed By: #### P RO, CBC, ADIFF, ANEU, BMP, TRF, GFR, PRALB #### [address] [address] Glucose [Mass/Vol] 84 mg/dL Normal 82-115 [facility] ([place]) Comment on above: Performed By: #### P RO, CBC, ADIFF, ANEU, BMP, TRF, GFR, PRALB #### [address] [address] Potassium [Moles/Vol] 4.2 mmol/L Normal 3.5-5.0 [facility] ([place]) Comment on above: Performed By: #### P RO, CBC, ADIFF, ANEU, BMP, TRF, GFR, PRALB #### [address] [address] Sodium [Moles/Vol] 139 mmol/L Normal 136-145 [facility] ([place]) Comment on above: Performed By: #### P RO, CBC, ADIFF, ANEU, BMP, TRF, GFR, PRALB #### [address] [address] Urea nitrogen [Mass/Vol] 17.0 mg/dL Normal 8.0-22.0 [facility] ([place]) Comment on above: Performed By: #### P RO, CBC, ADIFF, ANEU, BMP, TRF, GFR, PRALB #### [place] [id number] CBCon 09-12-2023 Erythrocyte distribution width (RBC) [Ratio] 13.8 % Normal 11.5-15.5 [facility] ([place]) Comment on above: Performed By: #### P RO, CBC, ADIFF, ANEU, BMP, TRF, GFR, PRALB #### [place] [address] Hematocrit (Bld) [Volume fraction] 43.8 % Normal 34.0-46.0 [facility] ([place]) Comment on above: Performed By: #### P RO, CBC, ADIFF, ANEU, BMP, TRF, GFR, PRALB #### [place] [address] Hgb 14.6 G/dL Normal 12.0-16.0 [facility] ([place]) Comment on above: Performed By: #### P RO, CBC, ADIFF, ANEU, BMP, TRF, GFR, PRALB #### [place] [address] MCH (RBC) [Entitic mass] 29.9 pg Normal 27.0-33.0 [facility] ([place]) Comment on above: Performed By: #### P RO, CBC, ADIFF, ANEU, BMP, TRF, GFR, PRALB #### [place] [id number] MCHC 33.3 G/dL Normal 32.0-36.0 [facility] ([place]) Comment on above: Performed By: #### P RO, CBC, ADIFF, ANEU, BMP, TRF, GFR, PRALB #### [place] [id number] MCV (RBC) [Entitic vol] 89.6 fL Normal 80.0-99.0 A [facility] ([place]) Comment on above: Performed By: #### P RO, CBC, ADIFF, ANEU, BMP, TRF, GFR, PRALB #### [place] [address] Platelet 252 10 3/mcL Normal 150-450 [facility] ([place]) Comment on above: Performed By: #### P RO, CBC, ADIFF, ANEU, BMP, TRF, GFR, PRALB #### [address] [address] Platelet mean volume (Bld) [Entitic vol] 8.3 fL Normal 6.6-10.5 [facility] ([place]) Comment on above: Performed By: #### P RO, CBC, ADIFF, ANEU, BMP, TRF, GFR, PRALB #### [place] [address] RBC 4.89 10 6/mcL Normal 4.10-5.30 [facility] ([place]) Comment on above: Performed By: #### P RO, CBC, ADIFF, ANEU, BMP, TRF, GFR, PRALB #### [place] [address] WBC 5.5 10 3/mcL Normal 4.5-10.8 [facility] ([place]) Comment on above: Performed By: #### P RO, CBC, ADIFF, ANEU, BMP, TRF, GFR, PRALB #### [place] [address] LABORATORYOrdered By: Gil Stovall on 09-12-2023 aPTT Coag (Bld) [Time] 35.5 s High 25.0 - 35.0 seconds AH Coagulation S Comment on above: Interpretive Data: F or Heparin anticoagulation therapy, the recommended therapeutic range is: 54-77 seconds (APTT Correlation with Anti-Xa therapeutic range of 0.3-0.7 units/ml). PLEASE REFERENCE THE PHARMACY PROTOCOL FOR DOSING. Heparin dose (APTT) Unknown (09/12/23 10:32 AM) Normal AH Coagulation S PT Coag (PPP) [Time] 10.8 s Normal 9.0 - 1 4.2 seconds AH [facility] SS Comment on above: Interpretive Data: E ffective 04/13/08, Protime results may be affected by some antibiotics (i.e. Ciprofloxacin, Azithromycin, Bactrim) which may potentiate the action of oral anticoagulants, with further increases in Protime/INR. PT International Ratio 1.0 ratio Invalid Interpretation Code [facility] SS Comment on above: Interpretive Data: Hermila camejo [employer] (CHEST, 1991, 102:312S-25S) recommended therapeutic range for oral anticoagulant therapy is: LOW RISK: Prophylaxis of venous thrombosis INR: 2.0-3.0 Treatment of pulmonary embolism 2.0-3.0 Prevention of systemic embolism 2.0-3.0 HIGH RISK: Mechanical prosthetic valves 2.5-3.5 LABORATORYOrdered By: SYSTEM SYSTEM on 09-12-2023 Basophils (Bld) [#/Vol] 0.0 103/mcL Normal 0.0 - 0.3 10^3/mcL AH Workflow SS Basophils/100 WBC (Bld) 0.8 % Normal 0.0 - 2.5 % AH Workflow SS Calcium [Mass/Vol] 9.5 mg/dL Normal 8.7 - 10. 4 mg/dL ADM SS Chloride [Moles/Vol] 111 mmol/L High 98 - 11 0 mEq/L ADM SS CO2 [Moles/Vol] 27 mmol/L Normal 22 - 32 mEq/L ADM SS Creatinine [Mass/Vol] 0.56 mg/dL Normal 0.50 - 1.20 mg/dL AH ADM SS Electrolyte Balance 1.0 mEq/L Low 4.0 - 15 .0 mEq/L ADM SS Eosinophils (Bld) [#/Vol] 0.1 103/mcL Normal 0. 0 - 0.7 10^3/mcL Workflow SS Eosinophils/100 WBC (Bld) 0.9 % Normal 0.0 - 6.0 % AH Workflow SS Erythrocyte distribution width (RBC) [Ratio] 13.8 % Normal 11.5 - 15.5 % Workflow SS GFR/1.73 sq M.predicted among blacks MDRD (S/P/Bld) [Vol rate/Area] ml/min/1.73sqm Invalid Interpretation Code Chemistry S Comment on above: Interpretive Data: GFR Population mean for , Non- Americans Ages 20-29 = 116 mL/min/1.73 sq.m. Ages 30-39 = 107 mL/min/1.73 sq.m. Ages 40-49 = 99 mL/min/1.73 sq.m. Ages 50-59 = 93 mL/min/1.73 sq.m. Ages 60-69 = 85 mL/min/1.73 sq.m. Ages 70+ = 75 mL/min/1.73 sq.m. Chronic Kidney Disease: Less than 60 mL/min/1.73 square meters End Stage Renal Disease: Less than 15 mL/min/1.73 square meters GFR/1.73 sq M.predicted among non-blacks MDRD (S/P/Bld) [Vol rate/Area] ml/min/1.73sqm Invalid Interpretation Code Chemistry S Comment on above: Interpretive Data: GFR Population mean for , Non- Americans Ages 20-29 = 116 mL/min/1.73 sq.m. Ages 30-39 = 107 mL/min/1.73 sq.m. Ages 40-49 = 99 mL/min/1.73 sq.m. Ages 50-59 = 93 mL/min/1.73 sq.m. Ages 60-69 = 85 mL/min/1.73 sq.m. Ages 70+ = 75 mL/min/1.73 sq.m. Chronic Kidney Disease: Less than 60 mL/min/1.73 square meters End Stage Renal Disease: Less than 15 mL/min/1.73 square meters Glucose [Mass/Vol] 84 mg/dL Normal 82 - 115 mg/dL ADM SS Hematocrit (Bld) [Volume fraction] 43.8 % Normal 34.0 - 46.0 % Workflow SS Hemoglobin (Bld) [Mass/Vol] 14.6 G/dL Normal 12.0 - 16.0 G/dL Workflow SS Lymphocytes (Bld) [#/Vol] 1.7 103/mcL Normal 0. 9 - 4.3 10^3/mcL Workflow SS Lymphocytes/100 WBC (Bld) 31.1 % Normal 20 .0 - 40.0 % Workflow SS MCH (RBC) [Entitic mass] 29.9 pg Normal 27. 0 - 33.0 pg Workflow SS MCHC 33.3 G/dL Normal 32.0 - 36.0 G/dL Workflow SS MCV (RBC) [Entitic vol] 89.6 fL Normal 80.0 - 99.0 fL Workflow SS Monocytes (Bld) [#/Vol] 0.4 103/mcL Normal 0.1 - 1.4 10^3/mcL Workflow SS Monocytes/100 WBC (Bld) 7.4 % Normal 2.0 - 13.0 % AH Workflow SS Neutrophils (Bld) [#/Vol] 3.3 103/mcL Normal 2. 3 - 8.1 10^3/mcL AH Workflow SS Neutrophils/100 WBC (Bld) 59.8 % Normal 50 .0 - 75.0 % Workflow SS Platelet mean volume (Bld) [Entitic vol] 8.3 fL Normal 6.6 - 10.5 fL Workflow SS Platelets (Bld) [#/Vol] 252 103/mcL Normal 150 - 450 10^3/mcL Workflow SS Potassium [Moles/Vol] 4.2 mmol/L Normal 3.5 - 5.0 mEq/L ADM SS Prealbumin [Mass/Vol] 19.1 mg/dL Normal 10.0 - 40.0 mg/dL ADM SS Comment on above: Interpretive Data: * *Note - New Reference Range in effect 20 RBC (Bld) [#/Vol] 4.89 106/mcL Normal 4.10 - 5.3 0 10^6/mcL Workflow SS Sodium [Moles/Vol] 139 mmol/L Normal 136 - 145 mEq/L ADM SS Transferrin [Mass/Vol] 277 mg/dL Normal 202 - 336 mg/dL ADM SS Urea nitrogen [Mass/Vol] 17.0 mg/dL Normal 8.0 - 22.0 mg/dL ADM SS Urea nitrogen/Creatinine [Mass ratio] 30.4 ratio High 10.0 - 22.0 ratio ADM SS WBC (Bld) [#/Vol] 5.5 103/mcL Normal 4.5 - 10.8 10^3/mcL Workflow SS LABORATORYOrdered By: Lou Winslow on 09-12-2023 MRSA DNA BILLIE+probe Ql (Unsp spec) Not Detected 1 (09/12/23 10:32 AM) Normal Auto Viro/Sero SS Comment on above: Result Comment: [place] [id number] MRSA PCR Int MRSA DNA not detected by Real-Time Polymerase Chain Reaction (PCR). A negative result may be due to intermittent colonization. Colonization may vary depending on patient treatment, patient status, or exposure to high-risk environments.As with all PCR based in vitro diagnostic tests, extremely low levels of target below the limit of detection of the assay may be detected, but results may not be reproducible. Invalid Interpretation Code AH Auto Viro/Sero SS MRSAPCRon 09-12-2023 MRSA (PCR) Not detected Normal Not Detected [facility] ([place]) Comment on above: Result Comment: [place] [id number] Performed By: #### M RSAPCR #### [place] [address] MRSA PCR Int Normal [facility] ([place]) Comment on above: Result Comment: MRSA DNA not detected by Real-Time Polymerase Chain Reaction (PCR). A negative result may be due to intermittent colonization. Colonization may vary depending on patient treatment, patient status, or exposure to high-risk environments. As with all PCR based in vitro diagnostic tests, extremely low levels of target below the limit of detection of the assay may be detected, but results may not be reproducible. See Below Performed By: #### M RSAPCR #### [place] [address] [facility] Prealbumin [Mass/Vol] 19.1 mg/dL Normal 10.0-40.0 [facility] ([place]) Comment on above: Result Comment: No te - New Reference Range in effect 20 Performed By: #### C BC, ADIFF, ANEU, BMP, GFR #### [place] [address] PROon 09-12-2023 INR Coag (PPP) [Relative time] 1.0 {INR} Normal [facility] ([place]) Comment on above: Result Comment: [employer] (CHEST, 1992, 102:312S-25S) recommended therapeutic range for oral anticoagulant therapy is: LOW RISK: Prophylaxis of venous thrombosis INR: 2.0-3.0 Treatment of pulmonary embolism 2.0-3.0 Prevention of systemic embolism 2.0-3.0 HIGH RISK: Mechanical prosthetic valves 2.5-3.5 Performed By: #### C BC, ADIFF, ANEU, BMP, GFR #### [place] [address] PT Coag (PPP) [Time] 10.8 s Normal 9.0-14.2 [facility] ([place]) Comment on above: Result Comment: Effe ctive 04/13/08, Protime results may be affected by some antibiotics (i.e. Ciprofloxacin, Azithromycin, Bactrim) which may potentiate the action of oral anticoagulants, with further increases in Protime/INR. Performed By: #### C BC, ADIFF, ANEU, BMP, GFR #### [place] [id number] [place] [address] TRFon 09-12-2023 Transferrin [Mass/Vol] 277 mg/dL Normal 202-336 [facility] ([place]) Comment on above: Performed By: #### C BC, ADIFF, ANEU, BMP, GFR #### [facility] [address] [place] [address] Cervical or vagninal specime n microscopic examination by cytology stain (reported asOrdered By: Calli Cifuentes on 05-30-2023 Cytology report Cyto stain Doc (Cvx/Vag) Comment . [facility] Comment on above: The Pap smear is a s creening test designed to aid in thedetection of premalignant and malignant conditions of theuterine cervix. It is not a diagnostic procedure andshould not be used as the sole means of detecting cervicalcancer. Both false-positive and false-negative reports dooccur. Detection in cervical specim en of any of human papilloma virus (HPV) 16, 18, 31, 33,Ordered By: Calli Cifuentes on 05-30-2023 HPV 16+18+31+33+35+39+45+51+5 2+56+58+59+68 DNA Probe+sig amp Ql (Cvx) Negative [facility] Laboratory - CytologyOrdered By: Calli Cifuentes on 05-30-2023 Curb Supervisor Cyto stain Nom (Cvx/Vag) [ID] Comment . [facility] Comment on above: Jair Ward , Anatomy And Physiology Instructor (ASCP) Laboratory - Miscellaneous t estsOrdered By: Calli Cifuentes on 05-30-2023 Service comment (Unsp spec) [Interp] Comment . [facility] Comment on above: This liquid based Th inPrep(R) pap test was screened withthe use of an image guided system. Service comment (Unsp spec) [Interp] . . [facility] No Panel InformationOrdered By: Calli Cifuentes on 05-30-2023 Pathology report final diagnosis Narrative Comment . [facility] Comment on above: NEGATIVE FOR INTRAEP ITHELIAL LESION OR MALIGNANCY. Culture, urineOrdered By: Rosie hamletshay Kennedy on 05-07-2023 Bacteria identified Cx Nom (U) Culture exhibits no growth. [facility] Absolute lymphocyte countOrd ered By: Dr. Cifuentes on 03-08-2023 Lymphocytes Auto (Unsp spec) [#/Vol] 1.66 10*3/uL 0.83-4.51 [facility] Basophil percentageOrdered B y: Dr. Cifuentes on 03-08-2023 Basophil percentage 1 ug/L 0-9 [facility] Comment on above: Detection Limit = 1 Basophil percentage < 0.2 AI 0.0-0.9 [facility] Basophils/100 WBC (Bld) 1.1 % 0-1 [facility] Bilirubin [Mass/Vol] 0.40 mg/dL 0.20-1.00 [facility] Comment on above: For patients on eltr ombopag therapy, use of Dimension [place] TBIL is not recommended. Chloride [Moles/Vol] 113 mmol/L 98-107 [facility] Eosinophils/100 WBC (Bld) 1.8 % 0-5 [facility] Glucose [Mass/Vol] 90 mg/dL 74-106 [facility] Neutrophils (Bld) [#/Vol] 2.5 10*3/uL 2.0-7.7 [facility] Neutrophils/100 WBC (Bld) 54.7 % 47-70 [facility] Potassium [Moles/Vol] 4.2 mmol/L 3.5-5.1 [facility] Protein [Mass/Vol] 7.0 g/dL 6.4-8.2 [facility] Sodium [Moles/Vol] 139 mmol/L 136-145 [facility] WBC (Bld) [#/Vol] 4.6 10*3/uL 4.4-11.0 [facility] Blood erythrocytes count (nu mber/volume)Ordered By: Dr. Cifuentes on 03-08-2023 RBC (Bld) [#/Vol] 4.90 10*6/uL 4.2-5.4 [facility] Blood hemoglobin measurement (mass/volume)Ordered By: Dr. Cifuentes on 03-08-2023 Hemoglobin (Bld) [Mass/Vol] 14.6 g/dL 12.0-15.0 [facility] Blood lymphocytes/100 leukoc ytesOrdered By: Dr. Cifuentes on 03-08-2023 Lymphocytes/100 WBC (Bld) 36.3 % 19-41 [facility] Blood mercury measurement (m ass/volume)Ordered By: Dr. Cifuentes on 03-08-2023 Mercury (Bld) [Mass/Vol] < 1.0 ug/L 0.0-14.9 [facility] Comment on above: Environmental Exposu re: <15.0 Occupational Exposure: RODRICK - Inorganic Mercury: 15.0 Detection Limit = 1.0Performed at: [employer] [id number] Director: Srikanth Lamb PhD, Phone: [phone] at: [facility] [employer] [id number] Director: Presley Joseph MD, Phone: [phone] Blood monocytes/100 leukocyt esOrdered By: Dr. Cifuentes on 03-08-2023 Monocytes/100 WBC (Bld) 5.9 % 0-[address] [facility] Blood platelet mean volumeOr dered By: Dr. Cifuentes on 03-08-2023 Platelet mean volume (Bld) [Entitic vol] 10.3 fL 6.2-12.0 [facility] Determination of erythrocyte mean corpuscular volume (MCV)Ordered By: Dr. Cifuentes on 03-08-2023 MCV (RBC) [Entitic vol] 91.2 fL 81-[address] [facility] Hematocrit Auto (Bld) [Volum e fraction]Ordered By: Dr. Cifuentes on 03-08-2023 Hematocrit (Bld) [Volume fraction] 44.7 % 37-47 [facility] Laboratory - Chemistry and C hemistry - challengeOrdered By: Dr. Cifuentes on 03-08-2023 Albumin [Mass/Vol] 3.9 g/dL 2.9-4.4 [facility] ALP [Catalytic activity/Vol] 117 U/L 45-117 [facility] ALT [Catalytic activity/Vol] 22 U/L 13-56 [facility] CO2 [Moles/Vol] 21.0 mmol/L 21.0-32.0 [facility] Cobalamin (Vitamin B12) [Mass/Vol] 289 pg/mL 211-911 [facility] Globulin (S) [Mass/Vol] 3.2 g/dL 2.2-4.[address] [facility] Urea nitrogen/Creatinine [Mass ratio] 26.0 mg/mg 10-20 [facility] Laboratory - Hematology and Cell countsOrdered By: Dr. Cifuentes on 03-08-2023 Erythrocyte distribution width (RBC) [Entitic vol] 45.9 fL 35.1-43.9 [facility] Erythrocyte distribution width (RBC) [Ratio] 13.5 % 11.6-14.6 [facility] Immature granulocytes/100 WBC (Bld) 0.200 % 0.0-0.9 [facility] Comment on above: IG% - Immature Granu locytes (promyelocytes, myelocytes and metamyelocytes) > 1% indicates that a LEFT SHIFT is Present. MCH (RBC) [Entitic mass] 29.8 pg 27.0-32.0 [facility] Nucleated RBC/100 WBC (Bld) [Ratio] 0 % 0-5 [facility] MCHC Auto (RBC) [Mass/Vol]Or dered By: Dr. Cifuentes on 03-08-2023 MCHC (RBC) [Mass/Vol] 32.7 g/dL 32-36 [facility] No Panel InformationOrdered By: Dr. Cifuentes on 03-08-2023 Addendum Document Comment . [facility] Comment on above: The SPE pattern appe ars unremarkable. Evidence ofmonoclonal protein is not apparent. Zyxsz-2-Jybpvjzzg 0.3 g/dL 0.0-0.4 [facility] Lwmkx-3-Dvsjgviez 0.7 g/dL 0.4-1.0 [facility] Anti-Nuclear Antibody Screen Positive Negative [facility] Centromere B Antibody <0.2 AI 0.0-0.9 [facility] Estimated GFR (MDRD) Amer 127 mL/min >60 [facility] Comment on above: GFR Calc Estimated GFR (MDRD) Non-Af Amer 105 mL/min >60 [facility] Comment on above: Non- GFR Calc Gamma Globulins 0.7 g/dL 0.4-1.8 [facility] Lead 1.2 ug/dL 0.0-3.4 [facility] Comment on above: Testing performed by Inductively coupled plasma/MassSpectrometry. Environmental Exposure: WHO Recommendation <5.0 Occupational Exposure: OSHA Lead Std 40.0 RODRICK 30.0 Detection Limit = 1.0 ACCOUNT ANALYST Antibody 2.3 AI 0.0-0.9 [facility] Thyroid Stimulating Hormone (TSH) 0.90 uIU/mL 0.358-3.74 [facility] Vitamin D 25-Hydroxy 25.1 ng/mL [facility] Comment on above: Vitamin D 25(OH) Sta tus Range Deficiency <20 ng/mL (50nmol/L) Insufficiency 20 - 30 ng/mL (50 - 75 nmol/L) Sufficiency 30 - 100 ng/mL (75 - 250 nmol/L) Toxicity >100 ng/mL (>250 nmol/L) Platelets bldOrdered By: Dr. Cifuentes on 03-08-2023 Platelets (Bld) [#/Vol] 258 10*3/uL 150-450 [facility] Protein Fractions Elph [Inte rp]Ordered By: Dr. Cifuentes on 03-08-2023 Protein Fractions [Interp] Comment . [facility] Comment on above: Protein electrophore sis scan will follow via computer,mail, or dice dealer delivery. Serum DNA double strand anti body assay (units/volume)Ordered By: Dr. Cifuentes on 03-08-2023 DNA double strand Ab Qn (S) [IU]/mL 0-9 [facility] Comment on above: Negative <5 Equivoca l 5 - 9 Positive >9 Serum Holly-1 antibody assay (u nits/volume)Ordered By: Dr. Cifuentes on 03-08-2023 Holly-1 extractable nuclear Ab Qn (S) <0.2 AI 0.0-0.9 [facility] Serum Scl-70 extractable nuc lear antibody assay (units/volume)Ordered By: Dr. Cifuentes on 03-08-2023 SCL-70 extractable nuclear Ab Qn (S) <0.2 AI 0.0-0.9 [facility] Serum Esau extractable nucl ear antibody detectionOrdered By: Dr. Cifuentes on 03-08-2023 Esau extractable nuclear Ab Ql (S) <0.2 AI 0.0-0.9 [facility] Serum albumin to globulin ra ignacia by protein electrophoresisOrdered By: Dr. Cifuentes on 03-08-2023 Albumin/Globulin Elph [Mass ratio] 1.4 0.7-1.7 [facility] Serum globulin measurement ( mass/volume)Ordered By: Dr. Cifuentes on 03-08-2023 Globulin (S) [Mass/Vol] 2.7 g/dL 2.2-3.9 [facility] Serum or plasma C reactive p rotein measurement (mass/volume)Ordered By: Dr. Cifuentes on 03-08-2023 CRP [Mass/Vol] mg/L 0.0-3.0 [facility] Comment on above: C-Reactive Protein ( CRP) provides useful information for thediagnosis, therapy and monitoring of inflammatory processesand associated diseases. For the evaluation of Relative Riskfor Cardiovascular Disease, a High Sensitivity CRP (HSCRP)should be ordered. Serum or plasma albumin yaritza urement (mass/volume)Ordered By: Dr. Cifuentes on 03-08-2023 Albumin [Mass/Vol] 3.8 g/dL 3.2-5.0 [facility] Serum or plasma albumin/glob ulin mass ratioOrdered By: Dr. Cifuentes on 03-08-2023 Albumin/Globulin [Mass ratio] 1.2 {ratio} 0.9-2.4 [facility] Serum or plasma beta globuli n measurement by electrophoresis (mass/volume)Ordered By: Dr. Cifuentes on 03-08-2023 Beta globulin Elph [Mass/Vol] 1.0 g/dL 0.7-1.3 [facility] Serum or plasma calcium yaritza urement (mass/volume)Ordered By: Dr. Cifuentes on 03-08-2023 Calcium [Mass/Vol] 8.8 mg/dL 8.5-10.1 [facility] Serum or plasma creatinine m easurement (mass/volume)Ordered By: Dr. Cifuentes on 03-08-2023 Creatinine [Mass/Vol] 0.62 mg/dL 0.55-1.02 [facility] Comment on above: The validity of the calculated GFR & GFRAA in patients over 70 years has not been determined. Clinical correlation is essential. Serum or plasma ferritin lynn surement (mass/volume)Ordered By: Dr. Cifuentes on 03-08-2023 Ferritin [Mass/Vol] 66 ng/mL 8-252 [facility] Serum or plasma folate measu rement (mass/volume)Ordered By: Dr. Cifuentes on 03-08-2023 Folate [Mass/Vol] 13.60 ng/mL 3.1-55.4 [facility] Comment on above: Slight Hemolysis, Re sult may be falsely increased. Serum or plasma urea nitroge n measurement (mass/volume)Ordered By: Dr. Cifuentes on 03-08-2023 Urea nitrogen [Mass/Vol] 16 mg/dL 7-18 [facility] Serum parietal cell antibody assay (units/volume)Ordered By: Calli Cifuentes on 03-08-2023 Parietal cell Ab Qn (S) See comment [facility] Comment on above: TEST RESULT LIMITSAn tiparietal Cell Antibody 2.0 Units 0.0-20.0 Negative 0.0 - 20.0 Equivocal 20.1 - 24.9 Positive >24.9 Parietal Cell Antibodies are found in 90% of patients with pernicious anemia and 30% of first degree relatives with pernicious anemia. ____ TESTING PERFORMED AT [facility]. ORIGINAL REPORT ON FILE IN LAB CONTAINS ADDITIONAL TEST SITE INFORMATION. Thin prep Papanicolaou smear with manual screeningOrdered By: Dr. Cifuentes on 03-08-2023 Thin prep Papanicolaou smear with manual screening 18 U/L 15-37 [facility] Thin prep Papanicolaou smear with manual screening 5 5-15 [facility] Thin prep Papanicolaou smear with manual screening See comment [facility] Comment on above: NOT OBSERVED Total protein bloodOrdered B y: Dr. Cifuentes on 03-08-2023 Protein [Mass/Vol] 6.6 g/dL 6.0-8.5 [facility] Whole blood hemoglobin A1c/t otal hemoglobin ratio (mass fraction)Ordered By: Dr. Cifuentes on 03-08-2023 HbA1c (Bld) [Mass fraction] 5.1 % 3.8-5.6 [facility] Comment on above: Normal < 5.7 % Predi abetic 5.7 - 6.4 % Diabetic >or= 6.5 % Please note range changes. CNOVon 08-22-2022 CNOV Office Visit (GENSWS) JACQUELINE OLIVEIRA ([id number]) 1960 F Date Time Provider Department 08/22/22 10:00 AM SVETLANA RUIZ During your visit today, we recorded the following information about you: Temperature Pulse Weight 98.1 degrees 77/minute 55.4 kg Svetlana Ruiz PA-C 08/27/2022 12:34 PM Signed FOLLOW UP VISIT - ENDOSCOPY NAME: Jacqueline Oliveira CLINIC NO.: [id number] DATE OF SERVICE: 08/22/2022 : 1960 REFERRING PHYSICIAN: Calli Cifuentes MD, MD Jacqueline is a patient I am following with Dr. Shen for screening colonoscopy. Dr. Shen performed lower endoscopy on 08/17/22. The patient was found to have hemorrhoids, sigmoid diverticulosis, and a small polyp in the sigmoid colon which was removed. Pathology demonstrated: FINAL DIAGNOSIS A. Colon, sigmoid polyp, biopsy: - Colonic mucosa with no significant pathologic change, see comment. Diagnosis Comment Multiple additional DELFINA levels were examined. No epithelial dysplasia is identified. The patient notes no complaints since the procedure. VITALS: Pulse 77, temperature 36.7 ?C (98.1 ?F), weight 55.4 kg (122 lb 3.2 oz), last menstrual period 08/17/2009, SpO2 97 %. General: patient is alert, cooperative, pleasant and in no acute distress On examination, the abdomen is benign. Assessment IMPRESSION: s/p colonoscopy with polypectomy-benign tissue with no adenomatous tissue or dysplasia identified PLAN: The operative findings and pathology report were reviewed with the patient, and the patient has had the opportunity to ask questions and have questions answered. If the patient notes any problems or changes in bowel function, the patient should contact me immediately. Otherwise I recommend follow up endoscopy in 10 years. HM updated and recall letter generated. Patient verbalized understanding of all above and agreed with the plan Diagnoses: (Z12.11) Encounter for screening for malignant neoplasm of colon (primary encounter diagnosis) I spent a total of 21 minutes on the date of the service which included preparing to see the patient, [id number] patient care, completing clinical documentation, obtaining and/or reviewing separately obtained history, counseling and educating the patient/family/careg iver, independently interpreting results (not separately reported), and communicating results to the patient/family/careg iver. DUDLEY Hobbs PA-C 08/22/2022 10:33 AM Signed The following instructions are important for you related to your office visit today with the [facility] General Surgeons. INSTRUCTIONS FOLLOWING A POLYP FOUND AT COLONOSCOPY You were found to have a benign non-adenomatous colon polyp. I recommend you undergo repeat endoscopy in 10 years. If you note bleeding, change in bowel habits, or other suspicious colon related symptoms before that time, those symptoms should be evaluated as necessary. If you have any difficulties or concerns, you should contact our office immediately. If you note any additional difficulties, questions, or concerns, you should contact our office immediately @ [phone] and ask to be transferred to the General Surgery department. Referring Provider: ARIANA SHEN [[id number]] Allergies As of Date: 08/22/2022 Noted Allergy Reaction BACTRIM (SULFAMETHOXAZOLE-TR IMETH*06/29/2022 8 - GI Upset CEFUROXIME 09/15/2008 4 - Hives CEPHALOSPORINS 06/29/2022 4 - Hives CODEINE 06/29/2022 8 - GI Upset DECONGESTANT TABLET 06/29/2022 5 - Intolerance ERYTHROMYCIN BASE 06/29/2022 8 - GI Upset MACROBID (NITROFURANTOIN MONOHYD/*06/29/2022 8 - GI Upset NITROFURANTOIN 06/29/2022 8 - GI Upset SULFAMETHOXAZOLE 06/29/2022 8 - GI Upset TRIMETHOPRIM 06/29/2022 8 - GI Upset ERYTHROMYCIN 10/15/2005 8 - GI Upset Date Reviewed: 08/22/2022 Reviewed by: Svetlana Ruiz PA-C - Fully Assessed Reason for Visit: Follow Up [171] Cmt: Colonoscopy results Primary Visit Diagnosis:Encounter for screening for malignant neoplasm of colon [Z12.11] Prescriptions as of 08/27/2022 - loratadine 10 mg cap Take 10 mg by mouth once daily. - esomeprazole (NEXIUM) 20 mg capsule Take 20 mg by mouth once daily. - escitalopram oxalate (LEXAPRO) 5 mg tablet Take 5 mg by mouth once daily. - hydrOXYzine HCl (ATARAX) 10 mg tablet Take 10 mg by mouth once daily. - fluticasone (FLONASE) 50 mcg/actuation nasal spray Use 1 [place] in each nostril as needed. - ALBUTEROL 90 MCG/ACTUATION AEROSOL INHALER Inhale one(1) - two(2) puffs four(4) times a day as needed for wheezing and shortness of breath. Problem List As Of Date: 08/22/2022 (None) Other instructions from your clinician: The following instructions are important for you related to your office visit today with the [facility] [place] (more content not included)... [facility] SURGICAL PATHOLOGYon 08-20- 022 Case Report Surgical Pathology Report Case: [id number] Authorizing Provider: Ariana Shen MD Collected: 08/17/2022 08:02 AM Ordering Location: Ambulatory Surgery Received: 08/17/2022 03:59 PM Pathologist: Marj Aguiar MD Specimen: SIGMOID COLON POLYP [facility] Diagnosis Comment Multiple additional H&E levels were examined. No epithelial dysplasia is identified. [facility] FINAL DIAGNOSIS A. Colon, sigmoid polyp, biopsy: - Colonic mucosa with no significant pathologic change, see comment. [facility] Gross Description A. SIGMOID COLON POLYP Received in formalin is one piece of butler, soft tissue measuring 0.3 x 0.2 x 0.1 cm. Totally submitted in one cassette. Gross examination performed at [facility], [address] [place] [address] FFS 08/17/2022 11:12 PM [facility] Performing Lab Diagnostic interpretation performed at [facility], [address] [facility] [address] CLIA# [id number] Coordinator Hotels: Cody Negro M.D. [facility] COLONOSCOPY SCREENINGon 07-31 [facility] Colonoscopyon 08-17-2022 Colonoscopy Br[facility] Gastrointestinal Endoscopy Patient Name: Jacqueline Oliveira Procedure Date: 08/17/2022 7:20 AM Date of : 1960 Admit Type: Outpatient Age: 61 Gender: Female Note Status: Finalized Procedure: Colonoscopy Indications: Screening for colorectal malignant neoplasm Providers: Ariana Shen MD Patient Profile: Refer to note in patient chart for documentation of history and physical. Last Colonoscopy: 10 years ago. Referring Physician: Ariana Shen MD (Referring MD), Calli Cifuentes (Referring MD) Medicines: Midazolam 5 mg IV, Fentanyl 50 micrograms IV, Diphenhydramine 25 mg IV, Ondansetron 4 mg IV Complications: No immediate complications. Requesting Provider: Procedure: Pre-Anesthesia Assessment: - Prior to the procedure, a History and Physical was performed, and patient medications and allergies were reviewed. The patient is competent. The risks and benefits of the procedure and the sedation options and risks were discussed with the patient. All questions were answered and informed consent was obtained. Patient identification and proposed procedure were verified by the physician in the pre-procedure area. Mental Status Examination: alert and oriented. Airway Examination: normal oropharyngeal airway and neck mobility. Respiratory Examination: clear to auscultation. CV Examination: normal. Prophylactic Antibiotics: The patient does not require prophylactic antibiotics. Prior Anticoagulants: The patient has taken no anticoagulant or antiplatelet agents. ASA Grade Assessment: II - A patient with mild systemic disease. After reviewing the risks and benefits, the patient was deemed in satisfactory condition to undergo the procedure. The anesthesia plan was to use moderate sedation / analgesia (conscious sedation). Immediately prior to administration of medications, the patient was re-assessed for adequacy to receive sedatives. The heart rate, respiratory rate, oxygen saturations, blood pressure, adequacy of pulmonary ventilation, and response to care were monitored throughout the procedure. The physical status of the patient was re-assessed after the procedure. After I obtained informed consent, the scope was passed under direct vision. Throughout the procedure, the patient's blood pressure, pulse, and oxygen saturations were monitored continuously. The Colonoscope was introduced through the anus and advanced to the cecum, identified by the appendiceal orifice, ileocecal valve and palpation. The colonoscopy was performed without difficulty. The patient tolerated the procedure well. The quality of the bowel preparation was adequate. The appendiceal orifice and the rectum were photographed. Moderate Sedation: The administration of moderate sedation was initiated at 07:40 AM. Moderate (conscious) sedation was personally administered by the endoscopist. The following parameters were monitored: oxygen saturation, heart rate, blood pressure, respiratory rate, EKG, adequacy of pulmonary ventilation, and response to care. Total physician intraservice time was 22 minutes. Findings: The perianal and digital rectal examinations were normal. Non-bleeding internal hemorrhoids were found. A few small-mouthed diverticula were found in the sigmoid colon. A 3 to 4 mm polyp was found in the sigmoid colon. The polyp was sessile. The polyp was removed with a cold biopsy forceps. Resection and retrieval were complete. Verification of patient identification for the specimen was done by the nurse. Impression: - Non-bleeding internal hemorrhoids. - Diverticulosis in the sigmoid colon. - One 3 to 4 mm polyp in the sigmoid colon, removed with a cold biopsy forceps. Resected and retrieved. Recommendation: - Repeat colonoscopy date to be determined after pending pathology results are reviewed for surveillance based on pathology results. - Follow up with Svetlana Ruiz PA-C via televisit for discussion of pathology results and determination of timing of future endoscopies - Patient has a contact number available for emergencies. The signs and symptoms of potential delayed complications were discussed with the patient. Return to normal activities tomorrow. Written discharge instructions were provided to the patient. - Continue present medications. - Resume previous diet. Procedure Code(s): --- Professional --- 59298, Colonoscopy, flexible; with biopsy, single or multiple 43484, 61, Moderate sedation services provided by the same physician or other qualified health acute care nurse practitioner performing the diagnostic or therapeutic service that the sedation supports, requiring the presence of an independent trained observer to assist in the monitoring of the patient's level of consciousness and physiological status; initial 15 minutes of intraservice time, patient age 5 years or older Diagnosis Code(s): --- Profession (more content not included)... [facility] HISTORY PHYSICALon HISTORY PHYSICAL HNO ID: [id number] Author: Ariana Shen MD Service: General Surgery Author Type: Physician Type: HANDP Filed: 08/17/2022 7:24 AM Note Text: HISTORY AND PHYSICAL Jacqueilne Oliveira 1960 REFERRING PHYSICIAN: Calli Cifuentes MD CHIEF COMPLAINT: Consult (Colonoscopy consult/) HPI: The patient is a 61 year old female referred for endoscopy. Jacqueline presents for consideration of screening for colon cancer via colonoscopy The patient denies blood in stools, denies abdominal pain, and denies changes in bowel habits. The patient notes no colon cancer in immediate family. The patient has had previous colonoscopy in 2011 PAST MEDICAL HISTORY Diagnosis Date Achondroplasia Actinic keratosis Allergic rhinitis Back ache Chronic pain syndrome Class 2 obesity with body mass index (BMI) of 37.0 to 37.9 in adult Embolism and thrombosis of unspecified site 12/2007 LEFT THIGH GERD (gastroesophageal reflux disease) IBS (irritable bowel syndrome) Kidney stones 05/2012 MDD (major depressive disorder), recurrent episode, mild (HCC) Menopausal flushing CONRADO (obstructive sleep apnea) Other specified forms of hearing loss, unspecified laterality PMH - PAST MEDICAL HISTORY OF lumbar stenosis Sciatica Spinal stenosis Spondylolysis of cervical region Stenosis, spinal, lumbar PAST SURGICAL HISTORY Procedure Laterality Date ADENOIDECTOMY PRIMARY Adenoidectomy DELIVERY ONLY , low cervical CHOLECYSTECTOMY Cholecystectomy COLONOSCOPY 2011 KIDNEY STONE ANALYSIS MYRINGOTOMY W TUBE,BILATERAL(2) RHINP PRIM LATANDALAR CRTLGSAND/ELVTN NASAL TI Rhinoplasty TONSILLECTOMY PRIMARY/SECONDARY Tonsillectomy Current Outpatient Medications Medication Sig loratadine 10 mg cap Take 10 mg by mouth once daily. escitalopram oxalate (LEXAPRO) 5 mg tablet Take 5 mg by mouth once daily. fluticasone (FLONASE) 50 mcg/actuation nasal spray Use 1 [place] in each nostril as needed. ALBUTEROL 90 MCG/ACTUATION AEROSOL INHALER Inhale one(1) - two(2) puffs four(4) times a day as needed for wheezing and shortness of breath. peg 3350-Electrolytes (GOLYTELY) 236-22.74-6.74 -5.86 gram suspension Take 4,000 mL by mouth one time only for 1 dose. Refer to printed prep instructions from your provider. esomeprazole (NEXIUM) 20 mg capsule Take 20 mg by mouth once daily. hydrOXYzine HCl (ATARAX) 10 mg tablet Take 10 mg by mouth once daily. (Patient not taking: Reported on 06/29/2022) ranitidine hcl(ZANTAC 150 MG TAB) Take one(1) tablet twice daily. (Patient not taking: Reported on 06/29/2022) ALLERGIES: Bactrim [Sulfamethoxazole-Tr imethoprim], Cefuroxime, Cephalosporins, Codeine, Decongestant Tablet, Erythromycin Base, Macrobid [Nitrofurantoin Monohyd/M-Cryst], Nitrofurantoin, Sulfamethoxazole, Trimethoprim, and Erythromycin PERSONAL HISTORY: Social History Tobacco Use Smoking status: Every Day Packs/day: 0.25 Years: 40.00 Pack years: 10.00 Types: Cigarettes Smokeless tobacco: Never Vaping Use Vaping Use: Never used Substance Use Topics Alcohol use: No Drug use: No FAMILY HISTORY Problem Relation Age of Onset Hypertension Mother other (parkinsons) Mother Prostate Cancer Father Skin Cancer Father Coronary Artery Disease Brother Coronary Artery Disease Paternal Grandfather The review of systems data was entered by the nurse and reviewed by nh Nursing Notes: Elena Fitch RN 06/29/2022 3:23 PM Signed REVIEW OF SYSTEMS: General: The patient denies fatigue, denies weight loss, denies weight gain, denies feeling hot, and denies feelings of cold. Eyes: The patient denies glaucoma, denies eye injury/surgery, wears glasses or contacts. Ear/Nose/Throat: The patient NOTES allergies, NOTES hayfever, denies ear infections, and denies bloody noses. Cardiovascular: The patient denies chest pain, denies heart disease, denies high blood pressure,denies cardiac stent, denies prior heart attack, denies irregular heart beat, denies high cholesterol, denies poor circulation, denies heart failure, other cardiac issues, NOTES claudication, denies cold feet, denies peripheral arterial stent. Respiratory: The patient denies tuberculosis, denies pneumonia, denies frequent cough, denies pulmonary embolism, denies shortness of breath, and denies coughing up blood. Gastrointestinal: The patient denies difficulty swallowing, NOTES acid reflux, denies ulcers, denies vomiting, denies jaundice/hepatitis, denies gallbladder problems, denies black or tarry stools, denies hemorrhoids, denies bleeding from rectum, denies diverticulitis, denies constipation, denies diarrhea, denies loss of stool control, and denies hernias. Kidney/Bladder: The patient NOTES kidney stones, denies urine infections, and denies bloody urine. Skin: The patient denies a history of skin cancer, denies bleeding/changing moles, and denies a history of skin rash. Neurologi (more content not included)... [facility] NURSING PROGon 08-17-2022 NURSING PROG HNO ID: [id number] Author: Laina Guerrero RN Service: ? Author Type: Registered Nurse Type: Nursing Progress Note Filed: 08/17/2022 8:29 AM Note Text: Arrived in phase II via cart left lateral position, eyes open upon arrival, skin warm and dry, respirations regular and unlabored. Abdomen soft and non distended, denies pain or nausea. Encouraged to pass air rectally as able. Resting comfortably. [facility] SURGICAL PATHOLOGYon 022 CASE REPORT [facility] Comment on above: Order Comment: Speci men Type: TISSUE SPECIMEN Ordering Facility: [facility] Address: [address] [place] [id number] Result Comment: Surg [facility] Pathology Report Case: [id number] Authorizing Provider: Ariana Shen MD Collected: 08/17/2022 08:02 AM Ordering Location: Ambulatory Surgery Received: 08/17/2022 03:59 PM Pathologist: Marj Aguiar MD Specimen: SIGMOID COLON POLYP Performed By: #### S #### [facility] CLIA [id number] [facility] [address] DIAGNOSIS COMMENT Multiple additional H AND E levels were examined. No epithelial dysplasia is identified. [facility] Comment on above: Order Comment: Speci men Type: TISSUE SPECIMEN Ordering Facility: [facility] Address: [address] [place] [address] Performed By: #### S #### [facility] CLIA [id number] [address] [place] [address] FINAL DIAGNOSIS [facility] Comment on above: Order Comment: Speci men Type: TISSUE SPECIMEN Ordering Facility: [facility] Address: [address] [place] [address] Result Comment: Dmitry snell, sigmoid polyp, biopsy: - Colonic mucosa with no significant pathologic change, see comment. Performed By: #### S #### [facility] CLIA [id number] [address] [place] [address] FINAL PERFORMING LAB Normal [facility] Comment on above: Order Comment: Speci men Type: TISSUE SPECIMEN Ordering Facility: [facility] Address: [address] [place] [address] Result Comment: Diag nostic interpretation performed at [facility], [address] [place] [address] CLIA# [id number] Coordinator Hotels: Cody Negro M.D. Performed By: #### S #### [facility] CLIA [id number] [address] [place] [address] GROSS DESCRIPTION Normal [facility] Comment on above: Order Comment: Speci men Type: TISSUE SPECIMEN Ordering Facility: [facility] Address: [address] [place] [address] Result Comment: A. S IGMOID COLON POLYP Received in formalin is one piece of butler, soft tissue measuring 0.3 x 0.2 x 0.1 cm. Totally submitted in one cassette. Gross examination performed at [facility], [address] [place] [address], [place] [address] FFS 08/17/2022 11:12 PM Performed By: #### S #### [facility] CLIA [id number] [address] [place] [address] [id number] [id number] [facility] CNOVon 06-29-2022 CNOV Office Visit (GENSWS) JACQUELINE OLIVEIRA ([id number]) 1960 F Date Time Provider Department 06/29/22 3:00 PM ARIANA SHEN During your visit today, we recorded the following information about you: Temperature Pulse Blood pressure Weight 98.8 degrees 88/minute 120/80 56.4 kg Height 1.219 m Ariana Shen MD 06/29/2022 3:04 PM Signed Bowel Preparation Instructions for: Golytely, Nulytely, Trilyte or Colyte (polyethylene glycol 3350 and electrolytes) IF YOU DO NOT FOLLOW THESE DIRECTIONS, YOUR COLONOSCOPY WILL BE CANCELLED. [place] Instructions: Your bowel must be empty so that your doctor can clearly view your colon. Follow all of the instructions in this handout EXACTLY as they are written. Do NOT eat any solid food the ENTIRE day before your colonoscopy. Drink only clear liquids. Buy your bowel preparation at least 5 days before your colonoscopy. TRANSPORTATION on the Day of Your Exam A responsible person MUST be present with you at Check In prior to your colonoscopy and REMAIN in the endoscopy area until you are discharged. You are NOT ALLOWED to drive, take a taxi or bus, or leave the Endoscopy Center ALONE. If you do not have a responsible contract driver (family member or friend) with you to take you home, your exam cannot be done with sedation and will be cancelled. Please bring a list of all of your current medications, including any Over-the Counter medications with you. Medications If you take insulin, diabetic medications or blood thinners such as Coumadin (warfarin), Plavix (clopidogrel), Ticlid (ticlopidine hydrochloride), Agrylin (anagrelide), Xarelto (Rivaroxaban), Pradaxa (Dabigatran), Eliquis (Apixaban), and Effient (Prasugrel). You MUST call the doctors who orders those medicines for instructions on altering the dosage before your colonoscopy. All other medications should be taken the day of the exam with a sip of water including ASPIRIN. Five (5) Days Before Your Colonoscopy Do NOT take medicines that stop diarrhea - such as Imodium, Kaopectate, or Pepto Bismol. Do NOT take fiber supplements - such as Metamucil, Citrucel, or Perdiem. Do NOT take products that contain iron - such as multi-vitamins (the label lists what is in the products). Do NOT take Vitamin E. Buy the prescription bowel preparation solution at your local pharmacy or drugstore pharmacy. 08/2019 Bowel Preparation Instructions for: Golytely, Nulytely, Trilyte or Colyte (polyethylene glycol 3350 and electrolytes) Three (3) Days Before Your Colonoscopy Do NOT eat high-fiber foods - such as popcorn, beans, seeds (flax, sunflower, quinoa), multigrain bread, nuts, salad/vegetables, or fresh and dried fruit. One (1) Day Before Your Colonoscopy Only drink clear liquids the ENTIRE DAY before your colonoscopy. Do NOT eat any solid foods. Drink at least 8 ounces of clear liquids every hour after waking up. The clear liquids you can drink include: Clear Liquid (NO RED LIQUIDS) DO NOT DRINK Gatorade, Pedialyte or Powerade Clear broth or bouillon Coffee or tea (no milk or non-dairy creamer) Carbonated and non-carbonated soft drinks Roland-Aid or other fruit flavored drinks Strained fruit juices (no pulp) Jell-O, popsicles, hard candy Water Alcohol Milk or non-dairy creamers Noodles or vegetables in soup Juice with pulp Liquid you cannot see through Do not use tobacco/vaping products The bowel preparation solution will be consumed in two parts. Mix the solution the evening before your colonoscopy and refrigerate before drinking. You may add the flavor pack that came with the bowel preparation. Do NOT add ice, sugar or any other flavorings to the solution. Part 1 At 6:00 PM - Evening before your colonoscopy Drink an 8-oz glass of bowel preparation every 10 minutes for a total of 8 glasses. You may continue to drink clear liquids until midnight. Part 2 On the day of your colonoscopy you may drink clear liquids up to (three) 3 hours before your procedure. 4 1/2 hours before your colonoscopy Drink an 8-oz glass of bowel preparation every 10 minutes for a total of 8 glasses. Fifteen (15) minutes later, drink an 8-oz glass of clear liquids every 15 minutes for a total of 2 glasses. You may continue to drink clear liquids up to (three) 3 hours before your exam. 2 08/2019 Elena Fitch RN 06/29/2022 3:23 PM Signed REVIEW OF SYSTEMS: General: The patient denies fatigue, denies weight loss, denies weight gain, denies feeling hot, and denies feelings of cold. Eyes: The patient denies glaucoma, denies eye injury/surgery, wears glasses or contacts. Ear/Nose/Throat: The patient NOTES allergies, NOTES hayfever, denies ear infections, and denies bloody noses. Cardiovascular: The patient denies chest pain, denies heart disease, denies high blood pressure,denies cardiac stent, denies pr (more content not included)... [facility] Absolute lymphocyte counton 04-12-2022 Lymphocytes Auto (Unsp spec) [#/Vol] 1.54 10*3/uL 0.83-4.51 [facility] Work Phone: Basophil percentageon 2021 Basophils/100 WBC (Bld) 0.5 % 0-[address] [facility] Work Phone: Chloride [Moles/Vol] 107 mmol/L 98-107 [facility] Work Phone: Eosinophils/100 WBC (Bld) 1.8 % 0-5 [facility] Work Phone: Glucose [Mass/Vol] 105 mg/dL 74-106 [facility] Work Phone: Comment on above: Fasting Glucose resu lt from 100 to 125 mg/dL suggests IMPAIRED HOMEOSTASIS per A.D.A. criteria. Neutrophils (Bld) [#/Vol] 7.8 10*3/uL 2.0-7.7 [facility] Work Phone: Neutrophils/100 WBC (Bld) 74.9 % 47-70 [facility] Work Phone: Potassium [Moles/Vol] 3.7 mmol/L 3.5-5.1 [facility] Work Phone: [phone] Sodium [Moles/Vol] 138 mmol/L 136-145 [facility] Work Phone: WBC (Bld) [#/Vol] 10.4 10*3/uL 4.4-11.0 [facility] Work Phone: Blood erythrocytes count (nu mber/volume)on 04-12-2022 RBC (Bld) [#/Vol] 4.71 10*6/uL 4.2-5.4 [facility] Work Phone: Blood hemoglobin measurement (mass/volume)on 04-12-2022 Hemoglobin (Bld) [Mass/Vol] 13.9 g/dL 12.0-15.0 [facility] Work Phone: Blood lymphocytes/100 leukoc yteson 04-12-2022 Lymphocytes/100 WBC (Bld) 14.8 % 19-41 [facility] Work Phone: Blood monocytes/100 leukocyt eson 04-12-2022 Monocytes/100 WBC (Bld) 7.8 % 0-[address] [facility] Work Phone: Blood platelet mean volumeon 04-12-2022 Platelet mean volume (Bld) [Entitic vol] 9.5 fL 6.2-12.0 [facility] Work Phone: [phone] Determination of erythrocyte mean corpuscular volume (MCV)on 04-12-2022 MCV (RBC) [Entitic vol] 88.5 fL 81-[address] [facility] Work Phone: Hematocrit Auto (Bld) [Volum e fraction]on 04-12-2022 Hematocrit (Bld) [Volume fraction] 41.7 % 37-47 [facility] Work Phone: Laboratory - Chemistry and C hemistry - challengeon 04-12-2022 CO2 [Moles/Vol] 24.0 mmol/L 21.0-32.0 [facility] Work Phone: Urea nitrogen/Creatinine [Mass ratio] 22.4 mg/mg 10-20 [facility] Work Phone: Laboratory - Hematology and Cell countson 04-12-2022 Erythrocyte distribution width (RBC) [Entitic vol] 43.3 fL 35.1-43.9 [facility] Work Phone: Erythrocyte distribution width (RBC) [Ratio] 13.2 % 11.6-14.6 [facility] Work Phone: Immature granulocytes/100 WBC (Bld) 0.200 % 0.0-0.9 [facility] Work Phone: Comment on above: IG% - Immature Granu locytes (promyelocytes, myelocytes and metamyelocytes) > 1% indicates that a LEFT SHIFT is Present. MCH (RBC) [Entitic mass] 29.5 pg 27.0-32.0 [facility] Work Phone: Nucleated RBC/100 WBC (Bld) [Ratio] 0 % 0-5 [facility] Work Phone: MCHC Auto (RBC) [Mass/Vol]on 04-12-2022 MCHC (RBC) [Mass/Vol] 33.3 g/dL 32-36 [facility] Work Phone: No Panel Informationon 04-12 Estimated Creatinine Clearance Calc 70.28 ml/min [facility] Work Phone: Estimated GFR (MDRD) Amer 94 mL/min >60 [facility] Work Phone: Comment on above: GFR Calc Estimated GFR (MDRD) Non-Af Amer 78 mL/min >60 [facility] Work Phone: Comment on above: Non- GFR Calc Platelets bldon 04-12-2022 Platelets (Bld) [#/Vol] 237 10*3/uL 150-450 [facility] Work Phone: Serum or plasma calcium yaritza urement (mass/volume)on 04-12-2022 Calcium [Mass/Vol] 8.7 mg/dL 8.5-10.1 [facility] Work Phone: Serum or plasma creatinine m easurement (mass/volume)on 04-12-2022 Creatinine [Mass/Vol] 0.80 mg/dL 0.55-1.02 [facility] Work Phone: Comment on above: The validity of the calculated GFR & GFRAA in patients over 70 years has not been determined. Clinical correlation is essential. Serum or plasma urea nitroge n measurement (mass/volume)on 04-12-2022 Urea nitrogen [Mass/Vol] 18 mg/dL 7-18 [facility] Work Phone: Thin prep Papanicolaou smear with manual screeningon 04-12-2022 Thin prep Papanicolaou smear with manual screening 7 5-15 [facility] Work Phone: Absolute lymphocyte counton 04-10-2022 Lymphocytes Auto (Unsp spec) [#/Vol] 1.41 10*3/uL 0.83-4.51 [facility] Work Phone: Basophil percentageon 2021 Basophil percentage 5-10 SEEN /hpf 0-[address] [facility] Work Phone: Basophils/100 WBC (Bld) 0.5 % 0-[address] [facility] Work Phone: Bilirubin [Mass/Vol] 0.40 mg/dL 0.20-1.00 [facility] Work Phone: Comment on above: For patients on eltr ombopag therapy, use of Dimension [place] TBIL is not recommended. Chloride [Moles/Vol] 106 mmol/L 98-107 [facility] Work Phone: Eosinophils/100 WBC (Bld) 0.4 % 0-5 [facility] Work Phone: Glucose [Mass/Vol] 108 mg/dL 74-106 [facility] Work Phone: Comment on above: Fasting Glucose resu lt from 100 to 125 mg/dL suggests IMPAIRED HOMEOSTASIS per A.D.A. criteria. Neutrophils (Bld) [#/Vol] 6.5 10*3/uL 2.0-7.7 [facility] Work Phone: Neutrophils/100 WBC (Bld) 76.7 % 47-70 [facility] Work Phone: Potassium [Moles/Vol] 3.8 mmol/L 3.5-5.1 [facility] Work Phone: Protein [Mass/Vol] 7.4 g/dL 6.4-8.2 [facility] Work Phone: Sodium [Moles/Vol] 137 mmol/L 136-145 [facility] Work Phone: WBC (Bld) [#/Vol] 8.5 10*3/uL 4.4-11.0 [facility] Work Phone: Bilirubin Test strip Ql (U)o n 04-10-2022 Bilirubin Ql (U) Negative Negative [facility] Work Phone: Blood erythrocytes count (nu mber/volume)on 04-10-2022 RBC (Bld) [#/Vol] 5.02 10*6/uL 4.2-5.4 [facility] Work Phone: Blood hemoglobin measurement (mass/volume)on 04-10-2022 Hemoglobin (Bld) [Mass/Vol] 15.0 g/dL 12.0-15.0 [facility] Work Phone: Blood lymphocytes/100 leukoc yteson 04-10-2022 Lymphocytes/100 WBC (Bld) 16.6 % 19-41 [facility] Work Phone: Blood monocytes/100 leukocyt eson 04-10-2022 Monocytes/100 WBC (Bld) 5.4 % 0-[address] [facility] Work Phone: Blood platelet mean volumeon 04-10-2022 Platelet mean volume (Bld) [Entitic vol] 9.6 fL 6.2-12.0 [facility] Work Phone: Determination of erythrocyte mean corpuscular volume (MCV)on 04-10-2022 MCV (RBC) [Entitic vol] 88.0 fL 81-[address] [facility] Work Phone: Hematocrit Auto (Bld) [Volum e fraction]on 04-10-2022 Hematocrit (Bld) [Volume fraction] 44.2 % 37-47 [facility] Work Phone: Ketones Test strip Ql (U)on 04-10-2022 Ketones Ql (U) 50 mg/dl Negative [facility] Work Phone: Laboratory - Chemistry and C hemistry - challengeon 04-10-2022 ALP [Catalytic activity/Vol] 95 U/L 45-117 [facility] Work Phone: ALT [Catalytic activity/Vol] 25 U/L 13-56 [facility] Work Phone: CO2 [Moles/Vol] 23.0 mmol/L 21.0-32.0 [facility] Work Phone: Globulin (S) [Mass/Vol] 3.1 g/dL 2.2-4.[address] [facility] Work Phone: Urea nitrogen/Creatinine [Mass ratio] 28.2 mg/mg 10-20 [facility] Work Phone: Laboratory - Hematology and Cell countson 04-10-2022 Erythrocyte distribution width (RBC) [Entitic vol] 43.4 fL 35.1-43.9 [facility] Work Phone: Erythrocyte distribution width (RBC) [Ratio] 13.4 % 11.6-14.6 [facility] Work Phone: Immature granulocytes/100 WBC (Bld) 0.400 % 0.0-0.9 [facility] Work Phone: Comment on above: IG% - Immature Granu locytes (promyelocytes, myelocytes and metamyelocytes) > 1% indicates that a LEFT SHIFT is Present. MCH (RBC) [Entitic mass] 29.9 pg 27.0-32.0 [facility] Work Phone: Nucleated RBC/100 WBC (Bld) [Ratio] 0 % 0-5 [facility] Work Phone: MCHC Auto (RBC) [Mass/Vol]on 04-10-2022 MCHC (RBC) [Mass/Vol] 33.9 g/dL 32-36 [facility] Work Phone: Mucus LM Ql (Urine sed)on Mucus Ql (Urine sed) 0 SEEN /hpf [facility] Work Phone: Nitrite Test strip Ql (U)on 04-10-2022 Nitrite Ql (U) Negative Negative [facility] Work Phone: No Panel Informationon 04-10 Estimated Creatinine Clearance Calc 86.75 ml/min [facility] Work Phone: Estimated GFR (MDRD) Amer 131 mL/min >60 [facility] Work Phone: Comment on above: GFR Calc Estimated GFR (MDRD) Non-Af Amer 108 mL/min >60 [facility] Work Phone: Comment on above: Non- GFR Calc Platelets bldon 04-10-2022 Platelets (Bld) [#/Vol] 258 10*3/uL 150-450 [facility] Work Phone: Protein Test strip Ql (U)on 04-10-2022 Protein Ql (U) 30 mg/dl Negative [facility] Work Phone: Serum or plasma albumin yaritza urement (mass/volume)on 04-10-2022 Albumin [Mass/Vol] 4.3 g/dL 3.2-5.0 [facility] Work Phone: Serum or plasma albumin/glob ulin mass ratioon 04-10-2022 Albumin/Globulin [Mass ratio] 1.4 {ratio} 0.9-2.4 [facility] Work Phone: Serum or plasma calcium yaritza urement (mass/volume)on 04-10-2022 Calcium [Mass/Vol] 9.3 mg/dL 8.5-10.1 [facility] Work Phone: Serum or plasma creatinine m easurement (mass/volume)on 04-10-2022 Creatinine [Mass/Vol] 0.60 mg/dL 0.55-1.02 [facility] Work Phone: Comment on above: The validity of the calculated GFR & GFRAA in patients over 70 years has not been determined. Clinical correlation is essential. Serum or plasma urea nitroge n measurement (mass/volume)on 04-10-2022 Urea nitrogen [Mass/Vol] 17 mg/dL 7-18 [facility] Work Phone: Squamous epithelial cells de tection in urine sediment by light microscopyon 04-10-2022 Epithelial cells.squamous LM Ql (Urine sed) 0-5 SEEN /hpf 5-10 [facility] Work Phone: Thin prep Papanicolaou smear with manual screeningon 04-10-2022 Thin prep Papanicolaou smear with manual screening 21 U/L 15-37 [facility] Work Phone: Thin prep Papanicolaou smear with manual screening 8 5-15 [facility] Work Phone: Urine blood detectionon 03-30 RBC Ql (U) 250 /ul Negative [facility] Work Phone: RBC Ql (U) > 100 SEEN /hpf 0-5 [facility] Work Phone: Urine clarityon 04-10-2022 Clarity (U) Sl. Cloudy Clear [facility] Work Phone: Urine color determinationon 04-10-2022 Color (U) Yellow Yellow [facility] Work Phone: Urine glucose detectionon Glucose Ql (U) Normal mg/dl Normal [facility] Work Phone: Urine leukocyte esterase det ection by dipstickon 04-10-2022 Leukocyte esterase Test strip Ql (U) 25 /ul Negative [facility] Work Phone: Urine pHon 04-10-2022 pH (U) 6.0 [pH] 5.0 - 8.0 [facility] Work Phone: Urine sediment bacteria coun t by microscopy (number/high power field)on 04-10-2022 Bacteria LM.HPF (Urine sed) [#/Area] 1 /[HPF] None Seen [facility] Work Phone: Urine specific gravity measu rementon 04-10-2022 Specific gravity (U) [Rel density] 1.025 1.002-1.030 [facility] Work Phone: Urobilinogen Auto test strip Ql (U)on 04-10-2022 Urobilinogen Ql (U) Normal mg/dl Normal [facility] Work Phone: Laboratory - Microbiology an d Antimicrobial susceptibilityon 12-13-2021 SARS-CoV-2 (COVID-19) RNA BILLIE+probe Ql (Unsp spec) Not detected Not Detect [facility] Work Phone: Comment on above: Normal Reference Ran ge: Not DetectedMethod:(RT-PCR) real-time reverse transcriptase PCRLuminex ANATOLY Instrument*The Food and Drug Administration (FDA) has issued an Emergency Use Authorization (EAU) for the ANATOLY SARS-CoV-2 Assay for the rapid detection of the virus that causes COVID-19. This test has been validated, but the FDAs independent review of this validation is pending.*Negative results do not preclude infection and should not be used as the sole basis for treatment or patient management. Optimum specimen types and timing for peak viral levels during infections caused by SARS-CoV-2 have not been determined. Collection of multiple specimens from the same patient may be necessary to detect the virus. The possibility of a false negative result should be considered if the patient has clinical presentation or has had recent exposure. Culture, urine Bacteria identified Cx Nom (U) Culture exhibits no growth. [facility] Work Phone: Vital Signs Date Time Vital Sign Value Performing Clinician Facility 06-14-2025 08:22-0400 Body height 121.[address] Calli Cifuentes MD Work Phone: [facility] 06-14-2025 08:22-0400 Body mass index (BMI) [Ratio] 36 kg/m2 Dr. Calli Cifuentes MD Work Phone: [facility] 06-14-2025 08:22-0400 Body weight 53.[address] Calli Cifuentes MD Work Phone: [facility] 06-14-2025 08:22-0400 Diastolic blood pressure 70 mm[Hg] Dr. Calli Cifuentes MD Work Phone: [facility] 06-14-2025 08:22-0400 Systolic blood pressure 152 mm[Hg] Dr. Calli Cifuentes MD Work Phone: [facility] 05-17-2025 08:08-0400 Body height 121.[address] Calli Cifuentes MD Work Phone: [facility] 05-17-2025 08:08-0400 Body mass index (BMI) [Ratio] 36 kg/m2 Dr. Calli Cifuentes MD Work Phone: [facility] 05-17-2025 08:08-0400 Body weight 53.[address] Calli Cifuentes MD Work Phone: [facility] 05-17-2025 08:08-0400 Diastolic blood pressure 80 mm[Hg] Dr. Calli Cifuentes MD Work Phone: [facility] 05-17-2025 08:08-0400 Heart rate 80 /min Dr. Calli Cifuentes MD Work Phone: [facility] 05-17-2025 08:08-0400 Systolic blood pressure 123 mm[Hg] Dr. Calli Cifuentes MD Work Phone: [facility] 07-24-2024 09:09-0400 Blood Pressure Cuff Size BRAYDEN ECHEVARRIA MD [facility] 07-24-2024 09:09-0400 Blood Pressure Location BRAYDEN ECHEVARRIA MD [facility] 07-24-2024 09:09-0400 Blood Pressure Method BRAYDEN ECHEVARRIA MD [facility] 07-24-2024 09:09-0400 Body temperature 98.24 [degF] BRAYDEN ECHEVARRIA MD [facility] 07-24-2024 09:09-0400 Diastolic Blood Pressure Non-Invasive 90 mm[Hg] BRAYDEN ECHEVARRIA MD [facility] 07-24-2024 09:09-0400 Heart rate 91 /min BRAYDEN ECHEVARRIA MD [facility] 07-24-2024 09:09-0400 Reason For Taking VItal Signs BRAYDEN ECHEVARRIA MD [facility] 07-24-2024 09:09-0400 Respiratory rate 18 /min BRAYDEN ECHEVARRIA MD [facility] 07-24-2024 09:09-0400 Systolic Blood Pressure Non-Invasive 146 mm[Hg] BRAYDEN ECHEVARRIA MD [facility] 07-23-2024 23:00-0400 Body temperature 97.88 [degF] BRAYDEN ECHEVARRIA MD [facility] 07-23-2024 23:00-0400 Diastolic Blood Pressure Non-Invasive 62 mm[Hg] BRAYDEN ECHEVARRIA MD [facility] 07-23-2024 23:00-0400 Heart rate 99 /min BRAYDEN ECHEVARRIA MD [facility] 07-23-2024 23:00-0400 Respiratory rate 18 /min BRAYDEN ECHEVARRIA MD [facility] 07-23-2024 23:00-0400 Systolic Blood Pressure Non-Invasive 90 mm[Hg] BRAYDEN ECHEVARRIA MD [facility] 07-23-2024 16:47-0400 Diastolic Blood Pressure Non-Invasive 70 mm[Hg] BRAYDEN ECHEVARRIA MD [facility] 07-23-2024 16:47-0400 Systolic Blood Pressure Non-Invasive 106 mm[Hg] BRAYDEN ECHEVARRIA MD [facility] 07-23-2024 16:31-0400 Body temperature 98.42 [degF] BRAYDEN ECHEVARRIA MD [facility] 07-23-2024 16:31-0400 Heart rate 97 /min BRAYDEN ECHEVARRIA MD [facility] 07-23-2024 16:31-0400 Reason For Taking VItal Signs BRAYDEN ECHEVARRIA MD [facility] 07-23-2024 16:31-0400 Respiratory rate 16 /min BRAYDEN ECHEVARRIA MD [facility] 07-23-2024 08:24-0400 Heart rate 97 /min BRAYDEN ECHEVARRIA MD [facility] 07-22-2024 23:39-0400 Heart rate 96 /min BRAYDEN ECHEVARRIA MD [facility] 07-22-2024 21:27-0400 Reason For Taking VItal Signs BRAYDEN ECHEVARRIA MD [facility] 07-22-2024 15:16-0400 Blood Pressure Cuff Size BRAYDEN ECHEVARRIA MD [facility] 07-22-2024 15:16-0400 Blood Pressure Location BRAYDEN ECHEVARRIA MD [facility] 07-22-2024 15:16-0400 Blood Pressure Method BRAYDEN ECHEVARRIA MD [facility] 07-22-2024 15:16-0400 Heart rate 73 /min BRAYDEN ECHEVARRIA MD [facility] 07-22-2024 12:19-0400 Blood Pressure Cuff Size BRAYDEN ECHEVARRIA MD [facility] 07-22-2024 12:19-0400 Blood Pressure Location BRAYDEN ECHEVARRIA MD [facility] 07-22-2024 12:19-0400 Blood Pressure Method BRAYDEN ECHEVARRIA MD [facility] 07-22-2024 12:19-0400 Heart rate 75 /min BRAYDEN ECHEVARRIA MD [facility] 07-22-2024 07:57-0400 Heart rate 80 /min BRAYDEN ECHEVARRIA MD [facility] 07-22-2024 07:34-0400 Heart rate 80 /min BRAYDEN ECHEVARRIA MD [facility] 07-21-2024 15:42-0400 Body height 121.9 cm BRAYDEN ECHEVARRIA MD [facility] 07-21-2024 15:42-0400 Body weight 51.6 kg BRAYDEN ECHEVARRIA MD [facility] 07-21-2024 15:42-0400 Body weight 34.73 kg/m2 BRAYDEN ECHEVARRIA MD [facility] 07-21-2024 15:00-0400 Body temperature 97.34 [degF] BRAYDEN ECHEVARRIA MD [facility] 07-21-2024 14:45-0400 Mean blood pressure 79 mm[Hg] BRAYDEN ECHEVARRIA MD [facility] 07-21-2024 14:30-0400 Mean blood pressure 82 mm[Hg] BRAYDEN ECHEVARRIA MD [facility] 07-21-2024 14:15-0400 Mean blood pressure 79 mm[Hg] BRAYDEN ECHEVARRIA MD [facility] 07-21-2024 13:45-0400 Body temperature 97.52 [degF] BRAYDEN ECHEVARRIA MD [facility] 07-21-2024 13:40-0400 Respiratory Rate - Anes 9 br/min BRAYDEN ECHEVARRIA MD [facility] 07-21-2024 13:35-0400 Respiratory Rate - Anes 16 br/min BRAYDEN ECHEVARRIA MD [address] [place] [address] 07-21-2024 13:30-0400 Respiratory Rate - Anes 12 br/min BRAYDEN ECHEVARRIA MD [facility] 07-21-2024 13:15-0400 Body temperature 99.34 [degF] BRAYDEN ECHEVARRIA MD [facility] 07-21-2024 13:10-0400 Body temperature 99.34 [degF] BRAYDEN ECHEVARRIA MD [facility] 07-21-2024 13:05-0400 Body temperature 99.36 [degF] BRAYDEN ECHEVARRIA MD [facility] 07-21-2024 06:26-0400 Body height 121.9 cm BRAYDEN ECHEVARRIA MD [facility] 07-21-2024 06:26-0400 Body temperature 97.16 [degF] BRAYDEN ECHEVARRIA MD [facility] 07-21-2024 06:26-0400 Body weight 51.6 kg BRAYDEN ECHEVARRIA MD [facility] 06-30-2024 10:49-0400 Blood Pressure Location BRAYDEN ECHEVARRIA MD [facility] 06-30-2024 10:49-0400 Blood Pressure Method BRAYDEN ECHEVARRIA MD [facility] 06-30-2024 10:49-0400 Diastolic Blood Pressure Non-Invasive 88 mm[Hg] BRAYDEN ECHEVARRIA MD [facility] 06-30-2024 10:49-0400 Systolic Blood Pressure Non-Invasive 130 mm[Hg] BRAYDEN ECHEVARRIA MD [facility] 06-30-2024 10:15-0400 Blood Pressure Location BRAYDEN ECHEVARRIA MD [address] [place] [address] 06-30-2024 10:15-0400 Blood Pressure Method BRAYDEN ECHEVARRIA MD [facility] 06-30-2024 10:15-0400 Body height 121.9 cm BRAYDEN ECHEVARRIA MD [address] [place] [address] Comment on above: Result Comment: pt stated height, unable to measure 06-30-2024 10:15-0400 Body temperature 98.24 [degF] BRAYDEN ECHEVARRIA MD [address] [place] [address] 06-30-2024 10:15-0400 Body weight 53.7 kg BRAYDEN ECHEVARRIA MD [address] [place] [address] Comment on above: Result Comment: pt was weigned 06-30-2024 10:15-0400 Body weight 36.14 kg/m2 BRAYDEN ECHEVARRIA MD [facility] 06-30-2024 10:15-0400 Diastolic Blood Pressure Non-Invasive 95 mm[Hg] BRAYDEN ECHEVARRIA MD [facility] 06-30-2024 10:15-0400 Heart rate 66 /min BRAYDEN ECHEVARRIA MD [facility] 06-30-2024 10:15-0400 Systolic Blood Pressure Non-Invasive 152 mm[Hg] BRAYDEN ECHEVARRIA MD [facility] 02-10-2024 06:17-0400 Body temperature 97 [degF] [place] 02-10-2024 06:17-0400 Diastolic blood pressure 85 mm[Hg] [facility] 02-10-2024 06:17-0400 Heart rate 80 /min [facility] 02-10-2024 06:17-0400 Respiratory rate 16 /min [place] 02-10-2024 06:17-0400 SaO2% (BldA) [Mass fraction] 97 % [facility] 02-10-2024 06:17-0400 Systolic blood pressure 165 mm[Hg] [facility] 02-10-2024 05:39-0400 Body height 121.92 cm [facility] 02-10-2024 05:39-0400 Body mass index (BMI) [Ratio] 37.5 kg/m2 [facility] 02-10-2024 05:39-0400 Body weight 55.79 kg [facility] 10-11-2023 10:39-0500 Blood Pressure Cuff Size BRAYDEN ECHEVARRIA MD [facility] 10-11-2023 10:39-0500 Blood Pressure Location BRAYDEN ECHEVARRIA MD [facility] 10-11-2023 10:39-0500 Blood Pressure Method BRAYDEN ECHEVARRIA MD [facility] 10-11-2023 10:39-0500 Body temperature 97.88 [degF] BRAYDEN ECHEVARRIA MD [facility] 10-11-2023 10:39-0500 Diastolic Blood Pressure Non-Invasive 86 mm[Hg] BRAYDEN ECHEVARRIA MD [facility] 10-11-2023 10:39-0500 Heart rate 67 /min BRAYDEN ECHEVARRIA MD [facility] 10-11-2023 10:39-0500 Respiratory rate 18 /min BRAYDEN ECHEVARRIA MD [facility] 10-11-2023 10:39-0500 Systolic Blood Pressure Non-Invasive 139 mm[Hg] BRAYDEN ECHEVARRIA MD [facility] 10-11-2023 06:39-0500 Body temperature 98.06 [degF] BRAYDEN ECHEVARRIA MD [facility] 10-11-2023 06:39-0500 Diastolic Blood Pressure Non-Invasive 73 mm[Hg] BRAYDEN ECHEVARRIA MD [facility] 10-11-2023 06:39-0500 Heart rate 66 /min BRAYDEN ECHEVARRIA MD [facility] 10-11-2023 06:39-0500 Respiratory rate 18 /min BRAYDEN ECHEVARRIA MD [facility] 10-11-2023 06:39-0500 Systolic Blood Pressure Non-Invasive 110 mm[Hg] BRAYDEN ECHEVARRIA MD [facility] 10-11-2023 02:51-0500 Body temperature 98.24 [degF] BRAYDEN ECHEVARRIA MD [facility] 10-11-2023 02:51-0500 Diastolic Blood Pressure Non-Invasive 75 mm[Hg] BRAYDEN ECHEVARRIA MD [facility] 10-11-2023 02:51-0500 Heart rate 86 /min BRAYDEN ECHEVARRIA MD [facility] 10-11-2023 02:51-0500 Respiratory rate 16 /min BRAYDEN ECHEVARRIA MD [facility] 10-11-2023 02:51-0500 Systolic Blood Pressure Non-Invasive 109 mm[Hg] BRAYDEN ECHEVARRIA MD [facility] 10-10-2023 19:47-0500 Blood Pressure Cuff Size BRAYDEN ECHEVARRIA MD [facility] 10-10-2023 19:47-0500 Blood Pressure Location BRAYDEN ECHEVARRIA MD [facility] 10-10-2023 19:47-0500 Blood Pressure Method BRAYDEN ECHEVARRIA MD [facility] 10-10-2023 13:37-0500 Body height 121.9 cm BRAYDEN ECHEVARRIA MD [facility] 10-10-2023 13:37-0500 Body weight 53 kg BRAYDEN ECHEVARRIA MD [facility] 10-10-2023 13:37-0500 Body weight 35.67 kg/m2 BRAYDEN ECHEVARRIA MD [facility] 10-10-2023 13:10-0500 Body temperature 96.8 [degF] BRAYDEN ECHEVARRIA MD [facility] 10-10-2023 13:10-0500 Heart rate 87 /min BRAYDEN ECHEVARRIA MD [facility] 10-10-2023 13:10-0500 Mean blood pressure 86 mm[Hg] BRAYDEN ECHEVARRIA MD [facility] 10-10-2023 12:40-0500 Heart rate 86 /min BRAYDEN ECHEVARRIA MD [facility] 10-10-2023 12:40-0500 Mean blood pressure 87 mm[Hg] BRAYDEN ECHEVARRIA MD [facility] 10-10-2023 12:25-0500 Heart rate 90 /min BRAYDEN ECHEVARRIA MD [facility] 10-10-2023 12:25-0500 Mean blood pressure 88 mm[Hg] BRAYDEN ECHEVARRIA MD [facility] 10-10-2023 11:40-0500 Respiratory Rate - Anes 0 br/min BRAYDEN ECHEVARRIA MD [facility] 10-10-2023 11:37-0500 Body temperature 96.8 [degF] BRAYDEN ECHEVARRIA MD [facility] 10-10-2023 11:35-0500 Respiratory Rate - Anes 0 br/min BRAYDEN ECHEVARRIA MD [facility] 10-10-2023 11:30-0500 Respiratory Rate - Anes 0 br/min BRAYDEN ECHEVARRIA MD [facility] 10-10-2023 11:20-0500 Body temperature 94.3 [degF] BRAYDEN ECHEVARRIA MD [facility] 10-10-2023 11:15-0500 Body temperature 94.44 [degF] BRAYDEN ECHEVARRIA MD [facility] 10-10-2023 11:10-0500 Body temperature 94.51 [degF] BRAYDEN ECHEVARRIA MD [facility] 10-10-2023 06:44-0500 Body height 121.9 cm BRAYDEN ECHEVARRIA MD [facility] 10-10-2023 06:44-0500 Body temperature 97.52 [degF] BRAYDEN ECHEVARRIA MD [facility] 10-10-2023 06:44-0500 Body weight 53 kg BRAYDEN ECHEVARRIA MD [address] [place] [address] 09-12-2023 11:00-0500 Blood Pressure Cuff Size BRAYDEN ECHEVARRIA MD [address] [place] [address] 09-12-2023 11:00-0500 Blood Pressure Location BRAYDEN ECHEVARRIA MD [address] [place] [address] 09-12-2023 11:00-0500 Blood Pressure Method BRAYDEN ECHEVARRIA MD [address] [place] [address] 09-12-2023 11:00-0500 Body height 123 cm BRAYDEN ECHEVARRIA MD [facility] 09-12-2023 11:00-0500 Body temperature 97.7 [degF] BRAYDEN ECHEVARRIA MD [facility] 09-12-2023 11:00-0500 Body weight 54.3 kg BRAYDEN ECHEVARRIA MD [facility] 09-12-2023 11:00-0500 Diastolic Blood Pressure Non-Invasive 87 mm[Hg] BRAYDEN ECHEVARRIA MD [facility] 09-12-2023 11:00-0500 Heart rate 67 /min BRAYDEN ECHEVARRIA MD [facility] 09-12-2023 11:00-0500 Systolic Blood Pressure Non-Invasive 142 mm[Hg] BRAYDEN ECHEVARRIA MD [facility] 11-20-2022 11:29-0500 Body height 121.[address] Calli Cifuentes Work Phone: [facility] 08-22-2022 10:17-0500 Body temperature 98.1 [degF] Svetlana Celine PA-C Work Phone: [facility] 08-22-2022 10:17-0500 Body weight 55.43 kg Svetlana Celine PA-C Work Phone: [facility] 08-22-2022 10:17-0500 Heart rate 77 /min Svetlana Celine PA-C Work Phone: [facility] 08-22-2022 10:17-0500 SaO2% (BldA) [Mass fraction] 97 % Svetlana Celine PA-C Work Phone: [facility] 08-17-2022 08:42-0500 Diastolic blood pressure 75 mm[Hg] Ariana Shen MD Work Phone: [facility] 08-17-2022 08:42-0500 Heart rate 69 /min Ariana Shen MD Work Phone: [facility] 08-17-2022 08:42-0500 Respiratory rate 16 /min Ariana Shen MD Work Phone: [facility] 08-17-2022 08:42-0500 SaO2% (BldA) [Mass fraction] 97 % Ariana Shen MD Work Phone: [facility] 08-17-2022 08:42-0500 Systolic blood pressure 121 mm[Hg] Ariana Shen MD Work Phone: [facility] 08-17-2022 07:27-0500 Body temperature 98.29 [degF] Ariana Shen MD Work Phone: [facility] 08-17-2022 07:27-0500 Body weight 56.4 kg Ariana Shen MD Work Phone: [facility] 04-13-2022 08:30-0400 Body temperature 98.4 [degF] [place] Work Phone: 04-13-2022 08:30-0400 Diastolic blood pressure 74 mm[Hg] [facility] Work Phone: 04-13-2022 08:30-0400 Heart rate 61 /min [facility] Work Phone: 04-13-2022 08:30-0400 Respiratory rate 14 /min [place] Work Phone: 04-13-2022 08:30-0400 SaO2% (BldA) [Mass fraction] 97 % [facility] Work Phone: 04-13-2022 08:30-0400 Systolic blood pressure 130 mm[Hg] [facility] Work Phone: 04-12-2022 04:08-0400 Body height 121.92 cm [facility] Work Phone: 04-12-2022 04:08-0400 Body mass index (BMI) [Ratio] 37.4 kg/m2 [facility] Work Phone: 04-12-2022 04:08-0400 Body weight 55.6 kg [facility] Work Phone: 04-10-2022 16:15-0400 Diastolic blood pressure 74 mm[Hg] [facility] Work Phone: 04-10-2022 16:15-0400 Systolic blood pressure 165 mm[Hg] [facility] Work Phone: 04-10-2022 13:40-0400 Body height 121.92 cm [facility] Work Phone: 04-10-2022 13:40-0400 Body mass index (BMI) [Ratio] 36.6 kg/m2 [facility] Work Phone: 04-10-2022 13:40-0400 Body temperature 97.3 [degF] [place] Work Phone: 04-10-2022 13:40-0400 Body weight 54.43 kg [facility] Work Phone: 04-10-2022 13:40-0400 Heart rate 68 /min [facility] Work Phone: 04-10-2022 13:40-0400 Respiratory rate 16 /min [place] Work Phone: 04-10-2022 13:40-0400 SaO2% (BldA) [Mass fraction] 97 % [facility] Work Phone: Encounters Encounter Date Encounter Type Care Provider Facility Start: 08-19-2025 ambulatory Calli Cifuentes Facility:[facility] Start: 07-30-2025 End: 07-30-2025 ambulatory Calli Cifuentes Facility:[facility] Start: 07-28-2025 End: 07-28-2025 ambulatory Calli Cifuentes Facility:[facility] Start: 06-14-2025 End: 06-14-[address] Jenifer Win MD -[facility] Work Phone: Start: 06-14-2025 End: 06-14-[address] Calli Cifuentes MD Work Phone: -[facility] Start: 05-17-2025 End: 05-17-[address] [facility] Work Phone: Start: 05-17-2025 End: 05-17-[address] Calli Cifuentes MD Work Phone: -[facility] Start: 04-08-2025 End: 04-08-[address] Calli Cifuentes MD Work Phone: -[facility]iology [place] Start: 04-08-2025 End: 04-08-[address] Calli Cifuentes MD -[facility] [place] Work Phone: Start: 04-08-2025 End: 04-08-2025 ambulatory Calli Cifuentes Facility:[facility] Start: 03-30-2025 Non-patient / Non-visit Dr. Jenifer messina MD -[facility] Work Phone: Start: 03-25-2025 End: 03-25-[address] Calli Cifuentes MD Work Phone: -Cat Scan [facility] Start: 03-25-2025 End: 03-25-[address] Calli Cifuentes MD -Cat Scan [facility] Work Phone: Start: 03-25-2025 End: 03-25-2025 ambulatory Calli Cifuentes Facility:[facility] Start: 03-02-2025 Encounter for genera l adult medical examination with abnormal findings Calli Cifuentes [facility] Start: 02-25-2025 End: 02-25-[address] Calli Cifuentes MD Work Phone: [facility] Work Phone: Start: 02-25-2025 End: 02-25-[address] Calli Cifuentes MD -Laboratory [facility] Start: 02-25-2025 End: 02-25-2025 ambulatory Calli Cifuentes Facility:[facility] Start: 12-24-2024 ambulatory Calli Cifuentes Facility:[facility] Start: 07-21-2024 End: 07-24-2024 Evaluation and management of inpatient BRAYDEN ECHEVARRIA MD [facility] Start: 06-30-2024 End: 06-30-2024 Admission to establishment BRAYDEN ECHEVARRIA MD [facility] Start: 06-30-2024 End: 06-30-2024 ambulatory CALLI CIFUENTES MD Facility:A Start: 06-30-2024 End: 06-30-2024 Encounter for other preprocedural examination BRAYDEN ECHEVARRIA MD Facility:A Start: 05-01-2024 ambulatory BRAYDEN ECHEVARRIA MD Facilit y:A Start: 02-10-2024 End: 02-10-2024 Emergency department patient visit [facility]-Emergency Department Work Phone: Start: 10-10-2023 End: 10-11-2023 Evaluation and management of inpatient BRAYDEN ECHEVARRIA MD [facility] Start: 09-25-2023 End: 09-25-2023 ambulatory [facility] Work Phone: Start: 09-25-2023 End: 09-25-2023 Patient encounter procedure [facility]-Laboratory, [facility] Start: 09-12-2023 End: 09-12-2023 Admission to establishment BRAYDEN ECHEVARRIA MD [facility] Start: 09-12-2023 End: 09-12-2023 ambulatory BRAYDEN ECHEVARRIA MD Facility:A Start: 08-02-2023 End: 08-02-2023 Patient encounter procedure [facility]-Cat Scan, [facility] Work Phone: Start: 07-09-2023 End: 07-09-2023 ambulatory [facility] Work Phone: Start: 07-09-2023 End: 07-09-2023 Patient encounter procedure [facility]-MRI - [facility] Work Phone: Start: 05-30-2023 End: 05-30-2023 Patient encounter procedure [facility]-Laboratory, [facility] Work Phone: Start: 05-20-2023 End: 05-20-2023 ambulatory [facility] Work Phone: Start: 05-20-2023 End: 05-20-2023 Patient encounter procedure [facility]-Radiology, [place] Work Phone: Start: 05-07-2023 End: 05-07-2023 ambulatory [facility] Work Phone: Start: 05-07-2023 End: 05-07-2023 Patient encounter procedure [facility]-Laboratory, [facility] Work Phone: Start: 03-08-2023 End: 03-08-[address] Calli Cifuentes Work Phone: [facility] Work Phone: Start: 03-08-2023 End: 03-08-[address] Calli Cifuentes Work Phone: [facility] Start: 02-01-2023 End: 02-01-2023 Patient encounter procedure ZOHRA ESPINOSA MD [facility] Start: 11-23-2022 End: 11-23-2022 Admission to same day surgery center DASH BUSTAMANTE MD [facility] Start: 11-22-2022 End: 11-22-[address] Calli Cifuentes Work Phone: [facility] Start: 11-16-2022 End: 11-16-[address] Calli Cifuentes Work Phone: [facility] Work Phone: Start: 11-16-2022 End: 11-16-[address] Calli Cifuentes Work Phone: [facility] Start: 10-10-2022 End: 10-10-2022 ambulatory [facility] Work Phone: Start: 10-10-2022 End: 10-10-2022 Patient encounter procedure [facility] Start: 08-22-2022 End: 08-22-2022 ambulatory CALLI CIFUENTES Facility:[facility] Start: 08-22-2022 End: 08-22-2022 Patient encounter procedure Svetlana Ruiz PA-C Work Phone: General Surgery Comment on above: Encounter for screen ing for malignant neoplasm of colon (Primary Dx) Start: 08-17-2022 End: 08-17-2022 ambulatory CALLI CIFUENTES Facility:[facility] Start: 08-17-2022 End: 08-17-2022 Subsequent hospital visit by physician Ariana Shen MD Work Phone: Ambulatory Surgery Comment on above: Screening for colon cancer [Z12.11] Start: 06-29-2022 End: 06-29-2022 ambulatory CALLI CIFUENTES Facility:[facility] Start: 06-14-2022 End: 06-14-2022 ambulatory [facility] Work Phone: Start: 06-14-2022 End: 06-14-2022 Patient encounter procedure [facility]-Cat Scan, [facility] Start: 04-30-2022 End: 04-30-2022 Patient encounter procedure [facility]-Radiology, [place] Start: 04-12-2022 End: 04-13-2022 Evaluation and management of inpatient [facility]-Progressive Care Unit Start: 04-10-2022 End: 04-10-2022 Emergency department patient visit [facility]-Emergency Department Start: 12-13-2021 End: 12-13-[address] Calli Cifuentes Work Phone: [facility]-Laboratory, [facility] Start: 10-02-2021 End: 10-02-[address] Calli Cifuentes Work Phone: [facility] Procedures Date Procedure Procedure Detail Performing Clinician Start: 04-08-[address] Calli Cifuentes MD Work Phone: Start: 04-08-2025 X-ray of chest, PA a nd lateral views Dr. Calli Cifuentes MD Work Phone: Start: 03-25-[address] Calli de souza MD Work Phone: Start: 03-25-2025 Screening mammography Dianelys Cifuentes MD Work Phone: Start: 09-30-2023 Excision of cervical intervertebral disc BRAYDEN ECHEVARRIA MD Comment on above: ANTERIOR CERVICAL DI SCECTOMY AND FUSION CERVICAL 3-4 Start: 08-02-2023 Screening mammography Start: 08-02-2023 CT of chest Start: 07-09-2023 MRI of thoracic spine Start: 05-20-2023 Diagnostic radiograp hy of abdomen Start: 05-07-2023 Bacteria identified in Urine by Culture Start: 05-07-2023 Urine culture Start: 11-16-2022 MRI of cervical spine Dianelys Cifuentes Work Phone: Start: 10-10-2022 X-ray of cervical spine Start: 08-17-2022 Level iv surg pathol ogy gross&microscopic exam Ariana Shen MD Work Phone: Start: 08-17-2022 Colonoscopy flx dx w /collj spec when pfrmd Ariana Shen MD Work Phone: Start: 08-17-2022 Colonoscopy Svetlana [employer] sherrie PA-C Work Phone: Start: 06-14-2022 Screening mammography Start: 06-14-2022 CT of chest Start: 04-30-2022 Diagnostic radiograp hy of abdomen Start: 04-12-2022 Extracorporeal shock wave lithotripsy Start: 04-10-2022 CT of abdomen and pe lvis without contrast Start: 12-18-2006 Mammography SvetlanaCeros sherrie PA-C Work Phone: Start: 09-30-1990 Tonsillectomy BRAYDEN Montero MD Start: 09-30-1989 Cholecystectomy BRAYDEN BOGGS MD Adenoid excision ZOHRA ESPINOSA MD section ZOHRA ESPINOSA MD Cholecystectomy ZOHRA [place] Colonoscopy BRAYDEN ECHEVARRIA MD Cystoscopy ZOHRA ESPINOSA MD Kidney stone (disorder) BRAYDEN ECHEVARRIA MD Comment on above: with stent, has had a few times Lithotripsy BRAYDEN ECHEVARRIA MD Comment on above: WITH STENT INSERTION AND LATER REMOVED, HAD COUPLE TIMES Nasal septoplasty BRAYDEN ECHEVARRIA MD Tonsillectomy ZOHRA ESPINOSA MD Tympanotomy BRAYDEN ECHEVARRIA MD Comment on above: with tubes, both ear s, has had a few times Urine culture Plan of Treatment Date Care Activity Detail Author Start: 08-17-2032 Colonoscopy COLONOSCOPY [facility] Start: 08-17-2032 COLORECTAL CANCER SCREENING COLORECTAL CANCER SCREENING [facility] Start: 04-12-2027 Urine microalbumin profile DTaP,Tdap,Td Vaccine (2 - Td or Tdap) [facility] Start: 02-10-2024 [facility] Start: 05-31-2023 Covid-19 Vaccine () Covid-19 Vaccine () [facility] Start: 05-31-2023 Influenza vaccination Influenza Vaccine (#1) [facility] Start: 03-08-2023 Antibody to gastric parietal cell measurement [facility] Start: 03-08-2023 [facility] Start: 2022 RSV Vaccine (1 - 1-dose 60+ series) RSV Vaccine (1 - 1-dose 60+ series) [facility] Start: 11-22-2022 Patient referral [facility] Work Phone: Start: 09-30-2022 Depression Assessment Depression Assessment [facility] Start: 05-31-2022 Influenza vaccination INFLUENZA (#1) [facility] Start: 04-13-2022 Patient discharge [facility] Work Phone: Start: 04-12-2022 Anes lithotrp xtrcorp shock wave w/o water bath ANESTH KIDNEY STONE DESTRUCT [facility] Work Phone: Start: 04-12-2022 Cysto w/insert ureteral stent CYSTOSCOPY AND TREATMENT [facility] Work Phone: Start: 04-12-2022 Oxygen therapy [facility] Work Phone: Start: 04-12-2022 Admission procedure [facility] Work Phone: Start: 04-12-2022 Ambulation without limitation [facility] Work Phone: Start: 04-12-2022 Assessment of risk of venous thromboembolism [facility] Work Phone: Start: 04-12-2022 Insertion of catheter into peripheral vein [facility] Work Phone: Start: 04-12-2022 Measuring intake and output [facility] Work Phone: Start: 04-12-2022 Providing care according to standard [facility] Work Phone: Start: 04-12-2022 Verification routine [facility] Work Phone: Start: 04-12-2022 End: 04-12-2022 [facility] Work Phone: Start: 04-12-2022 Following clinical pathway protocol [facility] Work Phone: Start: 04-10-2022 [facility] Work Phone: Start: 11-16-2021 COVID-19 VACCINE (5 - Booster for Moderna series) COVID-19 VACCINE (5 - Booster for Moderna series) [facility] Start: 09-30-2021 DEPRESSION ASSESSMENT DEPRESSION ASSESSMENT [facility] Start: 11-27-2020 Pneumococcal vaccination Pneumococcal Vaccine (2 - PCV) [facility] Start: 09-16-2013 PAP TESTING PAP TESTING [facility] Start: 2012 SHINGRIX VACCINE (1 of 2) SHINGRIX VACCINE (1 of 2) [facility] Start: 11-30-2011 HPV TESTING HPV TESTING [facility] Start: 12-19-2007 Mammography [facility] Start: 12-05-2007 COLOGUARD (FIT-DNA) COLOGUARD (FIT-DNA) [facility] Start: 12-05-[address] COLONOGRAPHY [facility] Start: 12-05-2007 DIABETES SCREEN DIABETES SCREEN [facility] Start: 12-05-2007 Diabetes Screening Diabetes Screening [facility] Start: 12-05-2007 FECAL OCCULT BLOOD FECAL OCCULT BLOOD [facility] Start: 12-05-2007 Lipid 1996 panel - Serum or Plasma Lipid Screening [facility] Start: 12-05-2007 LIPID SCREEN LIPID SCREEN [facility] Start: 12-05-2007 SIGMOIDOSCOPY SIGMOIDOSCOPY [facility] Start: 1981 Urine microalbumin profile DTAP,TDAP,TD (1 - Tdap) [facility] Start: 1980 HEPATITIS C SCREENING HEPATITIS C SCREENING [facility] Start: 1980 HIV SCREENING HIV SCREENING [facility] Start: 1968 PNEUMOCOCCAL (1 - PCV) PNEUMOCOCCAL (1 - PCV) [facility] Patient Education [facility] Work Phone: Patient referral [facility] Work Phone: [place] Work Phone: Immunizations Immunization Date Immunization Notes Care Provider Fa cility 05-30-2023 zoster vaccine recombinant BRAYDEN ECHEVARRIA MD [facility] 09-21-2021 SARS-CoV-2 mRNA (tozinameran) vaccine BRAYDEN ECHEVARRIA MD [facility] 08-30-2021 SARS-CoV-2 mRNA (tozinameran) vaccine BRAYDEN ECHEVARRIA MD [facility] 01-20-2021 Covid (Moderna) [facility] 12-23-2020 Covid (Moderna) [facility] 11-22-2020 Covid (Pfizer) [facility] 11-27-2019 pneumococcal polysaccharide vaccine, 23 valent BRAYDEN ECHEVARRIA MD [facility] 07-19-2018 influenza virus vacc ine, unspecified formulation Ariana Shen MD Work Phone: [facility] 04-12-2017 tetanus toxoid, redu chanda diphtheria toxoid, and acellular pertussis vaccine, adsorbed BRAYDEN ECHEVARRIA MD [facility] 06-30-[address] Calli Cifuentes Work Phone: [facility] 03-19-2014 pneumococcal polysaccharide vaccine, 23 valent BRAYDEN ECHEVARRIA MD [facility] Payers Date Payer Category Payer Self-pay [id number] 2024 Medicaid [id number] 2023 Private Health Insurance [id number] 2020 Private Health Insurance [id number] 2011 Private Health Insurance [id number] 1960 Unknown [id number] 2.16.8 [id number] 1960 Unknown [id number] 2.16.8 [id number] 1960 Unknown [id number] 2.16.8 [id number] 1960 Unknown [id number] 2.16.8 [id number] 1960 Unknown [id number] 2.16.8 [id number] 1960 Unknown [id number] 2.16.8 [id number] Unknown [id number] Unknown [id number] 2.16.8 [id number] Unknown [id number] 2.16.8 [id number] Unknown [id number] 2.16.8 [id number] Unknown [id number] 2.16.8 [id number] Unknown [id number] 2.16.8 [id number] Unknown [id number] 2.16.8 [id number] Unknown [id number] 2.16.8 [id number] Unknown [id number] 2.16.8 [id number] Unknown [id number] 2.16.8 [id number] Unknown [id number] 2.16.8 [id number] Unknown [id number] 2.16.8 [id number] Social History Date Type Detail Facility Start: 10-02-2021 End: 02-10-2024 Tobacco smoking status NJIS Unknown if ever smoked [facility] Start: 08-08-2016 None [facility] Start: 08-04-2020 Cigarettes [facility] Start: 1960 Sex Assigned At Female W [facility] Start: 06-29-2022 End: 02-10-2024 Tobacco smoking status NHIS Smokes tobacco daily [facility] History of tobacco use Cigarette Smoker C [facility] Start: 06-29-2022 End: 08-17-2022 Cigarettes smoked current (pack per day) - Reported 0.3 [facility] Start: 06-29-2022 Tobacco use and exposure Smokeless tobacco non-user [facility] Start: 08-17-2022 End: 08-27-2022 Alcohol intake Current non-drinker of alcohol (finding) [facility] Start: 1960 Sex Assigned At Not on file C [facility] Start: 08-07-2022 End: 08-22-2022 Exposure to SARS-CoV-2 (event) Not sure [facility] Start: 01-22-2023 End: 09-12-2023 Tobacco smoking status Heavy tobacco smoker (finding) [facility] Sex Assigned At Sex [facility] Start: 08-17-2022 Tobacco use panel [facility] Start: 06-30-2024 Tobacco smoking status Light t obacco smoker (finding) [facility] Comment on above: IN PAST USE TO SMOKE ALMOST 1 PPD, PT IS TRYING QUIT AND CURRENTLY SMOKES 3 CIGARETTES PER DAY Medical Equipment Procedure Code Equipment Code Equipment Origin al Text Equipment Identifier Dates Lithotripsy, ESWL STENT,URETERAL PIGTAIL [id number] FDA Start: 04-12-2022 Lithotripsy, ESWL STENT,URETERAL PIGTAIL 6FRx20 FDA Start: 04-12-2022 Lithotripsy, ESWL STENT,URETERAL PIGTAIL 6FRx20 FDA Start: 04-12-2022 Lithotripsy, ESWL STENT,URETERAL PIGTAIL 6FRx20 FDA Start: 04-12-2022 Lithotripsy, ESWL STENT,URETERAL PIGTAIL 6FRx20 FDA Start: 04-12-2022 Lithotripsy, ESWL STENT,URETERAL PIGTAIL 6FRx20 FDA Start: 04-12-2022 Lithotripsy, ESWL STENT,URETERAL PIGTAIL 6FRx20 FDA Start: 04-12-2022 Lithotripsy, ESWL STENT,URETERAL PIGTAIL 6FRx20 FDA Start: 04-12-2022 Lithotripsy, ESWL STENT,URETERAL PIGTAIL 6FRx20 FDA Start: 04-12-2022 Lithotripsy, ESWL STENT,URETERAL PIGTAIL 6FRx20 FDA Start: 04-12-2022 Lithotripsy, ESWL STENT,URETERAL PIGTAIL 6FRx20 FDA Start: 04-12-2022 Lithotripsy, ESWL STENT,URETERAL PIGTAIL 6FRx20 FDA Start: 04-12-2022 Lithotripsy, ESWL STENT,URETERAL PIGTAIL 6FRx20 FDA Start: 04-12-2022 Lithotripsy, ESWL STENT,URETERAL PIGTAIL 6FRx20 FDA Start: 04-12-2022 Lithotripsy, ESWL STENT,URETERAL PIGTAIL 6FRx20 FDA Start: 04-12-2022 Anterior Cervica l discectomy/fusion 1 le Unknown 10/10/23 Unknown Unknown FDA Start: 10-10-2023 Anterior Cervica l discectomy/fusion 1 le Unknown 10/10/23 Unknown Unknown FDA Start: 10-10-2023 Anterior Cervica l discectomy/fusion 1 le Unknown 10/10/23 Unknown Unknown FDA Start: 10-10-2023 Anterior Cervica l discectomy/fusion 1 le Unknown 10/10/23 Unknown Unknown FDA Start: 10-10-2023 Anterior Cervica l discectomy/fusion 1 le Unknown 10/10/23 Unknown Unknown FDA Start: 10-10-2023 Anterior Cervica l discectomy/fusion 1 le Unknown 10/10/23 Unknown Unknown FDA Start: 10-10-2023 Anterior Cervica l discectomy/fusion 1 le Unknown 10/10/23 Unknown Unknown FDA Start: 10-10-2023 Anterior Cervica l discectomy/fusion 1 le Unknown 10/10/23 Unknown Unknown FDA Start: 10-10-2023 Anterior Cervica l discectomy/fusion 1 le Unknown 10/10/23 Unknown Unknown FDA Start: 10-10-2023 Goals Date Patient Goal Desired Activity /State Functional Status Date Assessment Result Facility 07-24-2024 Functional Status Mod I [facility] 07-24-2024 Functional Status 7am-7pm [facility] 07-24-2024 Functional Status [facility] 07-24-2024 Functional Status [facility] 07-23-2024 Functional Status [facility] 07-23-2024 Functional Status Bed Bath Refused 2 [facility] 07-23-2024 Functional Status [facility] 07-22-2024 Functional Status Two assist [facility] 07-22-2024 Functional Status Front wheeled walker [facility] 07-22-2024 Functional Status [facility] 07-21-2024 Functional Status bilateral knee high applied/on [facility] 07-21-2024 Functional Status Dinner Percent 90 [facility] 07-21-2024 Functional Status Sensory Deficits None A [facility] 07-21-2024 Functional Status [facility] 07-21-2024 Functional Status Maintained [facility] 06-30-2024 Functional Status Sensory Deficits None A [facility] 10-11-2023 Functional Status Room check performed [facility] 10-11-2023 Functional Status Independent [facility] 10-10-2023 Functional Status [facility] 10-10-[facility]23 [facility] Status [facility] 10-10-2023 Functional Status [facility] 10-10-2023 Functional Status [facility] 09-12-2023 Functional Status Sensory Deficits None A [facility] 04-13-2022 Functional [facility]: 04-13-2022 Functional status Tolerates Activity Well [facility] Work Phone: Mental Status Date Assessment Result Facility 07-24-2024 [facility] 07-23[facility] 07-22-[facility]24 [facility] 10-11-2023 Mental Status Orientation Oriented x 4 [facility] 10-10-2023 [facility] 10-10-[facility]23 Mental Status [facility] 04-13-2022 Cognitive function Voice/Name [facility] Work Phone: Clinical Notes 06-29-2022 to 05-17-2025 Note Date & Type Note Facility 05-17-2025 Evaluation note Diagnosis Onset Date Resolution Constipation acute May 17, 2025 7:59am Kidney stone acute May 17, 2025 7:59am Nocturia acute May 17, 2 025 7:59am Overactive bladder acute May 17, 2025 7:59am Urge incontinence acute May 17, 2025 7:59am Kidney stone acute June 142024 8:07am Nocturia acute May 8:07am Overactive bladder acute Septem harvinder 2024 8:07am [facility] 8:07am [facility] Work Phone: 1(783) 447-937507-11-2025 Radiology Diagnostic study note [facility] Imaging Services [address] [place], [place] [address] Chest PA and Lateral MR#: [id number] Acct: [id number] Name: JACQUELINE OLIVEIRA Rep #: [id number] : 1960 F 64 From: Cheng Devine MD PCP: Dr. Calli Cifuentes MD Status: REG CLI Study:Chest PA and Lateral Date of Exam: 04/08/25 Exam# [id number] Ordering Dr: Vidal Cifuentes MD PROCEDURE: CHEST PA AND LATERAL 04/08/2025 REASON FOR EXAM: CHEST HEAVINESS TECHNIQUE: CHEST PA AND LATERAL COMPARISON: 03/25/2025 CT. FINDINGS: The heart is enlarged. The lungs are clear. No pleural effusion or pneumothorax. No acute osseous abnormalities. RAD/Chest PA and Lateral IMPRESSION: No acute cardiopulmonary abnormalities. Reading Location: [id number] CC: Dr. Calli Cifuentes MD ~ Cash Sales Audit Clerk: Signed [facility]06-26-2025 Radiology Diagnostic study note [facility] Imaging Services [address] [place] [id number] Lung Screening MR#: [id number] Acct: [id number] Name: JACQUELINE OLIVEIRA Rep #: [id number] : 1960 F 64 From: Gardenia Ramirez MD PCP: Dr. Calli Cifuentes MD Status: [facility] Study:Low Dose CT Lung Screening Date of Exam : 03/25/25 Exam# [id number] Ordering Dr: Vidal Cifuentes MD PROCEDURE: LOW DOSE CT LUNG SCREENING 03/25/2025 REASON FOR EXAM: TOBACCO USE WITH > 30 PACK YEARS TECHNIQUE: LOW DOSE CT LUNG SCREENING Coronal and Sagittal reconstruction series were provided. One or more dose reduction techniques were used (e.g., Automated exposure control, adjustment of the mA and/or kV according to patient size, use of iterative reconstruction technique). REFERENCE LINK: [employer] Lung-RADS RADIATION DOSE SUMMARY: CTDlvol: 2 mGy DLP: 63 mGycm COMPARISON: 08/02/2023 FINDINGS: Central airways are patent. Mild emphysema. Basilar atelectasis. No consolidation, effusion, or pneumothorax. On the left, no suspicious lung nodules. On the right, no suspicious nodules. Unremarkable base of neck and axilla. Thoracic spine degeneration. Mildly enlarged heart. No acute vascular pathology on noncontrast scanning. No acute chest wall findings. No acute abdominal findings. CT/Low Dose CT Lung Screening IMPRESSION: No suspicious lung nodules Lung-RADS Category: 1 Other Significant Findings: No Reading Location: [place] [address] CC: Dr. Calli Cifuentes MD ~ Cash Sales Audit Clerk: Signed [facility]10-25-2024 Discharge summary Date of patient's admission: 07/21/2024 Date of discharge: 07/24/2024 Admitting diagnosis: 1. 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 Laminectomy L1-L4 with bilateral partial medial facetectomies at multiple levels (Procedure was performed 07/21/2024; please see operative note for detail) Admitting physician: Brayden Echevarria MD Consulting physicians: [facility] service Complications: None Brief Hospital course: Patient admitted to [facility] 07/21/2024. At that time she underwent the above-noted procedures. A detailed description of the operative procedure is available as a dictated operative note in the patient's medical record. Postsurgically the patient was transition to the medical surgical floor. Preoperative neurogenic claudication and lumbar radiculitis were resolved. She was rapidly remobilize. It was felt that discharged to [facility] facility would be appropriate given the physiologic magnitude of surgery as well as concomitant rhizomelia associated with achondroplasia. Decisionto discharge detailed verbal discharge instructions were relayed to the patient by me. She demonstrated understanding Condition on discharge: Stable Discharge disposition[facility] jail facility Discharge diet: Regular. Discharge activity: Patient may shower: Patient may remove dressing to shower. Can reapply dry sterile dressing subsequent to shower. Discharge follow-up: 2 appointments been made in the office with this patient 1 to 2 weeks postop 1at 6 weeks postop Discharge medications: Patient may resume all preoperative medications at same dose and dosing interval. Discharge instructions: The patient is to call my office or present to the nearest emergency department for further evaluation and treatment if any signs or symptoms of infection occur. This has beenexplained to the patient is increased drainage from wound, redness, swelling, fevers, chills, nightsweats, increased pain about the wound. Digitally Signed by BRAYDEN ECHEVARRIA MD on 07/24/2024 03:36 PM [id number] Discharge Instructions Thank you for allowing [facility] to assist you with your healthcare needs. The following is importantdischarge information regarding your hospital visit. Your Care Team CALLI CIFUENTES MD Your Diagnosis Acute postoperative anemia due to expected blood loss Lumbar stenosis with neurogenic claudication What to do next Follow Up Appointments Follow Up with [place], [facility], Additional Information: skilled Follow Up with CALLI CIFUENTES When:Within 1-2 days Where:[facility] [address] [place] [address]- Business (1) Follow Up with BRAYDEN ECHEVARRIA MD, [facility]/Spine, Orthopedic When:08/05/2024 09:30 AM EST Where:[address] [facility], [place] [address] [phone] The Following Activity and Diet Have Been Ordered for You Transfer of Care Activity - Ordered -- May Shower Lifting Restricted less than 10 pounds No bending, twisting, crawling or squatt As instructed by therapy, Lumbar precautions: Limit bending, stooping or twisting motions. No lifting greater than 10 pounds. Okay to shower, 07/24/24 9... Transfer of Care Diet - Ordered -- Type of Diet: Regular Diet, 07/24/24 9:48:00 EDT The Following Equipment Has Been Ordered for You Discharge Home Equipment Transfer of Care Wound Care - Ordered -- Dressing Type: Alginate drsg, Back, lower, Back dressing can stay in place for several days generally however if loose, wet or soiled, change to dry gauze and change as needed. Okay to shower., 07/24/24 9:48:00 EDT The Following Treatments Have Been Ordered for You Discharge Labs No qualifying data available. Discharge Radiology No qualifying data available. Other Therapies Transfer of Care OT - Ordered -- Your therapy ordered is: Eval and Treat, Reason for therapy: ADL's, 07/24/24 9:48:00 EDT Transfer of Care PT - Ordered -- Your therapy ordered is: Eval and Treat, Reason for therapy: Gait Training, Strengthening, 07/24/24 9:48:00 EDT Post Acute Orders Transfer of Care Admission Level of Care - Ordered -- Level of Care SNF, 07/24/24 9:49:10 EDT Transfer of Care Code Status - Ordered -- Full Code, Confirmed with: Patient, Constant Order Transfer of Care Communication Order - Ordered -- Expect less than 30 day stay., 07/24/24 9:49:10 EDT Transfer of Care Orders Electronically Signed By - Ordered -- 07/24/24 9:48:00 EDT, BRAYDEN ECHEVARRIA MD Transfer of Care Prognosis - Ordered -- Good, Patient Aware: Yes Transfer of Care Rehab Potential - Ordered -- Rehab potential good, 07/24/24 9:49:10 EDT Someone Will Contact You Regarding These Home Health Referrals No home referrals have been ordered for you. No one will call you. Allergies cephalosporins(Severe) Hives Bactrim Vomiting, Nausea Decongestant Nausea, Hyperactive Macrobid Nausea codeine Nausea erythromycin Diarrhea, Vomiting, Nausea nitrofurantoin Vomiting sulfamethoxazole Nausea trimethoprim Nausea Medications Please ask your primary doctor or pharmacist before taking any other medication not listed, including over the counter drugs, herbal medications, vitamins and or supplements as they may interact withyour home medications. What How Much When Instructions Last Dose New Al hydroxide/ Mg hydroxide/ simethicone (Maalox) by mouth Every 2 hours as needed for Indigestion New docusate (Colace 100 mg oral capsule) 1 cap by mouth Two (2) times a day New docusate-senna (Senokot S) 1 tab(s) by mouth Once a day as needed for Constipation New HYDROmorphone (Dilaudid 2 mg oral tablet) 1 tab(s) by mouth Every 6 hours as needed for as needed for pain New magnesium hydroxide (Milk of Magnesia) 30 Milliliter by mouth Daily at bedtime as needed for Constipation New polyethylene glycol 3350 (MiraLax oral powder for reconstitution) by mouth Once a day Unchanged acetaminophen (Tylenol Extra Strength 500 mg oral tablet) 2 tab(s) by mouth Every 6 hours as needed for as needed for pain Unchanged albuterol (Albuterol (Eqv-ProAir HFA) 90 mcg/ inh inhalation aerosol) 2 puff(s) by inhalation Every 4 hours as needed for as needed for wheezing Unchanged escitalopram (escitalopram 10 mg oral tablet) 1 tab(s) by mouth Once a day (in the morning) Unchanged fluticasone nasal (fluticasone proprionate NASAL 50 mcg/ spray) 1 spray(s) each nostril Every day as needed for as needed for allergy symptoms Unchanged ipratropium nasal (ipratropium 21 mcg/ inh (0.03%) nasal spray) 2 spray(s) each nostril Once a day Unchanged loratadine (loratadine 10 mg oral tablet) 1 tab(s) by mouth Every day as needed for as needed for allergy symptoms Please take this list to your next doctor s visit. Bring all medications you take, including over the counter medications, herbals and other supplements with you to your doctor s visit. Patients and families are reminded to discard old lists and to update any records with all medication providers or retail pharmacies. Additional Information VACCINATE! IT SAVES LIVES! Members of the community who have not yet received the COVID-19 vaccine and would like to receive it can visit one of [facility] vaccine clinics. There are many vaccine clinic locations within the [facility]. For locations and available times, please visit [email or web address] It is important to note that some COVID mobile vaccine clinics are held outdoors and may be canceled in rainy or stormy conditions. To learn more about pediatric vaccinations (ages 5-11), we invite you to visit the [facility] webpage. [email or web address]/[email or web address]-[email or web address] stions.htmlTo learn more about the COVID-19 vaccine, we invite you to visit the CDC website for a list of frequently asked questions.https://www.cdc.gov/coronavirus/2019-ncov/vaccines/faq.html [facility] Patient Portal Access Instructions: Stay connected with your healthcare team and access your personal medical information anytime with the [facility] Patient Portal. Please follow the directions below to create your [facility] account: 1.Access the email account you provided upon registration to the hospital/physician office.2.Look for an invitation email from [facility].3.Open the email and access the invitation link: AcceptInvitation to [facility].4.Fill in the required beck to create your account. To access your account, visit [email or web address]. Click the blue button labeled Access Patient Portal and then log in with the username and password that you created in the steps above. You will be able to view your test results, lab results, a summary of your visits, upcoming appointments and more. There is also a convenient messaging option where you can send secure messages to your p rovider. In addition, you will have the ability to download any documents or summaries to your computer and/or send the information securely to a physician. Remember that your healthcare information is confidential, so carefully consider who you will allowto register on the [facility] Patient Portal for access to your information. You can also access the [facility] on the [facility] aura. Simply click on Patient Portal and then log into your account. If you would like to receive a full copy of your medical records, please contact the [facility] Medical Records Department by calling [phone], Saturday through Saturday between 8 a.m. and 4:30 p.m. HOW TO SAFELY DISPOSE OF PRESCRIPTION MEDICATIONS Please use one of the following methods to safely dispose of your unused medications. 1.Use a drug disposal kit: the drug disposal pouch allows you to safely discard your old and unuseddrugs. Ask your nurse to give you one when you are discharged.2.Visit a local take-back location: Many local pharmacies and police departments have programs that collect old and unwanted prescriptiondrugs. Call your local pharmacy or go to http://[employer]/1K0Ka1d to find one close to you.3.Make use of household items: Use cat litter or old coffee grounds to dispose medications if other options arenot available. Mix your drugs with these household products, seal them in an airtight container andthrow it into the garbage. Call [facility]: [phone] to be sure your drugs can be disposed of in this way. Some medicines may require a different approach.4.Never flush your medications down the toilet. IF YOU HAVE BEEN PRESCRIBED AN OPIOID FOR PAIN If you have been prescribed an opioid (such as hydrocodone, oxycodone or morphine), it is critical to understand the possible side effects and risks of opioid pain medications. Even when taken as directed, opioids can have several side effects including: Tolerance, meaning you might need to take more of a medication for the same pain relief. Nausea, vomiting and/or constipation. Sleepiness, dizziness, dry mouth, confusion, depression or itching. Physical dependence, meaning you have withdrawal symptoms when a medication is stopped, can develop within a few days. KNOW YOUR RESPONSIBILITIES It is important to know exactly how much and how often to take the opioid pain medications you are prescribed. Never take opioids in higher amounts or more often than prescribed. Do not combine opioids with alcohol or other drugs that cause drowsiness, such as benzodiazepines, also known as benzos, including diazepam and alprazolam, muscle relaxants or sleep aids. Never sell or share prescription opioids. This is illegal. Store opioids in a secure place and out of reach of others (including children, family, friends and visitors). The last page of this document has been signed and retained as a CHART COPY. Signatures Patient Education Materials Medication Leaflets My discharge plan and instructions have been reviewed and explained to me and I,JACQUELINE OLIVEIRA understand my current condition and have read and understand these discharge instructions. I have received a written copy of the plan/instructions. If I have questions, I am aware that I should contact my doctor. Patient/Process Tech Signature: Date/Time: Relationship to Patient: Witness Name/Signature: Date/Time: [id number] Note Discharge Instructions Thank you for allowing [facility] to assist you with your healthcare needs. The following is importantdischarge information regarding your hospital visit. Your Care Team CALLI CIFUENTES MD Your Diagnosis Acute postoperative anemia due to expected blood loss Lumbar stenosis with neurogenic claudication What to do next Follow Up Appointments Follow Up with [facility], Additional Information: skilled Follow Up with CALLI CIFUENTES When:Within 1-2 days Where:[facility] [address] [place] [address]- Business (1) Follow Up with BRAYDEN ECHEVARRIA MD, [facility]/Spine, Orthopedic When:08/05/2024 09:30 AM EST Where:[address] [facility], [place] [address]- [phone] The Following Activity and Diet Have Been Ordered for You Transfer of Care Activity - Ordered -- May Shower Lifting Restricted less than 10 pounds No bending, twisting, crawling or squatt As instructed by therapy, Lumbar precautions: Limit bending, stooping or twisting motions. No lifting greater than 10 pounds. Okay to shower, 07/24/24 9... Transfer of Care Diet - Ordered -- Type of Diet: Regular Diet, 07/24/24 9:48:00 EDT The Following Equipment Has Been Ordered for You Discharge Home Equipment Transfer of Care Wound Care - Ordered -- Dressing Type: Alginate drsg, Back, lower, Back dressing can stay in place for several days generally however if loose, wet or soiled, change to dry gauze and change as needed. Okay to shower., 07/24/24 9:48:00 EDT The Following Treatments Have Been Ordered for You Discharge Labs No qualifying data available. Discharge Radiology No qualifying data available. Other Therapies Transfer of Care OT - Ordered -- Your therapy ordered is: Eval and Treat, Reason for therapy: ADL's, 07/24/24 9:48:00 EDT Transfer of Care PT - Ordered -- Your therapy ordered is: Eval and Treat, Reason for therapy: Gait Training, Strengthening, 07/24/24 9:48:00 EDT Post Acute Orders Transfer of Care Admission Level of Care - Ordered -- Level of Care SNF, 07/24/24 9:49:10 EDT Transfer of Care Code Status - Ordered -- Full Code, Confirmed with: Patient, Constant Order Transfer of Care Communication Order - Ordered -- Expect less than 30 day stay., 07/24/24 9:49:10 EDT Transfer of Care Orders Electronically Signed By - Ordered -- 07/24/24 9:48:00 EDT, BRAYDEN ECHEVARRIA MD Transfer of Care Prognosis - Ordered -- Good, Patient Aware: Yes Transfer of Care Rehab Potential - Ordered -- Rehab potential good, 07/24/24 9:49:10 EDT Someone Will Contact You Regarding These Home Health Referrals No home referrals have been ordered for you. No one will call you. Allergies cephalosporins(Severe) Hives Bactrim Vomiting, Nausea Decongestant Nausea, Hyperactive Macrobid Nausea codeine Nausea erythromycin Diarrhea, Vomiting, Nausea nitrofurantoin Vomiting sulfamethoxazole Nausea trimethoprim Nausea Medications Please ask your primary doctor or pharmacist before taking any other medication not listed, including over the counter drugs, herbal medications, vitamins and or supplements as they may interact withyour home medications. What How Much When Instructions Last Dose New Al hydroxide/ Mg hydroxide/ simethicone (Maalox) by mouth Every 2 hours as needed for Indigestion New docusate (Colace 100 mg oral capsule) 1 cap by mouth Two (2) times a day New docusate-senna (Senokot S) 1 tab(s) by mouth Once a day as needed for Constipation New HYDROmorphone (Dilaudid 2 mg oral tablet) 1 tab(s) by mouth Every 6 hours as needed for as needed for pain New magnesium hydroxide (Milk of Magnesia) 30 Milliliter by mouth Daily at bedtime as needed for Constipation New polyethylene glycol 3350 (MiraLax oral powder for reconstitution) by mouth Once a day Unchanged acetaminophen (Tylenol Extra Strength 500 mg oral tablet) 2 tab(s) by mouth Every 6 hours as needed for as needed for pain Unchanged albuterol (Albuterol (Eqv-ProAir HFA) 90 mcg/ inh inhalation aerosol) 2 puff(s) by inhalation Every 4 hours as needed for as needed for wheezing Unchanged escitalopram (escitalopram 10 mg oral tablet) 1 tab(s) by mouth Once a day (in the morning) Unchanged fluticasone nasal (fluticasone proprionate NASAL 50 mcg/ spray) 1 spray(s) each nostril Every day as needed for as needed for allergy symptoms Unchanged ipratropium nasal (ipratropium 21 mcg/ inh (0.03%) nasal spray) 2 spray(s) each nostril Once a day Unchanged loratadine (loratadine 10 mg oral tablet) 1 tab(s) by mouth Every day as needed for as needed for allergy symptoms Please take this list to your next doctor s visit. Bring all medications you take, including over the counter medications, herbals and other supplements with you to your doctor s visit. Patients and families are reminded to discard old lists and to update any records with all medication providers or retail pharmacies. Additional Information VACCINATE! IT SAVES LIVES! Members of the community who have not yet received the COVID-19 vaccine and would like to receive it can visit one of [facility] vaccine clinics. There are many vaccine clinic locations within the [facility]. For locations and available times, please visit [email or web address]/. It is important to note that some COVID mobile vaccine clinics are held outdoors and may be canceled in rainy or stormy conditions. To learn more about pediatric vaccinations (ages 5-11), we invite you to visit the [facility] webpage. https://www.[employer].org/pages/8311-Nqrgy-Wtpnbqhrton-Ebgptvnlvg-Pjjdz-Xrf stions.htmlTo learn more about the COVID-19 vaccine, we invite you to visit the CDC website for a list of frequently asked questions.https://www.cdc.gov/coronavirus/2019-ncov/vaccines/faq.html [facility] Patient Portal Access Instructions: Stay connected with your healthcare team and access your personal medical information anytime with the [facility] Patient Portal. Please follow the directions below to create your [facility] account: 1.Access the email account you provided upon registration to the hospital/physician office.2.Look for an invitation email from [facility].3.Open the email and access the invitation link: AcceptInvitation to [facility].4.Fill in the required beck to create your account. To access your account, visit [email or web address]. Click the blue button labeled Access Patient Portal and then log in with the username and password that you created in the steps above. You will be able to view your test results, lab results, a summary of your visits, upcoming appointments and more. There is also a convenient messaging option where you can send secure messages to your p rovider. In addition, you will have the ability to download any documents or summaries to your computer and/or send the information securely to a physician. Remember that your healthcare information is confidential, so carefully consider who you will allowto register on the [facility] Patient Portal for access to your information. You can also access the [facility] Patient Portal on the [facility] aura. Simply click on Patient Portal and then log into your account. If you would like to receive a full copy of your medical records, please contact the [facility] Medical Records Department by calling [phone], Saturday through Saturday between 8 a.m. and 4:30 p.m. HOW TO SAFELY DISPOSE OF PRESCRIPTION MEDICATIONS Please use one of the following methods to safely dispose of your unused medications. 1.Use a drug disposal kit: the drug disposal pouch allows you to safely discard your old and unuseddrugs. Ask your nurse to give you one when you are discharged.2.Visit a local take-back location: Many local pharmacies and police departments have programs that collect old and unwanted prescriptiondrugs. Call your local pharmacy or go to http://[employer]igos/6U8Ql0q to find one close to you.3.Make use of household items: Use cat litter or old coffee grounds to dispose medications if other options arenot available. Mix your drugs with these household products, seal them in an airtight container andthrow it into the garbage. Call [facility]: [phone] to be sure your drugs can be disposed of in this way. Some medicines may require a different approach.4.Never flush your medications down the toilet. IF YOU HAVE BEEN PRESCRIBED AN OPIOID FOR PAIN If you have been prescribed an opioid (such as hydrocodone, oxycodone or morphine), it is critical to understand the possible side effects and risks of opioid pain medications. Even when taken as directed, opioids can have several side effects including: Tolerance, meaning you might need to take more of a medication for the same pain relief. Nausea, vomiting and/or constipation. Sleepiness, dizziness, dry mouth, confusion, depression or itching. Physical dependence, meaning you have withdrawal symptoms when a medication is stopped, can develop within a few days. KNOW YOUR RESPONSIBILITIES It is important to know exactly how much and how often to take the opioid pain medications you are prescribed. Never take opioids in higher amounts or more often than prescribed. Do not combine opioids with alcohol or other drugs that cause drowsiness, such as benzodiazepines, also known as benzos, including diazepam and alprazolam, muscle relaxants or sleep aids. Never sell or share prescription opioids. This is illegal. Store opioids in a secure place and out of reach of others (including children, family, friends and visitors). The last page of this document has been signed and retained as a CHART COPY. Signatures Patient Education Materials Medication Leaflets My discharge plan and instructions have been reviewed and explained to me and I,JACQUELINE OLIVEIRA understand my current condition and have read and understand these discharge instructions. I have received a written copy of the plan/instructions. If I have questions, I am aware that I should contact my doctor. Patient/Process Tech Signature: Date/Time: Relationship to Patient: Witness Name/Signature: [id number] note Post operative day #2: Patient exhibits no new nor progressive motor or sensory deficits. Patient exhibits no focal motor or sensory deficits. Postoperative incisional pain exists as expected. 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 The patient is agreeable and I have reviewed the discharge plannersnotes. Could proceed with discharge tomorrow 07/24/2024 if bed is available. Digitally Signed by BRAYDEN ECHEVARRIA MD on 07/23/2024 02:58 PM [id number] Note Date of Service 07/22/2024 Chief Complaint Low back pain Subjective Patient is a 63-year-old female with history significant for achondroplasia, acid reflux, anxiety, depression, arthritis, claustrophobia, cervical spondylosis, DVT, emphysema, sleep apnea, tobacco use and spinal stenosis. She presented to [facility] on 07/21/[facility] for a scheduled lumbar laminectomy and fusion with Dr. Echevarria. Hospitalist consulted for medical management. On exam today, patient is resting comfortably in the bed. She states that her pain is still slightly out of control. Denies nausea, vomiting, chest pain, shortness of breath. Objective Vitals and Measurements T: 36.9 C (Oral) TMIN: 36.3 C (Temporal Artery) TMAX: 37.43 C HR: 75 (Apical) RR: 18 BP: 120/74 SpO2: 95% HT: 121.9 cm WT: 51.6 kg BMI: 34.73 Intake and Output 7AM Yesterday to 7AM Today Intake and Output (Last 24 hours) Intake Administration Information 3281.41 Oral Intake 360.00 Output Surgical Drain, Tube Output: 188.00 Urinary Catheter Output: 895.00 Intra-Op EBL 80.00 Intra-Op Urine Catheter 25.00 Stool Count 0.00 Total Summary Total Intake 3641.41 Total Output 1188.00 Fluid Balance 2453.41 Physical Exam General: No acute distress. Alert and Appropriate Skin: No rash. Warm, Dry, Intact. Alginate dressing to posterior back clean, dry and intact. Slight serosanguineous drainage. Lungs: Bilaterally diminished breath sounds with no crepitation or wheeze. Unlabored Cardiovascular: Heart is regular rhythm, S1S2, No extra-audible heart tones Abdomen: Abdomen is soft, nontender. Bowel sounds positive all four quadrants. Extremities: No clubbing, cyanosis or edema. Peripheral pulses palpable. No calf tenderness. Adequate peripheral circulation. Neurological: The patient is awake, oriented to self, time, place and situation. Following simple commands, moving all extremities. Weight Dosing Weight: 51.6 kg (07/21/24) Dosing Weight: 51.6 kg (07/21/24) Medications Medications (16) Active Scheduled: (6) escitalopram 10 mg tablet 10 mg 1 tab(s), Oral, qAM ipratropium 21 mcg/inh nasal spray (0.03%) 30 mL bottle 42 mcg 2 spray(s), Nostril, each, qDay pantoprazole 40 mg VIAL 40 mg, IV Push, qDayAC scopolamine (Transderm-Scop Patch REMOVAL) 1 EA, Miscellaneous, q72h scopolamine 1.5 mg (1 mg / 72 hours patch) 1 patch(es), Transdermal, q72h vancomycin PMX 1,000 mg 200 mL, IV Piggyback, q12hr Continuous: (1) NS (0.9% nacl) 1,000 mL 1,000 mL, Intravenous, 50 mL/hr PRN: (9) Al hydrox/Mg hydrox/simethicone 200-200-20 mg/5 mL Susp UD 30 mL, Oral, q2h albuterol 0.083% Soln UD (2.5mg/3 mL) 2.5 mg 3 mL, Inhalation, q4hRT dextrose 50% Solution Disp syringe 50 mL 12.5 gram(s) 25 mL, IV Push, AsDirected hydromorphone 1 mg/mL (1mL) INJ 1 mg 1 mL, IV Push, q4h hydromorphone 2 mg tablet 2 mg 1 tab(s), Oral, q4h magnesium hydroxide 8% Suspension 30 mL UD 30 mL, Oral, qHS ondansetron 2 mg/ 1 mL 2 mL INJ 4 mg 2 mL, IV Push, q4h ondansetron 4 mg DIS tablet 4 mg 1 tab(s), Oral, q6h tramadol 50 mg Tablet 50 mg 1 tab(s), Oral, q6h Lab Results 07/22 04:40 WBC: 7.9 Hgb: 10.3 L Hct: 30.7 L Platelet: 175 Neutrophil %: 71.5 Glucose Level: 107 Sodium Level: 138 Potassium Level: 4.1 BUN: 12.0 Creatinine Lvl (s): 0.52 Imaging Results and Diagnostics XR Fluoro 2 Hrs Tech Time Result Date: July 21, 2024 Verified By: NUNO BAEZ MD CLINICAL STATEMENT: IMPRESSION: Intraprocedural fluoroscopic spot images as above. See separate procedurereport for more information. I have personally reviewed the images of this examination and agree with theresident's findings and interpretation. EKG No qualifying data available. Assessment/Plan Status post laminectomy on 07/21/[address] Echevarria Acute blood loss anemia Postoperative nausea and vomiting Hypertension Achondroplasia Anxiety/depression GERD History of emphysema CONRADO noncompliant with CPAP -Our hospitalist team consulted for medical management -Patient noted to be hypotensive overnight therefore normal saline bolus was ordered. - Blood pressure stable today 109/57. Most likely related to acute blood loss. Continue normal saline at 50. No complaints of lightheadedness, dizziness -Hemoglobin stable at 10.3. Recheck labs in the morning -PT and OT are recommending skilled -Agreed to discharge Mtz when deemed appropriate -Continue home medications for anxiety and depression -Patient has been weaned off of oxygen. She is noncompliant with CPAP at home. No current complaints of nausea or vomiting. Scopolamine patch ordered Our team will sign off. Please reach out with any questions or concerns. Plan of care discussed with patient. All questions answered. Patient verbalized understanding is agreeable to plan of care. Discussed with my collaborating physician Dr. Thomas. This dictation was performed using voice recognition software and may include grammatical and/or spelling errors. Time Spent I have spent a total of 21 minutes reviewing the patient's diagnostic labs and testing, seeing and examining the patient, and documenting in the medical record. Please see assessment for further detail. Digitally Signed by CALVIN THAO on 07/22/2024 12:41 PM Digitally Signed by CALVIN THAO on 07/22/2024 12:51 PM [id number] Orthopaedic surgery Progress note Date of Service 07/22/2024 Chief Complaint Back pain, status post back surgery Subjective Resp: Denies any shortness of breath or cough. Heart: Denies chest pain or palpitations. Musc: The pain is fairly well controlled to the back at surgical site, does have pain with movement, stiffness. Complains of left leg pain. Similar to preop. No new symptoms today. Objective Vitals and Measurements T: 36.9 C (Oral) TMIN: 36.3 C (Temporal Artery) TMAX: 37.43 C HR: 75 (Apical) RR: 18 BP: 120/74 SpO2: 95% HT: 121.9 cm WT: 51.6 kg BMI: 34.73 Intake and Output 7AM Yesterday to 7AM Today Intake and Output (Last 24 hours) Intake Administration Information 5871.41 Oral Intake 360.00 Output Surgical Drain, Tube Output: 188.00 Urinary Catheter Output: 895.00 Intra-Op EBL 80.00 Intra-Op Urine Catheter 25.00 Stool Count 0.00 Total Summary Total Intake 3641.41 Total Output 1188.00 Fluid Balance 2453.41 Physical Exam Neuro: Alert, Appropriate Resp: Regular, Non-labored Heart: Pulses easily palpable, Heart in regular rate by radial pulse Musculoskeletal: Dressing is dry and intact to the midline low back, ETHAN in place with bloody drainage, to self suction. No new or progressive motor or sensory deficits. Weight Dosing Weight: 51.6 kg (07/21/24) Dosing Weight: 51.6 kg (07/21/24) Medications Medications (16) Active Scheduled: (6) escitalopram 10 mg tablet 10 mg 1 tab(s), Oral, qAM ipratropium 21 mcg/inh nasal spray (0.03%) 30 mL bottle 42 mcg 2 spray(s), Nostril, each, qDay pantoprazole 40 mg VIAL 40 mg, IV Push, qDayAC scopolamine (Transderm-Scop Patch REMOVAL) 1 EA, Miscellaneous, q72h scopolamine 1.5 mg (1 mg / 72 hours patch) 1 patch(es), Transdermal, q72h vancomycin PMX 1,000 mg 200 mL, IV Piggyback, q12hr Continuous: (1) NS (0.9% nacl) 1000 mL 1,000 mL, Intravenous, 50 mL/hr PRN: (9) Al hydrox/Mg hydrox/simethicone 200-200-20 mg/5 mL Susp UD 30 mL, Oral, q2h albuterol 0.083% Soln UD (2.5mg/3 mL) 2.5 mg 3 mL, Inhalation, q4hRT dextrose 50% Solution Disp syringe 50 mL 12.5 gram(s) 25 mL, IV Push, AsDirected hydromorphone 1 mg/mL (1mL) INJ 1 mg 1 mL, IV Push, q4h hydromorphone 2 mg tablet 2 mg 1 tab(s), Oral, q4h magnesium hydroxide 8% Suspension 30 mL UD 30 mL, Oral, qHS ondansetron 2 mg/ 1 mL 2 mL INJ 4 mg 2 mL, IV Push, q4h ondansetron 4 mg DIS tablet 4 mg 1 tab(s), Oral, q6h tramadol 50 mg Tablet 50 mg 1 tab(s), Oral, q6h Lab Results 07/22 04:40 WBC: 7.9 Hgb: 10.3 L Hct: 30.7 L Platelet: 175 Neutrophil %: 71.5 Glucose Level: 107 Sodium Level: 138 Potassium Level: 4.1 BUN: 12.0 Creatinine Lvl (s): 0.52 EKG No qualifying data available. Assessment/Plan 1. Lumbar stenosis with neurogenic claudication Lumbar spinal stenosis with neurogenic claudication Status post inferior hemilaminectomy L1, laminectomy L2, L3, 4, bilateral partial medial facetectomies L1-L2, L2-L3, L3-4, L4-L5 on 07/21/2024. Postop day #1: Vital signs stable, afebrile. H&H today 10./30.7, acute blood loss anemia, fairly expected, tolerating well. Repeat labs in morning. Mobilize today, lumbar precautions. PT/OT. DC Mtz per nurse driven protocol, possibly later today. Patient does have difficulty getting in and out of bed, difficulty getting up onto the toilet due to her short stature. Discussed with patient, plan to get Mtz out sooner than later as much as possible. Continue to monitor ETHAN output every shift. Monitor bowel function. Encourage incentive spirometer. Knee-high SCDs. Discussed with Dr. Echevarria and updated him this morning. Likely discharge to rehab/SNF, possibly on Saturday as long as she continues to remain stable and progresses with her mobility. Follow-up as scheduled with Dr. Echevarria 08/05/2024 at 9:30 AM. Prescription on chart from Dr. Echevarria for Dilaudid 2 mg p.o. every 6 hours as needed pain that should be sent with patient at the time of discharge. 2. Acute postoperative anemia due to expected blood loss Orders: Sodium Chloride 0.9% intravenous solution 1000 mL(NS 1000 mL), 1000 mL, Intravenous Code Status, 07/21/24 19:38:00 EDT, Full Code, Constant Order Digitally Signed by MARLENA NGUYỄN on 07/22/2024 12:32 PM [id number] Nurse Progress note I have reviewed the student's documentation. Digitally Signed by Sierra Corona Land Title Examiner on 07/22/2024 12:28 PM [facility] [id number] Note Date of Service 07/21/[id number] female with history significant for achondroplasia, Reason for Consultation medical management Referring Physician Dr. Echevarria History of Present Illness Patient is a 63-year-old female with history significant for achondroplasia, acid reflux, anxiety, depression, arthritis, claustrophobia, cervical spondylosis, DVT, emphysema, sleep apnea, tobacco use and spinal stenosis who presented for lumbar laminectomy with fusion. Patient is postop day 0. Hosp italist have been consulted for medical management. Patient currently comfortably in bed. States pain is well-controlled at a 3. Denies any nausea or vomiting. Denies any chest pain, chest tightness or shortness of breath. Tolerating fluids well. Denies any current complaints. Information obtained from patient and chart review. Review of Systems All pertinent positives and negatives present in HPI. All other systems are reviewed as negative unless otherwise previously mentioned. Physical Exam Vitals and Measurements T: 36.4 C (Oral) TMIN: 36.08 C TMAX: 37.43 C HR: 82 (Monitored) RR: 17 BP: 96/66 SpO2: 97% HT: 121.9 cm WT: 51.6 kg BMI: 34.73 Weight Dosing Weight: 51.6 kg (07/21/24) Dosing Weight: 51.6 kg (07/21/24) General: Alert and oriented x 3, NAD Skin: warm, dry Head: Normocephalic, mmm, sclera nonicteric Cardiovascular: Normal rate and rhythm, no murmur, - edema Respiratory: Lungs clear to auscultation bilaterally, easy Abdomen: soft and non-distended, bowel sounds active all 4 quadrants Neurological: Moving all 4 extremities, speech clear Psychological: normal affect, cooperative, good eye contact Lab Results No 36 Hour Lab Data Assessment/Plan 1. Hypotension 2.Achondroplasia 3. Anxiety/depression 4. GERD 5.Hx of emphysema 6. CONRADO noncompliant with CPAP 7. Hx of postoperative N/V 8. Lumbar spondylosis s/p laminectomies with fusion POD#0 Pt noted to have mild hypotension postoperatively, denies being symptomatic. Most likely secondary to pain medication and some volume loss. Will given 1L fluid and continue to monitor. CBC in the morning to assess for blood loss Anxiety/depression-stable continue home psych medications GERD-stable, continue PPI Hx of emphysema and CONRADO. Non compliant with CPAP. Continue breathing treatments as needed. Currently ETCO2 being monitored on 1.5L oxygen, wean as tolerated. Pt denies any current N/V and states current antiemetics are working, continue to monitor All other management per primary Thank you for the consultation we will continue to follow while patient is admitted, CBC and BMP osmel. Problem List/Past Medical History Ongoing Anxiety Arthritis Back pain Depression Historical DVT - Deep vein thrombosis Hydronephrosis Kidney stone Procedure/Surgical History Cervical discectomy: 09/2023 Tonsillectomy: 1990 Cholecystectomy: 1989 Adenoidectomy section Nasal septoplasty Myringotomy Colonoscopy Lithotripsy Medications Inpatient albuterol aerosol soln Therapeutic Interchange for Ventolin MDI, 2.5 mg= 3 mL, Inhalation, q4hRT, PRN Dextrose 50% IV Push, 12.5 gram(s)= 25 mL, IV Push, AsDirected, PRN Dilaudid, 1 mg= 1 mL, IV Push, q4h, PRN Dilaudid, 2 mg= 1 tab(s), Oral, q4h, PRN escitalopram, 10 mg= 1 tab(s), Oral, qAM ipratropium 21 mcg/inh (0.03%) nasal spray, 42 mcg= 2 spray(s), Nostril, each, qDay Maalox, 30 mL, Oral, q2h, PRN Milk of Magnesia, 30 mL, Oral, qHS, PRN NS 1,000 mL, 1000 mL, Intravenous Ofirmev IVPB, 1000 mg= 100 mL, IV Piggyback, q6hr Protonix, 40 mg, IV Push, qDayAC scopolamine (Transderm-Scop Patch REMOVAL), 1 EA, Miscellaneous, q72h Transderm-Scop 1 mg/72 hr transdermal film, extended release, 1 patch(es), Transdermal, q72h Ultram, 50 mg= 1 tab(s), Oral, q6h, PRN vancomycin IVPB, 1000 mg= 200 mL, 15 mg/kg, IV Piggyback, q12hr Zofran, 4 mg= 2 mL, IV Push, q4h, PRN Zofran ODT, 4 mg= 1 tab(s), Oral, q6h, PRN Home Albuterol (Eqv-ProAir HFA) 90 mcg/inh inhalation aerosol, 2 puff(s), Inhalation, q4h, PRN escitalopram 10 mg oral tablet, 10 mg= 1 tab(s), Oral, qAM fluticasone proprionate NASAL 50 mcg/ spray, 50 mcg= 1 spray(s), Nostril, each, Daily, PRN ipratropium 21 mcg/inh (0.03%) nasal spray, 42 mcg= 2 spray(s), Nostril, each, qDay loratadine 10 mg oral tablet, 10 mg= 1 tab(s), Oral, Daily, PRN, Not taking Tylenol Extra Strength 500 mg oral tablet, 1000 mg= 2 tab(s), Oral, q6hr, PRN Allergies cephalosporins(Severe) Hives Bactrim Vomiting, Nausea Decongestant Nausea, Hyperactive Macrobid Nausea codeine Nausea erythromycin Diarrhea, Vomiting, Nausea nitrofurantoin Vomiting sulfamethoxazole Nausea trimethoprim Nausea Social History Alcohol Use: Never., 09/12/2023 Home/Environment Living situation: Home/Independent. Safe place to go: Yes. Domestic Concerns: None, Denies. Lives In: Mobile home. Current Home Treatments None. Professional Skilled Services or Special Community Resources None. Marital Status: Unmarried., 06/30/2024 Nutrition/Health Type of diet: Regular. Caffeine intake amount: COFFEE 2 CUPS PER DAY. Appetite Good. Eating Difficulties None., 06/30/2024 Substance Abuse Use: Never., 09/12/2023 Tobacco Nicotine Use: 4 or less cigarettes(less than 1/4 pack)/day in last 30 days. Type: Cigarettes. Tobacco use per day: 3. Started at age: 22 Years. Ready to change: No. Smoking Cessation Information Instructed to not smoke day of surgery., 06/30/2024 Family History Cancer: Mother. HTN - Hypertension: Mother. Parkinsons disease: Mother. Prostate cancer 28-Mar-2016 02:35:22<$>: Father. Health Status Family Member(s) Sister: History is negative Daughter: History is negative Sister: History is negative Family Member(s) Relationship: Mother, Age: Unknown Relationship: Father, Age: Unknown Immunizations pneumococcal 23-valent vaccine(Pneumovax: 0.5 unknown unit (11/27/19) pneumococcal 23-valent vaccine(Pneumovax: 0 unknown unit (03/19/14) SARS-CoV-2 (COVID-19) mRNA-1273 vaccine: 0.5 unknown unit (01/20/21) SARS-CoV-2 (COVID-19) mRNA-1273 vaccine: 0.5 unknown unit (12/23/20) SARS-CoV-2 mRNA (tozinameran) vaccine: 0.3 unknown unit (09/21/21) SARS-CoV-2 mRNA (tozinameran) vaccine: 0 unknown unit (08/30/21) tetanus/diphth/pertuss (Tdap) adult/adol: 0.5 unknown unit (04/12/17) zoster vaccine, inactivated: 0.5 unknown unit (05/30/23) Digitally Signed by MERCED MATAMOROS on 07/21/2024 10:01 PM [id number] Anesthesiology Consult note Patient: JACQUELINE OLIVEIRA Age: 63 years Sex: Female : 1960 Associated Diagnoses: None Author: MARTINEZ JENKINS MD Postoperative Information Post Operative Info: Post op day: POD0. Patient location: PACU. Assessment Postanesthesia assessment Vitals: Vital signs from flowsheet : Vital Signs 07/21/2024 14:45 EDT Heart Rate Monitored 83 bpm Respiratory Rate 16 br/min Systolic Blood Pressure Non-Invasive 106 mmHg Diastolic Blood Pressure Non-Invasive 65 mmHg Mean Arterial Pressure (NBP) 79 mmHg 07/21/2024 14:30 EDT Heart Rate Monitored 80 bpm Respiratory Rate 18 br/min Systolic Blood Pressure Non-Invasive 104 mmHg Diastolic Blood Pressure Non-Invasive 71 mmHg Mean Arterial Pressure (NBP) 82 mmHg 07/21/2024 14:15 EDT Heart Rate Monitored 87 bpm Respiratory Rate 16 br/min Systolic Blood Pressure Non-Invasive 107 mmHg Diastolic Blood Pressure Non-Invasive 65 mmHg Mean Arterial Pressure (NBP) 79 mmHg 07/21/2024 14:00 EDT Heart Rate Monitored 78 bpm Respiratory Rate 18 br/min Systolic Blood Pressure Non-Invasive 105 mmHg Diastolic Blood Pressure Non-Invasive 65 mmHg Mean Arterial Pressure (NBP) 78 mmHg 07/21/2024 13:45 EDT Temperature Temporal Artery 36.4 DegC Heart Rate Monitored 93 bpm Respiratory Rate 20 br/min Systolic Blood Pressure Non-Invasive 106 mmHg Diastolic Blood Pressure Non-Invasive 84 mmHg Mean Arterial Pressure (NBP) 92 mmHg 07/21/2024 13:41 EDT Systolic Blood Pressure Non-Invasive 136 mmHg mmHg Diastolic Blood Pressure Non-Invasive 90 mmHg mmHg 07/21/2024 13:40 EDT Heart Rate Monitored 103 bpm bpm Respiratory Rate - Anes 9 br/min br/min 07/21/2024 13:39 EDT Systolic Blood Pressure Non-Invasive 138 mmHg mmHg Diastolic Blood Pressure Non-Invasive 116 mmHg mmHg 07/21/2024 13:36 EDT Systolic Blood Pressure Non-Invasive 144 mmHg mmHg 07/21/2024 13:35 EDT Heart Rate Monitored 110 bpm bpm Respiratory Rate - Anes 16 br/min br/min 07/21/2024 13:31 EDT Systolic Blood Pressure Non-Invasive 111 mmHg mmHg Diastolic Blood Pressure Non-Invasive 86 mmHg mmHg 07/21/2024 13:30 EDT Heart Rate Monitored 83 bpm bpm Respiratory Rate - Anes 12 br/min br/min 07/21/2024 13:26 EDT Systolic Blood Pressure Non-Invasive 106 mmHg mmHg Diastolic Blood Pressure Non-Invasive 76 mmHg mmHg 07/21/2024 13:25 EDT Heart Rate Monitored 82 bpm bpm Respiratory Rate - Anes 14 br/min br/min 07/21/2024 13:21 EDT Systolic Blood Pressure Non-Invasive 97 mmHg mmHg Diastolic Blood Pressure Non-Invasive 68 mmHg mmHg 07/21/2024 13:20 EDT Heart Rate Monitored 79 bpm bpm Respiratory Rate - Anes 14 br/min br/min 07/21/2024 13:16 EDT Systolic Blood Pressure Non-Invasive 93 mmHg mmHg Diastolic Blood Pressure Non-Invasive 68 mmHg mmHg 07/21/2024 13:15 EDT Temperature (Route Not Specified) 37.41 DegC DegC Heart Rate Monitored 76 bpm bpm Respiratory Rate - Anes 14 br/min br/min 07/21/2024 13:11 EDT Systolic Blood Pressure Non-Invasive 97 mmHg mmHg Diastolic Blood Pressure Non-Invasive 64 mmHg mmHg 07/21/2024 13:10 EDT Temperature (Route Not Specified) 37.41 DegC DegC Heart Rate Monitored 68 bpm bpm Respiratory Rate - Anes 14 br/min br/min 07/21/2024 13:09 EDT Systolic Blood Pressure Non-Invasive 108 mmHg mmHg Diastolic Blood Pressure Non-Invasive 69 mmHg mmHg 07/21/2024 13:06 EDT Systolic Blood Pressure Non-Invasive 86 mmHg mmHg Diastolic Blood Pressure Non-Invasive 60 mmHg mmHg 07/21/2024 13:05 EDT Temperature (Route Not Specified) 37.42 DegC DegC Heart Rate Monitored 69 bpm bpm Respiratory Rate - Anes 14 br/min br/min 07/21/2024 13:01 EDT Systolic Blood Pressure Non-Invasive 96 mmHg mmHg Diastolic Blood Pressure Non-Invasive 67 mmHg mmHg 07/21/2024 13:00 EDT Temperature (Route Not Specified) 37.43 DegC DegC Heart Rate Monitored 76 bpm bpm Respiratory Rate - Anes 14 br/min br/min 07/21/2024 12:56 EDT Systolic Blood Pressure Non-Invasive 114 mmHg mmHg Diastolic Blood Pressure Non-Invasive 75 mmHg mmHg 07/21/2024 12:55 EDT Temperature (Route Not Specified) 37.43 DegC DegC Heart Rate Monitored 72 bpm bpm Respiratory Rate - Anes 14 br/min br/min 07/21/2024 12:51 EDT Systolic Blood Pressure Non-Invasive 96 mmHg mmHg Diastolic Blood Pressure Non-Invasive 67 mmHg mmHg 07/21/2024 12:50 EDT Temperature (Route Not Specified) 37.4 DegC DegC Heart Rate Monitored 69 bpm bpm Respiratory Rate - Anes 14 br/min br/min 07/21/2024 12:46 EDT Systolic Blood Pressure Non-Invasive 93 mmHg mmHg Diastolic Blood Pressure Non-Invasive 66 mmHg mmHg 07/21/2024 12:45 EDT Temperature (Route Not Specified) 37.37 DegC DegC Heart Rate Monitored 67 bpm bpm Respiratory Rate - Anes 14 br/min br/min 07/21/2024 12:41 EDT Systolic Blood Pressure Non-Invasive 97 mmHg mmHg Diastolic Blood Pressure Non-Invasive 72 mmHg mmHg 07/21/2024 12:40 EDT Temperature (Route Not Specified) 37.33 DegC DegC Heart Rate Monitored 74 bpm bpm Respiratory Rate - Anes 14 br/min br/min 07/21/2024 12:36 EDT Systolic Blood Pressure Non-Invasive 90 mmHg mmHg Diastolic Blood Pressure Non-Invasive 62 mmHg mmHg 07/21/2024 12:35 EDT Temperature (Route Not Specified) 37.29 DegC DegC Heart Rate Monitored 71 bpm bpm Respiratory Rate - Anes 14 br/min br/min 07/21/2024 12:31 EDT Systolic Blood Pressure Non-Invasive 91 mmHg mmHg Diastolic Blood Pressure Non-Invasive 62 mmHg mmHg 07/21/2024 12:30 EDT Temperature (Route Not Specified) 37.26 DegC DegC Heart Rate Monitored 68 bpm bpm Respiratory Rate - Anes 14 br/min br/min 07/21/2024 12:26 EDT Systolic Blood Pressure Non-Invasive 105 mmHg mmHg Diastolic Blood Pressure Non-Invasive 77 mmHg mmHg 07/21/2024 12:25 EDT Temperature (Route Not Specified) 37.23 DegC DegC Heart Rate Monitored 71 bpm bpm Respiratory Rate - Anes 14 br/min br/min 07/21/2024 12:21 EDT Systolic Blood Pressure Non-Invasive 106 mmHg mmHg Diastolic Blood Pressure Non-Invasive 73 mmHg mmHg 07/21/2024 12:20 EDT Temperature (Route Not Specified) 37.22 DegC DegC Heart Rate Monitored 70 bpm bpm Respiratory Rate - Anes 14 br/min br/min 07/21/2024 12:16 EDT Systolic Blood Pressure Non-Invasive 130 mmHg mmHg Diastolic Blood Pressure Non-Invasive 91 mmHg mmHg 07/21/2024 12:15 EDT Temperature (Route Not Specified) 37.22 DegC DegC Heart Rate Monitored 74 bpm bpm Respiratory Rate - Anes 14 br/min br/min 07/21/2024 12:11 EDT Systolic Blood Pressure Non-Invasive 121 mmHg mmHg Diastolic Blood Pressure Non-Invasive 80 mmHg mmHg 07/21/2024 12:10 EDT Temperature (Route Not Specified) 37.22 DegC DegC Heart Rate Monitored 73 bpm bpm Respiratory Rate - Anes 14 br/min br/min 07/21/2024 12:06 EDT Systolic Blood Pressure Non-Invasive 126 mmHg mmHg Diastolic Blood Pressure Non-Invasive 83 mmHg mmHg 07/21/2024 12:05 EDT Temperature (Route Not Specified) 37.18 DegC DegC Heart Rate Monitored 60 bpm bpm Respiratory Rate - Anes 14 br/min br/min 07/21/2024 12:03 EDT Systolic Blood Pressure Non-Invasive 88 mmHg mmHg Diastolic Blood Pressure Non-Invasive 57 mmHg mmHg 07/21/2024 12:01 EDT Systolic Blood Pressure Non-Invasive 76 mmHg mmHg Diastolic Blood Pressure Non-Invasive 57 mmHg mmHg 07/21/2024 12:00 EDT Temperature (Route Not Specified) 37.12 DegC DegC Heart Rate Monitored 62 bpm bpm Respiratory Rate - Anes 11 br/min br/min 07/21/2024 11:56 EDT Systolic Blood Pressure Non-Invasive 89 mmHg mmHg Diastolic Blood Pressure Non-Invasive 61 mmHg mmHg 07/21/2024 11:55 EDT Temperature (Route Not Specified) 37.07 DegC DegC Heart Rate Monitored 70 bpm bpm Respiratory Rate - Anes 14 br/min br/min 07/21/2024 11:51 EDT Systolic Blood Pressure Non-Invasive 93 mmHg mmHg Diastolic Blood Pressure Non-Invasive 62 mmHg mmHg 07/21/2024 11:50 EDT Temperature (Route Not Specified) 37.02 DegC DegC Heart Rate Monitored 72 bpm bpm Respiratory Rate - Anes 14 br/min br/min 07/21/2024 11:46 EDT Systolic Blood Pressure Non-Invasive 92 mmHg mmHg Diastolic Blood Pressure Non-Invasive 60 mmHg mmHg 07/21/2024 11:45 EDT Temperature (Route Not Specified) 36.96 DegC DegC Heart Rate Monitored 70 bpm bpm Respiratory Rate - Anes 14 br/min br/min 07/21/2024 11:41 EDT Systolic Blood Pressure Non-Invasive 94 mmHg mmHg Diastolic Blood Pressure Non-Invasive 60 mmHg mmHg 07/21/2024 11:40 EDT Temperature (Route Not Specified) 36.92 DegC DegC Heart Rate Monitored 74 bpm bpm Respiratory Rate - Anes 14 br/min br/min 07/21/2024 11:36 EDT Systolic Blood Pressure Non-Invasive 105 mmHg mmHg Diastolic Blood Pressure Non-Invasive 72 mmHg mmHg 07/21/2024 11:35 EDT Temperature (Route Not Specified) 36.9 DegC DegC Heart Rate Monitored 75 bpm bpm Respiratory Rate - Anes 14 br/min br/min 07/21/2024 11:30 EDT Temperature (Route Not Specified) 36.91 DegC DegC Heart Rate Monitored 97 bpm bpm Respiratory Rate - Anes 14 br/min br/min Systolic Blood Pressure Non-Invasive 146 mmHg mmHg Diastolic Blood Pressure Non-Invasive 110 mmHg mmHg 07/21/2024 11:26 EDT Systolic Blood Pressure Non-Invasive 150 mmHg mmHg Diastolic Blood Pressure Non-Invasive 104 mmHg mmHg 07/21/2024 11:25 EDT Temperature (Route Not Specified) 36.93 DegC DegC Heart Rate Monitored 97 bpm bpm Respiratory Rate - Anes 14 br/min br/min 07/21/2024 11:21 EDT Systolic Blood Pressure Non-Invasive 128 mmHg mmHg Diastolic Blood Pressure Non-Invasive 97 mmHg mmHg 07/21/2024 11:20 EDT Temperature (Route Not Specified) 36.93 DegC DegC Heart Rate Monitored 82 bpm bpm Respiratory Rate - Anes 14 br/min br/min 07/21/2024 11:16 EDT Systolic Blood Pressure Non-Invasive 114 mmHg mmHg Diastolic Blood Pressure Non-Invasive 76 mmHg mmHg 07/21/2024 11:15 EDT Temperature (Route Not Specified) 36.92 DegC DegC Heart Rate Monitored 74 bpm bpm Respiratory Rate - Anes 14 br/min br/min 07/21/2024 11:11 EDT Systolic Blood Pressure Non-Invasive 118 mmHg mmHg Diastolic Blood Pressure Non-Invasive 78 mmHg mmHg 07/21/2024 11:10 EDT Temperature (Route Not Specified) 36.88 DegC DegC Heart Rate Monitored 66 bpm bpm Respiratory Rate - Anes 12 br/min br/min 07/21/2024 11:08 EDT Systolic Blood Pressure Non-Invasive 112 mmHg mmHg Diastolic Blood Pressure Non-Invasive 78 mmHg mmHg 07/21/2024 11:06 EDT Systolic Blood Pressure Non-Invasive 83 mmHg mmHg Diastolic Blood Pressure Non-Invasive 56 mmHg mmHg 07/21/2024 11:05 EDT Temperature (Route Not Specified) 36.83 DegC DegC Heart Rate Monitored 65 bpm bpm Respiratory Rate - Anes 12 br/min br/min 07/21/2024 11:01 EDT Systolic Blood Pressure Non-Invasive 91 mmHg mmHg Diastolic Blood Pressure Non-Invasive 59 mmHg mmHg 07/21/2024 11:00 EDT Temperature (Route Not Specified) 36.79 DegC DegC Heart Rate Monitored 66 bpm bpm Respiratory Rate - Anes 12 br/min br/min 07/21/2024 10:56 EDT Systolic Blood Pressure Non-Invasive 95 mmHg mmHg Diastolic Blood Pressure Non-Invasive 64 mmHg mmHg 07/21/2024 10:55 EDT Temperature (Route Not Specified) 36.75 DegC DegC Heart Rate Monitored 69 bpm bpm Respiratory Rate - Anes 12 br/min br/min 07/21/2024 10:51 EDT Systolic Blood Pressure Non-Invasive 91 mmHg mmHg Diastolic Blood Pressure Non-Invasive 60 mmHg mmHg 07/21/2024 10:50 EDT Temperature (Route Not Specified) 36.7 DegC DegC Heart Rate Monitored 68 bpm bpm Respiratory Rate - Anes 12 br/min br/min 07/21/2024 10:45 EDT Temperature (Route Not Specified) 36.66 DegC DegC Heart Rate Monitored 67 bpm bpm Respiratory Rate - Anes 12 br/min br/min Systolic Blood Pressure Non-Invasive 95 mmHg mmHg Diastolic Blood Pressure Non-Invasive 61 mmHg mmHg 07/21/2024 10:41 EDT Systolic Blood Pressure Non-Invasive 90 mmHg mmHg Diastolic Blood Pressure Non-Invasive 61 mmHg mmHg 07/21/2024 10:40 EDT Temperature (Route Not Specified) 36.62 DegC DegC Heart Rate Monitored 71 bpm bpm Respiratory Rate - Anes 12 br/min br/min 07/21/2024 10:36 EDT Systolic Blood Pressure Non-Invasive 100 mmHg mmHg Diastolic Blood Pressure Non-Invasive 64 mmHg mmHg 07/21/2024 10:35 EDT Temperature (Route Not Specified) 36.58 DegC DegC Heart Rate Monitored 70 bpm bpm Respiratory Rate - Anes 12 br/min br/min 07/21/2024 10:31 EDT Systolic Blood Pressure Non-Invasive 110 mmHg mmHg Diastolic Blood Pressure Non-Invasive 77 mmHg mmHg 07/21/2024 10:30 EDT Temperature (Route Not Specified) 36.53 DegC DegC Heart Rate Monitored 62 bpm bpm Respiratory Rate - Anes 12 br/min br/min 07/21/2024 10:26 EDT Systolic Blood Pressure Non-Invasive 97 mmHg mmHg Diastolic Blood Pressure Non-Invasive 65 mmHg mmHg 07/21/2024 10:25 EDT Temperature (Route Not Specified) 36.48 DegC DegC Heart Rate Monitored 66 bpm bpm Respiratory Rate - Anes 12 br/min br/min 07/21/2024 10:21 EDT Systolic Blood Pressure Non-Invasive 102 mmHg mmHg Diastolic Blood Pressure Non-Invasive 67 mmHg mmHg 07/21/2024 10:20 EDT Temperature (Route Not Specified) 36.41 DegC DegC Heart Rate Monitored 66 bpm bpm Respiratory Rate - Anes 12 br/min br/min 07/21/2024 10:16 EDT Systolic Blood Pressure Non-Invasive 111 mmHg mmHg Diastolic Blood Pressure Non-Invasive 76 mmHg mmHg 07/21/2024 10:15 EDT Temperature (Route Not Specified) 36.35 DegC DegC Heart Rate Monitored 68 bpm bpm Respiratory Rate - Anes 12 br/min br/min 07/21/2024 10:11 EDT Systolic Blood Pressure Non-Invasive 121 mmHg mmHg Diastolic Blood Pressure Non-Invasive 86 mmHg mmHg 07/21/2024 10:10 EDT Temperature (Route Not Specified) 36.28 DegC DegC Heart Rate Monitored 66 bpm bpm Respiratory Rate - Anes 12 br/min br/min 07/21/2024 10:06 EDT Systolic Blood Pressure Non-Invasive 137 mmHg mmHg Diastolic Blood Pressure Non-Invasive 95 mmHg mmHg 07/21/2024 10:05 EDT Temperature (Route Not Specified) 36.22 DegC DegC Heart Rate Monitored 72 bpm bpm Respiratory Rate - Anes 12 br/min br/min 07/21/2024 10:01 EDT Systolic Blood Pressure Non-Invasive 129 mmHg mmHg Diastolic Blood Pressure Non-Invasive 88 mmHg mmHg 07/21/2024 10:00 EDT Temperature (Route Not Specified) 36.17 DegC DegC Heart Rate Monitored 70 bpm bpm Respiratory Rate - Anes 12 br/min br/min 07/21/2024 9:56 EDT Systolic Blood Pressure Non-Invasive 126 mmHg mmHg Diastolic Blood Pressure Non-Invasive 85 mmHg mmHg 07/21/2024 9:55 EDT Temperature (Route Not Specified) 36.13 DegC DegC Heart Rate Monitored 67 bpm bpm Respiratory Rate - Anes 12 br/min br/min 07/21/2024 9:51 EDT Systolic Blood Pressure Non-Invasive 141 mmHg mmHg Diastolic Blood Pressure Non-Invasive 91 mmHg mmHg 07/21/2024 9:50 EDT Temperature (Route Not Specified) 36.11 DegC DegC Heart Rate Monitored 66 bpm bpm Respiratory Rate - Anes 12 br/min br/min 07/21/2024 9:46 EDT Systolic Blood Pressure Non-Invasive 125 mmHg mmHg Diastolic Blood Pressure Non-Invasive 90 mmHg mmHg 07/21/2024 9:45 EDT Temperature (Route Not Specified) 36.1 DegC DegC Heart Rate Monitored 63 bpm bpm Respiratory Rate - Anes 12 br/min br/min 07/21/2024 9:41 EDT Systolic Blood Pressure Non-Invasive 121 mmHg mmHg Diastolic Blood Pressure Non-Invasive 80 mmHg mmHg 07/21/2024 9:40 EDT Temperature (Route Not Specified) 36.08 DegC DegC Heart Rate Monitored 50 bpm bpm Respiratory Rate - Anes 12 br/min br/min 07/21/2024 9:36 EDT Systolic Blood Pressure Non-Invasive 78 mmHg mmHg Diastolic Blood Pressure Non-Invasive 54 mmHg mmHg 07/21/2024 9:35 EDT Temperature (Route Not Specified) 36.08 DegC DegC Heart Rate Monitored 54 bpm bpm Respiratory Rate - Anes 12 br/min br/min 07/21/2024 9:31 EDT Systolic Blood Pressure Non-Invasive 88 mmHg mmHg Diastolic Blood Pressure Non-Invasive 61 mmHg mmHg 07/21/2024 9:30 EDT Temperature (Route Not Specified) 36.12 DegC DegC Heart Rate Monitored 54 bpm bpm Respiratory Rate - Anes 12 br/min br/min 07/21/2024 9:26 EDT Systolic Blood Pressure Non-Invasive 94 mmHg mmHg Diastolic Blood Pressure Non-Invasive 64 mmHg mmHg 07/21/2024 9:25 EDT Temperature (Route Not Specified) 36.16 DegC DegC Heart Rate Monitored 55 bpm bpm Respiratory Rate - Anes 12 br/min br/min 07/21/2024 9:21 EDT Systolic Blood Pressure Non-Invasive 100 mmHg mmHg Diastolic Blood Pressure Non-Invasive 70 mmHg mmHg 07/21/2024 9:20 EDT Temperature (Route Not Specified) 36.19 DegC DegC Heart Rate Monitored 57 bpm bpm Respiratory Rate - Anes 12 br/min br/min 07/21/2024 9:16 EDT Systolic Blood Pressure Non-Invasive 109 mmHg mmHg Diastolic Blood Pressure Non-Invasive 76 mmHg mmHg 07/21/2024 9:15 EDT Temperature (Route Not Specified) 36.23 DegC DegC Heart Rate Monitored 57 bpm bpm Respiratory Rate - Anes 12 br/min br/min 07/21/2024 9:11 EDT Systolic Blood Pressure Non-Invasive 112 mmHg mmHg Diastolic Blood Pressure Non-Invasive 100 mmHg mmHg 07/21/2024 9:10 EDT Temperature (Route Not Specified) 36.28 DegC DegC Heart Rate Monitored 64 bpm bpm Respiratory Rate - Anes 12 br/min br/min 07/21/2024 9:06 EDT Systolic Blood Pressure Non-Invasive 111 mmHg mmHg Diastolic Blood Pressure Non-Invasive 80 mmHg mmHg 07/21/2024 9:05 EDT Temperature (Route Not Specified) 36.34 DegC DegC Heart Rate Monitored 60 bpm bpm Respiratory Rate - Anes 12 br/min br/min 07/21/2024 9:01 EDT Systolic Blood Pressure Non-Invasive 117 mmHg mmHg Diastolic Blood Pressure Non-Invasive 80 mmHg mmHg 07/21/2024 9:00 EDT Temperature (Route Not Specified) 36.39 DegC DegC Heart Rate Monitored 65 bpm bpm Respiratory Rate - Anes 12 br/min br/min 07/21/2024 8:58 EDT Systolic Blood Pressure Non-Invasive 116 mmHg mmHg Diastolic Blood Pressure Non-Invasive 77 mmHg mmHg 07/21/2024 8:55 EDT Temperature (Route Not Specified) 36.43 DegC DegC Heart Rate Monitored 62 bpm bpm Respiratory Rate - Anes 12 br/min br/min 07/21/2024 8:51 EDT Systolic Blood Pressure Non-Invasive 181 mmHg mmHg Diastolic Blood Pressure Non-Invasive 105 mmHg mmHg 07/21/2024 8:50 EDT Temperature (Route Not Specified) 36.45 DegC DegC Heart Rate Monitored 56 bpm bpm Respiratory Rate - Anes 12 br/min br/min Systolic Blood Pressure Non-Invasive 189 mmHg mmHg Diastolic Blood Pressure Non-Invasive 112 mmHg mmHg 07/21/2024 8:45 EDT Temperature (Route Not Specified) 36.43 DegC DegC Heart Rate Monitored 79 bpm bpm Respiratory Rate - Anes 12 br/min br/min 07/21/2024 8:41 EDT Systolic Blood Pressure Non-Invasive 166 mmHg mmHg Diastolic Blood Pressure Non-Invasive 106 mmHg mmHg 07/21/2024 8:40 EDT Temperature (Route Not Specified) 36.35 DegC DegC Heart Rate Monitored 92 bpm bpm Respiratory Rate - Anes 11 br/min br/min 07/21/2024 8:35 EDT Heart Rate Monitored 52 bpm bpm Respiratory Rate - Anes 12 br/min br/min 07/21/2024 8:31 EDT Systolic Blood Pressure Non-Invasive 115 mmHg mmHg Diastolic Blood Pressure Non-Invasive 77 mmHg mmHg 07/21/2024 8:30 EDT Heart Rate Monitored 48 bpm bpm Respiratory Rate - Anes 12 br/min br/min 07/21/2024 8:27 EDT Systolic Blood Pressure Non-Invasive 110 mmHg mmHg Diastolic Blood Pressure Non-Invasive 78 mmHg mmHg 07/21/2024 8:25 EDT Heart Rate Monitored 59 bpm bpm Respiratory Rate - Anes 12 br/min br/min Systolic Blood Pressure Non-Invasive 110 mmHg mmHg Diastolic Blood Pressure Non-Invasive 85 mmHg mmHg 07/21/2024 8:20 EDT Heart Rate Monitored 60 bpm bpm Respiratory Rate - Anes 12 br/min br/min 07/21/2024 8:19 EDT Systolic Blood Pressure Non-Invasive 105 mmHg mmHg Diastolic Blood Pressure Non-Invasive 69 mmHg mmHg 07/21/2024 8:16 EDT Systolic Blood Pressure Non-Invasive 116 mmHg mmHg Diastolic Blood Pressure Non-Invasive 74 mmHg mmHg 07/21/2024 8:15 EDT Heart Rate Monitored 80 bpm bpm Respiratory Rate - Anes 12 br/min br/min 07/21/2024 8:10 EDT Heart Rate Monitored 70 bpm bpm Respiratory Rate - Anes 12 br/min br/min 07/21/2024 8:06 EDT Systolic Blood Pressure Non-Invasive 90 mmHg mmHg Diastolic Blood Pressure Non-Invasive 56 mmHg mmHg 07/21/2024 8:05 EDT Heart Rate Monitored 79 bpm bpm Respiratory Rate - Anes 12 br/min br/min 07/21/2024 8:03 EDT Systolic Blood Pressure Non-Invasive 78 mmHg mmHg Diastolic Blood Pressure Non-Invasive 59 mmHg mmHg 07/21/2024 8:00 EDT Heart Rate Monitored 92 bpm bpm Respiratory Rate - Anes 12 br/min br/min Systolic Blood Pressure Non-Invasive 78 mmHg mmHg Diastolic Blood Pressure Non-Invasive 55 mmHg mmHg 07/21/2024 7:57 EDT Systolic Blood Pressure Non-Invasive 99 mmHg mmHg Diastolic Blood Pressure Non-Invasive 63 mmHg mmHg 07/21/2024 7:55 EDT Heart Rate Monitored 74 bpm bpm Respiratory Rate - Anes 16 br/min br/min 07/21/2024 7:54 EDT Systolic Blood Pressure Non-Invasive 139 mmHg mmHg Diastolic Blood Pressure Non-Invasive 61 mmHg mmHg 07/21/2024 7:52 EDT Systolic Blood Pressure Non-Invasive 118 mmHg mmHg Diastolic Blood Pressure Non-Invasive 84 mmHg mmHg 07/21/2024 7:50 EDT Heart Rate Monitored 60 bpm bpm Respiratory Rate - Anes 0 br/min br/min 07/21/2024 7:48 EDT Systolic Blood Pressure Non-Invasive 142 mmHg mmHg Diastolic Blood Pressure Non-Invasive 44 mmHg mmHg 07/21/2024 7:45 EDT Respiratory Rate - Anes 0 br/min br/min 07/21/2024 6:26 EDT Temperature Temporal Artery 36.2 DegC Apical Heart Rate 60 bpm Respiratory Rate 18 br/min Systolic Blood Pressure Non-Invasive 138 mmHg Diastolic Blood Pressure Non-Invasive 77 mmHg . Mental status: at preoperative baseline. Respiratory function: respirations are non-labored, Stable. Respiratory support: none. CV function: Stable. Cardiovascular support: none. Pain: Satisfactory. Nausea status: Satisfactory. Postoperative hydration status: within normal limits. Notes: Patient is sufficiently recovered from anesthesia to participate in the evaluation. No follow-up care needed. No complications post-anesthesia.. Digitally Signed by MARTINEZ JENKINS MD on 07/21/2024 02:57 PM [id number] Note ORIGINAL EXAMINATION: SPOT FLUOROSCOPIC IMAGES 07/21/2024 2:20 pm TECHNIQUE: Fluoroscopy was provided by the radiology department for procedure. Radiologist was not present during examination. Fluoroscopy time: 15.2 seconds Fluoroscopy dose: 6.8195 Kerma mGy Images: 6 COMPARISON: None HISTORY: ORDERING SYSTEM PROVIDED HISTORY: Reason for Exam: LAMI L1-2-3-4/T12-L4 OARM Intraprocedural imaging. FINDINGS: Spot intraoperative images are obtained demonstrating postsurgical change of the lumbar spine. Detail is limited. IMPRESSION: Intraprocedural fluoroscopic spot images as above. See separate procedure report for more information. I have personally reviewed the images of this examination and agree with the resident's findings and interpretation. Interpreted by: Nuno Baez Preliminary Report By: Andria Holt Electronically signed By Nuno Baez Dictated Date: 07/22/2024 12:08:43 AM Prelim Date: 07/22/2024 12:12:10 AM Sign Date: 07/22/2024 12:14:21 AM Ordering Provider: [facility]10-22-2024 Procedure note DATE OF PROCEDURE: 07/21/2024 PREOPERATIVE DIAGNOSIS: Lumbar spinal stenosis (congenital with superimposed degenerative changes),manifesting itself as neurogenic claudication. POSTOPERATIVE DIAGNOSIS: Lumbar spinal stenosis (congenital with superimposed degenerative changes), manifesting itself as neurogenic claudication. PROCEDURES PERFORMED: Include; 1. Inferior hemilaminectomy L1. 2. Laminectomy L2, L3, L4. 3. Bilateral partial medial facetectomies, L1-L2; L2-L3; L3-L4; L4-L5. SURGEON: Brayden Echevarria MD. ESTIMATED BLOOD LOSS: Less than 200 mL. ANESTHESIA: General endotracheal. DRAINS: Single subfascial Berny-Hines drain. DESCRIPTION OF PROCEDURE: The patient was taken to the operating room and placed on the operating table in the supine position. Following a smooth induction of general anesthesia, the patient was gently turned prone on to the radiolucent Berny table. All bony prominences were well padded. The head and neck were placed in the neutral position. There was no global pressure on the eyeballs, no orbital pressure on the skull. The arms were gently abducted to the sides, so as to prevent brachial neuropraxia, but so as to allow surgical and radiographic access to the back and the back was prepped and draped in the usual sterile fashion. It should be noted that the patient's prone position was evaluated at multiple frequent intervals by both the anesthesia team and surgical team and at no time was there any clinical evidence to suggest the adverse sequela of patient malpositioning. Further, neurodiagnostics including somatosensory evoked potentials (tibial and ulnar) as well as spontaneous EMG were run. At no time was there any electrophysiologic evidence to suggest an untoward neurologic event. Multiple preoperative localizingimages (AP and lateral) were performed and the back was prepped and draped in the usual sterile fashion. Using a scalpel, a midline skin incision was made centered over the spinous processes L1 through L5. The incision was carried down to lumbodorsal fascia sharply. Bleeders identified and coagulated with Bovie electrocautery in the coagulation mode. The lumbodorsal fascia was encountered and incised in line with the skin incision and a subperiosteal dissection of the paraspinous muscles off the spinous process and lamina L1 through L5 were subsequently performed. Two Madison clamps were placed, one on the L2 spinous process and one on the L3 spinous process and lateral C-arm image was used to confirm localization. Dissection was carried out to expose the facet joints at L1-L2 through L4-L5. Care was taken to maintain the integrity of the facet joint capsules at each level, so as to minimize risk of destabilization of the spine motion segment. Care was also taken to maintain as much of the muscular attachment to the facet joint as possible again to minimize risk of post-laminectomy instability. With a combination of high-speed fluted cutting burs, variously sized Kerrison rongeurs and curettes as well as double action Leksell rongeur, inferior hemilaminectomy was performed at L1 with laminectomies performed at L2, L3, L4. Bilateral partial medial facetectomies were performed at L1-L2; L2-L3; L3-L4; and L4-L5. The facet joints at each level were undercut so as to minimize risk of destabilization of the motion segment leading to iatrogenic instability, but so as to maximize decompression of the stenotic subarticular lateral recesses. Care was taken to maintain the integrity of the pars intraarticularis again at each level, so as to minimize risk of sagittal plane instability. Severe central and subarticular lateral recess stenosis was identified at multiple levels consistent with preoperative imaging (MRI scan). Decompression was essentially carried out to the medial borders of the pedicles at L2, L3, L4, and L5. Subsequent to decompression, there was no visible or tactile sensation of ongoing compression of either the traversing thecal sac or the traversing nerve roots [id number] L5. Foramen were noted to be widely patent following decompression as demonstrated by ease with which a [place] elevator could be placed both dorsal to and ventral to the exiting nerve roots without any visible or tactile sensation of ongoing compression. This was true for the foramen at L2, L3, and L4 bilaterally. The wound was irrigated with copious amounts of sterile saline using the bulb syringe. Hemostasis was noted to be excellent. A Valsalva maneuver was performed subsequent to decompression and there was no evidence of a CSF leak. Vancomycin powder 2 g were placed in the subfascial region as intrawound antibacterial prophylaxis. A large Berny-Hines drain was placed in the subfascial region, brought out through a separate stab incision on the skin. The fascia was reapproximated with multiple interrupted vertical mattress sutures of #1 Vicryl. Subcutaneous tissue was closed in layers to thoroughly obliterate space and eufemia used to reapproximate the skin incision. At the time of this dic tation, the patient remains intubated. Plan is to extubate the patient, return the patient to the Postanesthesia Care Unit and if stable, transition to the surgical floor for a period of remobilization. Sponge and instrument counts were noted to be correct at the end of the case. Patient tolerated the procedure well. BRAYDEN ECHEVARRIA MD [facility]/NTS JOB#: [id number] DICTATION ID#: [id number] Digitally Signed by BRAYDEN ECHEVARRIA MD on 07/23/2024 02:59 PM [id number] History and physical note History and Physical Update I have examined the patient; reviewed the History and Physical and there are no changes to the History and Physical unless noted below. Digitally Signed by BRAYDEN ECHEVARRIA MD on 07/21/2024 07:30 AM [id number] Anesthesiology Consult note Patient: JACQUELINE OLIVEIRA Age: 63 years Sex: Female : 1960 Associated Diagnoses: None Author: KERMIT LOW DO Preoperative Information Time of last food or liquid consumption: 07/21/2024 00:00:00 Anesthesia history Patient's history: negative. Family's history: negative. History of Present Illness Please refer to most recent H and P / daily progress note / consultation note for further details Achondroplasia, RAYMOND positive, anxiety, arthritis, benign colon polyp, chronic pain syndrome, claustrophobia, cervical spondylosis, vitamin B12 deficiency, depression, diverticulosis, emphysema, kidney stone, hydronephrosis, neuropathy, postop nausea and vomiting, spondylosis, seasonal allergies, sleep apnea, spinal arthritis and stenosis, acid reflux (controlled with as needed Tums), DVT (2009). She has been diagnosed sleep apnea, patient does not utilize a CPAP Tobacco use barbra o2 use Denies hx of mi or cad able to climb a flight of stairs or more without chest pain or anginal symptoms >4mets Health Status Allergies: Allergic Reactions (Selected) Severe Cephalosporins- Hives. Severity Not Documented Bactrim- Nausea and vomiting. Codeine- Nausea. Decongestant- Nausea and hyperactive. Erythromycin- Nausea, vomiting and diarrhea. Macrobid- Nausea. Nitrofurantoin- Vomiting. Sulfamethoxazole- Nausea. Trimethoprim- Nausea., Allergies (9) ActiveSeverityReaction cephalosporinsSevereHives codeineNausea erythromycinNausea, Vomiting, Diarrhea nitrofurantoinVomiting sulfamethoxazoleNausea trimethoprimNausea BactrimNausea, Vomiting MacrobidNausea DecongestantHyperactive, Nausea Current medications: (Selected) Inpatient Medications Ordered Transderm-Scop 1 mg/72 hr transdermal film, extended release: 1 patch(es), Transdermal, q72h lidocaine 1% injectable solution: 2.5 mg, 0.25 mL, Intradermal, PREOP pharm scopolamine (Transderm-Scop Patch REMOVAL): 1 EA, Miscellaneous, Once scopolamine (Transderm-Scop Patch REMOVAL): 1 EA, Miscellaneous, q72h Documented Medications Documented Albuterol (Eqv-ProAir HFA) 90 mcg/inh inhalation aerosol: 2 puff(s), Inhalation, q4h, PRN: as needed for wheezing, 0 Refill(s) Tylenol Extra Strength 500 mg oral tablet: 1,000 mg, 2 tab(s), Oral, q6hr, PRN: as needed for pain,50 tab(s), 0 Refill(s) escitalopram 10 mg oral tablet: 10 mg, 1 tab(s), Oral, qAM, 30 tab(s), 0 Refill(s) fluticasone proprionate NASAL 50 mcg/ spray: 50 mcg, 1 spray(s), Nostril, each, Daily, PRN: as needed for allergy symptoms, 0 Refill(s) ipratropium 21 mcg/inh (0.03%) nasal spray: 42 mcg, 2 spray(s), Nostril, each, qDay, 0 Refill(s) loratadine 10 mg oral tablet: 10 mg, 1 tab(s), Oral, Daily, PRN: as needed for allergy symptoms, 0 Refill(s), Medications (4) Active Scheduled: (4) lidocaine 1% 20 mL MD vial 2.5 mg 0.25 mL, Intradermal, PREOP pharm scopolamine (Transderm-Scop Patch REMOVAL) 1 EA, Miscellaneous, q72h scopolamine (Transderm-Scop Patch REMOVAL) 1 EA, Miscellaneous, Once scopolamine 1.5 mg (1 mg / 72 hours patch) 1 patch(es), Transdermal, q72h Continuous: (0) PRN: (0) Problem list: Medical Anxiety / SNOMED CT 67681262 / Confirmed Arthritis / SNOMED CT 0102934 / Confirmed Back pain / SNOMED CT 1329882532 / Confirmed Depression / SNOMED CT 144536063 / Confirmed, Active 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 Acid reflux Actinic keratitis RAYMOND positive Anxiety Arthritis Back pain Benign colon polyp BMI 36.0-36.9,adult Chronic pain syndrome Claustrophobia Contact lenses CS (cervical spondylosis) Depression Diverticulosis Emphysema of lung Glasses History of cholecystectomy History of kidney stones Itching Neuropathy Other spondylosis, lumbar region PONV (postoperative nausea and vomiting) Seasonal allergy Sebaceous cyst Sleep apnea Snores Spinal arthritis Spinal stenosis Spinal stenosis of lumbar region with neurogenic claudication Tobacco use Histories Past Medical History: Resolved DVT - Deep vein thrombosis ([id number]): Onset in 2009 at 49 years. Resolved. Comments: 09/12/2023 EST 10:22 SAMARA Vee left leg, pt was on bcp at this time also 06/30/2024 EDT 10:34 SAMARA Hester PT STATED TOOK WARFARIN IN PAST AND NO LONGER TREATED FOR, HAS NOT TAKEN FOR YEARS Hydronephrosis ([id number]): Resolved. Kidney stone (677337826): Resolved. Family History: Cancer Mother () HTN - Hypertension Mother () Parkinsons disease Mother () Prostate cancer 28-Mar-2016 02:35:22<$> Father () Procedure history: Cervical discectomy ([id number]) in the month of 09/2023 at 62 Years. Comments: 06/30/2024 10:27 SAMARA Hester ANTERIOR CERVICAL DISCECTOMY AND FUSION CERVICAL 3-4 Tonsillectomy (189462816) in 1990 at 30 Years. Cholecystectomy (16830519) in 1989 at 29 Years. section ([id number]). Cystoscopy (92611974). Adenoidectomy (927316062). Nasal septoplasty (27938574). Myringotomy (6857830544). Comments: 09/12/2023 10:51 CHOCO Escobar RN Lisa M with tubes, both ears, has had a few times Colonoscopy ([id number]). Lithotripsy ([id number]). Comments: 06/30/2024 10:28 EDT - SAMARA Street WITH STENT INSERTION AND LATER REMOVED, HAD COUPLE TIMES Social History: Social & Psychosocial Habits Alcohol 07/21/2024 Use: Never Substance Abuse 07/21/2024 Use: Never Tobacco 07/21/2024 Tobacco Use: 4 or less cigarettes(less Type: Cigarettes Tobacco use per day: 3 Started at age: 22 Years Ready to change: No Smoking Cessation Information Instructed to not smoke d Comment: IN PAST USE TO SMOKE ALMOST 1 PPD, PT IS TRYING QUIT AND CURRENTLY SMOKES 3 CIGARETTES PERDAY - 06/30/2024 10:30 - SAMARA Street Home/Environment 07/21/2024 Living situation: Home/Independent Safe place to go: Yes Domestic Concerns Denies, None Lives In Mobile home Current Home Treatments None Special Services and Community Resources None Marital Status of Patient if Patient Independent Adult: Unmarried Nutrition/Health 07/21/2024 Type of diet: Regular Caffeine intake amount: COFFEE 2 CUPS PER DAY Appetite Good Eating Difficulties None Physical Examination Vital Signs 07/21/2024 6:26 EDT Temperature Temporal Artery 36.2 DegC Apical Heart Rate 60 bpm Respiratory Rate 18 br/min Systolic Blood Pressure Non-Invasive 138 mmHg Diastolic Blood Pressure Non-Invasive 77 mmHg Vital Signs (last 24 hrs) Last Charted Temp Pfqqcqay40.2 DegC (JUL 21 06:26) Heart Rate Ekttxf61 bpm (JUL 21 06:26) QSL193 mmHg (JUL 21 06:26) DBP77 mmHg (JUL 21 06:26) Measurements from flowsheet : Measurements 07/21/2024 6:26 EDT Height 121.9 cm Height in inches 48 inch(es) Admission Weight 51.6 kg Weight Lbs 113.5 lb [place] Body Weight 17.88 kg Admission Body Mass Index 34.73 m2 Pain assessment: Pain Assessment 07/21/2024 6:26 EDT Primary Pain Intensity 0 Pain Scale Type 0-10 Pain scale . General: Alert and oriented. Airway: Mallampati classification: III (soft palate, base of uvula visible), short thyromental distance . Dentition Evaluation: Intact. Respiratory: Lungs are clear to auscultation. Neurologic: Alert, Oriented. Review / Management Results review: No qualifying data available , Lab results 07/21/2024 6:56 EDT vancomycin 1,000 mg mg 07/21/2024 6:35 EDT Hand Left 07/21/2024 22 gauge Peripheral IV Activity: Insert new site Peripheral IV Dressing Condition: Clean, Dry, Intact Peripheral IV Dressing Activity: Applied, Transparent dressing Peripheral IV Line Status/Patency: 10ml normal saline flush Peripheral IV Site Condition: No complications Peripheral IV Equipment: PRN Adaptor Peripheral IV Number of Attempts: 1 07/21/2024 6:28 EDT scopolamine 1 patch(es) patch(es) 07/21/2024 6:26 EDT Height 121.9 cm Height in inches 48 inch(es) Admission Weight 51.6 kg Weight Lbs 113.5 lb [place] Body Weight 17.88 kg Admission Body Mass Index 34.73 m2 Temperature Temporal Artery 36.2 DegC Apical Heart Rate 60 bpm Respiratory Rate 18 br/min Systolic Blood Pressure Non-Invasive 138 mmHg Diastolic Blood Pressure Non-Invasive 77 mmHg Primary Pain Intensity 0 Pain Scale Type 0-10 Pain scale Heart Rhythm Regular Respirations Unlabored Respiratory Pattern Regular Breath Sounds Auscultated Anterior only All Lobes Breath Sounds Clear Oxygen Therapy Room air Oxygen Saturation 96 % Abdomen Description Non-distended, Soft Abdomen Palpation Non-Tender Bowel Sounds All Quadrants Present Urinary Elimination Voiding, no difficulties Skin Temperature Warm Skin Description [place], Normal for ethnicity Mucous Membrane Color [place] Neurological Symptoms Patient denies Characteristics of Speech Clear Level of Consciousness Alert Strength All Extremities Strong Tone All Extremities Normal Left Upper Extremity Sensation Intact Right Upper Extremity Sensation Numbness, Tingling Left Lower Extremity Sensation Intact Right Lower Extremity Sensation Intact Affect/Behavior Appropriate, Calm, Cooperative Orientation Oriented x 4 Standard Safety ID band on, Allergy Band on, Safety level maintained Demonstrates Correct Call Light Use Yes 07/21/2024 6:23 EDT Designated Person #1 We May Share MIESHA Oliveira [phone] (POA) Designated Person #1 Relationship Daughter Designated Person #2 We May Share MIESHA Gutierrez [phone] Designated Person #2 Relationship Friend Privacy Restrictions Requested None Status No, per patient IV Present Present Violence Risk Confused No Violence Risk Irritable No Violence Risk Boisterous No Violence Risk Verbal Threats No Violence Risk Physical Threats No Violence Risk Attacking Objects No Violence Risk Predictor Score 0 Sensory Deficits None Diagnosed With Sleep Apnea Yes Advanced Directives Yes Advance Directive Type [place] Durable Power of [place] Declaration (Living Will) Advance Directive Location Indicates that [place] has been given copy Infectious Disease Symptoms Patient states no symptoms Infectious Disease Recent Exposure No Alcohol and Drug Use No Employee of Institutional Living No Health Care Employee No History of Exposure to TB No History of Positive Chest X-Ray for TB No History of Positive TB Skin Test No Homeless No Known Immunosuppression No Recent Immigrant No Resident of Institutional Living No Bloody Sputum No Fatigue No Fever No Loss of Appetite No Night Sweats No Persistent Cough > 3 Weeks No Weight Loss No Surgery Scheduled On Date/Time 07/21/2024 7:30 Patient Aware Date/Time Of Surgery Yes Arrival Time the Day of Surgery 07/21/2024 5:30 Patient Aware of Arrival Time Yes Pre-Op Patient Education NPO after midnight, No makeup, No jewelry, Responsible Constitution Party, Aware of surgery location, 2 bottles CHG wash with instructions given, Instructed to take ordered medications, Instructed to bring home medications, VTE prevention handout given, MRSA protocol education provided SN - Preprocedure Comments Spoke with patient, Verbalizes/Nonverbally indicates understanding, Other: Instructed on clear liquids after midnight until leaving for hospital. Allergies Yes Consent Form Signed Yes Patient Dressed In Hospital gown Pre-op Preparation Glasses removed CHG Preoperative Wash/Wipe Night before procedure, Day of procedure, Site specific wipe Preop Nasal Swab Povidone-Iodine CHG Skin Prep Completed for Eligible Surgery Obstructive Sleep Apnea Assess Completed Yes MRSA/MSSA Protocol Yes Individuals Taught Patient, Daughter, Friend Learning Readiness Willing to learn Barriers to Learning None evident Teaching Method Explanation, Printed materials Preferred Spoken Language Georgian Preferred Written Language Georgian Family/Caregiver Prefer Spoken Language Georgian Family/Caregiver Prefer Written Language Georgian Teaching Evaluation Verbalizes/Nonverbally indicates understanding Surgical Site Infection Prevention SSI FAQ provided, Hand hygiene Infection Prevention Teaching Evaluation Verbalizes/Nonverbally indicates understanding Pre Procedure/Surgery Education Appropriate expectations, Date/Time of procedure/surgery, Hospital gown requirement worn to OR, NPO, Responsible contract driver for discharge, Surgical skin prep Safety Measures Education Fall prevention, Call light use Safety Teaching Evaluation Verbalizes/Nonverbally indicates understanding Safety Brochure Information Reviewed Yes Julieta Foreman Video Viewed No Patient's Current Physicians Patient's Current Physicians History of Malignant Hyperthermia No Belongings At Bedside Pt participated in reconciliation, Other: all belongings with pts daughter, inhaler sent to OR Discharge To, Anticipated Home independently NPO Status Maintained Prev Test Positive/Diagnosis w/COVID-19 No Current Quarantine/Isolated any Illness No Any Contact with Sick Animals/Birds No Traveled Anywhere in Last 30 Days No Allergy Band on and Verified Yes Patient ID Band on and Verified Yes Blood Consent Signed Yes Last Fluid Intake 07/21/2024 4:30 Last Food Intake 07/20/2024 18:00 Last Void 07/21/2024 6:25 Lost Weight Unintentionally Recently No Eat Poorly Due to Decreased Appetite No Total MST Score 0 No Personal Devices, Patient Valuables Contact lenses, Glasses Anesthesia/Transfusions Prior anesthesia, Prior anesthesia reaction Type of Anesthesia Reaction nausea and vomiting, denies any problem with intubation Admission Note-Nursing Same Day Patient History 07/20/2024 14:14 EDT Surgery Scheduled On Date/Time 07/21/2024 7:30 Patient Aware Date/Time Of Surgery Yes Arrival Time the Day of Surgery 07/21/2024 5:30 Patient Aware of Arrival Time Yes Pre-Op Patient Education NPO after midnight, No makeup, No jewelry, Responsible Constitution Party, Aware of surgery location, 2 bottles CHG wash with instructions given, Instructed to take ordered medications, Instructed to bring home medications, VTE prevention handout given, MRSA protocol education provided (Modified) SN - Preprocedure Comments Spoke with patient, Verbalizes/Nonverbally indicates understanding, Other: Instructed on clear liquids after midnight until leaving for hospital. Admission Note-Nursing Patient History PreTest (Modified) 07/20/2024 10:37 EDT Pharmacy Scanned Orders Pharmacy Scanned Orders . Assessment and Plan [place] [employer] Anesthesiologists (ASA) physical status classification: Class III. Anesthetic Preoperative Plan Premedication: intravenous. Anesthetic technique: General. Induction: intravenously. Maintenance airway: Oral endotracheal tube. Special Monitoring: Arterial line. Postoperative pain management: Per surgeon. Risks discussed: nausea, vomiting, headache, sore throat, dental injury, hypotension, allergic reaction, serious complications. Informed consent: signed by patient. Notes: Extensive time was spent discussing with the patient and/or POA the inherent risks of anesthesia including but not limited too sore throat, dental injuries to teeth and gums, corneal abrasions, risk of heart attack, stroke, end organ dysfunction, and . The patient and/or POA is aware ofthese risks, accepts them and wishes to proceed with anesthesia. Achondroplasia, RAYMOND positive, anxiety, arthritis, benign colon polyp, chronic pain syndrome, claustrophobia, cervical spondylosis, vitamin B12 deficiency, depression, diverticulosis, emphysema, kidney stone, hydronephrosis, neuropathy, postop nausea and vomiting, spondylosis, seasonal allergies, sleep apnea, spinal arthritis and stenosis, acid reflux (controlled with as needed Tums), DVT (2009). She has been diagnosed sleep apnea, patient does not utilize a CPAP Possible SICU possible prolongd intubationi discussed with patient given duration of case and possibliity for head and neck swelling from positiong . Digitally Signed by KERMIT LOW DO on 07/21/2024 07:16 AM [id number] History and physical note DATE OF ADMISSION: 07/17/2024 HISTORY OF PRESENT ILLNESS: Jacqueline Oliveira is a 63-year-old female born on 1960. This patient is scheduled to undergo surgical intervention to address symptomatic congenital lumbar spinal stenosis with superimposed degenerative change, manifesting itself as neurogenic claudication, which manifest itself as profound standing intolerance secondary to weakness of the lower extremities with prolonged ambulation, numbness and tingling of the lower extremities. Symptoms have been present and progressive for quite some time. They have failed to improve despite appropriate nonoperative therapy. ALLERGIES: SULFAMETHOXAZOLE, NITROFURANTOIN, TRIMETHOPRIM, ERYTHROMYCIN, CODEINE, BACTRIM, MACROBID, PSEUDOEPHEDRINE. CURRENT MEDICATIONS: Include [place] 5/325, Lexapro 5 mg. PAST MEDICAL HISTORY AND PAST SURGICAL HISTORY: Includes achondroplasia. SOCIAL HISTORY: She is a smoker who has been counseled as regards smoking cessation. REVIEW OF SYSTEMS: The patient denies recent weight loss, weight gain, fever, chills, night sweats,abdominal pain, nausea, vomiting, hematochezia, hematemesis, polyuria, polydipsia, chest pain, shortness of breath, paroxysmal nocturnal dyspnea, orthopnea, dyspnea on exertion. PHYSICAL EXAMINATION: HEENT: Normocephalic, atraumatic. Pupils equal, round and reactive to light. Extraocular motion is intact. There is no conjunctival injection or scleral icterus. NECK: The trachea is midline. No cervical lymphadenopathy. CHEST: Moves easily and symmetrically with respirations. Clear to auscultation and percussion. CARDIOVASCULAR: Regular rate and rhythm, normal S1, S2. ABDOMEN: Soft, bowel sounds positive, normoactive. 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 NEUROLOGIC: Cranial nerves II-XII are grossly intact. Motor strength at hip flexors, quads, hamstrings, ankle dorsi plantar flexors, EHL are 5+. Straight leg raising test is negative bilaterally for radiculitis. Knee jerk and ankle jerk reflexes are absent. She exhibits no clonus and Babinski's aredowngoing. RADIOGRAPHS: Include an MRI scan of the lumbar spine obtained 03/21/2024. Salient finding is congenital lumbar spinal stenosis with superimposed degenerative changes leading to severe central and subarticular lateral recess stenosis L1-L2; L2-L3; L3-L4; L4-L5. The foramina are moderately stenotic at multiple levels as well. As noted above stenosis is both central with superimposed degenerative change consistent with achondroplasia. At L1-L2, there is profound degenerative collapse of disk spacewith wedging of the vertebra at this level. MRI scan of the thoracic spine obtained on 07/09/2023 reveals no thoracic spinal stenosis. My impression is that this patient does have congenital lumbar spinal stenosis with superimposed degenerative change, manifesting itself as neurogenic claudication, concomitant with this the axial skeletal issues, which are associated with achondroplasia. The patient has thus far failed appropriate nonoperative therapy and will proceed with surgical intervention. At the time of this dictation surgical intervention will include extensive lumbar decompression with likely laminectomies L1, L2, L3,L4 (possibly L5). It is likely that at multiple levels facetectomies or partial facetectomies will need to be performed (L1-L2; L2-L3; L3-L4; L4-L5, possibly L5-S1). This extensive decompression is likely to lead to iatrogenic instability. Therefore, instrumented surgical arthrodesis will be required. Surgical levels as regards arthrodesis are in this case problematic as surgical intervention will involve the thoracolumbar junction and therefore will increase risk of iatrogenic thoracolumbar kyphosis. In my opinion, this risk is likely accentuated given history of achondroplasia. Therefore, at the time of this dictation, my recommendation might include instrumentation from the caudal thoracic spine (i.e., T9, T10) to the sacrum. Given the horizontal nature of the sacrum, sacral hardwaremay be problematic and utilization of iliac bolts may be warranted to complete the construct. Goalsof surgery have been explained to the patient to be prevention of progression of neurologic deficitthere by diminishing pain and improving function. Risks of the procedure have been carefully explained to the patient to include but not be limited to, infection, bleeding, neurologic injury, prolonged mechanical ventilation, postoperative vision loss, dural tear with subsequent CSF leak, [place], DVT, PE, CVA, urinary tract infection, pneumonia, , adjacent segment disease, pseudoarthrosis, hardware failure. The patient demonstrates excellent comprehension of the nature of her pathology, treatment options relating thereto, risks of that surgery and as informed consent has been achieved, we will proceed with surgery. We also discussed length of recovery from surgery. BRAYDEN ECHEVARRIA MD MC/NTS JOB#: [id number] DICTATION ID#: [id number] Digitally Signed by BRAYDEN ECHEVARRIA MD on 07/21/2024 07:31 AM [id number] Hospital Discharge instructions Follow Up Care 05/01/2024 08:26:07 With:[facility], Address:Unknown When: Unknown Comments:skilled With:CALLI CIFUENTES Address: [facility] [address] [place] [address]- Business (1) When:1-2 days With:BRAYDEN ECHEVARRIA MD, [facility]/Spine, Orthopedic Address: [address] [place] [address] [phone] When:08/05/2024 09:30:00 [facility] 01-12-2024 Hospital Discharge instructions Patient Education 10/11/2023 10:20:42 Pain Relief Before and After Surgery Pain Relief Before and After Surgery Pain relief is an important part of your overall care before, during, and after surgery. You and your health care provider will work together to make a plan to manage pain that you have before surgery (preoperative) and after surgery (postoperative). Addressing pain before surgery lessens the pain that you will have after surgery. Make sure that you fully understand and agree with your pain relief plan. If you have questions or concerns, it is important to discuss them with your health care provider. If you have pain that is not controlled by medicine, tell your health care provider. Severe pain after surgery may: Prevent sleep. Decrease your ability to breathe deeply and to cough. This can result in pneumonia or upper airway infections. Cause your heart to beat more quickly. Cause your blood pressure to be higher. Increase your risk for stomach and digestive problems. Slow down wound healing. Lead to depression, anxiety, and feelings of helplessness. Your health care provider may use more than one method at a time to help relieve your pain. Using this approach may allow you to eat, move around, and possibly leave the hospital sooner. What are options for managing pain before and after surgery? Oral pain medicines Pain medicines taken by mouth (orally) include: Non-narcotic medicines: ?Acetaminophen. ?NSAIDs, such as ibuprofen and naproxen. Muscle relaxants. These may relieve pain caused by muscle spasms. Anticonvulsants. These medicines are usually used to treat seizures. They may help to lessen nerve pain. Opioids. These medicines relieve pain by binding to pain receptors in the brain and spinal cord (narcotic pain medicines). Opioids may help relieve short-term (acute) postoperative pain that is moderate to moderately severe. ?Opioids are often combined with non-narcotic medicines to improve pain relief, lower the risk of side effects, and lower the chance of addiction. ?To help prevent addiction, opioids are given for short periods of time in careful doses. If you follow instructions from your health care provider and you do not have a history of substance abuse, your risk of becoming addicted to opioids is low. Some of these medicines may be available in injectable form. They may be given through an IV if youare unable to eat or drink. As-needed pain control You can receive pain medicine when you need it, through an IV or as a pill or liquid. When you tellyour health care provider that you are having pain, he or she will give you the proper pain medicine. Medicine that numbs an area You may be given pain medicine that numbs an area (local anesthetic): As an injection near your painful area (local infiltration). As an injection near the nerve that provides feeling to a specific part of your body (peripheral nerve block). As an injection in your spine (spinal block). Through a local anesthetic reservoir pump. For this method, one or more catheters are inserted intoyour incision at the end of your procedure. These catheters are connected to a device that is filled with a non-narcotic pain medicine. Medicine gradually empties into your incision area over the next several days. Continuous epidural pain control With this method, you receive pain medicine through a small, thin tube (catheter) that is inserted into your back, near your spinal cord. Medicine flows through the catheter to lessen pain in areas of your body that are below the catheter. The catheter is usually put into the back shortly before surgery. It may be left in until you can eat, take medicine by mouth, pass urine, and have a bowel movement. This method may be recommended if you are having surgery on your abdomen, hip area, or legs. This method of pain relief may help you heal faster because you may be able to do these things sooner: Regain normal bowel and bladder function. Return to eating. Get up and walk. IV patient-controlled analgesia (PATENT ATTORNEY) pump With this method, you receive pain medicine through an IV that is connected to a PATENT ATTORNEY pump. The PATENT ATTORNEY pump gives you a specific amount of medicine when you push a button. This lets you control how much medicine you receive. You are the only person who should push this button. The pump is set up so that you cannot accidentally give yourself too much medicine. You will be able to start using your PATENT ATTORNEY pump in the recovery room after your procedure. Tell your health care provider: If you are having too much pain. If you cannot push the button. If you are feeling too sleepy or nauseous. Other pain control methods Other methods of pain relief after surgery include: Heat and cold therapy. Massage. Topical analgesics. These are patches, creams, and gels that can be applied on the skin. Steroid medicines. These medicines may be given to lessen swelling. Physical therapy. A physical therapist will work with you to meet goals, such as feeling and functioning better. Physical therapy usually includes specific exercises that are tailored to your needs. Transcutaneous electrical nerve stimulation (TENS). This method sends electrical signals through the skin to interrupt pain signals. Cognitive behavioral therapy (CBT). This therapy helps you learn coping skills for dealing with pain. What are some questions to ask my health care provider? What pain relief options would be best for me? What are the risks of each option? What are the benefits of each option? How long will I need pain relief after surgery? Summary A plan to manage pain that you may have before surgery (preoperative) and after surgery (postoperative) is an important part of your overall care. Pain management options include medicines and non-medical therapies, such as physical therapy, massage, and heat or cold therapy. Pain management medicines include opioids and non-narcotic medicines such as NSAIDs, steroids, or local anesthetics. Pain medicines can have side effects. Side effects of opioids include constipation, nausea, excessive sleepiness, and risk of addiction. Your health care provider will work with you to prevent or manage these side effects and risks. This information is not intended to replace advice given to you by your health care provider. Make sure you discuss any questions you have with your health care provider. Document Released: 12/07/2003 Document Revised: 09/19/2018 Document Reviewed: 12/27/2017 [employer] Patient Education 2020 [employer]. Follow Up Care 07/15/2023 14:17:44 With:BRAYDEN ECHEVARRIA MD, [facility] Address: [address] [id number]- When:10/25/2023 08:15:00 [facility] 01-12-2024 Note Discharge Instructions Thank you for allowing [facility] to assist you with your healthcare needs. The following is importantdischarge information regarding your hospital visit. Your Care Team CALLI CIFUENTES MD Your Diagnosis Achondroplasia Acid reflux Anxiety Cervical kyphosis Cervical spondylosis DVT - Deep vein thrombosis Stenosis of cervical spine with myelopathy Tobacco use What to do next Follow Up Appointments Follow Up with BRAYDEN ECHEVARRIA MD, [facility]/Spine, Orthopedic When 10/25/2023 08:15 AM EST Where: [address] [id number]- The Following Activity and Diet Have Been Ordered for You Discharge Activity - Ordered -- As instructed by therapy May Shower, Cervical precautions as instructed by therapy. Cervical collar should be on except for hygiene, can come off for shower, or for wound checks or dressing changes., 10/11/23 9:48:00 EST Discharge Diet - Ordered -- Type of Diet: Regular Diet, No changes were made to your diet during your hospital stay. Please resume your pre hospitalization diet on discharge., 10/11/23 9:48:00 EST The Following Equipment Has Been Ordered for You Discharge Home Equipment Discharge Wound Care - Ordered -- Dressing Type: Dry sterile drsg, Neck, anterior, Surgery dressing can remain on for several daysbut if loose, wet or soiled, can change with dry gauze and change as needed. May shower., 10/11/23 9:48:00 EST The Following Treatments Have Been Ordered for You Discharge Labs No qualifying data available. Discharge Radiology No qualifying data available. Other Therapies No qualifying data available. Post Acute Orders No qualifying data available. Someone Will Contact You Regarding These Home Health Referrals No home referrals have been ordered for you. No one will call you. Allergies cephalosporins (Hives) Bactrim (Vomiting, Nausea) Decongestant (Nausea, Hyperactive) Macrobid (Nausea) codeine (Nausea) erythromycin (Diarrhea, Vomiting, Nausea) nitrofurantoin (Vomiting) sulfamethoxazole (Nausea) trimethoprim (Nausea) Medications Please ask your primary doctor or pharmacist before taking any other medication not listed, including over the counter drugs, herbal medications, vitamins and or supplements as they may interact withyour home medications. What How Much When Instructions Last Dose New acetaminophen-oxyCODONE (Percocet 325/ 5) 1 tab(s) by mouth Every 6 hours as needed for as needed for pain Unchanged acetaminophen (Tylenol) 650 Milligram by mouth Every 4 hours as needed for as needed for pain Unchanged albuterol (Albuterol (Eqv-ProAir HFA) 90 mcg/ inh inhalation aerosol) 2 puff(s) by inhalation Every 4 hours as needed for as needed for wheezing Unchanged cholecalciferol (Vitamin D3 50 mcg (2000 intl units) oral capsule) 1 cap by mouth Once a day Unchanged cyanocobalamin (Vitamin B12 5000 mcg oral tablet, disintegrating) 1 tab(s) by mouth Once a day Unchanged DULoxetine (DULoxetine 20 mg oral delayed release capsule) 1 cap by mouth Once a day (in the morning) Unchanged fluticasone nasal (fluticasone proprionate NASAL 50 mcg/ spray) 1 spray(s) each nostril Every day as needed for as needed for allergy symptoms Unchanged loratadine (loratadine 10 mg oral tablet) 1 tab(s) by mouth Every day as needed for as needed for allergy symptoms Please take this list to your next doctor s visit. Bring all medications you take, including over the counter medications, herbals and other supplements with you to your doctor s visit. Patients and families are reminded to discard old lists and to update any records with all medication providers or retail pharmacies. Medication Leaflets acetaminophen and oxycodone (a SEET a MIN oh fen and OX i KOE done) Endocet 10/325, Endocet 2.5/325, Endocet 5/325, Endocet 7.5/325, Nalocet, Percocet, Prolate What is the most important information I should know about acetaminophen and oxycodone? MISUSE OF OPIOID MEDICINE CAN CAUSE ADDICTION, OVERDOSE, OR . Keep the medication in a place where others cannot get to it. Taking opioid medicine during may cause life-threatening withdrawal symptoms in the . Fatal side effects can occur if you use opioid medicine with alcohol, or with other drugs that cause drowsiness or slow your breathing. Stop taking this medicine and call your doctor right away if you have skin redness or a rash that spreads and causes blistering and peeling. What is acetaminophen and oxycodone? Acetaminophen and oxycodone is a combination medicine used to relieve moderate to severe pain. Acetaminophen and oxycodone contains an opioide medicine and may be habit-forming. Acetaminophen and oxycodone may also be used for purposes not listed in this medication guide. What should I discuss with my healthcare provider before taking acetaminophen and oxycodone? You should not use this medicine if you are allergic to acetaminophen or oxycodone, or if you have: severe asthma or breathing problems; or a blockage in your stomach or intestines. Tell your doctor if you have ever had: breathing problems, sleep apnea; liver disease; a drug or alcohol addiction; kidney disease; a head injury or seizures; urination problems; or problems with your thyroid, pancreas, or gallbladder. If you use opioid medicine while you are , your baby could become dependent on the drug. This can cause life-threatening withdrawal symptoms in the baby after it is born. Babies born dependent on opioids may need medical treatment for several weeks. Ask a doctor before using opioid medicine if you are . Tell your doctor if you notice severe drowsiness or slow breathing in the nursing baby. How should I take acetaminophen and oxycodone? Follow all directions on your prescription label. Never take this medicine in larger amounts, or for longer than prescribed. An overdose can damage your liver or cause . Tell your doctor if you feel an increased urge to use more of this medicine. Never share opioid medicine with another person, especially someone with a history of drug abuse oraddiction. MISUSE CAN CAUSE ADDICTION, OVERDOSE, OR . Keep the medicine in a place where others cannot get to it. Selling or giving away opioid medicine is against the law. Measure liquid medicine carefully. Use the dosing syringe provided, or use a medicine dose-measuring device (not a kitchen spoon). If you need surgery or medical tests, tell the doctor ahead of time that you are using this medicine. You should not stop using this medicine suddenly. Follow your doctor's instructions about tapering your dose. Store at room temperature away from moisture and heat. Keep track of your medicine. You should be aware if anyone is using it improperly or without a prescription. Do not keep leftover opioid medication. Just one dose can cause in someone using this medicine accidentally or improperly. Ask your pharmacist where to locate a drug take-back disposal program.If there is no take-back program, flush the unused medicine down the toilet. What happens if I miss a dose? Since this medicine is used for pain, you are not likely to miss a dose. Skip any missed dose if itis almost time for your next dose. Do not use two doses at one time. What happens if I overdose? Seek emergency medical attention or call the Poison Help line at . An overdose of this medicine can be fatal, especially in a child or other person using the medicine without a prescription. Overdose symptoms may include nausea, vomiting, sweating, severe drowsiness, pinpoint pupils, slow breathing, or no breathing. Your doctor may recommend you get naloxone (a medicine to reverse an opioid overdose) and keep it with you at all times. A person caring for you can give the naloxone if you stop breathing or don't wake up. Your caregiver must still get emergency medical help and may need to perform CPR (cardiopulmonary resuscitation) on you while waiting for help to arrive. Anyone can buy naloxone from a pharmacy or local health department. Make sure any person caring foryou knows where you keep naloxone and how to use it. What should I avoid while taking acetaminophen and oxycodone? Avoid driving or operating machinery until you know how this medicine will affect you. Dizziness ordrowsiness can cause falls, accidents, or severe injuries. Do not drink alcohol. Dangerous side effects or could occur. Ask a doctor or pharmacist before using any other medicine that may contain acetaminophen (sometimes abbreviated as APAP). Taking certain medications together can lead to a fatal overdose. What are the possible side effects of acetaminophen and oxycodone? Get emergency medical help if you have signs of an allergic reaction: hives; difficulty breathing; swelling of your face, lips, tongue, or throat. Opioid medicine can slow or stop your breathing, and may occur. A person caring for you should give naloxone and/or seek emergency medical attention if you have slow breathing with long pauses,blue colored lips, or if you are hard to wake up. In rare cases, acetaminophen may cause a severe skin reaction that can be fatal. This could occur even if you have taken acetaminophen in the past and had no reaction. Stop taking this medicine and call your doctor right away if you have skin redness or a rash that spreads and causes blistering andpeeling. Call your doctor at once if you have: noisy breathing, sighing, shallow breathing, breathing that stops; a light-headed feeling, like you might pass out; weakness, tiredness, fever, unusual bruising or bleeding; confusion, unusual thoughts or behavior; problems with urination; liver problems--nausea, upper stomach pain, tiredness, loss of appetite, dark urine, yane-colored stools, jaundice (yellowing of the skin or eyes); low cortisol levels-- nausea, vomiting, loss of appetite, dizziness, worsening tiredness or weakness; or high levels of serotonin in the body--agitation, hallucinations, fever, sweating, shivering, fast heart rate, muscle stiffness, twitching, loss of coordination, nausea, vomiting, diarrhea. Serious breathing problems may be more likely in older adults and in those who are debilitated or have wasting syndrome or chronic breathing disorders. Common side effects include: dizziness, drowsiness, feeling tired; feelings of extreme happiness or sadness; nausea, vomiting, stomach pain; constipation; or headache. This is not a complete list of side effects and others may occur. Call your doctor for medical advice about side effects. You may report side effects to FDA at 8-918-MDJ-7996. What other drugs will affect acetaminophen and oxycodone? You may have breathing problems or withdrawal symptoms if you start or stop taking certain other medicines. Tell your doctor if you also use an antibiotic, antifungal medication, heart or blood pressure medication, seizure medication, or medicine to treat HIV or hepatitis C. Opioid medication can interact with many other drugs and cause dangerous side effects or . Be sure your doctor knows if you also use: cold or allergy medicines, bronchodilator asthma/COPD medication, or a diuretic ('water pill'); medicines for motion sickness, irritable bowel syndrome, or overactive bladder; other opioids--opioid pain medicine or prescription cough medicine; a sedative like Valium--diazepam, alprazolam, lorazepam, Xanax, Klonopin, Versed, and others; drugs that make you sleepy or slow your breathing--a sleeping pill, muscle relaxer, medicine to treat mood disorders or mental illness; drugs that affect serotonin levels in your body--a stimulant, or medicine for depression, Parkinson's disease, migraine headaches, serious infections, or nausea and vomiting. This list is not complete. Other drugs may affect acetaminophen and oxycodone, including prescription and oiil-vre-hxetimj medicines, vitamins, and herbal products. Not all possible interactions are listed here. Where can I get more information? Your doctor or pharmacist can provide more information about acetaminophen and oxycodone. Remember, keep this and all other medicines out of the reach of children, never share your medicines with others, and use this medication only for the indication prescribed. Every effort has been made to ensure that the information provided by [employer]. ('[employer]') is accurate, up-to-date, and complete, but no guarantee is made to that effect. Drug information contained herein may be time sensitive. [employer] information has been compiled for use by healthcare practitioners and consumers in the [place] and therefore [employer] does not warrant that uses outside of the [place] are appropriate, unless specifically indicated otherwise. [employer] drug information does not endorse drugs, diagnose patients or recommend therapy. [employer] drug information isan informational resource designed to assist licensed healthcare practitioners in caring for their p atients and/or to serve consumers viewing this service as a supplement to, and not a substitute for, the expertise, skill, knowledge and judgment of healthcare practitioners. The absence of a warningfor a given drug or drug combination in no way should be construed to indicate that the drug or drug combination is safe, effective or appropriate for any given patient. [employer] does not assume any responsibility for any aspect of healthcare administered with the aid of information [employer] provides. The information contained herein is not intended to cover all possible uses, directions, precautions, warnings, drug interactions, allergic reactions, or adverse effects. If you have questions about the drugs you are taking, check with your doctor, nurse or pharmacist. Copyright 6480-9553 [employer]. Version: 22.. Revision Date: 05/02/2023. Education Materials Pain Relief Before and After Surgery Pain relief is an important part of your overall care before, during, and after surgery. You and your health care provider will work together to make a plan to manage pain that you have before surgery (preoperative) and after surgery (postoperative). Addressing pain before surgery lessens the pain that you will have after surgery. Make sure that you fully understand and agree with your pain relief plan. If you have questions or concerns, it is important to discuss them with your health care provider. If you have pain that is not controlled by medicine, tell your health care provider. Severe pain after surgery may: Prevent sleep. Decrease your ability to breathe deeply and to cough. This can result in pneumonia or upper airway infections. Cause your heart to beat more quickly. Cause your blood pressure to be higher. Increase your risk for stomach and digestive problems. Slow down wound healing. Lead to depression, anxiety, and feelings of helplessness. Your health care provider may use more than one method at a time to help relieve your pain. Using this approach may allow you to eat, move around, and possibly leave the hospital sooner. What are options for managing pain before and after surgery? Oral pain medicines Pain medicines taken by mouth (orally) include: Non-narcotic medicines: ? Acetaminophen. ? NSAIDs, such as ibuprofen and naproxen. Muscle relaxants. These may relieve pain caused by muscle spasms. Anticonvulsants. These medicines are usually used to treat seizures. They may help to lessen nerve pain. Opioids. These medicines relieve pain by binding to pain receptors in the brain and spinal cord (narcotic pain medicines). Opioids may help relieve short-term (acute) postoperative pain that is moderate to moderately severe. ? Opioids are often combined with non-narcotic medicines to improve pain relief, lower the risk of side effects, and lower the chance of addiction. ? To help prevent addiction, opioids are given for short periods of time in careful doses. If you follow instructions from your health care provider and you do not have a history of substance abuse, your risk of becoming addicted to opioids is low. Some of these medicines may be available in injectable form. They may be given through an IV if youare unable to eat or drink. As-needed pain control You can receive pain medicine when you need it, through an IV or as a pill or liquid. When you tellyour health care provider that you are having pain, he or she will give you the proper pain medicine. Medicine that numbs an area You may be given pain medicine that numbs an area (local anesthetic): As an injection near your painful area (local infiltration). As an injection near the nerve that provides feeling to a specific part of your body (peripheral nerve block). As an injection in your spine (spinal block). Through a local anesthetic reservoir pump. For this method, one or more catheters are inserted intoyour incision at the end of your procedure. These catheters are connected to a device that is filled with a non-narcotic pain medicine. Medicine gradually empties into your incision area over the next several days. Continuous epidural pain control With this method, you receive pain medicine through a small, thin tube (catheter) that is inserted into your back, near your spinal cord. Medicine flows through the catheter to lessen pain in areas of your body that are below the catheter. The catheter is usually put into the back shortly before surgery. It may be left in until you can eat, take medicine by mouth, pass urine, and have a bowel movement. This method may be recommended if you are having surgery on your abdomen, hip area, or legs. This method of pain relief may help you heal faster because you may be able to do these things sooner: Regain normal bowel and bladder function. Return to eating. Get up and walk. IV patient-controlled analgesia (PATENT ATTORNEY) pump With this method, you receive pain medicine through an IV that is connected to a PATENT ATTORNEY pump. The PATENT ATTORNEY pump gives you a specific amount of medicine when you push a button. This lets you control how much medicine you receive. You are the only person who should push this button. The pump is set up so that you cannot accidentally give yourself too much medicine. You will be able to start using your PATENT ATTORNEY pump in the recovery room after your procedure. Tell your health care provider: If you are having too much pain. If you cannot push the button. If you are feeling too sleepy or nauseous. Other pain control methods Other methods of pain relief after surgery include: Heat and cold therapy. Massage. Topical analgesics. These are patches, creams, and gels that can be applied on the skin. Steroid medicines. These medicines may be given to lessen swelling. Physical therapy. A physical therapist will work with you to meet goals, such as feeling and functioning better. Physical therapy usually includes specific exercises that are tailored to your needs. Transcutaneous electrical nerve stimulation (TENS). This method sends electrical signals through the skin to interrupt pain signals. Cognitive behavioral therapy (CBT). This therapy helps you learn coping skills for dealing with pain. What are some questions to ask my health care provider? What pain relief options would be best for me? What are the risks of each option? What are the benefits of each option? How long will I need pain relief after surgery? Summary A plan to manage pain that you may have before surgery (preoperative) and after surgery (postoperative) is an important part of your overall care. Pain management options include medicines and non-medical therapies, such as physical therapy, massage, and heat or cold therapy. Pain management medicines include opioids and non-narcotic medicines such as NSAIDs, steroids, or local anesthetics. Pain medicines can have side effects. Side effects of opioids include constipation, nausea, excessive sleepiness, and risk of addiction. Your health care provider will work with you to prevent or manage these side effects and risks. This information is not intended to replace advice given to you by your health care provider. Make sure you discuss any questions you have with your health care provider. Document Released: 12/07/2003 Document Revised: 09/19/2018 Document Reviewed: 12/27/2017 [employer] Patient Education 2020 [employer] Additional Information VACCINATE! IT SAVES LIVES! Members of the community who have not yet received the COVID-19 vaccine and would like to receive it can visit one of [facility] vaccine clinics. There are many vaccine clinic locations within the [facility]. For locations and available times, please visit [email or web address].[place].gov/. It is important to note that some COVID mobile vaccine clinics are held outdoors and may be canceled in rainy or stormy conditions. To learn more about pediatric vaccinations (ages 5-11), we invite you to visit the [employer] webpage. [email or web address] learn more about the COVID-19 vaccine, we invite you to visit the CDC website for a list of frequently asked questions.https://www.cdc.gov/coronavirus/2019-ncov/vaccines/faq.html [employer] Patient Portal Access Instructions: Stay connected with your healthcare team and access your personal medical information anytime with the [facility] Patient Portal. Please follow the directions below to create your [facility] account: 1.Access the email account you provided upon registration to the hospital/physician office.2.Look for an invitation email from [facility].3.Open the email and access the invitation link: AcceptInvitation to [facility].4.Fill in the required beck to create your account. To access your account, visit [email or web address]. Click the blue button labeled Access Patient Portal and then log in with the username and password that you created in the steps above. You will be able to view your test results, lab results, a summary of your visits, upcoming appointments and more. There is also a convenient messaging option where you can send secure messages to your p rovider. In addition, you will have the ability to download any documents or summaries to your computer and/or send the information securely to a physician. Remember that your healthcare information is confidential, so carefully consider who you will allowto register on the [facility] Patient Portal for access to your information. You can also access the [facility] Patient Portal on the [facility] aura. Simply click on Patient Portal and then log into your account. If you would like to receive a full copy of your medical records, please contact the [facility] Medical Records Department by calling [phone], Saturday through Saturday between 8 a.m. and 4:30 p.m. HOW TO SAFELY DISPOSE OF PRESCRIPTION MEDICATIONS Please use one of the following methods to safely dispose of your unused medications. 1.Use a drug disposal kit: the drug disposal pouch allows you to safely discard your old and unuseddrugs. Ask your nurse to give you one when you are discharged.2.Visit a local take-back location: Many local pharmacies and police departments have programs that collect old and unwanted prescriptiondrugs. Call your local pharmacy or go to http://Amigos [employer] Amigos/6G8Fd7d to find one close to you.3.Make use of household items: Use cat litter or old coffee grounds to dispose medications if other options arenot available. Mix your drugs with these household products, seal them in an airtight container andthrow it into the garbage. Call [facility]: [phone] to be sure your drugs can be disposed of in this way. Some medicines may require a different approach.4.Never flush your medications down the toilet. IF YOU HAVE BEEN PRESCRIBED AN OPIOID FOR PAIN If you have been prescribed an opioid (such as hydrocodone, oxycodone or morphine), it is critical to understand the possible side effects and risks of opioid pain medications. Even when taken as directed, opioids can have several side effects including: Tolerance, meaning you might need to take more of a medication for the same pain relief. Nausea, vomiting and/or constipation. Sleepiness, dizziness, dry mouth, confusion, depression or itching. Physical dependence, meaning you have withdrawal symptoms when a medication is stopped, can develop within a few days. KNOW YOUR RESPONSIBILITIES It is important to know exactly how much and how often to take the opioid pain medications you are prescribed. Never take opioids in higher amounts or more often than prescribed. Do not combine opioids with alcohol or other drugs that cause drowsiness, such as benzodiazepines, also known as benzos, including diazepam and alprazolam, muscle relaxants or sleep aids. Never sell or share prescription opioids. This is illegal. Store opioids in a secure place and out of reach of others (including children, family, friends and visitors). The last page of this document has been signed and retained as a CHART COPY. Signatures Patient Education Materials Pain Relief Before and After Surgery Medication Leaflets Percocet 325/5 My discharge plan and instructions have been reviewed and explained to me and I,JACQUELINE OLIVEIRA understand my current condition and have read and understand these discharge instructions. I have received a written copy of the plan/instructions. If I have questions, I am aware that I should contact my doctor. Patient/Process Tech Signature: Date/Time: Relationship to Patient: Witness Name/Signature: [id number] Progress note Date of Service 10/11/2023 Chief Complaint Neck pain Subjective Resp: Denies any shortness of breath or cough. Heart: Denies chest pain or palpitations. Musc: The pain is fairly well controlled to anterior neck at surgical site. Does have mild tinglingin upper extremities/hands, no new symptoms. No arm pain or hand pain. Objective Vitals and Measurements T: 36.7 C (Oral) TMIN: 34.53 C TMAX: 36.8 C (Oral) HR: 66 RR: 18 BP: 110/73 SpO2: 95% HT: 121.9 cm WT: 53 kg BMI: 35.67 Intake and Output 7AM Yesterday to 7AM Today Intake and Output (Last 24 hours) Intake Administration Information 2489.17 Oral Intake 1520.00 Output Urine Voided 1000.00 Intra-Op Urine Catheter 280.00 Intra-Op EBL 10.00 Stool Count 0.00 Urine Count 2.00 Total Summary Total Intake 4009.17 Total Output 1290.00 Fluid Balance 2719.17 Physical Exam Neuro: Alert, Appropriate Resp: Regular, Non-labored Heart: Pulses easily palpable, Heart in regular rate by radial pulse Musculoskeletal: Dressing is dry and intact to the anterior neck. Cervical collar is in place. Handgrasps strong, equal. Sensation intact to light touch. Subjectively does have tingling in her hands. No new or progressive motor or sensory deficits. Weight Dosing Weight: 53 kg (10/10/23) Dosing Weight: 53 kg (10/10/23) Medications Medications (19) Active Scheduled: (6) duloxetine [address] Capsule 20 mg 1 cap(s), Oral, qAM lidocaine 1% (MPF) 2 mL vial pf 2.5 mg 0.25 mL, Intradermal, PREOP pharm pantoprazole 40 mg VIAL 40 mg, IV Push, qDayAC scopolamine 1.5 mg (1 mg / 72 hours patch) 1 patch(es), Transdermal, q72h Transderm-Scop patch REMOVAL 1 EA, Miscellaneous, q72h vancomycin PMX 1,000 mg 200 mL, IV Piggyback, q24h Continuous: (1) NS (0.9% nacl) 1,000 mL 1,000 mL, Intravenous, 75 mL/hr PRN: (12) acetaminophen-OXYcodone 325 mg-5 mg Tablet 1 tab(s), Oral, q4h acetaminophen-OXYcodone 325 mg-5 mg Tablet 1 tab(s), Oral, q4h acetaminophen-OXYcodone 325 mg-5 mg Tablet 2 tab(s), Oral, q4h Al hydrox/Mg hydrox/simethicone 200-200-20 mg/5 mL Susp UD 30 mL, Oral, q2h albuterol 0.083% Soln UD (2.5mg/3 mL) 2.5 mg 3 mL, Inhalation, q4hRT dextrose 50% Solution Disp syringe 50 mL 12.5 gram(s) 25 mL, IV Push, AsDirected fluticasone nasal 0.05 mg/inh [place] 50 mcg 1 spray(s), Nostril, each, Daily HYDROmorphone 0.5 mg/0.5 mL PF syringe 0.5 mg 0.5 mL, IV Push, q2h hydromorphone 1 mg/mL (1mL) INJ 1 mg 1 mL, IV Push, q4h magnesium hydroxide 8% Suspension 30 mL UD 30 mL, Oral, qHS ondansetron 2 mg/ 1 mL 2 mL INJ 4 mg 2 mL, IV Push, q4h ondansetron 4 mg DIS tablet 4 mg 1 tab(s), Oral, q6h Lab Results 10/11 04:25 WBC: 9.5 Hgb: 12.7 Hct: 37.1 Platelet: 235 Neutrophil %: 78.0 H Glucose Level: 102 Sodium Level: 141 Potassium Level: 4.3 BUN: 12.0 Creatinine Lvl (s): 0.56 EKG No qualifying data available. Assessment/Plan 1. Cervical spondylosis 2. Cervical kyphosis 3. Stenosis of cervical spine with myelopathy Cervical spondylosis Cervical kyphosis Cervical spinal stenosis with myelopathy Status post anterior cervical discectomy with interbody fusion C3-C4, fibular strut allograft C3-C4with application of anterior cervical locking plate and screws C3-C4 on 10/10/2023. Postop day #1: Vital signs stable, she is afebrile. Pain well-controlled, no new symptoms today. Myelopathic symptoms somewhat improved today, still does have some upper extremity weakness, some tingling sensation to the upper extremities as would be fairly expected at this stage. Otherwise, mobilizing well, has worked with therapy. Cervical precautions, cervical collar on at all times except for hygiene or wound care. Plan discharge home today. Prescription for Percocet in chart from Dr. Echevarria. Follow-up in the office with Dr. Echevarria 10/25/2023 at 8:15 AM. Orders: acetaminophen-oxyCODONE, Dose = 1 tab(s), Oral, q6hr, PRN as needed for pain, 0 Refill(s), 53 Discharge Discharge Activity Discharge Diet Discharge Wound Care Digitally Signed by MARLENA NGUYỄN on 10/11/2023 09:58 AM [id number] Note Date of Service 10/10/2023 Reason for Consultation Medical management Referring Physician Dr. Echevarria History of Present Illness Patient is a 62-year-old female with past medical history of achondroplasia, acid reflux, anxiety, arthritis, benign colon polyp, claustrophobia, cervical spondylosis, vitamin D deficiency, depression, diverticulosis, DVT in 2009, emphysema, kidney stone, hydronephrosis, sleep apnea and spinal stenosis. History of tobacco abuse smokes around 4 to 5 cigarettes for the past 40 years. Patient was evaluated preoperatively for a preanesthesia evaluation and underwent a planned cervical discectomy and fusion of cervical C3/[address] Echevarria. Hospitalists are consulted postoperatively for medical management. Information obtained from chart review and patient interview. Vital signs postoperatively stable. Preoperative blood work shows stable CBC and BMP with a creatinine of 0.56. Patient seen postoperatively today. Resting in bed in no acute distress. Patient tolerating a liquid diet, denies anypostoperative nausea or vomiting. Patient reports she has recently cut back to 2 cigarettes/day in p reparation for surgery. Denies any other acute complaints at this time. Review of Systems Pertinent positives as per HPI, other systems reviewed were negative. Physical Exam Vitals and Measurements T: 36.6 C (Oral) TMIN: 33.74 C TMAX: 36.6 C (Oral) HR: 90 RR: 16 BP: 131/89 SpO2: 93% HT: 121.9 cm WT: 53 kg BMI: 35.67 Weight Dosing Weight: 53 kg (10/10/23) Dosing Weight: 53 kg (10/10/23) Constitutional: Patient is alert and oriented x3. In no acute distress. Eyes: PERRLA, EOM intact. ENT: hearing grossly intact, mucous membranes moist, neck immobilizer in place Respiratory: Breathing nonlabored, lungs clear to auscultation bilaterally. Heart: Regular rate and rhythm. S1 S2 heard. GI: Bowel sounds x4 quadrants. No rebound tenderness or guarding. Neuro: speech clear. FELICIANO equally. memory intact Skin: no rashes or lesions noted. skin warm, dry and intact. Lab Results No 36 Hour Lab Data Imaging Results and Diagnostics XR Fluoro 2 Hrs Tech Time Result Date: October 10, 2023 Verified By: HEBERT SINHA MD CLINICAL STATEMENT: IMPRESSION: Fluoroscopic time: 6.2 seconds Total dose (Reference Air Kerma): 0.5907 MGy Number of fluoroscopic images: 4 Detail is limited. Please see intraoperative notes for additional details ofthe procedure. Assessment/Plan 1. Achondroplasia 2. Acid reflux 3. Anxiety 4. DVT - Deep vein thrombosis 5. Tobacco use Patient is a 62-year-old female with past medical history of achondroplasia, acid reflux, anxiety, arthritis, benign colon polyp, claustrophobia, cervical spondylosis, vitamin D deficiency, depression, diverticulosis, DVT in 2010, emphysema, kidney stone, hydronephrosis, sleep apnea and spinal stenosis. History of tobacco abuse smokes around 4 to 5 cigarettes for the past 40 years. Patient is postop day 0 planned cervical discectomy and fusion of cervical C4-[address] Echevarria today. Hospitalist consulted for postoperative management. Vital signs reviewed. Preoperative blood work reviewed. Willcontinue to follow along. Home medications have been resumed. Patient denies any postoperative symptoms of nausea or vomiting. Tolerating liquid diet. Discussed with Dr. Thomas Problem List/Past Medical History Ongoing Anxiety Arthritis Back pain Depression DVT - Deep vein thrombosis Hydronephrosis Kidney stone Historical No qualifying data Procedure/Surgical History Tonsillectomy: 1990 Cholecystectomy: 1989 Adenoidectomy section Kidney stone Nasal septoplasty Myringotomy Colonoscopy Medications Inpatient albuterol aerosol soln Therapeutic Interchange for Ventolin MDI, 2.5 mg= 3 mL, Inhalation, q4hRT, PRN Dextrose 50% IV Push, 12.5 gram(s)= 25 mL, IV Push, AsDirected, PRN Dilaudid, 1 mg= 1 mL, IV Push, q4h, PRN Dilaudid, 0.5 mg= 0.5 mL, IV Push, q2h, PRN DULoxetine, 20 mg= 1 cap(s), Oral, qAM fluticasone 50 mcg/inh NASAL spray, 50 mcg= 1 spray(s), Nostril, each, Daily, PRN Maalox, 30 mL, Oral, q2h, PRN Milk of Magnesia, 30 mL, Oral, qHS, PRN NS 1,000 mL, 1000 mL, Intravenous Percocet 325/5, 1 tab(s), Oral, q4h, PRN Percocet 325/5, 1 tab(s), Oral, q4h, PRN Percocet 325/5, 2 tab(s), Oral, q4h, PRN Protonix, 40 mg, IV Push, qDayAC scopolamine (Transderm-Scop Patch REMOVAL), 1 EA, Miscellaneous, q72h Transderm-Scop 1 mg/72 hr transdermal film, extended release, 1 patch(es), Transdermal, q72h vancomycin IVPB, 1000 mg= 200 mL, 15 mg/kg, IV Piggyback, q24h Xylocaine HCl 1% injectable solution, 2.5 mg= 0.25 mL, Intradermal, PREOP pharm Zofran, 4 mg= 2 mL, IV Push, q4h, PRN Zofran ODT, 4 mg= 1 tab(s), Oral, q6h, PRN Home Albuterol (Eqv-ProAir HFA) 90 mcg/inh inhalation aerosol, 2 puff(s), Inhalation, q4h, PRN DULoxetine 20 mg oral delayed release capsule, 20 mg= 1 cap(s), Oral, qAM fluticasone proprionate NASAL 50 mcg/ spray, 50 mcg= 1 spray(s), Nostril, each, Daily, PRN loratadine 10 mg oral tablet, 10 mg= 1 tab(s), Oral, Daily, PRN Tylenol, 650 mg, Oral, q4h, PRN Vitamin B12 5000 mcg oral tablet, disintegrating, 5000 mcg= 1 tab(s), Oral, qDay, On hold for Surgery Vitamin D3 50 mcg (2000 intl units) oral capsule, 50 mcg= 1 cap(s), Oral, qDay, On hold for Surgery Allergies cephalosporins (Hives) Bactrim (Vomiting, Nausea) Decongestant (Nausea, Hyperactive) Macrobid (Nausea) codeine (Nausea) erythromycin (Diarrhea, Vomiting, Nausea) nitrofurantoin (Vomiting) sulfamethoxazole (Nausea) trimethoprim (Nausea) Social History Alcohol Use: Never., 09/12/2023 Home/Environment Living situation: Home/Independent. Safe place to go: Yes. Domestic Concerns: None. [facility] Current Home Treatments None. Professional Skilled Services or Special Community Resources None. Marital Status: ., 09/12/2023 Nutrition/Health Type of diet: Regular. Appetite Good. Eating Difficulties None., 09/12/2023 Substance Abuse Use: Never., 09/12/2023 Tobacco Nicotine Use: 10 or more cigarettes (1/2 pack or more)/day in last 30 days. Type: Cigarettes. Started at age: 22 Years., 09/12/2023 Family History Cancer: Mother. HTN - Hypertension: Mother. Parkinsons disease: Mother. Prostate cancer 28-Mar-2016 02:35:22<$>: Father. Sister: History is negative Daughter: History is negative Sister: History is negative Immunizations No qualifying data available. Digitally Signed by CLAY WARD on 10/10/2023 02:41 PM Digitally Signed by CLAY WARD on 10/11/2023 08:28 AM [id number] Anesthesiology Consult note Patient: JACQUELINE OLIVEIRA Age: 62 years Sex: Female : 1960 Associated Diagnoses: None Author: GÓMEZ CARSON MD Postoperative Information Post Operative Info: Post op day: Post Anesthesia Care Unit. Patient location: PACU. Assessment Postanesthesia assessment Vitals: Vital signs from flowsheet : Vital Signs 10/10/2023 12:40 EST Heart Rate Monitored 86 bpm Respiratory Rate 16 br/min Systolic Blood Pressure Non-Invasive 119 mmHg Diastolic Blood Pressure Non-Invasive 72 mmHg Mean Arterial Pressure (NBP) 87 mmHg 10/10/2023 12:25 EST Heart Rate Monitored 90 bpm Respiratory Rate 16 br/min Systolic Blood Pressure Non-Invasive 123 mmHg Diastolic Blood Pressure Non-Invasive 73 mmHg Mean Arterial Pressure (NBP) 88 mmHg 10/10/2023 12:09 EST Heart Rate Monitored 87 bpm Respiratory Rate 16 br/min Systolic Blood Pressure Non-Invasive 136 mmHg Diastolic Blood Pressure Non-Invasive 92 mmHg HI Mean Arterial Pressure (NBP) 104 mmHg 10/10/2023 11:54 EST Heart Rate Monitored 86 bpm Respiratory Rate 16 br/min Systolic Blood Pressure Non-Invasive 148 mmHg HI Diastolic Blood Pressure Non-Invasive 94 mmHg HI Mean Arterial Pressure (NBP) 110 mmHg 10/10/2023 11:40 EST Respiratory Rate - Anes 0 br/min br/min 10/10/2023 11:37 EST Temperature Temporal Artery 36 DegC Heart Rate Monitored 95 bpm Respiratory Rate 16 br/min Systolic Blood Pressure Non-Invasive 128 mmHg Diastolic Blood Pressure Non-Invasive 67 mmHg Mean Arterial Pressure (NBP) 82 mmHg 10/10/2023 11:35 EST Respiratory Rate - Anes 0 br/min br/min 10/10/2023 11:30 EST Heart Rate Monitored 107 bpm bpm Respiratory Rate - Anes 0 br/min br/min 10/10/2023 11:28 EST Systolic Blood Pressure Non-Invasive 145 mmHg mmHg Diastolic Blood Pressure Non-Invasive 111 mmHg mmHg 10/10/2023 11:25 EST Heart Rate Monitored 68 bpm bpm Respiratory Rate - Anes 10 br/min br/min Systolic Blood Pressure Non-Invasive 152 mmHg mmHg Diastolic Blood Pressure Non-Invasive 97 mmHg mmHg 10/10/2023 11:22 EST Systolic Blood Pressure Non-Invasive 136 mmHg mmHg Diastolic Blood Pressure Non-Invasive 87 mmHg mmHg 10/10/2023 11:20 EST Temperature (Route Not Specified) 34.61 DegC DegC Heart Rate Monitored 59 bpm bpm Respiratory Rate - Anes 10 br/min br/min 10/10/2023 11:17 EST Systolic Blood Pressure Non-Invasive 177 mmHg mmHg Diastolic Blood Pressure Non-Invasive 11 mmHg mmHg 10/10/2023 11:15 EST Temperature (Route Not Specified) 34.69 DegC DegC Heart Rate Monitored 42 bpm bpm Respiratory Rate - Anes 10 br/min br/min 10/10/2023 11:14 EST Systolic Blood Pressure Non-Invasive 159 mmHg mmHg Diastolic Blood Pressure Non-Invasive 18 mmHg mmHg 10/10/2023 11:12 EST Systolic Blood Pressure Non-Invasive 131 mmHg mmHg Diastolic Blood Pressure Non-Invasive 16 mmHg mmHg 10/10/2023 11:10 EST Temperature (Route Not Specified) 34.73 DegC DegC Heart Rate Monitored 61 bpm bpm Respiratory Rate - Anes 10 br/min br/min 10/10/2023 11:08 EST Systolic Blood Pressure Non-Invasive 181 mmHg mmHg Diastolic Blood Pressure Non-Invasive 18 mmHg mmHg 10/10/2023 11:07 EST Systolic Blood Pressure Non-Invasive 150 mmHg mmHg Diastolic Blood Pressure Non-Invasive 17 mmHg mmHg 10/10/2023 11:05 EST Temperature (Route Not Specified) 34.81 DegC DegC Heart Rate Monitored 65 bpm bpm Respiratory Rate - Anes 11 br/min br/min 10/10/2023 11:01 EST Systolic Blood Pressure Non-Invasive 107 mmHg mmHg Diastolic Blood Pressure Non-Invasive 69 mmHg mmHg 10/10/2023 11:00 EST Temperature (Route Not Specified) 34.8 DegC DegC Heart Rate Monitored 76 bpm bpm Respiratory Rate - Anes 10 br/min br/min 10/10/2023 10:58 EST Systolic Blood Pressure Non-Invasive 103 mmHg mmHg Diastolic Blood Pressure Non-Invasive 62 mmHg mmHg 10/10/2023 10:55 EST Temperature (Route Not Specified) 34.82 DegC DegC Heart Rate Monitored 73 bpm bpm Respiratory Rate - Anes 10 br/min br/min Systolic Blood Pressure Non-Invasive 102 mmHg mmHg Diastolic Blood Pressure Non-Invasive 66 mmHg mmHg 10/10/2023 10:52 EST Systolic Blood Pressure Non-Invasive 96 mmHg mmHg Diastolic Blood Pressure Non-Invasive 60 mmHg mmHg 10/10/2023 10:50 EST Temperature (Route Not Specified) 34.84 DegC DegC Heart Rate Monitored 74 bpm bpm Respiratory Rate - Anes 10 br/min br/min 10/10/2023 10:49 EST Systolic Blood Pressure Non-Invasive 102 mmHg mmHg Diastolic Blood Pressure Non-Invasive 64 mmHg mmHg 10/10/2023 10:46 EST Systolic Blood Pressure Non-Invasive 99 mmHg mmHg Diastolic Blood Pressure Non-Invasive 58 mmHg mmHg 10/10/2023 10:45 EST Temperature (Route Not Specified) 34.82 DegC DegC Heart Rate Monitored 76 bpm bpm Respiratory Rate - Anes 10 br/min br/min 10/10/2023 10:43 EST Systolic Blood Pressure Non-Invasive 107 mmHg mmHg Diastolic Blood Pressure Non-Invasive 66 mmHg mmHg 10/10/2023 10:40 EST Temperature (Route Not Specified) 34.79 DegC DegC Heart Rate Monitored 77 bpm bpm Respiratory Rate - Anes 10 br/min br/min Systolic Blood Pressure Non-Invasive 111 mmHg mmHg Diastolic Blood Pressure Non-Invasive 73 mmHg mmHg 10/10/2023 10:37 EST Systolic Blood Pressure Non-Invasive 99 mmHg mmHg Diastolic Blood Pressure Non-Invasive 56 mmHg mmHg 10/10/2023 10:35 EST Temperature (Route Not Specified) 34.79 DegC DegC Heart Rate Monitored 74 bpm bpm Respiratory Rate - Anes 10 br/min br/min 10/10/2023 10:34 EST Systolic Blood Pressure Non-Invasive 102 mmHg mmHg Diastolic Blood Pressure Non-Invasive 67 mmHg mmHg 10/10/2023 10:31 EST Systolic Blood Pressure Non-Invasive 96 mmHg mmHg Diastolic Blood Pressure Non-Invasive 66 mmHg mmHg 10/10/2023 10:30 EST Temperature (Route Not Specified) 34.76 DegC DegC Heart Rate Monitored 70 bpm bpm Respiratory Rate - Anes 10 br/min br/min 10/10/2023 10:28 EST Systolic Blood Pressure Non-Invasive 100 mmHg mmHg Diastolic Blood Pressure Non-Invasive 70 mmHg mmHg 10/10/2023 10:25 EST Temperature (Route Not Specified) 34.72 DegC DegC Heart Rate Monitored 72 bpm bpm Respiratory Rate - Anes 10 br/min br/min Systolic Blood Pressure Non-Invasive 107 mmHg mmHg Diastolic Blood Pressure Non-Invasive 63 mmHg mmHg 10/10/2023 10:22 EST Systolic Blood Pressure Non-Invasive 99 mmHg mmHg Diastolic Blood Pressure Non-Invasive 57 mmHg mmHg 10/10/2023 10:20 EST Temperature (Route Not Specified) 34.68 DegC DegC Heart Rate Monitored 73 bpm bpm Respiratory Rate - Anes 10 br/min br/min 10/10/2023 10:19 EST Systolic Blood Pressure Non-Invasive 109 mmHg mmHg Diastolic Blood Pressure Non-Invasive 64 mmHg mmHg 10/10/2023 10:16 EST Systolic Blood Pressure Non-Invasive 111 mmHg mmHg Diastolic Blood Pressure Non-Invasive 51 mmHg mmHg 10/10/2023 10:15 EST Temperature (Route Not Specified) 34.64 DegC DegC Heart Rate Monitored 72 bpm bpm Respiratory Rate - Anes 10 br/min br/min 10/10/2023 10:13 EST Systolic Blood Pressure Non-Invasive 118 mmHg mmHg Diastolic Blood Pressure Non-Invasive 87 mmHg mmHg 10/10/2023 10:10 EST Temperature (Route Not Specified) 34.61 DegC DegC Heart Rate Monitored 80 bpm bpm Respiratory Rate - Anes 10 br/min br/min Systolic Blood Pressure Non-Invasive 115 mmHg mmHg Diastolic Blood Pressure Non-Invasive 77 mmHg mmHg 10/10/2023 10:07 EST Systolic Blood Pressure Non-Invasive 115 mmHg mmHg Diastolic Blood Pressure Non-Invasive 77 mmHg mmHg 10/10/2023 10:05 EST Temperature (Route Not Specified) 34.58 DegC DegC Heart Rate Monitored 79 bpm bpm Respiratory Rate - Anes 10 br/min br/min 10/10/2023 10:04 EST Systolic Blood Pressure Non-Invasive 131 mmHg mmHg Diastolic Blood Pressure Non-Invasive 80 mmHg mmHg 10/10/2023 10:01 EST Systolic Blood Pressure Non-Invasive 122 mmHg mmHg Diastolic Blood Pressure Non-Invasive 81 mmHg mmHg 10/10/2023 10:00 EST Temperature (Route Not Specified) 34.54 DegC DegC Heart Rate Monitored 77 bpm bpm Respiratory Rate - Anes 12 br/min br/min 10/10/2023 9:58 EST Systolic Blood Pressure Non-Invasive 125 mmHg mmHg Diastolic Blood Pressure Non-Invasive 68 mmHg mmHg 10/10/2023 9:55 EST Temperature (Route Not Specified) 34.53 DegC DegC Heart Rate Monitored 81 bpm bpm Respiratory Rate - Anes 12 br/min br/min Systolic Blood Pressure Non-Invasive 141 mmHg mmHg Diastolic Blood Pressure Non-Invasive 80 mmHg mmHg 10/10/2023 9:52 EST Systolic Blood Pressure Non-Invasive 125 mmHg mmHg Diastolic Blood Pressure Non-Invasive 90 mmHg mmHg 10/10/2023 9:50 EST Temperature (Route Not Specified) 34.5 DegC DegC Heart Rate Monitored 84 bpm bpm Respiratory Rate - Anes 12 br/min br/min 10/10/2023 9:49 EST Systolic Blood Pressure Non-Invasive 133 mmHg mmHg Diastolic Blood Pressure Non-Invasive 85 mmHg mmHg 10/10/2023 9:46 EST Systolic Blood Pressure Non-Invasive 143 mmHg mmHg Diastolic Blood Pressure Non-Invasive 99 mmHg mmHg 10/10/2023 9:45 EST Temperature (Route Not Specified) 34.5 DegC DegC Heart Rate Monitored 88 bpm bpm Respiratory Rate - Anes 12 br/min br/min 10/10/2023 9:43 EST Systolic Blood Pressure Non-Invasive 142 mmHg mmHg Diastolic Blood Pressure Non-Invasive 81 mmHg mmHg 10/10/2023 9:40 EST Temperature (Route Not Specified) 34.51 DegC DegC Heart Rate Monitored 86 bpm bpm Respiratory Rate - Anes 12 br/min br/min Systolic Blood Pressure Non-Invasive 145 mmHg mmHg Diastolic Blood Pressure Non-Invasive 106 mmHg mmHg 10/10/2023 9:36 EST Systolic Blood Pressure Non-Invasive 145 mmHg mmHg Diastolic Blood Pressure Non-Invasive 118 mmHg mmHg 10/10/2023 9:35 EST Temperature (Route Not Specified) 34.49 DegC DegC Heart Rate Monitored 71 bpm bpm Respiratory Rate - Anes 12 br/min br/min 10/10/2023 9:33 EST Systolic Blood Pressure Non-Invasive 141 mmHg mmHg Diastolic Blood Pressure Non-Invasive 123 mmHg mmHg 10/10/2023 9:31 EST Systolic Blood Pressure Non-Invasive 135 mmHg mmHg Diastolic Blood Pressure Non-Invasive 89 mmHg mmHg 10/10/2023 9:30 EST Temperature (Route Not Specified) 34.46 DegC DegC Heart Rate Monitored 68 bpm bpm Respiratory Rate - Anes 12 br/min br/min 10/10/2023 9:28 EST Systolic Blood Pressure Non-Invasive 151 mmHg mmHg Diastolic Blood Pressure Non-Invasive 100 mmHg mmHg 10/10/2023 9:25 EST Temperature (Route Not Specified) 34.41 DegC DegC Heart Rate Monitored 73 bpm bpm Respiratory Rate - Anes 12 br/min br/min 10/10/2023 9:24 EST Systolic Blood Pressure Non-Invasive 153 mmHg mmHg Diastolic Blood Pressure Non-Invasive 100 mmHg mmHg 10/10/2023 9:21 EST Systolic Blood Pressure Non-Invasive 147 mmHg mmHg Diastolic Blood Pressure Non-Invasive 96 mmHg mmHg 10/10/2023 9:20 EST Temperature (Route Not Specified) 34.36 DegC DegC Heart Rate Monitored 71 bpm bpm Respiratory Rate - Anes 12 br/min br/min 10/10/2023 9:19 EST Systolic Blood Pressure Non-Invasive 150 mmHg mmHg Diastolic Blood Pressure Non-Invasive 92 mmHg mmHg 10/10/2023 9:15 EST Temperature (Route Not Specified) 34.29 DegC DegC Heart Rate Monitored 71 bpm bpm Respiratory Rate - Anes 12 br/min br/min Systolic Blood Pressure Non-Invasive 124 mmHg mmHg Diastolic Blood Pressure Non-Invasive 80 mmHg mmHg 10/10/2023 9:12 EST Systolic Blood Pressure Non-Invasive 115 mmHg mmHg Diastolic Blood Pressure Non-Invasive 83 mmHg mmHg 10/10/2023 9:10 EST Temperature (Route Not Specified) 34.24 DegC DegC Heart Rate Monitored 63 bpm bpm Respiratory Rate - Anes 12 br/min br/min 10/10/2023 9:09 EST Systolic Blood Pressure Non-Invasive 98 mmHg mmHg Diastolic Blood Pressure Non-Invasive 68 mmHg mmHg 10/10/2023 9:06 EST Systolic Blood Pressure Non-Invasive 103 mmHg mmHg Diastolic Blood Pressure Non-Invasive 71 mmHg mmHg 10/10/2023 9:05 EST Temperature (Route Not Specified) 34.2 DegC DegC Heart Rate Monitored 67 bpm bpm Respiratory Rate - Anes 12 br/min br/min 10/10/2023 9:04 EST Systolic Blood Pressure Non-Invasive 94 mmHg mmHg Diastolic Blood Pressure Non-Invasive 69 mmHg mmHg 10/10/2023 9:00 EST Temperature (Route Not Specified) 34.19 DegC DegC Heart Rate Monitored 63 bpm bpm Respiratory Rate - Anes 12 br/min br/min Systolic Blood Pressure Non-Invasive 93 mmHg mmHg Diastolic Blood Pressure Non-Invasive 64 mmHg mmHg 10/10/2023 8:57 EST Systolic Blood Pressure Non-Invasive 85 mmHg mmHg Diastolic Blood Pressure Non-Invasive 54 mmHg mmHg 10/10/2023 8:55 EST Temperature (Route Not Specified) 34.2 DegC DegC Heart Rate Monitored 59 bpm bpm Respiratory Rate - Anes 12 br/min br/min 10/10/2023 8:54 EST Systolic Blood Pressure Non-Invasive 80 mmHg mmHg Diastolic Blood Pressure Non-Invasive 53 mmHg mmHg 10/10/2023 8:52 EST Systolic Blood Pressure Non-Invasive 74 mmHg mmHg Diastolic Blood Pressure Non-Invasive 49 mmHg mmHg 10/10/2023 8:50 EST Temperature (Route Not Specified) 34.1 DegC DegC Heart Rate Monitored 53 bpm bpm Respiratory Rate - Anes 12 br/min br/min 10/10/2023 8:48 EST Systolic Blood Pressure Non-Invasive 91 mmHg mmHg Diastolic Blood Pressure Non-Invasive 60 mmHg mmHg 10/10/2023 8:46 EST Systolic Blood Pressure Non-Invasive 73 mmHg mmHg Diastolic Blood Pressure Non-Invasive 52 mmHg mmHg 10/10/2023 8:45 EST Temperature (Route Not Specified) 33.98 DegC DegC Heart Rate Monitored 60 bpm bpm Respiratory Rate - Anes 12 br/min br/min 10/10/2023 8:42 EST Systolic Blood Pressure Non-Invasive 82 mmHg mmHg Diastolic Blood Pressure Non-Invasive 56 mmHg mmHg 10/10/2023 8:40 EST Temperature (Route Not Specified) 33.89 DegC DegC Heart Rate Monitored 68 bpm bpm Respiratory Rate - Anes 13 br/min br/min 10/10/2023 8:39 EST Systolic Blood Pressure Non-Invasive 91 mmHg mmHg Diastolic Blood Pressure Non-Invasive 68 mmHg mmHg 10/10/2023 8:36 EST Systolic Blood Pressure Non-Invasive 85 mmHg mmHg Diastolic Blood Pressure Non-Invasive 75 mmHg mmHg 10/10/2023 8:35 EST Temperature (Route Not Specified) 33.74 DegC DegC Heart Rate Monitored 68 bpm bpm Respiratory Rate - Anes 13 br/min br/min 10/10/2023 8:34 EST Systolic Blood Pressure Non-Invasive 98 mmHg mmHg Diastolic Blood Pressure Non-Invasive 76 mmHg mmHg 10/10/2023 8:31 EST Systolic Blood Pressure Non-Invasive 98 mmHg mmHg Diastolic Blood Pressure Non-Invasive 23 mmHg mmHg 10/10/2023 8:30 EST Heart Rate Monitored 64 bpm bpm Respiratory Rate - Anes 13 br/min br/min 10/10/2023 8:27 EST Systolic Blood Pressure Non-Invasive 108 mmHg mmHg Diastolic Blood Pressure Non-Invasive 84 mmHg mmHg 10/10/2023 8:25 EST Heart Rate Monitored 57 bpm bpm Respiratory Rate - Anes 13 br/min br/min 10/10/2023 8:24 EST Systolic Blood Pressure Non-Invasive 106 mmHg mmHg Diastolic Blood Pressure Non-Invasive 73 mmHg mmHg 10/10/2023 8:23 EST Systolic Blood Pressure Non-Invasive 54 mmHg mmHg Diastolic Blood Pressure Non-Invasive 36 mmHg mmHg 10/10/2023 8:20 EST Heart Rate Monitored 63 bpm bpm Respiratory Rate - Anes 13 br/min br/min 10/10/2023 8:18 EST Systolic Blood Pressure Non-Invasive 164 mmHg mmHg Diastolic Blood Pressure Non-Invasive 148 mmHg mmHg 10/10/2023 8:16 EST Systolic Blood Pressure Non-Invasive 146 mmHg mmHg Diastolic Blood Pressure Non-Invasive 87 mmHg mmHg 10/10/2023 8:15 EST Heart Rate Monitored 80 bpm bpm Respiratory Rate - Anes 10 br/min br/min 10/10/2023 8:13 EST Systolic Blood Pressure Non-Invasive 52 mmHg mmHg Diastolic Blood Pressure Non-Invasive 35 mmHg mmHg 10/10/2023 8:10 EST Heart Rate Monitored 63 bpm bpm Respiratory Rate - Anes 0 br/min br/min Systolic Blood Pressure Non-Invasive 137 mmHg mmHg Diastolic Blood Pressure Non-Invasive 84 mmHg mmHg 10/10/2023 8:05 EST Respiratory Rate - Anes 0 br/min br/min 10/10/2023 6:44 EST Temperature Temporal Artery 36.4 DegC Peripheral Pulse Rate 66 bpm Respiratory Rate 14 br/min Systolic Blood Pressure Non-Invasive 157 mmHg HI Diastolic Blood Pressure Non-Invasive 96 mmHg HI . Mental status: at preoperative baseline. Respiratory function: respirations are non-labored, stable. Respiratory support: none. CV function: stable. Cardiovascular support: none. Pain: satisfactory. Nausea status: satisfactory. Postoperative hydration status: within normal limits. Notes: Patient is sufficiently recovered from anesthesia to participate in the evaluation. No follow-up care needed. No complications post-anesthesia.. Digitally Signed by GÓMEZ CARSON MD on 10/10/2023 12:59 PM [id number] Note ORIGINAL EXAMINATION: FLUORO MD - > 1 HR10/10/2023 11:15 am Intraoperative fluoroscopy and image intensifier views of the cervical spine COMPARISON: None HISTORY: ORDERING SYSTEM PROVIDED HISTORY: Reason for Exam: PAIN, , intraoperative imaging FINDINGS/IMPRESSION: Fluoroscopic time: 6.2 seconds Total dose (Reference Air Kerma): 0.5907 MGy Number of fluoroscopic images: 4 Detail is limited. Please see intraoperative notes for additional details of the procedure. Interpreted by: Hebert Sinha MD Preliminary Report By: Hebert Sinha MD Electronically signed By Hebert Sinha MD Dictated Date: 10/10/2023 12:19:26 PM Prelim Date: 10/10/2023 12:19:51 PM Sign Date: 10/10/2023 12:19:51 PM Ordering Provider: [facility]01-11-2024 Anesthesiology Consult note Patient: JACQUELINE OLIVEIRA Age: 62 years Sex: Female : 1960 Associated Diagnoses: None Author: GÓMEZ CARSON MD Preoperative Information Time of last food or liquid consumption: 10/09/2023 18:00:00 Anesthesia history Patient's history: nausea and vomiting with anesthesia. Family's history: negative. Health Status Allergies: Allergic Reactions (All) Severe Cephalosporins- Hives. Severity Not Documented Bactrim- Nausea and vomiting. Codeine- Nausea. Decongestant- Nausea and hyperactive. Erythromycin- Nausea, vomiting and diarrhea. Macrobid- Nausea. Nitrofurantoin- Vomiting. Sulfamethoxazole- Nausea. Trimethoprim- Nausea., Allergies (9) ActiveReaction cephalosporinsHives BactrimVomiting codeineNausea DecongestantHyperactive erythromycinVomiting MacrobidNausea nitrofurantoinVomiting sulfamethoxazoleNausea trimethoprimNausea Current medications: (Selected) Inpatient Medications Ordered Transderm-Scop 1 mg/72 hr transdermal film, extended release: 1 patch(es), Transdermal, q72h Xylocaine HCl 1% injectable solution: 2.5 mg, 0.25 mL, Intradermal, PREOP pharm scopolamine (Transderm-Scop Patch REMOVAL): 1 EA, Miscellaneous, Once scopolamine (Transderm-Scop Patch REMOVAL): 1 EA, Miscellaneous, q72h Documented Medications Documented Albuterol (Eqv-ProAir HFA) 90 mcg/inh inhalation aerosol: 2 puff(s), Inhalation, q4h, PRN: as needed for wheezing, 0 Refill(s) DULoxetine 20 mg oral delayed release capsule: 20 mg, 1 cap(s), Oral, qAM, 180 cap(s), 0 Refill(s) Tylenol: 650 mg, Oral, q4h, PRN: as needed for pain, 0 Refill(s) Vitamin B12 5000 mcg oral tablet, disintegratin,000 mcg, 1 tab(s), Oral, qDay, 100 tab(s), 0 Refill(s) Vitamin D3 50 mcg (2000 intl units) oral capsule: 50 mcg, 1 cap(s), Oral, qDay, 60 cap(s), 0 Refill(s) fluticasone proprionate NASAL 50 mcg/ spray: 50 mcg, 1 spray(s), Nostril, each, Daily, PRN: as needed for allergy symptoms, 0 Refill(s) loratadine 10 mg oral tablet: 10 mg, 1 tab(s), Oral, Daily, PRN: as needed for allergy symptoms, 0 Refill(s), Medications (5) Active Scheduled: (4) lidocaine 1% (MPF) 2 mL vial pf 2.5 mg 0.25 mL, Intradermal, PREOP pharm scopolamine 1.5 mg (1 mg / 72 hours patch) 1 patch(es), Transdermal, q72h Transderm-Scop patch REMOVAL 1 EA, Miscellaneous, q72h Transderm-Scop patch REMOVAL 1 EA, Miscellaneous, Once Continuous: (1) Lactated Ringers 1,000 mL 1,000 mL, Intravenous, 20 mL/hr PRN: (0) Problem list: Medical Anxiety / SNOMED CT 91107768 / Confirmed Arthritis / SNOMED CT 8124167 / Confirmed Back pain / SNOMED CT 3276650565 / Confirmed Depression / SNOMED CT 290323746 / Confirmed DVT - Deep vein thrombosis / SNOMED CT 5528336997 / Confirmed Hydronephrosis / SNOMED CT 59458334 / Confirmed Kidney stone / SNOMED CT 677626833 / Confirmed, Active Problems (30) Achondroplasia Acid reflux Actinic keratitis RAYMOND positive Anxiety Arthritis Back pain Benign colon polyp Chronic pain syndrome Claustrophobia Contact lenses CS (cervical spondylosis) Deficiency of vitamin B12 Depression Diverticulosis DVT - Deep vein thrombosis Emphysema of lung Glasses History of cholecystectomy History of kidney stones Hydronephrosis Itching Kidney stone Neuropathy Sebaceous cyst Sleep apnea Spinal arthritis Spinal stenosis Tobacco use Urinary tract infection Histories Past Medical History: Active DVT - Deep vein thrombosis (7912647879): Onset in 2009 at 49 years. Comments: 09/12/2023 EST 10:22 SAMARA Vee left leg, pt was on bcp at this time also Family History: Cancer Mother () HTN - Hypertension Mother () Parkinsons disease Mother () Prostate cancer 28-Mar-2016 02:35:22<$> Father () Procedure history: Tonsillectomy (780699372) in 1990 at 30 Years. Cholecystectomy (05791680) in 1989 at 29 Years. section (56047158). Cystoscopy (04817563). Adenoidectomy (788522452). Nasal septoplasty (41871498). Myringotomy (4440661322). Comments: 09/12/2023 10:51 SAMARA Vee with tubes, both ears, has had a few times Kidney stone (776105745). Comments: 09/12/2023 10:52 SAMARA Vee with stent, has had a few times Colonoscopy (657108820). Social History Social & Psychosocial Habits Alcohol 10/10/2023 Use: Never Substance Abuse 10/10/2023 Use: Never Tobacco 10/10/2023 Tobacco Use: 10 or more cigarettes (1/ Type: Cigarettes Started at age: 22 Years Home/Environment 10/10/2023 Living situation: Home/Independent Safe place to go: Yes Domestic Concerns None Lives In moble home Current Home Treatments None Special Services and Community Resources None Marital Status of Patient if Patient Independent Adult: Nutrition/Health 10/10/2023 Type of diet: Regular Appetite Good Eating Difficulties None . Physical Examination Vital Signs 10/10/2023 6:44 EST Temperature Temporal Artery 36.4 DegC Peripheral Pulse Rate 66 bpm Respiratory Rate 14 br/min Systolic Blood Pressure Non-Invasive 157 mmHg HI Diastolic Blood Pressure Non-Invasive 96 mmHg HI Vital Signs(last 24 hrs) Last Charted Resp Rate 14 br/min (OCT 10 06:44) SBPH 157mmHg (OCT 10:44) DBPH 96mmHg (OCT 10:44) Measurements from flowsheet : Measurements 10/10/2023 6:44 EST Height 121.9 cm Height in inches 48 inch(es) Admission Weight 53 kg Weight Lbs 116.6 lb Weight Method Actual [place] Body Weight 17.88 kg Type of Scale Used Bed scale Admission Body Mass Index 35.67 m2 Pain assessment: Pain Assessment 10/10/2023 6:44 EST Primary Pain Intensity 0 Pain Scale Type 0-10 Pain scale . General: Alert and oriented. Airway: Normal temporomandibular joint mobility, Nares patent, Trachea midline. Mallampati classification: II (soft palate, fauces, uvula visible). Head: Normocephalic, Atraumatic. Dentition Evaluation: Intact, Own teeth, Capped teeth. Respiratory: Lungs are clear to auscultation. Cardiovascular: Normal rate, Regular rhythm. Neurologic: Alert, Oriented. Review / Management Results review: No qualifying data available , Lab results 10/10/2023 7:06 EST SN - CAt - Case Attendee SN - CAt - Case Attendee SN - CAt - Case Attendee SN - CAt - Case Attendee SN - CAt - Case Attendee SN - CAt - Case Attendee SN - CAt - Case Attendee SN - CAt - Case Attendee SN - CAt - Case Attendee SN - CAt - Case Attendee SN - CAt - Case Attendee SN - CAt - Case Attendee SN - CAt - Case Attendee SN - CAt - Case Attendee SN - CAt - Case Attendee SN - CAt - Case Attendee SN - CAt - Role Performed Primary Surgeon SN - CAt - Role Performed Anesthesiologist SN - CAt - Role Performed JUNIOR NETWORK ENGINEER SN - CAt - Role Performed Scrub 1 SN - CAt - Role Performed Mold Yard Supervisor 1 SN - CAt - Role Performed Dip Guider Stoves SN - CAt - Role Performed Apartment Leasing Agent 1 SN - CAt - Role Performed Spinal Cord Monitor 10/10/2023 7:03 EST SN - Preop - CTm Pt Ready for OR/Proced 10/10/2023 7:03 10/10/2023 7:00 EST Antecubital Left 10/10/2023 20 gauge Peripheral IV Activity: Insert new site Peripheral IV Dressing Condition: Clean, Dry, Intact Peripheral IV Dressing Activity: Applied, Transparent dressing Peripheral IV Line Status/Patency: Continuous infusion Peripheral IV Site Condition: No complications Peripheral IV Equipment: Manual Peripheral IV Number of Attempts: 1 10/10/2023 6:51 EST dexAMETHasone 10 mg mg vancomycin 1,000 mg mg 10/10/2023 6:48 EST scopolamine 1 patch(es) patch(es) 10/10/2023 6:44 EST Height 121.9 cm Height in inches 48 inch(es) Admission Weight 53 kg Weight Lbs 116.6 lb Weight Method Actual [place] Body Weight 17.88 kg Type of Scale Used Bed scale Admission Body Mass Index 35.67 m2 Temperature Temporal Artery 36.4 DegC Peripheral Pulse Rate 66 bpm Respiratory Rate 14 br/min Systolic Blood Pressure Non-Invasive 157 mmHg HI Diastolic Blood Pressure Non-Invasive 96 mmHg HI Primary Pain Intensity 0 Pain Scale Type 0-10 Pain scale Heart Sounds ICU S1S2 Heart Rhythm Regular Respirations Unlabored Respiratory Pattern Regular All Lobes Breath Sounds Clear Oxygen Therapy Room air Oxygen Saturation 98 % Abdomen Description Non-distended Abdomen Palpation Non-Tender Urinary Elimination Voiding, no difficulties All Extremity Description [place] Skin Temperature Warm Temperature All Extremities Warm Skin Description [place] Skin Integrity Intact Mucous Membrane Color [place] Neurological Symptoms Numbness, Tingling, Weakness Characteristics of Speech Clear Level of Consciousness Alert Strength All Extremities Strong Affect/Behavior Appropriate, Calm, Cooperative Orientation Oriented x 4 Positioning Repositions self Standard Safety ID band on, Allergy Band on, Call device within reach, Bed in low position, Wheels locked, Upper/Half-Length side-rails up, Phone within reach, personal items within reach, Safety level maintained, Non-Slip footwear, Precautions maintained 10/10/2023 6:41 EST Violence Risk Confused No Violence Risk Irritable No Violence Risk Boisterous No Violence Risk Verbal Threats No Violence Risk Physical Threats No Violence Risk Attacking Objects No Violence Risk Predictor Score 0 Violence Risk Intervention None Violence Risk Current Interventions None Allergies Yes Patient Dressed In Hospital gown CHG Preoperative Wash/Wipe Night before procedure, Day of procedure, Site specific wipe Preop Nasal Swab Povidone-Iodine CHG Skin Prep Completed for Eligible Surgery History & Physical Update On Chart Yes History & Physical On Chart Yes Obstructive Sleep Apnea Assess Completed Yes MRSA/MSSA Protocol Yes Belongings At Bedside Cell phone, University Demonstrator, Glasses, Pants, Shirt, Shoes, Socks, Undergarments Personal Home Medications Received Received from patient Allergy Band on and Verified Yes Patient ID Band on and Verified Yes Implants Verified Yes Pacemaker/AICD Verified Yes Site Verified by Patient/Family Yes Last Fluid Intake 10/09/2023 18:00 Last Food Intake 10/09/2023 18:00 10/10/2023 6:34 EST SN - Preop - CTm Pt in SDS Room 10/10/2023 6:34 10/10/2023 6:34 EST Designated Person #1 We May Share MIESHA Oliveira [phone] (POA) Designated Person #1 Relationship Daughter Designated Person #2 We May Share MIESHA Gutierrez [phone] Designated Person #2 Relationship Friend Privacy Restrictions Requested None Status No, per patient Sensory Deficits None Diagnosed With Sleep Apnea Yes Advanced Directives Yes Advance Directive Type [place] Durable Power of Technical [place]st [place] Declaration (Living Will) Advance Directive Location Family instructed to bring in copy Infectious Disease Symptoms Patient states no symptoms Infectious Disease Recent Exposure No Alcohol and Drug Use No Employee of Institutional Living No Health Care Employee No History of Exposure to TB No History of Positive Chest X-Ray for TB No History of Positive TB Skin Test No Homeless No Known Immunosuppression No Recent Immigrant No Resident of Institutional Living No Bloody Sputum No Fatigue No Fever No Loss of Appetite No Night Sweats No Persistent Cough > 3 Weeks No Weight Loss No Surgery Scheduled On Date/Time 10/10/2023 7:30 Patient Aware Date/Time Of Surgery Yes Arrival Time the Day of Surgery 10/10/2023 5:30 Patient Aware of Arrival Time Yes Pre-Op Patient Education NPO after midnight, No smoking after midnight, No makeup, No jewelry, Responsible Constitution Party, Aware of surgery location, Pre-op education done, 2 bottles CHG wash with instructions given, Instructed to take ordered medications, Instructed to bring home medications, VTE prevention handout given, SSI prevention handout given, MRSA protocol education provided SN - Preprocedure Comments Spoke with patient, Verbalizes/Nonverbally indicates understanding Individuals Taught Patient, Friend Learning Readiness Willing to learn Barriers to Learning None evident Teaching Method Demonstration, Explanation, Printed materials, Teach-back, Video/Educational TV Preferred Spoken Language Georgian Preferred Written Language Georgian Family/Caregiver Prefer Spoken Language Georgian Family/Caregiver Prefer Written Language Georgian Teaching Evaluation Verbalizes/Nonverbally indicates understanding Surgical Site Infection Prevention SSI FAQ provided, Hand hygiene Infection Prevention Teaching Evaluation Verbalizes/Nonverbally indicates understanding Pain Medication Education Pain scale, Name Pain Teaching Evaluation Verbalizes/Nonverbally indicates understanding Pre Procedure/Surgery Education Appropriate expectations, Bring glasses, hearing aids, contact lenscase, Date/Time of procedure/surgery, Hospital gown requirement worn to OR, NPO Procedure/Surgical Teaching Evaluation Verbalizes/Nonverbally indicates understanding Safety Measures Education Fall prevention, Call light use Safety Teaching Evaluation Verbalizes/Nonverbally indicates understanding Safety Brochure Information Reviewed Yes [facility] Video Viewed No Information Given by Patient Patient's Current Physicians Patient's Current Physicians Discharge To, Anticipated Home independently Prev Test Positive/Diagnosis w/COVID-19 No Current Quarantine/Isolated any Illness No Any Contact with Sick Animals/Birds No Traveled Anywhere in Last 30 Days No Lost Weight Unintentionally Recently No Eat Poorly Due to Decreased Appetite No Total MST Score 0 No Personal Devices, Patient Valuables Contact lenses, Glasses Anesthesia/Transfusions Prior anesthesia, Prior anesthesia reaction Type of Anesthesia Reaction nausea and vomiting, denies any problem with intubation Admission Note-Nursing Same Day Patient History 10/09/2023 15:35 EST Surgery Scheduled On Date/Time 10/10/2023 7:30 (Modified) Arrival Time the Day of Surgery 10/10/2023 5:30 (Modified) Admission Note-Nursing Patient History PreTest (Modified) . Assessment and Plan [place] [employer] Anesthesiologists (ASA) physical status classification: Class III. Anesthetic Preoperative Plan Anesthetic technique: General. Induction: intravenously. Maintenance airway: Oral endotracheal tube. Postoperative pain management: Per surgeon. Risks discussed: nausea, vomiting, headache, sore throat, dental injury, hypotension, allergic reaction, serious complications. Informed consent: signed by patient. Notes: smoker, reflux is controlled, Hx of DVT (2009), achondroplasia, CONRADO with no CPAP,anxiety/depression. Digitally Signed by GÓMEZ CARSON MD on 10/10/2023 07:23 AM [id number] History and physical note DATE OF ADMISSION: 09/29/2023 HISTORY OF PRESENT ILLNESS: Jacqueline Oliveira is a 62-year-old female born on 1960. She was initially seen by me in the office at [facility] on 06/19/2023. 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 She states that at times her hands feel like sandpaper. 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 She notices that her manual dexterity (as regards to utilization of computer keyboard) is diminished. Symptoms have worsened over the last 4-5 months. She was evaluated by Zohra Espinosa MD on 02/01/2023 and ultimately referred to me by Dr. Espinosa for further evaluation. This patient is also noted to have a lengthy history of transverse low back pain with some numbness and tingling of the lower extremities, which suggests neurogenic claudication. In fact objective radiographic imaging including MRI scan of lumbar spine (see below for detail) identifies lumbar spinal stenosis. However, symptoms of neurogenic claudication are not problematic for her. She is scheduled to undergo surgical intervention to address the sequela of cervical spinal stenosis manifesting itself as cervica l spondylotic myelopathy (progressive). ALLERGIES: INCLUDE SULFAMETHOXAZOLE, NITROFURANTOIN, TRIMETHOPRIM, ERYTHROMYCIN, CODEINE, BACTRIM AND MACROBID. MEDICATIONS: Include albuterol sulfate and Lexapro. 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 REVIEW OF SYSTEMS: The patient denies recent weight loss, weight gain, fever, chills, night sweats,abdominal pain, nausea, vomiting, hematochezia, hematemesis, polyuria, polydipsia, chest pain, shortness of breath, paroxysmal nocturnal dyspnea, orthopnea, dyspnea on exertion. PHYSICAL EXAMINATION: HEENT: Pupils are equal, round and reactive to light. Extraocular motion is intact. There is no conjunctival injection or scleral icterus. The oropharynx is clear. NECK: The trachea is midline. There is no cervical lymphadenopathy. CHEST: Moves easily and symmetrically with respirations, is clear to auscultation and percussion. CARDIOVASCULAR: Regular rate and rhythm, normal S1, S2. ABDOMEN: Soft, bowel sounds positive, normoactive. BACK AND NEUROLOGIC: She is able to maintain neutral horizontal gaze exhibiting no evidence of isolated neck extensor myopathy nor torticollis. A positive Lhermitte sign is identified as lancinating pain into the upper and lower extremities with hyperextension and hyperflexion of the cervical spine. She has a positive finger escape sign bilaterally. Weakness of the intrinsic musculature of the hand (abductors and adductors) at 4+ bilaterally. Motor strength deltoids, biceps, triceps, wrist extensors and flexors are 5+. Motor strength hip flexors, quads, hamstrings, ankle dorsi plantar flexors, EHL are 5+. Knee jerk and ankle jerk reflexes are absent. Positive Nataliia sign bilaterally. Negative dysdiadochokinesis. Negative Romberg sign. RADIOGRAPHS: Radiographs include AP and lateral views of the spine on 36-inch cassette (scoliosis views), lumbar hyperlordosis is identified with kyphosis at the thoracolumbar junction (5 degrees; normal is zero degree). Subaxial cervical hypolordosis is also identified. Flexion, extension, lateralviews of the cervical spine obtained on 10/10/2022 reveals no evidence of dynamic segmental spinal instability. There is profound degenerative collapse of disk space at C3- C4. MRI scan of the lumbar spine obtained on 02/24/2021, reveals severe lumbar spinal stenosis at multiple levels; L2 through L5. This is essentially congenital stenosis (congenitally short pedicles) with superimposed degenerative change. MRI scan of the thoracic spine obtained 07/09/2023 suggest an acceptably patent thoracicspinal canal. No evidence of deformation of the thoracic spinal cord. No evidence of myelomalacia. Two MRI scans of the cervical spine were obtained, one in 2020 (02/24/2021) and the most recent obtained in 2022. Both images suggest subaxial cervical hypolordosis with congenital cervical spinal stenosis. Myelomalacia is identified at the level of the C3-C4 disk space on both imaging studies. It appears that there may be some interval development of myelomalacia at the C4-C5 disk space on most recent 2022 images. There has, however, been progression in terms of the magnitude of the stenosis inthe intervening timeframe with progression as regards severity of stenosis at the C3-C4 motion segment with marked deformation of the ventral aspect of the cervical spinal cord at C2-C3. The mid sagittal diameter of the cervical spinal canal at C2-C3 is now 7 mm (compared with 10.2 mm in 2021). At C3-C4, there does not appear to be substantial deformation of the cervical spinal cord when comparing the 2021 images to the images obtained at present. My impression is this is a complex case of an individual with cervical spondylosis and cervical spinal stenosis (congenital with superimposed degenerative change), concomitant with subaxial cervical hypolordosis. The primary pathology radiographically at this time appears to be at the C3-C4 motion segment. My recommendation at present would be to proceed with surgical intervention including the following: Anterior cervical diskectomy at C3-C4 with interbody fusion at C3-C4 utilizing fibular strut allograft and application of anterior cervical locking plate and screws (some consideration could be givento surgical intervention at C4-C5 i.e. ACDF) given radiographic evidence of myelomalacia at this level. However, at the time of this dictation, I am not inclined to proceed in that direction, but rather we will focus on a single level. Goals of surgery have been explained to the patient to be prevention of progression of neurologic deficit. It has been carefully explained to the patient that no guarantee can be given as regards reversal of present chronic symptomatology. The patient understandsthe risks of surgery include but not be limited to, infection, bleeding, neurologic injury, prolonged mechanical ventilation, postoperative vision loss, recurrent laryngeal nerve injury, tracheal injury, esophageal injury leading to dysphonia, dysphagia, vocal fatigue, OH, DVT, PE, CVA, urinary tract infection, pneumonia, , adjacent segment disease, pseudoarthrosis and hardware failure. 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 However, I am at present notinclined to address this by conventional measures (i.e., posterior decompression via laminectomy and instrumented fusion) because of the diffuse nature of the patient's pathology and subaxial cervical hypolordosis. However, if the patient does postoperatively developed progressive symptoms or radiographic evidence to suggest progressive sagittal plane deformity, then some consideration could be given to extensive revision reconstruction both anteriorly and posteriorly, however, as I believe that the patient's present symptoms are focal in nature (i.e. C3-C4), I will address this level at thistime. Patient demonstrates excellent comprehension of the nature of her pathology, treatment options related to her, risks of those treatment options, alternatives of those treatment options, recovery from surgery and as informed consent has been achieved, we will proceed with surgery. BRAYDEN ECHEVARRIA MD MC/NTS JOB#: [id number] DICTATION ID#: [id number] Digitally Signed by BRAYDEN ECHEVARRIA MD on 10/08/2023 01:40 PM [facility] [id number] NotePap Smear Specimen AdequacyAugust 2022 11:59pmComment.Satisfactory for evaluation. No endocervical component is identified.[facility] INTER[facility]ACED A#[id number] Va Medical CenterComment on above:Satisfactory for evaluation. No endocervical component is identified. 08-22-2022 NoteHNO ID: [id number] Author: Svetlana Ruiz PA-C Service: ? Author Type: Physician Terrazzo Supervisor Type: Progress Notes Filed: 08/27/2022 12:34 PM Note Text: FOLLOW UP VISIT - ENDOSCOPY NAME: Jacqueline Tee [facility] NO.: [id number] DATE OF SERVICE: 08/22/2022 : 1960 REFERRING PHYSICIAN: Calli Cifuentes MD, MD Jacqueline is a patient I am following with Dr. Shen for screening colonoscopy. Dr. Shen performed lower endoscopy on 08/17/22. The patient was found to have hemorrhoids, sigmoid diverticulosis, and a small polyp in the sigmoid colon which was removed. Pathology demonstrated: FINAL DIAGNOSIS A. Colon, sigmoid polyp, biopsy: - Colonic mucosa with no significant pathologic change, see comment. Diagnosis Comment Multiple additional DELFINA levels were examined. No epithelial dysplasia is identified. The patient notes no complaints since the procedure. VITALS: Pulse 77, temperature 36.7 ?C (98.1 ?F), weight 55.4 kg (122 lb 3.2 oz), last menstrual period 08/17/2009, SpO2 97 %. General: patient is alert, cooperative, pleasant and in no acute distress On examination, the abdomen is benign. Assessment IMPRESSION: s/p colonoscopy with polypectomy-benign tissue with no adenomatous tissue or dysplasia identified PLAN: The operative findings and pathology report were reviewed with the patient, and the patient has had the opportunity to ask questions and have questions answered. If the patient notes any problems or changes in bowel function, the patient should contact me immediately. Otherwise I recommend follow up endoscopy in 10 years. HM updated and recall letter generated. Patient verbalized understanding of all above and agreed with the plan Diagnoses: (Z12.11) Encounter for screening for malignant neoplasm of colon (primary encounter diagnosis) I spent a total of 21 minutes on the date of the service which included preparing to see the patient, [id number] patient care, completing clinical documentation, obtaining and/or reviewing separately obtained history, counseling and educating the patient/family/caregiver, independently interpreting results (not separately reported), and communicating results to the patient/family/caregiver. [facility] Instructions* Patient Instructions* Svetlana Ruiz PA-C - 08/22/2022 10:33 AM EST The following instructions are important for you related to your office visit today with the [facility] General Surgeons. INSTRUCTIONS FOLLOWING A POLYP FOUND AT COLONOSCOPY You were found to have a benign non-adenomatous colon polyp. I recommend you undergo repeat endoscopy in 10 years. If you note bleeding, change in bowel habits, or other suspicious colon related symptoms before that time, those symptoms should be evaluated as necessary. If you have any difficulties or concerns, you should contact our office immediately. If you note any additional difficulties, questions, or concerns, you should contact our office immediately @ [phone] and ask to be transferred to the General Surgery department. documented in this encounterMet[facility]11-23-2022 History of Present illness Narrative* Svetlana Ruiz PA-C - 08/22/2022 10:21 AM EST FOLLOW UP VISIT - ENDOSCOPY NAME: Jacqueline Oliveira [facility] NO.: [id number] DATE OF SERVICE: 08/22/2022 : 1960 REFERRING PHYSICIAN: Calli Cifuentes MD, Jacqueline is a patient I am following with Dr. Shen for screening colonoscopy. Dr. Shen performed lower endoscopy on 08/17/22. The patient was found to have hemorrhoids, sigmoid diverticulosis, and asmall polyp in the sigmoid colon which was removed. Pathology demonstrated: FINAL DIAGNOSIS A. Colon, sigmoid polyp, biopsy: - Colonic mucosa with no significant pathologic change, see comment. Diagnosis Comment Multiple additional H&E levels were examined. No epithelial dysplasia is identified. The patient notes no complaints since the procedure. VITALS: Pulse 77, temperature 36.7 C (98.1 F), weight 55.4 kg (122 lb 3.2 oz), last menstrual period 08/17/2009, SpO2 97 %. General: patient is alert, cooperative, pleasant and in no acute distress On examination, the abdomen is benign. Assessment IMPRESSION: s/p colonoscopy with polypectomy-benign tissue with no adenomatous tissue or dysplasia identified PLAN: The operative findings and pathology report were reviewed with the patient, and the patient has hadthe opportunity to ask questions and have questions answered. If the patient notes any problems or changes in bowel function, the patient should contact me immediately. Otherwise I recommend follow up endoscopy in 10 years. HM updated and recall letter generated. Patient verbalized understanding of all above and agreed with the plan Diagnoses: (Z12.11) Encounter for screening for malignant neoplasm of colon (primary encounter diagnosis) I spent a total of 21 minutes on the date of the service which included preparing to see the patient, [id number] patient care, completing clinical documentation, obtaining and/or reviewing separately obtained history, counseling and educating the patient/family/caregiver, independently interpretin g results (not separately reported), and communicating results to the patient/family/caregiver. Svetlana Ruiz PA-C documented in this encounterMetro[facility]11-18-2022 Nurse Note* Laina Guerrero RN - 08/17/2022 8:12 AM EST Arrived in phase II via cart left lateral position, eyes open upon arrival, skin warm and dry, respirations regular and unlabored. Abdomen soft and non distended, denies pain or nausea. Encouraged topass air rectally as able. Resting comfortably. documented in this encounterMetro[facility]11-18-2022 History and physical note * Ariana Shen MD - 08/17/2022 7:30 AM EST UPDATED PROCEDURAL SEDATION HISTORY AND PHYSICAL EXAMINATION SERVICE DATE: 08/17/2022 SERVICE TIME: 7:26 PHYSICAL EXAM MUST BE COMPLETED ON ADMISSION PROCEDURE: colonosocpy, possible biopsies Procedure Indications: screening for colon cancer The History and Physical (completed in the past 30 days) has been reviewed and the patient has beenexamined. The contents accurately reflect the patient's condition with the following additions or revisions since the H&P was completed. ASA Class: ASA Class:: Patient with mild systemic disease Examination indicates no changes. AIRWAY: Airway Visualization of Uvula: Yes Mouth opening greater than 2 fingerbreadths: Yes Neck Full Range of Motion: Yes LUNGS: Lungs clear to auscultation CARDIAC: Regular rhythm,Regular rate Provisional Diagnosis/Treatment Plan: colonoscopy, possible biopsies SEDATION GOAL: Moderate This H&P can be found in the Electronic Medical Record . SIGNATURE: Ariana Shen MD PATIENT NAME: Jacqueline Oliveira DATE: August 17, 2022 TIME: 7:26 AM Source Note - Ariana Shen MD - 08/17/2022 7:30 AM EST HISTORY AND PHYSICAL Jacqueline Oliveira 1960 REFERRING PHYSICIAN: Calli Cifuentes MD CHIEF COMPLAINT: Consult (Colonoscopy consult/) HPI: The patient is a 61 year old female referred for endoscopy. Jacqueline presents for consideration of screening for colon cancer via colonoscopy The patient denies blood in stools, denies abdominal pain, and denies changes in bowel habits. The patient notes no colon cancer in immediate family. The patient has had previous colonoscopy in 2011 PAST MEDICAL HISTORY Diagnosis Date Achondroplasia Actinic keratosis Allergic rhinitis Back ache Chronic pain syndrome Class 2 obesity with body mass index (BMI) of 37.0 to 37.9 in adult Embolism and thrombosis of unspecified site 12/2007 LEFT THIGH GERD (gastroesophageal reflux disease) IBS (irritable bowel syndrome) Kidney stones 05/2012 MDD (major depressive disorder), recurrent episode, mild (HCC) Menopausal flushing CONRADO (obstructive sleep apnea) Other specified forms of hearing loss, unspecified laterality PMH - PAST MEDICAL HISTORY OF lumbar stenosis Sciatica Spinal stenosis Spondylolysis of cervical region Stenosis, spinal, lumbar PAST SURGICAL HISTORY Procedure Laterality Date ADENOIDECTOMY PRIMARY <AGE 14 Adenoidectomy DELIVERY ONLY , low cervical CHOLECYSTECTOMY Cholecystectomy COLONOSCOPY 2011 KIDNEY STONE ANALYSIS MYRINGOTOMY W TUBE,BILATERAL(2) RHINP PRIM LAT&ALAR CRTLGS&/ELVTN NASAL TI Rhinoplasty TONSILLECTOMY PRIMARY/SECONDARY <AGE 14 Tonsillectomy Current Outpatient Medications Medication Sig loratadine 10 mg cap Take 10 mg by mouth once daily. escitalopram oxalate (LEXAPRO) 5 mg tablet Take 5 mg by mouth once daily. fluticasone (FLONASE) 50 mcg/actuation nasal spray Use 1 [place] in each nostril as needed. ALBUTEROL 90 MCG/ACTUATION AEROSOL INHALER Inhale one(1) - two(2) puffs four(4) times a day as needed for wheezing and shortness of breath. peg 3350-Electrolytes (GOLYTELY) 236-22.74-6.74 -5.86 gram suspension Take 4,000 mL by mouth one time only for 1 dose. Refer to printed prep instructions from your provider. esomeprazole (NEXIUM) 20 mg capsule Take 20 mg by mouth once daily. hydrOXYzine HCl (ATARAX) 10 mg tablet Take 10 mg by mouth once daily. (Patient not taking: Reportedon 06/29/2022) ranitidine hcl(ZANTAC 150 MG TAB) Take one(1) tablet twice daily. (Patient not taking: Reported on 06/29/2022) ALLERGIES: Bactrim [Sulfamethoxazole-Trimethoprim], Cefuroxime, Cephalosporins, Codeine, Decongestant Tablet, Erythromycin Base, Macrobid [Nitrofurantoin Monohyd/M-Cryst], Nitrofurantoin, Sulfamethoxazole, Trimethoprim, and Erythromycin PERSONAL HISTORY: Social History Tobacco Use Smoking status: Every Day Packs/day: 0.25 Years: 40.00 Pack years: 10.00 Types: Cigarettes Smokeless tobacco: Never Vaping Use Vaping Use: Never used Substance Use Topics Alcohol use: No Drug use: No FAMILY HISTORY Problem Relation Age of Onset Hypertension Mother other (parkinsons) Mother Prostate Cancer Father Skin Cancer Father Coronary Artery Disease Brother Coronary Artery Disease Paternal Grandfather The review of systems data was entered by the nurse and reviewed by nh Nursing Notes: Elena Fitch RN 06/29/2022 3:23 PM Signed REVIEW OF SYSTEMS: General: The patient denies fatigue, denies weight loss, denies weight gain, denies feeling hot, and denies feelings of cold. Eyes: The patient denies glaucoma, denies eye injury/surgery, wears glasses or contacts. Ear/Nose/Throat: The patient NOTES allergies, NOTES hayfever, denies ear infections, and denies bloody noses. Cardiovascular: The patient denies chest pain, denies heart disease, denies high blood pressure,denies cardiac stent, denies prior heart attack, denies irregular heart beat, denies high cholesterol, denies poor circulation, denies heart failure, other cardiac issues, NOTES claudication, denies coldfeet, denies peripheral arterial stent. Respiratory: The patient denies tuberculosis, denies pneumonia, denies frequent cough, denies pulmonary embolism, denies shortness of breath, and denies coughing up blood. Gastrointestinal: The patient denies difficulty swallowing, NOTES acid reflux, denies ulcers, denies vomiting, denies jaundice/hepatitis, denies gallbladder problems, denies black or tarry stools, denies hemorrhoids, denies bleeding from rectum, denies diverticulitis, denies constipation, denies diarrhea, denies loss of stool control, and denies hernias. Kidney/Bladder: The patient NOTES kidney stones, denies urine infections, and denies bloody urine. Skin: The patient denies a history of skin cancer, denies bleeding/changing moles, and denies a history of skin rash. Neurologic: The patient denies a history of epilepsy/convulsions, NOTES headaches, denies head/spinal injuries, and denies stroke/TIA. Psychiatric: The patient denies psychiatric medications, NOTES depression, and denies voices, denies substance abuse. Endocrine: The patient denies thyroid disorders, denies diabetes, and denies hormonal problems. Hematologic: The patient denies a history of bruising, denies bleeding, and denies anemia, denies blood clots. Infections: The patient denies a history of measles and mumps, denies rheumatic fever, and denies sexually transmitted diseases. Musculoskeletal: The patient denies back pain/injury, NOTES back problems, NOTES sciatica, denies knee/foot trouble, NOTES arthritis, or denies gout. When was patient's last Mammogram screening? Unknown Last Colonoscopy: 2011 Elena Fitch RN PHYSICAL EXAMINATION: General: The patient is 61 year old female, well nourished, well hydrated in no acute distress. Thepatient is oriented to time, place, and person. VITALS: Blood pressure 120/80, pulse 88, temperature 37.1 C (98.8 F), height 121.9 cm (4'), weight 56.4 kg (124 lb 6.4 oz), last menstrual period 08/17/2009, SpO2 99 %. Body mass index is 37.96 kg/m . Head: Normal cephalic, atraumatic Eyes: pupils are equally round, sclera are clear/anicteric Neck is supple with no tracheal deviation Respiratory: Normal respiratory excursion and pattern. Abdominal exam: benign Extremities: no clubbing, cyanosis or edema. Neuro: non focal Psych: normal mood IMPRESSION: screening for colon cancer via colonoscopy PLAN: I have discussed the above with the patient. I have offered colonoscopy , possible biopsies I have explained the procedure to the patient. I have counseled the patient as to the risks of the procedure, including but not limited to: infection, bleeding, injury to any intrabdominal organs such as liver/spleen, perforation of the GI tract,inability to complete the procedure, complications of anesthesia, etc. - the patient understands. The patient wishes to proceed. I have answered all questions to the patient s satisfaction and the patient has no further questions. Diagnoses: (Z12.11) Screening for colon cancer (primary encounter diagnosis) Ariana Shen MD * Ariana Shen MD - 08/17/2022 7:30 AM EST HISTORY AND PHYSICAL Jacqueline Oliveira 1960 REFERRING PHYSICIAN: Calli Cifuentes MD CHIEF COMPLAINT: Consult (Colonoscopy consult/) HPI: The patient is a 61 year old female referred for endoscopy. Jacqueline presents for consideration of screening for colon cancer via colonoscopy The patient denies blood in stools, denies abdominal pain, and denies changes in bowel habits. The patient notes no colon cancer in immediate family. The patient has had previous colonoscopy in 2011 PAST MEDICAL HISTORY Diagnosis Date Achondroplasia Actinic keratosis Allergic rhinitis Back ache Chronic pain syndrome Class 2 obesity with body mass index (BMI) of 37.0 to 37.9 in adult Embolism and thrombosis of unspecified site 12/2007 LEFT THIGH GERD (gastroesophageal reflux disease) IBS (irritable bowel syndrome) Kidney stones 05/2012 MDD (major depressive disorder), recurrent episode, mild (HCC) Menopausal flushing CONRADO (obstructive sleep apnea) Other specified forms of hearing loss, unspecified laterality PMH - PAST MEDICAL HISTORY OF lumbar stenosis Sciatica Spinal stenosis Spondylolysis of cervical region Stenosis, spinal, lumbar PAST SURGICAL HISTORY Procedure Laterality Date ADENOIDECTOMY PRIMARY <AGE 14 Adenoidectomy DELIVERY ONLY , low cervical CHOLECYSTECTOMY Cholecystectomy COLONOSCOPY 2011 KIDNEY STONE ANALYSIS MYRINGOTOMY W TUBE,BILATERAL(2) RHINP PRIM LAT&ALAR CRTLGS&/ELVTN NASAL TI Rhinoplasty TONSILLECTOMY PRIMARY/SECONDARY <AGE 14 Tonsillectomy Current Outpatient Medications Medication Sig loratadine 10 mg cap Take 10 mg by mouth once daily. escitalopram oxalate (LEXAPRO) 5 mg tablet Take 5 mg by mouth once daily. fluticasone (FLONASE) 50 mcg/actuation nasal spray Use 1 [place] in each nostril as needed. ALBUTEROL 90 MCG/ACTUATION AEROSOL INHALER Inhale one(1) - two(2) puffs four(4) times a day as needed for wheezing and shortness of breath. peg 3350-Electrolytes (GOLYTELY) 236-22.74-6.74 -5.86 gram suspension Take 4,000 mL by mouth one time only for 1 dose. Refer to printed prep instructions from your provider. esomeprazole (NEXIUM) 20 mg capsule Take 20 mg by mouth once daily. hydrOXYzine HCl (ATARAX) 10 mg tablet Take 10 mg by mouth once daily. (Patient not taking: Reportedon 06/29/2022) ranitidine hcl(ZANTAC 150 MG TAB) Take one(1) tablet twice daily. (Patient not taking: Reported on 06/29/2022) ALLERGIES: Bactrim [Sulfamethoxazole-Trimethoprim], Cefuroxime, Cephalosporins, Codeine, Decongestant Tablet, Erythromycin Base, Macrobid [Nitrofurantoin Monohyd/M-Cryst], Nitrofurantoin, Sulfamethoxazole, Trimethoprim, and Erythromycin PERSONAL HISTORY: Social History Tobacco Use Smoking status: Every Day Packs/day: 0.25 Years: 40.00 Pack years: 10.00 Types: Cigarettes Smokeless tobacco: Never Vaping Use Vaping Use: Never used Substance Use Topics Alcohol use: No Drug use: No FAMILY HISTORY Problem Relation Age of Onset Hypertension Mother other (parkinsons) Mother Prostate Cancer Father Skin Cancer Father Coronary Artery Disease Brother Coronary Artery Disease Paternal Grandfather The review of systems data was entered by the nurse and reviewed by nh Nursing Notes: Elena Fitch RN 06/29/2022 3:23 PM Signed REVIEW OF SYSTEMS: General: The patient denies fatigue, denies weight loss, denies weight gain, denies feeling hot, and denies feelings of cold. Eyes: The patient denies glaucoma, denies eye injury/surgery, wears glasses or contacts. Ear/Nose/Throat: The patient NOTES allergies, NOTES hayfever, denies ear infections, and denies bloody noses. Cardiovascular: The patient denies chest pain, denies heart disease, denies high blood pressure,denies cardiac stent, denies prior heart attack, denies irregular heart beat, denies high cholesterol, denies poor circulation, denies heart failure, other cardiac issues, NOTES claudication, denies coldfeet, denies peripheral arterial stent. Respiratory: The patient denies tuberculosis, denies pneumonia, denies frequent cough, denies pulmonary embolism, denies shortness of breath, and denies coughing up blood. Gastrointestinal: The patient denies difficulty swallowing, NOTES acid reflux, denies ulcers, denies vomiting, denies jaundice/hepatitis, denies gallbladder problems, denies black or tarry stools, denies hemorrhoids, denies bleeding from rectum, denies diverticulitis, denies constipation, denies diarrhea, denies loss of stool control, and denies hernias. Kidney/Bladder: The patient NOTES kidney stones, denies urine infections, and denies bloody urine. Skin: The patient denies a history of skin cancer, denies bleeding/changing moles, and denies a history of skin rash. Neurologic: The patient denies a history of epilepsy/convulsions, NOTES headaches, denies head/spinal injuries, and denies stroke/TIA. Psychiatric: The patient denies psychiatric medications, NOTES depression, and denies voices, denies substance abuse. Endocrine: The patient denies thyroid disorders, denies diabetes, and denies hormonal problems. Hematologic: The patient denies a history of bruising, denies bleeding, and denies anemia, denies blood clots. Infections: The patient denies a history of measles and mumps, denies rheumatic fever, and denies sexually transmitted diseases. Musculoskeletal: The patient denies back pain/injury, NOTES back problems, NOTES sciatica, denies knee/foot trouble, NOTES arthritis, or denies gout. When was patient's last Mammogram screening? Unknown Last Colonoscopy: 2011 Elena Fitch RN PHYSICAL EXAMINATION: General: The patient is 61 year old female, well nourished, well hydrated in no acute distress. Thepatient is oriented to time, place, and person. VITALS: Blood pressure 120/80, pulse 88, temperature 37.1 C (98.8 F), height 121.9 cm (4'), weight 56.4 kg (124 lb 6.4 oz), last menstrual period 08/17/2009, SpO2 99 %. Body mass index is 37.96 kg/m . Head: Normal cephalic, atraumatic Eyes: pupils are equally round, sclera are clear/anicteric Neck is supple with no tracheal deviation Respiratory: Normal respiratory excursion and pattern. Abdominal exam: benign Extremities: no clubbing, cyanosis or edema. Neuro: non focal Psych: normal mood IMPRESSION: screening for colon cancer via colonoscopy PLAN: I have discussed the above with the patient. I have offered colonoscopy , possible biopsies I have explained the procedure to the patient. I have counseled the patient as to the risks of the procedure, including but not limited to: infection, bleeding, injury to any intrabdominal organs such as liver/spleen, perforation of the GI tract,inability to complete the procedure, complications of anesthesia, etc. - the patient understands. The patient wishes to proceed. I have answered all questions to the patient s satisfaction and the patient has no further questions. Diagnoses: (Z12.11) Screening for colon cancer (primary encounter diagnosis) Ariana Shen MD documented in this encounterMet[facility]09-30-2022 NoteHNO ID: [id number] Author: Ariana Shen MD Service: ? Author Type: Physician Type: Progress Notes Filed: 06/30/2022 1:25 PM Note Text: HISTORY AND PHYSICAL Jacqueline Oliveira 1960 REFERRING PHYSICIAN: Calli Cifuentes MD CHIEF COMPLAINT: Consult (Colonoscopy consult/) HPI: The patient is a 61 year old female referred for endoscopy. Jacqueline presents for consideration of screening for colon cancer via colonoscopy The patient denies blood in stools, denies abdominal pain, and denies changes in bowel habits. The patient notes no colon cancer in immediate family. The patient has had previous colonoscopy in 2011 PAST MEDICAL HISTORY Diagnosis Date Achondroplasia Actinic keratosis Allergic rhinitis Back ache Chronic pain syndrome Class 2 obesity with body mass index (BMI) of 37.0 to 37.9 in adult Embolism and thrombosis of unspecified site 12/2007 LEFT THIGH GERD (gastroesophageal reflux disease) IBS (irritable bowel syndrome) Kidney stones 05/2012 MDD (major depressive disorder), recurrent episode, mild (HCC) Menopausal flushing CONRADO (obstructive sleep apnea) Other specified forms of hearing loss, unspecified laterality PMH - PAST MEDICAL HISTORY OF lumbar stenosis Sciatica Spinal stenosis Spondylolysis of cervical region Stenosis, spinal, lumbar PAST SURGICAL HISTORY Procedure Laterality Date ADENOIDECTOMY PRIMARY Adenoidectomy DELIVERY ONLY , low cervical CHOLECYSTECTOMY Cholecystectomy COLONOSCOPY 2011 KIDNEY STONE ANALYSIS MYRINGOTOMY W TUBE,BILATERAL(2) RHINP PRIM LATANDALAR CRTLGSAND/ELVTN NASAL TI Rhinoplasty TONSILLECTOMY PRIMARY/SECONDARY Tonsillectomy Current Outpatient Medications Medication Sig loratadine 10 mg cap Take 10 mg by mouth once daily. escitalopram oxalate (LEXAPRO) 5 mg tablet Take 5 mg by mouth once daily. fluticasone (FLONASE) 50 mcg/actuation nasal spray Use 1 [place] in each nostril as needed. ALBUTEROL 90 MCG/ACTUATION AEROSOL INHALER Inhale one(1) - two(2) puffs four(4) times a day as needed for wheezing and shortness of breath. peg 3350-Electrolytes (GOLYTELY) 236-22.74-6.74 -5.86 gram suspension Take 4,000 mL by mouth one time only for 1 dose. Refer to printed prep instructions from your provider. esomeprazole (NEXIUM) 20 mg capsule Take 20 mg by mouth once daily. hydrOXYzine HCl (ATARAX) 10 mg tablet Take 10 mg by mouth once daily. (Patient not taking: Reported on 06/29/2022) ranitidine hcl(ZANTAC 150 MG TAB) Take one(1) tablet twice daily. (Patient not taking: Reported on 06/29/2022) ALLERGIES: Bactrim [Sulfamethoxazole-Trimethoprim], Cefuroxime, Cephalosporins, Codeine, Decongestant Tablet, Erythromycin Base, Macrobid [Nitrofurantoin Monohyd/M-Cryst], Nitrofurantoin, Sulfamethoxazole, Trimethoprim, and Erythromycin PERSONAL HISTORY: Social History Tobacco Use Smoking status: Every Day Packs/day: 0.25 Years: 40.00 Pack years: 10.00 Types: Cigarettes Smokeless tobacco: Never Vaping Use Vaping Use: Never used Substance Use Topics Alcohol use: No Drug use: No FAMILY HISTORY Problem Relation Age of Onset Hypertension Mother other (parkinsons) Mother Prostate Cancer Father Skin Cancer Father Coronary Artery Disease Brother Coronary Artery Disease Paternal Grandfather The review of systems data was entered by the nurse and reviewed by nh Nursing Notes: Elena Fitch RN 06/29/2022 3:23 PM Signed REVIEW OF SYSTEMS: General: The patient denies fatigue, denies weight loss, denies weight gain, denies feeling hot, and denies feelings of cold. Eyes: The patient denies glaucoma, denies eye injury/surgery, wears glasses or contacts. Ear/Nose/Throat: The patient NOTES allergies, NOTES hayfever, denies ear infections, and denies bloody noses. Cardiovascular: The patient denies chest pain, denies heart disease, denies high blood pressure,denies cardiac stent, denies prior heart attack, denies irregular heart beat, denies high cholesterol, denies poor circulation, denies heart failure, other cardiac issues, NOTES claudication, denies cold feet, denies peripheral arterial stent. Respiratory: The patient denies tuberculosis, denies pneumonia, denies frequent cough, denies pulmonary embolism, denies shortness of breath, and denies coughing up blood. Gastrointestinal: The patient denies difficulty swallowing, NOTES acid reflux, denies ulcers, denies vomiting, denies jaundice/hepatitis, denies gallbladder problems, denies black or tarry stools, denies hemorrhoids, denies bleeding from rectum, denies diverticulitis, denies constipation, denies diarrhea, denies loss of stool control, and denies hernias. Kidney/Bladder: The patient NOTES kidney stones, denies urine infections, and denies bloody urine. Skin: The patient denies a history of skin cancer, denies bleeding/changing moles, and denies a history of skin rash. Neurologic: The (more content not included)...[facility] Evaluation + Plan note Future Appointments Appointment Date:02/01/2023 09:00:00 AM Scheduled Provider:ZOHRA ESPINOSA MD Location:NEUROS Appointment Type:NS T[employer]OD [facility] Evaluation + Plan note Future Appointments Appointment Date:03/27/2023 02:40:00 PM Scheduled Provider: Location:PAIN Appointment Type:PM EMG/NCV 2 Extremity [facility] Evaluation + Plan note Future Appointments [facility] Evalumwdht note* Diagnosis Onset Date Resolution Status Achondroplasia acute Spinal stenosis of lumbar region at multiple levels acute [facility] Work Phone: Evaluation noteNo assessment information available [facility] Work Phone: Evaluation note* Diagnosis Onset Date Resolution Status Hydronephrosis acute Kidney stone acute Right ureteral stone acute [facility] Work Phone: Evaluation note* Diagnosis Onset Date Resolution Status Kidney stone acute Hydronephrosis resolved Right ureteral stone resolve d [facility] Work Phone: Evaluation note* Diagnosis Encounter for screening for malignant neoplasm of colon- Primary Special screening for malignant neoplasms, colon [facility] Diagnosis Onset Date Resolution Status Myelomalacia of cervical cord acute [facility] Work Phone: Evaluation note* Diagnosis Screening for colon cancer- Primary Special screening for malignant neoplasms, colon documented in this [facility] Diagnosis Onset Date Resolution Status Admit Date Constipation acute May 17, 2025 7:59am Kidney stone acute May 17, 2025 7:59am Overactive bladder acute May 17, 2025 7:59am [facility] Work Phone: Hospital course Narrative No data available for this section [facility] Work Phone: [facility] Dis[facility] instructionsW[facility] Work Phone: Hospital Discharge instructions No data available for this section [facility] Discharge instructionsAmbulatory Orders* Neurosurgery Location: None [facility] Work Phone: Progress note No data available for this section [facility] Reason for referral (narrative)* Outpatient Procedure (Routine) - Closed Specialty Diagnoses / Procedures Referred By Contac t Referred To Contact [facility] Diagnoses Screening for colon cancer Procedures COLONOSCOPY SCREENING COLONOSCOPY FLX DX W/COLLJ SPEC WHEN Ariana Levy MD [address] [place] [address] [facility] [address] [place] [address] Referral ID Status Reason Start Date Expiration Date V isits Requested Visits Authorized [id number] Closed Auto-Generate d Referral 06/29/2022 06/29/2023 1 1 [facility]No reason for referral information availableWUniversity Hospitals St. [facility] Work Phone: Reason for visit Narrative* Outpatient Procedure (Routine) - Closed Specialty Diagnoses / Procedures Referred By Contac t Referred To Contact [facility] Diagnoses Screening for colon cancer Procedures COLONOSCOPY SCREENING COLONOSCOPY FLX DX W/COLLJ SPEC WHEN PFAriana Olsen MD [address] [place] [address] [facility] [address] [place] [address] Referral ID Status Reason Start Date Expiration Date V isits Requested Visits Authorized [id number] Closed Auto-Generate d Referral 06/29/2022 06/29/2023 1 1 [facility] Chief Complaint and Reason for Visit Chief Complaint Lumbar spine pain Reason for Visit Achondroplasia Spinal stenosis of lumbar region at multiple levels Chief Complaint FLANK PAIN Chief Complaint FLANK PAIN RIGHT URETERAL CALCULUS Reason for Visit Hydronephrosis Kidney stone Right ureteral stone Chief Complaint FLANK PAIN RIGHT URETERAL CALCULUS KUB Reason for Visit Kidney stone Hydronephrosis Right ureteral stone Chief Complaint FLANK PAIN RIGHT URETERAL CALCULUS KUB NICOTINE DEP, SCREENING Reason for Visit Kidney stone Hydronephrosis Right ureteral stone Chief Complaint SPINAL STENOSIS cervical spine Reason for Visit Myelomalacia of cerv ical cord Chief Complaint KUB Chief Complaint KUB SPONDYLOSIS WITH MYELOPATHY Chief Complaint SPONDYLOSIS WITH MYE LOPATHY SCREENING Chief Complaint back pain Chief Complaint Admit Date SCREENING; TOBACCO USE WITH > 30 PACKS A YEAR March 25, 2025 1:22pm Chief Complaint Admit Date SCREENING; TOBACCO USE WITH > 30 PACKS A YEAR March 25, 2025 1:22pm incont bladder discomfort May 17 025 7:59am Reason for Visit Admit Date Constipation May 17, 2025 7: 59am Kidney stone May 17, 2025 7: 59am Overactive bladder May 17, 2025 7: 59am Chief Complaint Admit Date SCREENING; TOBACCO USE WITH > 30 PACKS A YEAR March 25, 2025 1:22pm incont bladder discomfort [place] 18[address], 2 025 7:59am [facility] [place] June 14, 2025 8:07am Reason for Visit Admit Date Constipation May 17, 2025 7: 59am Kidney stone May 17, 2025 7: 59am Nocturia May 17, 2025 7: 59am Overactive bladder May 17, 2025 7: 59am Urge incontinence May 17, 2025 7: 59am Kidney stone June 14, 2025 8:07am Nocturia June 14, 2025 8:07am Overactive bladder June 14, 2025 8:07am Urge incontinence June 14, 2025 8:07am Family History No Family History Records Found Relationship Condition Age at Onset Recorded Date/T tu father Malignant neoplasm of prostate Unknown Malignant neoplasm of skin Unknown mother Parkinson's disease Unknown Hypertension Unknown Advance Directives No Advanced Directives Records Found Advance Directive Response Recorded Date/ Time Advance Directives No August 11:09am Living Will No August 15 7:50am Power of Technical Analyst No August 15, 2021 7:50am Advance Directive Response Recorded Date/ Time Advance Directives No August 11:09am Living Will No April 10, 2022 1:48pm Power of Technical Analyst No April 10 1:48pm Advance Directive Response Recorded Date/ Time Advance Directives No August 11:09am Living Will No April 12, 2022 3:53am Power of Technical Analyst No April 12 3:53am Advance Directive Response Recorded Date/ Time Advance Directives No August 10:09am Living Will No April 12, 2022 2:53am Power of Technical Analyst No April 12 2:53am Advance Directive Response Recorded Date/ Time Advance Directives No October 11:29am Living Will No November 20, 2 023 11:29am Power of Technical Analyst No November 20, 2022 11:29am Advance Directive Response Recorded Date/ Time Advance Directives No October 12:29pm Living Will No November 20, 2 023 12:29pm Power of Technical Analyst No November 20, 2022 12:29pm Advance Directive Response Recorded Date/ Time Advance Directives No October 12:29pm Living Will No February 10, 2024 5 :43am Power of Technical Analyst No February 10, 2024 5:43am Advance Directive Response Recorded Date/ Time Advance Directives No October 12:29pm Summary Purpose Medications Administered Section Inactive Administered Medications - up to 3 most recent administrations Medication Order MAR Action Action Date Dose Rate Site diphenhydrAMINE 12.5-50 mg injection (BENADRYL) 12.5-50 mg, INTRAVENOUS, DIRECTED, Starting on Sat08/17/22 at 0800, Until Sat08/17/22 at 1159, DOSING DIRECTED BY PHYSICIAN FOR PROCEDURAL SEDATION ONLY, Intraprocedure Given 08/17/2022 7:45 AM EST 25 mg fentaNYL 50 mcg/mL 25-100 mcg injection (SUBLIMAZE) 25-100 mcg, INTRAVENOUS, DIRECTED, Starting on Sat08/17/22 at 0800, Until Sat08/17/22 at 1159, DOSING DIRECTED BY PHYSICIAN FOR PROCEDURAL SEDATION ONLY, Intraprocedure Given 08/17/2022 7:40 AM EST 50 mcg lactated ringers iv infusion 30 mL/hr, INTRAVENOUS, CONTINUOUS, Starting on Sat08/17/22 at 0730, Until Sat08/17/22 at 0813, Preprocedure New Bag/Syringe/Bot tle 08/17/2022 7:25 AM EST 30 mL/hr 30 mL/hr Wrist, Right midazolam (PF) 1-5 mg injection (VERSED) 1-5 mg, INTRAVENOUS, DIRECTED, Starting on Sat08/17/22 at 0800, Until Sat08/17/22 at 1159, DOSING DIRECTED BY PHYSICIAN FOR PROCEDURAL SEDATION ONLY, Intraprocedure Given 08/17/2022 7:49 AM EST 2 mg Given 08/17/2022 7:40 AM EST 3 mg Additional Source Comments Goals (unrecognized section and content) Goals may be documented in a n alternate sectionGoals may be documented in an alternate sectionGoals may be documented in an alternate section No data available for this sectionGoals may be documented in an alternate section No data available for this sectionGoals may be documented in an alternate sectionGoals may be documented in an alternate sectionGoals may be documented in an alternate sectionGoals may be documented in an alternate sectionGoals may be documented in an alternate section No data available for this sectionGoals may be documented in an alternate section No data available for this section No data available for this section No data available for this sectionGoals may be documented in an alternate sectionGoals may be documented in an alternate sectionGoals may be documented in an alternate sectionGoals may be documented in an alternate sectionGoals may be documented in an alternate section Source Comments (unrecognize d section and content) In the event this informatio n is protected by the Federal Confidentiality of Alcohol and Drug Abuse Patient Records regulations: The Federal rules restrict any use of the information to criminally investigate or prosecute any alcohol or drug abuse patient.[facility] the event this information is protected by the Federal Confidentiality of Alcohol and Drug Abuse Patient Records regulations: The Federal rules restrict any use of the information to criminally investigate or prosecute any alcohol or drug abuse patient.[facility] Reason for Visit (unrecogniz ed section and content) Reason Comments Follow Up Colonoscopy results Care Teams (unrecognized sec tion and content) [employer] [facility] Receptionist Relationship Specialty Start Date End Date Calli Cifuentes MD [address] [place] [id number] PCP - General Family Medicine 05/21/22 Team Status: Active Member Role Status Dates Dr. Calli Cifuentes MD Family Provider Active Dr. Calli Cifuentes MD Primary Care Provider Active Team Status: Inactive Member Role Status Dates Dr. Calli Cifuentes MD Primary Care Provide r, Attending Provider, Referring Provider Active Team Status: Inactive Member Role Status Dates Dr. Calli Cifuentes MD Primary Care Provider, Referring P liz Active Dr. Osbaldo Darling DO Attending Provider Active Team Status: Inactive Member Role Status Dates Dr. Calli Cifuentes MD Primary Care Provider, Attending P rovider Active Team Status: Inactive Member Role Status Dates Dr. Calli Cifuentes MD Primary Care Provider Active Dr. Yves Benavides MD Attending Provider, Referri ng Provider Active Team Status: Inactive Member Role Status Dates Dr. Calli Cifuentes MD Primary Care Provider Active Dr. Jenifer Win MD Attending Provider, Referring P rovider Active Team Status: Inactive Member Role Status Dates Dr. Calli Cifuentes MD Primary Care Provider Active Dr. Brayden Echevarria MD Attending Provider, Referring Prov ider Active [employer] Receptionist Relationship Specialty Start Date End Date Calli Cifuenets MD [address] [place] [id number] PCP - General Family Medicine 05/21/22 Team Status: Inactive Member Role Status Dates Dr. Calli Cifuentes MD Primary Care Provider Active Dr. Calli Villegas DO Emergency Provider Active Team Status: Active Member Role Status Dates Dr. Calli Cifuentes MD Primary Care Provider Active Team Status: Inactive Member Role Status Dates Dr. Calli Cifuentes MD Primary Care Provider Active Start: February 25, 2025 End: February 25, 2025 Dr. Calli Cifuentes MD Attending Provider Active St art: February 25, 2025 End: February 25, 2025 Dr. Calli Cifuentes MD Referring Provider Active St art: February 25, 2025 End: February 25, 2025 Team Status: Active Member Role/Relationship Status Dates Dr. Calli Cifuentes MD Primary Care Provider Active Team Status: Inactive Member Role/Relationship Status Dates Dr. Calli Cifuentes MD Primary Care Provider Active Start: February 25, 2025 End: February 25, 2025 Dr. Calli Cifuentes MD Attending Provider Active St art: February 25, 2025 End: February 25, 2025 Dr. Calli Cifuentes MD Referring Provider Active St art: February 25, 2025 End: February 25, 2025 Team Status: Inactive Member Role/Relationship Status Dates Dr. Calli Cifuentes MD Primary Care Provider Active Start: March 25, 2025 End: March 25, 2025 Dr. Calli Cifuentes MD Attending Provider Active St art: March 25, 2025 End: March 25, 2025 Dr. Calli Cifuentes MD Referring Provider Active St art: March 25, 2025 End: March 25, 2025 Team Status: Inactive Member Role/Relationship Status Dates Dr. Calli Cifuentes MD Primary Care Provider Active Start: April 08, 2025 End: April 08, 2025 Dr. Calli Cifuentes MD Attending Provider Active St art: April 08, 2025 End: April 08, 2025 Dr. Calli Cifuentes MD Referring Provider Active St art: April 08, 2025 End: April 08, 2025 Team Status: Inactive Member Role/Relationship Status Dates Dr. Calli Cifuentes MD Primary Care Provider Active Start: March 30, 2025 Dr. Jenifer Win MD Attending Provider Active Start: March 30, 2025 Team Status: Inactive Member Role/Relationship Status Dates Dr. Calli Cifuentes MD Primary Care Provider Active Start: April 08, 2025 End: April 08, 2025 Dr. Calli Cifuentes MD Attending Provider Active St art: April 08, 2025 End: April 08, 2025 Dr. Calli Cifuentes MD Referring Provider Active St art: April 08, 2025 End: April 08, 2025 Team Status: Inactive Member Role/Relationship Status Dates Dr. Calli Cifuentes MD Primary Care Provider Active Start: May 17, 2025 End: May 17, 2025 Dr. Calli Cifuentes MD Referring Provider Active St art: May 17, 2025 End: May 17, 2025 Dr. Jenifer Win MD Attending Provider Active Start: May 17, 2025 End: May 17, 2025 Team Status: Inactive Member Role/Relationship Status Dates Dr. Calli Cifuentes MD Primary Care Provider Active Start: June 14, 2025 End: June 14, 2025 Dr. Calli Cifuentes MD Referring Provider Active St art: June 14, 2025 End: June 14, 2025 Dr. Jenifer Win MD Attending Provider Active Start: June 14, 2025 End: June 14, 2025 INFORMATION SOURCE (unrecogn ized section and content) DATE CREATED AUTHOR 08/28/2022 [facility] DATE CREATED AUTHOR AUTHOR'S ORGANIZ ATION 05/03/2024 [facility] ([place]) DATE CREATED AUTHOR AUTHOR'S ORGANIZ ATION 09/11/2024 [facility] DATE CREATED AUTHOR AUTHOR'S ORGANIZ ATION 08/10/2025 [facility] Care Team (unrecognized sect ion and content) Personnel Name: DASH BUSTAMANTE MD Address: Address: [address] [place] [address] FOR RECORDS PERTAINING TO PATIENTS WHO ARE OR HAVE BEEN ENROLLED IN A CHEMICAL DEPENDENCY/SUBSTANCEABUSE PROGRAM, SOME INFORMATION MAY BE OMITTED. This clinical summary was aggregated from multiple sources. Caution should be exercised in using it in the provision of clinical care. This summary normalizes information from multiple sources, and as a consequence, information in this document may materially change the coding, format and clinical context of patient data. In addition, data may be omitted in some cases. CLINICAL DECISIONS SHOULD BE BASED ON THE PRIMARY CLINICAL RECORDS. [facility] [employer] [facility]. provides no warranty or guarantee of the accuracy or completeness of information in this document.
--- NOTE | 2025-08-19 14:09 | CT_ITS ---
PROCEDURE: ABDOMEN/PELVIS WITH CONTRAST 08/19/2025 REASON FOR EXAM: N/V W/ EARLY STAIETY, CONCERN FOR DOUDENAL ULCER/LESION TECHNIQUE: Procedure Code: [id number] Modality: CT Procedure: ABDOMEN/PELVIS WITH CONTRAST Coronal and Sagittal reconstruction series were provided. CONTRAST: Isovue 370 VOLUME: 100 mL One or more dose reduction techniques were used (e.g., Automated exposure control, adjustment of the mA and/or kV according to patient size, use of iterative reconstruction technique. RADIATION DOSE SUMMARY: CTDlvol: 21 mGy DLP: 555 mGycm COMPARISON: 04/10/2022 FINDINGS: There is a chronic anterior wedge, minimal of L2. Prior dorsal decompression of the lumbar spine. No acute compressive deformity. The lung bases are clear. There is mild intrahepatic and extrahepatic biliary dilatation status post cholecystectomy. Bilateral renal cysts are present. There is no hydronephrosis. There is again seen a nonobstructing stone in the interpolar region of the right kidney which measures approximately 5 mm. GI contrast has been administered and there is no bowel obstruction. There is no free-fluid or free air. There is no bladder calculus. There is no diverticulitis or visible appendicitis. No ureteral dilatation or compression. 3 mm stone interpolar region left kidney. CT/Abdomen/Pelvis WITH Contrast IMPRESSION: Nonobstructing nephrolithiasis. No hydronephrosis or ureteral distention. Kateryna or cholecystectomy with post cholecystectomy biliary prominence. Prior lumbar surgery. Reading Location[facility]
== END | disposition home or self-care (01) ==
LOC: CT 07:39
PROVIDERS: PCP Family Medicine; Referring Provider Family Medicine; Visit Provider Family Medicine
DX: K29.00 Acute gastritis without bleeding (principal)
CPT/HCPCS: 74177; Q9967; A4216